=== PATIENT | female | born 1970 | race Caucasian/White ===

== ENCOUNTER 2017-05-12 09:45 | Day surgery (SDC) | payer OTHER, SELFPAY ==
[2017-05-10 16:18] LABS: Hematocrit 42.6 % (37-47); Hemoglobin 13.5 g/dl (12.0-15.0); Mean Corp Hgb Conc 31.7 g/gl (32-36); Mean Corpuscular Hgb 27.6 pg (27.0-32.0); Mean Corpuscular Volume 87.1 fL (81-99); Mean Platelet Vol. 9.9 fl (6.2-12.0); Platelet Count 244 K/mm3 (150-450); RBC Distribution Width CV 15.9 % (11.6-14.6); RBC Distribution Width SD 51.1 fl (35.1-43.9); Red Blood Count 4.89 M/mm3 (4.2-5.4); White Blood Count 11.7 K/mm3 (4.4-11.0)
[2017-05-10 16:28] LABS: Scan Indicated on CBC? Y/N NO
[2017-05-12 10:34] VITALS: BP 98/64; PULSE 82; RESP 16; TEMP 36.5; O2SAT 99; BMI 25.2
--- NOTE | 2017-05-12 12:30 | UTC_PTH ---
PATIENT: STEPHANIE SAMPSON [place] [facility] [place][id number] AGE/SX: 46/F ROOM: RE05/12/[address]: Dr. Alexus Jones MD : 1970 BED: DIS: 05/12/2017 SPEC #: [id number] RECD: 05/12/17 14:59 STATUS: ARISTEO EDILMA #: [id number] SHUKRI: 05/12/17 12:[address]: Alexus Jones DEPT: SURGICAL PATHOLOGY RECD BY: Kendall Robles ENTERED: 05/12/17 14:59 SP TYPE: OR REGINA AHUMADA DR: Thi Alonzo, MORNING NANNY-C Tissues: Uterine cervix, NOS Procedures: Surgery Specimen Level IV HEADER OPERATION: Hysteroscopy, dilation and curettage, Amy PRE-OP DIAGNOSIS: Excessive bleeding in premenopausal period TISSUE SUBMITTED: Uterine curettings MICROSCOPIC DIAGNOSIS Uterine curettings: Proliferative endometrium with glandular and stromal breakdown. Fragments of benign ecto- and endocervical mucosa with chronic inflammation and squamous metaplasia, blood and mucous. SCOTT:opal 05/13/17 MICROSCOPIC DESCRIPTION Slides are reviewed. GROSS DESCRIPTION Received in fixative is one container labeled with the patient's name and designated uterine curettings. The specimen consists of multiple irregular fragments of light carpenter soft tissue that in aggregate measure 2.2 x 1.5 x 0.1 cm. The specimen is totally submitted in one cassette. / AM:opal 05/12/17 TC:5 CPT: 07594
--- NOTE | 2017-05-12 12:32 | PCM.DC.D&C ---
Discharge Diet: No Restrictions Discharge Activity: May not drive while taking narcotic pain medications., May Shower, May Take a Tub Bath Return to work on:: 05/13/17 May resume sexual activity in: 1-2 weeks Weight Bearing Status: Weight bearing as tolerated Call your doctor if you observe: Fever of 101 or Higher, Inability to have a bowel movement, Calf discomfort, Uncontrolled pain Allergies/Adverse Reactions: Allergies Penicillins Allergy (Verified 05/05/17 11:35) Rash Medications to take at Discharge Losartan Potassium [Cozaar] 25 mg PO QHS 05/05/17 Metoprolol Tartrate [Lopressor (Beta Sherman)] 25 mg PO QHS 05/05/17 Oxycodone HCl/Acetaminophen [Percocet 5/325] 1 - 2 tablet PO Q4H PRN PRN 2 Days #7 tablet 05/12/17 The following prescriptions were given: Oxycodone HCl/Acetaminophen [Percocet 5/325] 1 - 2 tablet PO Q4H PRN PRN 2 Days #7 tablet PRN Reason: Pain Primary Care Physician: Thi Alonzo [Primary Care Provider] - Please Follow Up With: Alexus Jones MD - [phone] When: in 2 wks for postop check as scheduled
--- NOTE | 2017-05-12 12:37 | DCINST_ITS ---
Discharge Diet: No Restrictions Discharge Activity: May not drive while taking narcotic pain medications., May Shower, May Take a Tub Bath Return to work on:: 05/13/17 May resume sexual activity in: 1-2 weeks Weight Bearing Status: Weight bearing as tolerated Call your doctor if you observe: Fever of 101 or Higher, Inability to have a bowel movement, Calf discomfort, Uncontrolled pain Allergies/Adverse Reactions: Allergies Penicillins Allergy (Verified 05/05/17 11:35) Rash Medications to take at Discharge Losartan Potassium [Cozaar] 25 mg PO QHS 05/05/17 Metoprolol Tartrate [Lopressor (Beta Sherman)] 25 mg PO QHS 05/05/17 Oxycodone HCl/Acetaminophen [Percocet 5/325] 1 - 2 tablet PO Q4H PRN PRN 2 Days #7 tablet 05/12/17 The following prescriptions were given: Oxycodone HCl/Acetaminophen [Percocet 5/325] 1 - 2 tablet PO Q4H PRN PRN 2 Days #7 tablet PRN Reason: Pain Primary Care Physician: Thi Alonzo [Primary Care Provider] - Please Follow Up With: Alexus Jones MD - [phone] When: in 2 wks for postop check as scheduled
[2017-05-12] MEDS: Lubricating Jelly 60 GM Tube 30 GM TOPICAL (12:45)
[2017-05-12 13:11] VITALS: BP 110/63; BP 98/64; PULSE 80; RESP 16; TEMP 36.3; O2SAT 96
[2017-05-12 13:15] VITALS: BP 107/73; BP 98/64; PULSE 78; RESP 16; O2SAT 95
[2017-05-12 13:20] VITALS: BP 113/63; BP 98/64; PULSE 80; RESP 16; O2SAT 95
[2017-05-12 13:25] VITALS: BP 109/65; BP 98/64; PULSE 82; RESP 16; TEMP 36.6; O2SAT 96
[2017-05-12 13:55] VITALS: BP 98/64
--- NOTE | 2017-05-12 20:32 | PCM.OP.BLANK ---
Problem List (1) Excessive bleeding in premenopausal period Status: Chronic (2) Uterine fibroid Status: Chronic Qualifiers: Uterine leiomyoma location: submucous Qualified Code(s): D25.0 - Submucous leiomyoma of uterus Operative Report Date of Procedure: 05/12/17 PROCEDURE: Hysteroscopy Dilation and Curettage Amy Endometrial Ablation PREOPERATIVE DIAGNOSIS: Excessive bleeding in premenopause Uterine fibroid POSTOPERATIVE DIAGNOSIS: Excessive bleeding in premenopause Uterine fibroid ANESTHESIA: MAC IV sedation per [facility]AN [place] and Da Oliver MD SURGEON: Alexus Jones MD EBL: minimal COMPLICATIONS: None DRAINS: Red Ackerman catheter used to drain bladder prior to initiation of the case FLUIDS: LR replacement FINDINGS: Uterus is 8 cm with 4 cm endometrial cavity. Atrophic appearing endometrium noted with a small submucous fibroid at anterior lower uterine segment on the L side. Both tubal ostia noted. NARRATIVE ACCOUNT: After the risks, benefits, alternatives of the procedure had been reviewed with the patient informed consent was obtained. The patient was taken to the operating room with an IV running and was place in dorsal supine position on the operating table. She was given IV sedation and then repositioned to the dorsal lithotomy position and prepped and draped in the usual sterile fashion. A red robins catheter was used to drain the bladder. A Graces speculum was placed into the vagina and ta paracervical block of 1% lidocaine was placed at the 10:00; 2:00: 6:00; and 8:00 positions. A single toothed tenaculum was then placed at the anterior lip of the cervix. The uterus was sounded to 8 cm and the endocervical canal 4 cm, giving cavity length of 4 cm. The cervix was sequentially dilated to allow admission of the hysteroscope. The hysteroscopy was then performed with the findings noted above. Both tubal ostia were visualized and a small submucous fibroid was noted at the L anterior lower uterine segment. The hysteroscope was withdrawn. A sharp curettage was performed and minimal curettings were withdrawn and set aside for later pathology review. The Amy ablation device was then placed into the uterus to the fundus. The device was opened and seated into place and the balloon was inflated, sealing off the cervix. The CO2 test was passed times two and a 120 second treatment cycle was then successfully completed. Upon completion of the ablation, the Amy device was removed from the uterus and cervix. The tenaculum was removed from the anterior lip of the cervix. Excellent hemostasis was noted. The Graves speculum was removed from the vagina and the patient was returned to dorsal supine position. she was transferred then to the recovery room in stable condition after tolerating the procedure well. Sponge, needle, and instrument counts were correct times two. Medications given intraop included a paracervical block of 10 cc of 1% lidocaine and Toradol 30 mg IV x one. For a complete listing of the medications given preop and intraoperatively, please see the anesthesia record.
== END 2017-05-12 13:55 | disposition home or self-care (01) ==
LOC: SDC 09:45 → AC 10:53
PROVIDERS: Family Provider Nurse Practitioner; PCP Nurse Practitioner; Visit Provider Obstetrics & Gynecology
PROC: 0UDB8ZZ Extraction of Endometrium, Via Natural or Artificial Opening Endoscopic (ICD-10-PCS; CPT 58558; principal; 2017-05-12 12:15)
DX: N71.9 Inflammatory disease of uterus, unspecified (principal); N87.9 Dysplasia of cervix uteri, unspecified; D25.0 Submucous leiomyoma of uterus; I10 Essential (primary) hypertension; F17.200 Nicotine dependence, unspecified, uncomplicated; Z79.899 Other long term (current) drug therapy
CPT/HCPCS: 00952; 58558; 58999; 36415; 84443; 85027; 88305; J7120

== ENCOUNTER → 2017-07-02 13:33 | Outpatient (CLI) | payer OTHER, SELFPAY ==
--- NOTE | 2017-07-02 13:34 | BI_ITS ---
MAMMOGRAPHY - BILATERAL SCREENING REASON FOR EXAM: Female, 47 years old. Routine annual screening examination. PERTINENT HISTORY: Non-contributory. TECHNIQUE: Digital bilateral breast graeme (3D mammographic acquisition) in the CC and MLO projections. 2-D mediolateral oblique (MLO) and craniocaudad (CC) views of both breasts were obtained. CAD: Full Field Digital Mammography with Computer Added Detection was performed. COMPARISON: Comparison is made with prior study dated March 25, 2016 and November 28, 2014. FINDINGS: Breast Composition: The breasts are heterogeneously dense, which may obscure small masses. There are no dominant masses or suspicious calcifications. A tissue clip marker is seen in the upper outer quadrant of the right breast and compared with prior biopsy. No other significant abnormalities are identified. There has been no significant change since the prior study. BI/SCREENING MAMM (CAD), BILAT IMPRESSION: Stable bilateral screening mammogram. Yearly follow-up mammogram recommended. (A) ASSESSMENT CATEGORY: BIRADS Category 2: Benign. A letter regarding these results will be sent to the patient by the facility within 30 days. Approximately 10% of breast cancers are not detected by mammography. A normal mammogram should not delay biopsy of a clinically suspicious abnormality. [id number] Electronically Signed: Virgilio Hill MD at 15:03 EDT Tel [phone], Service support ,
== END ==
PROVIDERS: Family Provider Nurse Practitioner; PCP Nurse Practitioner; Visit Provider Nurse Practitioner
DX: Z12.31 Encounter for screening mammogram for malignant neoplasm of breast (principal)
CPT/HCPCS: 77063; 77067

== ENCOUNTER → 2018-07-04 | Outpatient (CLI) | payer OTHER, SELFPAY ==
--- NOTE | 2018-07-04 10:22 | CT_ITS ---
STUDY: CT ABDOMEN AND PELVIS WITH CONTRAST REASON FOR EXAM: Female, 48 years old. Abdominal pain. RADIATION DOSAGE (If Supplied By Facility): CTDIvol = ( 13.12 ) mGy, DLP = ( 486.52 ) mGycm TECHNIQUE: Transaxial images were obtained from the dome of the diaphragm to the symphysis pubis without oral contrast. 100 IV/Oral Isovue 370 was administered. Sagittal and coronal images were reconstructed. Individualized dose optimization techniques were used for this CT. COMPARISON: None. FINDINGS: The visualized lung bases are unremarkable. The visualized portions of the heart are within normal limits. There is decreased attenuation of the liver consistent with steatosis. Normal gallbladder and extrahepatic biliary system. Normal spleen. Normal pancreas. Normal bilateral adrenal glands. Normal right kidney. Normal left kidney. Normal visualized stomach. Normal small intestine. Normal colon. The appendix is visualized and appears normal. There is scattered atherosclerotic calcification of the abdominal aorta, without a demonstrated aneurysm. Normal inferior vena cava. There is borderline retroperitoneal lymphadenopathy with enlarged nodes no greater than 10mm in the short axis diameter. Normal urinary bladder. There is a 2.1 cm x 1.7 cm cyst in the left ovary. There is thickening of the endometrium measuring 3 cm. The endometrium is fluid-filled. There is evidence of prior tubal ligation with anna. There is a mild dilatation of the proximal portions of the fallopian tubes bilaterally. Normal abdominal wall. Normal osseous structures. CT/Abdomen/Pelvis WITH Contrast IMPRESSION: 2.1 cm x 1.7 cm cyst in the left ovary. Fluid filled and thickened endometrium measuring 3 cm. Prior bilateral tubal ligation. Fatty infiltration of the liver. Electronically Signed: Virgilio Hill, at 13:51 EDT , Service support ,
[2018-07-04 10:32] LABS: Absolute Lymphocyte Count 1.46 X10^3/ul (0.83-4.51); Absolute Neutrophil Count 6.2 X10^3/uL (2.0-7.7); Basophil# 0.04 X10^3/uL; Basophil% 0.5 % (0-1); Eosinophil# 0.27 X10^3/uL; Eosinophils% 3.2 % (0-5); Hematocrit 49.6 % (37-47); Hemoglobin 16.6 g/dl (12.0-15.0); Lymphocyte # 1.46 X10^3/ul (4.0); Lymphocyte % 17.2 % (19-41); Mean Corp Hgb Conc 33.5 g/gl (32-36); Mean Corpuscular Hgb 32.7 pg (27.0-32.0); Mean Corpuscular Volume 97.8 fL (81-99); Mean Platelet Vol. 9.6 fl (6.2-12.0); Monocyte# 0.49 X10^3/uL; Monocyte% 5.8 % (0-10); Neutrophil # 6.21 X10^3/uL (2.7-7.7); Neutrophil % 72.8 % (47-70); Platelet Count 236 K/mm3 (150-450); RBC Distribution Width CV 13.7 % (11.6-14.6); Red Blood Count 5.07 M/mm3 (4.2-5.4); White Blood Count 8.5 K/mm3 (4.4-11.0)
[2018-07-04 10:33] LABS: POSITIVE COUNT NO; POSITIVE DIFFERENTIAL NO; POSITIVE MORPHOLOGY NO
[2018-07-04 10:59] LABS: ALB/GLOB Ratio 1.1 RATIO (0.9-2.4); AST(SGOT) 14 U/L (15-37); Alanine Aminotransfer ALT/SGPT 25 U/L (13-56); Albumin, Serum 3.8 g/dL (3.2-5.0); Alkaline Phosphatase 63 U/L (45-117); Anion Gap 2 (5-15); BUN 12 mg/dL (7-18); BUN/Creat Ratio 14.9 RATIO (10-20); Calcium,Total 8.4 mg/dL (8.5-10.1); Chloride 110 mmol/L (98-107); EST Glomerular Filtration Rate 81 mL/min (>60); Est Glom Filt Rate - Afr Amer 98 mL/min (>60); Globulin 3.6 g/dL (2.2-4.2); Glucose 134 mg/dL (74-106); Potassium 4.3 mmol/L (3.5-5.1); Protein, Total 7.4 g/dL (6.4-8.2); Sodium Level 139 mmol/L (136-145)
== END | disposition home or self-care (01) ==
PROVIDERS: Family Provider Nurse Practitioner; PCP Nurse Practitioner; Referring Provider Nurse Practitioner Gerontology; Visit Provider Nurse Practitioner Gerontology
DX: R10.9 Unspecified abdominal pain (principal)
CPT/HCPCS: 36415; 74177; 80053; 85025; Q9967

== ENCOUNTER → 2018-09-05 | Outpatient (CLI) | payer OTHER, SELFPAY ==
--- NOTE | 2018-09-05 15:38 | BI_ITS ---
MAMMOGRAPHY - BILATERAL SCREENING REASON FOR EXAM: Female, 48 years old. Routine annual screening examination. PERTINENT HISTORY: Non-contributory. Remote right breast needle biopsy. TECHNIQUE: Digital bilateral breast david (3D mammographic acquisition) in the CC and MLO projections. 2-D mediolateral oblique (MLO) and craniocaudad (CC) views of both breasts were obtained. CAD: Full Field Digital Mammography with Computer Added Detection was performed. COMPARISON: Comparison is made with prior study dated July 02, 2017 and March 25, 2016. FINDINGS: Breast Composition: The breasts are heterogeneously dense, which may obscure small masses. There are no dominant masses or suspicious calcifications. A tissue clip marker is once again seen in the upper outer quadrant of the right breast. No other significant abnormalities are identified. There has been no significant change since the prior study. BI/SCREEN MAMM (CAD) W/DAVID BILAT IMPRESSION: Stable bilateral screening mammogram. Yearly follow-up mammogram recommended. (A) ASSESSMENT CATEGORY: BIRADS Category 2: Benign. A letter regarding these results will be sent to the patient by the facility within 30 days. Approximately 10% of breast cancers are not detected by mammography. A normal mammogram should not delay biopsy of a clinically suspicious abnormality. [id number] Electronically Signed: Virgilio Hill, at 8:28 EDT , Service support ,
== END | disposition home or self-care (01) ==
LOC: OPBI 15:35
PROVIDERS: Family Provider Nurse Practitioner; PCP Nurse Practitioner; Referring Provider Nurse Practitioner; Visit Provider Nurse Practitioner
DX: Z12.31 Encounter for screening mammogram for malignant neoplasm of breast (principal)
CPT/HCPCS: 77063; 77067

== ENCOUNTER 2018-09-28 10:47 | Day surgery (SDC) | payer OTHER, SELFPAY ==
[2018-09-23 15:25] LABS: Hematocrit 49.3 % (37-47); Hemoglobin 16.1 g/dl (12.0-15.0); Mean Corp Hgb Conc 32.7 g/gl (32-36); Mean Corpuscular Hgb 31.9 pg (27.0-32.0); Mean Corpuscular Volume 97.8 fL (81-99); Mean Platelet Vol. 10.2 fl (6.2-12.0); Platelet Count 206 K/mm3 (150-450); RBC Distribution Width CV 13.9 % (11.6-14.6); RBC Distribution Width SD 49.8 fl (35.1-43.9); Red Blood Count 5.04 M/mm3 (4.2-5.4); White Blood Count 8.1 K/mm3 (4.4-11.0)
[2018-09-23 15:30] LABS: International Normalized Ratio 0.9; Prothrombin Time (Protime)PT. 11.9 SECONDS (11.7-14.9)
[2018-09-23 15:31] LABS: Partial Thromboplast Time 27.3 Seconds (24.1-36.2)
[2018-09-23 15:47] LABS: Scan Indicated on CBC? Y/N NO
--- NOTE | 2018-09-24 00:24 | PCM.HPOB.BLA ---
History and Physical Date of Admission: 09/28/18 PREOPERATIVE HISTORY AND PHYSICAL HISTORY OF PRESENT ILLNESS: Virginia Vasquez, a 48 year old female 3 0 0 0 3, presented for: -- Pre-Op Virginia is being seen for pre op visit. Pt to have LAVH/BS with Dr. Jones on 09-28-18. Medications and allergies are up to date. Consents signed and reviewed for surgery. Pt has no new concerns. AM As above. Here for PAT /preop appt prior to planned LAVH, bilateral salpingectomy for postablative syndrome. Pt with prior endometrial ablation and now recurrent severe cramping pain without bleeding. Pelvic sono on 08/26/2018: UTERUS: 9.8 x 7.2 x 5.2 cm. ENDOMETRIAL ECHO: Fluid/blood filled measuring 2.3 cm. RIGHT OVARY: 2.5 x 1.2 x 1.4 cm. LEFT OVARY: Not seen. FREE FLUID: NONE. OTHER PERTINENT FINDINGS: fluid within endometrial canal, and dilated Fallopian tubes. Reviewed anticipated surgery and all questions re surgical procedure and recovery answered to her satisfaction. Consents signed and on chart. EB ALLERGIES: Penicillins, Rash MEDICATIONS HISTORY: Patient is also takin. metformin ER 500 mg tablet,extended release 24hr, 1 PO QD REVIEW OF SYSTEMS: GENERAL - Denies fever, or chills SKIN - Denies skin changes EYES - Denies visual changes EARS - Denies difficulty hearing NOSE - Denies nasal congestion or bleeding MOUTH - Denies sore throat or difficulty swallowing NECK - Denies pain or swelling RESPIRATORY - Denies shortness of breath or wheezing CARDIOVASCULAR - Denies palpitations or chest pain GASTROINTESTINAL - Denies nausea, vomiting, diarrhea, constipation GENITOURINARY - Denies dysuria, frequency of urination, incontinence of urine MUSCULOSKELETAL - Denies joint or muscle pain NEUROLOGICAL - Denies localized numbness or weakness PSYCHIATRIC - Denies depression or anxiety ENDOCRINE - Denies heat or cold intolerance, weight loss or gain HEMATO-IMMUNOLOGIC - Denies excessive bleeding with cuts SURGICAL HISTORY: 1. 05/12/2017 hysteroscopy, D and C, Amy Jones M.D. 2. endometrial ablation 3. tubal, 1995 MENSTRUAL HISTORY: LMP Known?- Amy, LMP - 05/07/17, Age Onset Menarche - 14 FAMILY HISTORY: Father - Type 2 Diabetes; Father - FH: Hypertension; Mother - FH: Hypertension; SOCIAL HISTORY: Alcohol Use - RARELY Smoking - 1PPD and ATQ! 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 Illicit Drug Use - denies use of street drugs Sexual Activity - Hours Worked - 40+ Spouse-Sig Other Name - Shon Spouse-Sig Other Occupation - [employer] Children Name(s) - Noé, Alea, Herminia Control - tubal PHYSICAL EXAMINATION BP- 130/90 Sitting, Right arm, regular cuff Temp- 98.4 Taken Orally Weight- 143.00 lbs Height- 63.50 inch BMI:24.99 CONSTITUTIONAL - NAD, well nourished, and well developed HEENT - Normocephalic, PERRLA, EOMI NECK - no nuchal rigidity EXTREMITIES - No edema or calf tenderness NEUROLOGICAL - Cranial nerves II-XII grossly intact PSYCHIATRIC - A and O to time, place, person, mood and affect ASSESSMENT: 1. Unspecified Ovarian Cyst, Unspecified Side 2. Endometrial Hyperplasia, Unspecified 3. Hematometra 4. Abnormal Findings On Diagnostic Imaging Of Other Specified Body Structures PLAN BY DIAGNOSIS: 1. Abnormal Findings On Diagnostic Imaging Of Other Specified Body Structures and Hematometra Endometrial stripe thickened and bilateral proximal hydrosalpinx noted S/P BTO, hysteroscopy, D and C and endometrial ablation. Findings are consistent with hematometra, hemosalpinx and POSTABLATIVE syndrome Advised LAVH, bilateral salpingectomy. with plan to leave ovaries in place. R,B,A of LAVH, Bilateral salpingectomy reviewed. Discussed anticipated preop, operative and postop recovery courses. All questions answered. Consents signed and on chart. RTO in 2 wk after surgery for initial postop check up. The visit was approximately 20 minutes in length with most of the time spent in discussion and counseling. 2. Unspecified Ovarian Cyst, Unspecified Side Reviewed records Follicular cyst noted, a normal finding at her age Recommend repeat pelvic sono in 2 mo to recheck ovary and small follicle. Will check ovary at laparoscopy to evaluate by direct visualization.
[2018-09-28] VITALS (13 sets, daily range): BP systolic 85–125; BP diastolic 49–73; PULSE 62–90; RESP 16; TEMP 36.2–37; O2SAT 92–99; BMI 25.7
--- NOTE | 2018-09-28 13:00 | HYST_PTH ---
PATIENT: STEPHANIE SAMPSON LOC: [facility] – [place] U#:[id number] AGE/SX: 48/F ROOM: RE09/28/[address]: Dr. Alexus Jones MD : 1970 BED: DIS: 09/29/2018 SPEC #: [id number] RECD: 09/28/18 16:32 STATUS: ARISTEO REFlo #: [id number] SHUKRI: 09/28/18 13:[address]: Alexus Jones DEPT: SURGICAL PATHOLOGY RECD BY: Seng Peralta ENTERED: 09/29/18 10:52 SP TYPE: HYSTERECT OTHR DR: Thi Alonzo, CURING MACHINE OPERATOR-C Tissues: Uterus, NOS Procedures: Surgery Specimen Level V HEADER OPERATION: Lap-assisted vaginal hysterectomy, salpingectomy PRE-OP DIAGNOSIS: Left ovarian cyst; endometrial hyperplasia TISSUE SUBMITTED: Uterus, cervix, bilateral fallopian tubes MICROSCOPIC DIAGNOSIS Uterus, cervix, bilateral fallopian tubes, vaginal hysterectomy and bilateral salpingectomy: Cervix - mild chronic cystic cervicitis with tunnel cluster formation and squamous metaplasia. Endometrium - focal area with proliferative endometrium. - Focal area of hemorrhage consistent with status post endometrial ablation. See comment. Myometrium - focal adenomyosis. Bilateral fallopian tubes - focal hematosalpinx, status post tubal occlusion. SJ:rg 09/30/18 COMMENT Minimal amount of endometrium is noted. Please make reference to previous specimen ([id number]) uterine curettings with diagnosis of proliferative endometrium with glandular and stromal breakdown. MICROSCOPIC DESCRIPTION Slides are reviewed. GROSS DESCRIPTION Received in fixative is one container labeled with the patient's name and designated uterus, cervix, bilateral fallopian tubes. The specimen consists of a hysterectomy specimen in multiple pieces consisting of portion of body of uterus including fundus and attached bilateral fallopian tubes, detached piece of uterus and detached cervix. The specimen cannot be oriented due to fragmented nature of the specimen. The uterus with cervix weighs in aggregate 147 gm. The detached cervix measures 5 x 4 cm and up to 3.5 cm in length. The serosal surface is carpenter, glistening. The ectocervical mucosa is unremarkable. The external os is slit-like in contour. The endocervical canal measures 3 cm in length and the endocervical mucosa is carpenter, glistening and unremarkable. The largest piece of body of the uterus measures 7 x 4 x 5 cm. A portion of endometrial cavity is noted which measures 2.5 cm in length and 3 cm in width. It appears to be irregular. No mass lesion is identified. The endometrium measures up to 0.1 cm in thickness. Three detached pieces of uterus measure in aggregate 6 x 5 x 3 cm. Sections of the uterine wall and detached pieces of uterus do not reveal any mass lesion. The uterine wall measures up to 2.5 cm in thickness. The fallopian tubes could not be oriented due to fragmented nature of the specimen. One of the fallopian tubes measure 6.5 cm in length and up to 0.6 cm in diameter. The fimbrial end is identified. A Filshie clip is noted in the center portion of the specimen which appears intact. The proximal portion of the fallopian tube shows the lumen appears to be filled with a small amount of blood clot. The second fallopian tube measures 6.5 cm in length and 0.5 to 1 cm in diameter. It has a similar appearance to the other fallopian tube. The second fallopian tube also shows a Filshie clip which appears intact. Loader sections are submitted in nine cassettes as follows: 1 & 2 - cervix, 3-6 - uterine wall including endometrium, largest piece of uterus, 7 - detached piece of uterus, 8?&?9 - bilateral fallopian tubes with each cassette containing one fallopian tube. / SCOTT:opal 09/29/18 TC:5 CPT: 03285
--- NOTE | 2018-09-28 13:17 | DCINST_ITS ---
Discharge Diet: No Restrictions Discharge Activity: May not drive while taking narcotic pain medications., May Shower, May Take a Tub Bath Return to work on:: 11/14/18 May resume sexual activity in: 4-6 weeks Additional Activity Instructions:: No lifting more than 20 # for 4-6 wk to allow healing. Nothing in vagina for 4-6 wk to allow healing. May resume walking, stairs and other compensation adjuster activity as comfortable starting on the day after surgery. Call your doctor if you observe: Fever of 101 or Higher, Inability to have a bowel movement, Using more than one pad per hour, Uncontrolled pain Change Dressing in (Days):: 7 Remove Dressing in (days):: 7 Cleanse incision/area with: Soap & Water, Keep Dressing Clean & Dry Allergies/Adverse Reactions: Allergies Penicillins Allergy (Verified 09/28/18 11:18) Rash Medications to take at Discharge Losartan Potassium [Cozaar] 25 mg PO QHS 05/05/17 Metoprolol Tartrate [Lopressor (Beta Sherman)] 25 mg PO QHS 05/05/17 Docusate Sodium [Colace] 100 mg PO BID #30 cap 09/28/18 Naproxen [Naprosyn] 250 - 500 mg PO TID PRN PRN #30 tab 09/28/18 Oxycodone [Oxyir] 5 mg PO Q6H PRN PRN 4 Days #15 tablet 09/28/18 Polyethylene Glycol 3350 [Miralax] 17 gm PO DAILY PRN #14 packet 09/28/18 The following prescriptions were given: Docusate Sodium [Colace] 100 mg PO BID #30 cap Transmission Status: Pending to [facility] Polyethylene Glycol 3350 [Miralax] 17 gm PO DAILY PRN #14 packet PRN Reason: Constipation Transmission Status: Pending to [facility] Naproxen [Naprosyn] 250 - 500 mg PO TID PRN PRN #30 tab PRN Reason: Mild-Mod Pain (1-07/29) Transmission Status: Pending to [facility] Oxycodone [Oxyir] 5 mg PO Q6H PRN PRN 4 Days #15 tablet PRN Reason: Mod-Severe Pain (-12/29) Transmission Status: Sent to [facility] Primary Care Physician: Ciesa,Thi, SENIOR SAFETY SUPPORT MANAGER-C [Primary Care Provider] - Test Results: Test results from this visit will be discussed in further detail at your follow- up appointment, if applicable. Please Follow Up With: Alexus Jones MD - [phone] When: for postoperative check up as scheduled. Proposed Discharge Date: 09/29/18
[2018-09-28] MEDS: Bupiv/Epi 0.5% Mpf 30 ML Vial (13:39)
[2018-09-28] MEDS: Lactated Ringers 1,000 ML 125 ML IV (15:45)
[2018-09-28] MEDS: Ketorolac 15 MG/ML Vial 30 MG IV ×2 (18:35→23:37)
--- NOTE | 2018-09-28 22:03 | PCM.OPRPT ---
Report of Operation Date of Procedure: 09/28/18 Pre-Operative Diagnosis: Chronic pelvic pain. Hematometra, hydrosalpinges/hematosalpinges. Post ablative syndrome Post-Operative Diagnosis: Same Surgery/Procedure Performed:: Laparoscopic assisted vaginal hysterectomy, Bilateral salpinectomy Description of Surgical Findings:: Findings: On exam under anesthesia, the cervix is minimally prolapsed. At Laparoscopy: the uterus is normal in appearance,. Prior BTO, Filshie clips in place with minimal adhesions of omentum / bowel epiploicae to Filshie clips. The proximal fallopian tubes are dilated bilaterally. There are normal appearing distal fallopian tubes and ovaries bilaterally. Gross inspection of the bowel , liver edge, omentum are within normal limits garage mechanic: Yaima Kate garage mechanic: Paul Silver Type of Anesthesia:: General Anesthesiologist: Duc Finn CRNA Specimen's removed: Morecellated uterus with cervix, bilateral fallopian tubes. Submucous fibroid noted at uterine fundus Drains: Gentile Estimated Blood Loss (mL): 100 Fluids Replaced: LR Description of Procedure: Narrative account: After the risks, benefits and alternatives of the procedure were reviewed with the patient , informed consent was obtained. The patient was taken to the Operating room with an IV running . She was positioned in the dorsal supine position on the operating table and given general anesthesia. Once asleep she was positioned to the dorsal lithotomy position with the arms tucked at the sides and prepped and draped in the usual sterile fashion. A Gentile catheter was inserted to drain the bladder. The weighted speculum was placed into the vagina and a single tooth tenaculum was placed at the cervix. A Manny cannula was inserted into the cervix and secured into placed with the single - toothed tenaculum. Attention was then turned to the anterior abdominal wall. the polishing machine operator's gloved were changed and skin incisions were created at the infraumbilical and suprapubic skin and at a point approximately prison between the suprapubic and infraumbilical skin incisions. Local anesthesia was used to infiltrate the skin where the trocar incision sites were created. A transverse 5 mm infraumbilical skin incision , a transverse 5 mm suprapubic incision and an transverse 5 mm midline incision were created. A Veress needle was inserted in to the peritoneal cavity at the infraumbilical skin incision while maintaining upward traction of the anterior abdominal wall at the umbilicus. There was free drop of saline, free flow of CO2 and low opening pressure noted. Once the intraabdominal pressure had reached approximately 15 mm HG, the Veress needle was removed and a bladeless 5 mm trocar was inserted into the peritoneal cavity. Correct placement was confirmed using the laparoscope. Under direct visualization the other two 5 mm bladeless trocars were inserted into the peritoneal cavity. The fallopian tubes were retracted medially and using a LigaSure device the fallopian tube was divided from the ovary and the mesosalpinx, leaving the fallopian tube free at each side of the uterus other than the attachment to the uterus. The uteroovarian pedicles were then divided using a [place] LigaSure device. The broad ligament was then divided down to the level of the round ligament on both sides. At this point the laparoscopic portion of the case was completed. The trocars were left in place, but the instruments were removed and gas turned off. A sterile drape was used to cover the abdomen. Attention was then turned to the vaginal portion of the case. The Manny cannula was removed and the single toothed tenaculum repositioned on the cervix. The cervical mucosal was then incised circumferentially using Bovie cautery and a knife. The posterior cul de sac was entered by sharp dissection with Perdomo scissors and a weighted speculum was placed into the posterior cul se sac. Dissection then was initiated at the anterior cervix to enter the anterior cul se sac. The uterosacral ligaments were clamped bilaterally with curved Vijaya clamps and the pedicles divided and suture ligated and tagged for later identification. Next the cardinal ligament was clamped bilaterally and divided and suture ligated. Adequate hemostasis was noted. The anterior cul de sac peritoneum was then entered by sharp dissection and a narrow [place] retractor was placed into the anterior cul de sac to retract the bladder out of harm's way for the remainder of the case. The uterine arteries were clamped bilaterally , divided and suture ligated. At this point little descensus was noted , and morcellation was begun. Each section was removed by using either the knife or a Perdomo scissors. The cervix and sequential portions of the lower uterine segment anteriorly and posteriorly were removed and set aside. Dissection then continued along each side of the uterus. Each pedicle was secured with a Vijaya clamp, divided and suture ligated until ultimately the uterine fundus was reached. The superior pedicles on each side were secured with a curved Vijaya clamp and the remaining uterus and attached fallopian tubes were surgically amputated and set aside. The superior pedicle was then suture ligated, then free tied and tagged for identification. The superior pedicles were dry. There was bleeding noted along the posterior vaginal cuff and the posterior cul de sac peritoneum was reapproximated with the posterior vaginal cuff mucosa using a running locked suture of 1 Vicryl. Excellent hemostasis was then noted at the posterior cuff . The peritoneum was then closed with a running purse string suture of 1 Vicryl, incorporating the superior pedicles and uterosacral ligament tags. Excellent hemostasis was noted. The vaginal cuff was then reapproximated using interrupted and figure of eight stitches of 1 Vicryl. Excellent hemostasis was noted. The Gentile was opened and clear yellow urine returned. A second look was performed with the laparoscope: excellent hemostasis was noted at all pedicles and at the vaginal cuff. Svitlana was sprayed along the cuff and pedicles for additional hemostasis. The pneumoperitoneum was reduced and all instruments and trocars were removed. The skin incisions were closed with 4-0 Monocryl in a subcuticular fashion. Sterile dressings were applied. (steristrips and op sites). The Gentile bag was then attached. The patient was returned to dorsal supine position and awakened from general anesthesia. She was then transferred to the recovery room bed in stable condition after tolerating the procedure well. Sponge, lap, needle and instrument counts correct times two. Medications given preop and intraoperatively included: Cefotetan 2 gm IV was given director of optimization to the operating room , 10 cc of 1/4% Marcaine with 1/200,00 epinephrine was used as a subcutaneous injection at the trocar skin incision sites, and Toradol 30 mg IV x one was given. For a complete listing of medications given preop and intraoperatively, please see the anesthesia record. Grafts/Implants Used: none - Complications none - Admit VTE Documentation VTE Present on Admission: No VTE Mechan Device Prophylaxis: SCD's VTE Pharm Prophylaxis ordered?: Yes
[2018-09-28] MEDS: Docusate Sodium 100 MG Capsule PO (22:10)
[2018-09-28] MEDS: Losartan Potassium 25 MG Tablet PO (22:10)
[2018-09-28] MEDS: Metoprolol Tartrate 25 MG Tablet PO (22:10)
[2018-09-28] MEDS: Acetaminophen 500 MG Tablet 1000 MG PO (22:16)
[2018-09-29 04:00] VITALS: BP 115/67; PULSE 71; RESP 16; TEMP 36.8; O2SAT 96
[2018-09-29 06:01] LABS: Hematocrit 43.1 % (37-47); Hemoglobin 14.2 g/dl (12.0-15.0); Mean Corp Hgb Conc 32.9 g/gl (32-36); Mean Corpuscular Hgb 31.6 pg (27.0-32.0); Mean Platelet Vol. 9.7 fl (6.2-12.0); Platelet Count 179 K/mm3 (150-450); RBC Distribution Width CV 13.8 % (11.6-14.6); RBC Distribution Width SD 48.6 fl (35.1-43.9); Red Blood Count 4.49 M/mm3 (4.2-5.4); White Blood Count 21.6 K/mm3 (4.4-11.0)
[2018-09-29 06:18] LABS: Creatinine, Serum 0.69 mg/dL (0.55-1.02); EST Glomerular Filtration Rate 96 mL/min (>60); Est Glom Filt Rate - Afr Amer 116 mL/min (>60); Estimated Creatinine Clearance 82.48 ml/min; Scan Indicated on CBC? Y/N NO
[2018-09-29] MEDS: Ketorolac 10 MG Tablet PO (06:29)
[2018-09-29 07:48] VITALS: BP 119/72; PULSE 71; RESP 16; TEMP 36.7; O2SAT 96
--- NOTE | 2018-09-29 08:00 | PCM.PROGNOTE ---
Subjective: POD#1 LAVH, BSO. lysis of adhesions Doing well. No N/V Tolerating PO well. Has been up to urinate 3 times since Gentile removed. Ready to go home. Pain control adequate last night with IV Toradol and with Tylenol PO - Physical Exam General: Alert, Oriented x3, Cooperative, No apparent distress HEENT: Atraumatic, EOMI Neck: Supple Abdomen: Soft, Non Tender Skin: Incision - Op sites at L/S incisions with old drainage noted. No active bleeding. Dry Intact Neurological: Cranial nerves II-XII grossly intact Psych/Mental Status: Normal Affect Vital Signs Temp Pulse Resp BP Pulse Ox 98.1 F 71 16 119/72 96 /02/07 07:48 09/29/18 07:48 09/29/18 07:48 09/29/18 07:48 09/29/18 07:48 Oxygen Delivery Method Room Air Weight: 65.9 kg Body Mass Index (BMI) 25.7 Intake and Output for Last 24 Hours 07//09/28/18 09/29/18 23:59 23:59 23:59 Intake Total 2380 / 2380 2446 / 2446 Output Total 1270 / 1270 1500 / 1500 Balance 1110 / 1110 946 / 946 Laboratory Tests Past 24 Hrs 09/29/18 09/29/18 05:50 05:50 WBC 21.6 H RBC 4.49 Hgb 14.2 Hct 43.1 MCV 96.0 MCH 31.6 MCHC 32.9 RDW 13.8 RDW Differential 48.6 H Plt Count 179 MPV 9.7 Creatinine 0.69 Estim Creat Clear Calc 82.48 Est GFR (MDRD) Af Amer 116 Est GFR (MDRD) Non-Af 96 Medical Necessity - Tobacco Use Smoking Status: Current every day smoker Assessment/Plan POD#1 LAVH, Bilateral salpingectomy Stable postop. Dischg home today. Dischg instructions given. Reviewed surgical findings. RTO as planned for postop check up.
== END 2018-09-29 08:17 | disposition home or self-care (01) ==
LOC: SDC 10:48 → AC 10:51 → MS3 09-29 06:45
PROVIDERS: Family Provider Nurse Practitioner; PCP Nurse Practitioner; Referring Provider Obstetrics & Gynecology; Visit Provider Obstetrics & Gynecology
PROC: 0UT9FZZ Resection of Uterus, Via Natural or Artificial Opening With Percutaneous Endoscopic Assistance (ICD-10-PCS; CPT 58552; principal; 2018-09-28 12:35)
DX: N72 Inflammatory disease of cervix uteri (principal); N87.9 Dysplasia of cervix uteri, unspecified; N80.0 Endometriosis of uterus; N85.7 Hematometra; I10 Essential (primary) hypertension; F17.210 Nicotine dependence, cigarettes, uncomplicated; Z79.84 Long term (current) use of oral hypoglycemic drugs; Z79.899 Other long term (current) drug therapy
CPT/HCPCS: 58552; 36415; 82565; 85027; 85610; 85730; 86850; 86900; 88307; 99406; J7120; J2405

== ENCOUNTER → 2019-05-23 | Outpatient (CLI) | payer OTHER, SELFPAY ==
[2018-09-28 11:20] VITALS: BMI 25.7
[2019-05-23 07:37] LABS: Absolute Lymphocyte Count 1.93 X10^3/uL (0.83-4.51); Absolute Neutrophil Count 7.1 X10^3/uL (2.0-7.7); Basophil# 0.08 X10^3/uL; Basophil% 0.8 % (0-1); Eosinophil# 0.37 X10^3/uL; Eosinophils% 3.5 % (0-5); Hematocrit 50.9 % (37-47); Hemoglobin 16.9 g/dL (12.0-15.0); Lymphocyte # 1.93 X10^3/ul (4.0); Lymphocyte % 18.5 % (19-41); Mean Corp Hgb Conc 33.2 g/dL (32-36); Mean Corpuscular Hgb 32.1 pg (27.0-32.0); Mean Corpuscular Volume 96.6 fL (81-99); Mean Platelet Vol. 9.9 fl (6.2-12.0); Monocyte# 0.88 X10^3/uL; Monocyte% 8.4 % (0-10); NRBC Flagged by Analyzer 0 % (0-5); Neutrophil # 7.07 X10^3/uL (2.7-7.7); Neutrophil % 67.7 % (47-70); Platelet Count 205 K/mm3 (150-450); RBC Distribution Width SD 49.3 fl (35.1-43.9); Red Blood Count 5.27 M/mm3 (4.2-5.4); White Blood Count 10.4 K/mm3 (4.4-11.0)
[2019-05-23 08:11] LABS: ALB/GLOB Ratio 1.1 RATIO (0.9-2.4); AST(SGOT) 14 U/L (15-37); Alanine Aminotransfer ALT/SGPT 31 U/L (13-56); Albumin, Serum 3.7 g/dL (3.2-5.0); Alkaline Phosphatase 53 U/L (45-117); Anion Gap 4 (5-15); BUN 15 mg/dL (7-18); BUN/Creat Ratio 18.6 RATIO (10-20); Calcium,Total 8.9 mg/dL (8.5-10.1); Chloride 108 mmol/L (98-107); Cholesterol 181 mg/dL (200); Creatinine, Serum 0.81 mg/dL (0.55-1.02); EST Glomerular Filtration Rate 80 mL/min (>60); Est Glom Filt Rate - Afr Amer 97 mL/min (>60); Globulin 3.5 g/dL (2.2-4.2); Glucose 115 mg/dL (74-106); High Density Lipoprotein 50 mg/dL; Protein, Total 7.2 g/dL (6.4-8.2); Sodium Level 140 mmol/L (136-145); Triglycerides 109 mg/dL; Very Low Density Lipoprotein 22 mg/dL (5-40)
[2019-05-23 09:04] LABS: Vitamin B12 445 pg/mL (211-911)
[2019-05-23 09:46] LABS: Hemoglobin A1c 6.1 % (4.2-6.3)
== END | disposition home or self-care (01) ==
LOC: LAB 06:09
PROVIDERS: PCP Nurse Practitioner; Referring Provider Nurse Practitioner; Visit Provider Nurse Practitioner
DX: I10 Essential (primary) hypertension (principal); R73.01 Impaired fasting glucose
CPT/HCPCS: 36415; 80053; 80061; 82607; 83036; 84443; 85025

== ENCOUNTER → 2019-11-09 | Outpatient (CLI) | payer OTHER, SELFPAY ==
[2018-09-28 11:20] VITALS: BMI 25.7
[2019-11-09 07:08] LABS: Absolute Lymphocyte Count 1.73 X10^3/uL (0.83-4.51); Absolute Neutrophil Count 5.6 X10^3/uL (2.0-7.7); Basophil# 0.11 X10^3/uL; Basophil% 1.3 % (0-1); Eosinophils% 4.7 % (0-5); Hematocrit 50.3 % (37-47); Hemoglobin 16.5 g/dL (12.0-15.0); Lymphocyte # 1.73 X10^3/ul (4.0); Lymphocyte % 20.2 % (19-41); Mean Corp Hgb Conc 32.8 g/dL (32-36); Mean Corpuscular Hgb 32.9 pg (27.0-32.0); Mean Corpuscular Volume 100.2 fL (81-99); Mean Platelet Vol. 10.2 fl (6.2-12.0); Monocyte# 0.69 X10^3/uL; Monocyte% 8.1 % (0-10); NRBC Flagged by Analyzer 0 % (0-5); Neutrophil # 5.58 X10^3/uL (2.7-7.7); Neutrophil % 65.1 % (47-70); Platelet Count 217 K/mm3 (150-450); RBC Distribution Width CV 14.5 % (11.6-14.6); RBC Distribution Width SD 53.9 fl (35.1-43.9); Red Blood Count 5.02 M/mm3 (4.2-5.4); White Blood Count 8.6 K/mm3 (4.4-11.0)
[2019-11-09 07:47] LABS: ALB/GLOB Ratio 1.1 RATIO (0.9-2.4); AST(SGOT) 18 U/L (15-37); Alanine Aminotransfer ALT/SGPT 40 U/L (13-56); Albumin, Serum 3.8 g/dL (3.2-5.0); Alkaline Phosphatase 52 U/L (45-117); Anion Gap 2 (5-15); BUN 10 mg/dL (7-18); BUN/Creat Ratio 11.1 RATIO (10-20); Calcium,Total 8.7 mg/dL (8.5-10.1); Chloride 110 mmol/L (98-107); EST Glomerular Filtration Rate 70 mL/min (>60); Est Glom Filt Rate - Afr Amer 85 mL/min (>60); Globulin 3.4 g/dL (2.2-4.2); Glucose 116 mg/dL (74-106); Potassium 4.1 mmol/L (3.5-5.1); Protein, Total 7.2 g/dL (6.4-8.2); Sodium Level 142 mmol/L (136-145)
== END | disposition home or self-care (01) ==
LOC: LAB 06:23
PROVIDERS: PCP Nurse Practitioner; Referring Provider Nurse Practitioner; Visit Provider Nurse Practitioner
DX: D75.1 Secondary polycythemia (principal); I10 Essential (primary) hypertension; R73.01 Impaired fasting glucose
CPT/HCPCS: 36415; 80053; 83036; 85025

== ENCOUNTER → 2019-11-10 | Outpatient (CLI) | payer OTHER, SELFPAY ==
[2018-09-28 11:20] VITALS: BMI 25.7
--- NOTE | 2019-11-10 14:05 | BI_ITS ---
MAMMOGRAPHY - BILATERAL SCREENING 3-D TOMOSYNTHESIS REASON FOR EXAM: Female, 49 years old. Annual screening mammogram. PERTINENT HISTORY: History of right needle biopsy in May 2007. TECHNIQUE: 2-D mammograms and 3-D Tomosynthesis of the breast (s) were performed. CAD was performed. COMPARISON: 07/02/2017, 11/28/2014 FINDINGS: The breast composition is heterogeneously dense that can obscure small breast masses. Scattered benign calcifications are seen. No dense spiculated masses or suspicious microcalcifications are identified. No architectural distortion is identified. There is no skin thickening or retraction. Stable tissue clip marker in the right breast. There has been no significant change since the prior study. BI/SCREEN MAMM (CAD) W/DAVID BILAT IMPRESSION: No mammographic signs of malignancy. Routine yearly mammograms recommended. ASSESSMENT CATEGORY: BIRADS Category 2: Benign. A letter regarding these results will be sent to the patient by the facility within 30 days. FOLLOW UP RECOMMENDATION: Yearly follow up mammogram recommended. (A) Approximately 10% of breast cancers are not detected by mammography. A normal mammogram should not delay biopsy of a clinically suspicious abnormality. Electronically Signed: Berny Pleitez MD at 16:03 EDT , Service support ,
== END | disposition home or self-care (01) ==
LOC: OPBI 14:03
PROVIDERS: PCP Nurse Practitioner; Referring Provider Nurse Practitioner; Visit Provider Nurse Practitioner
DX: Z12.31 Encounter for screening mammogram for malignant neoplasm of breast (principal)
CPT/HCPCS: 77063; 77067

== ENCOUNTER → 2021-01-01 07:02 | Outpatient (CLI) | payer OTHER, SELFPAY ==
--- NOTE | 2021-01-01 07:04 | BI_ITS ---
MAMMOGRAPHY - BILATERAL SCREENING REASON FOR EXAM: Female, 50 years old. Routine annual screening examination. PERTINENT HISTORY: Non-contributory. Remote right breast needle biopsy. TECHNIQUE: Digital bilateral breast david (3D mammographic acquisition) in the CC and MLO projections. 2-D mediolateral oblique (MLO) and craniocaudad (CC) views of both breasts were obtained. CAD: Full Field Digital Mammography with Computer Added Detection was performed. COMPARISON: Comparison is made with prior study 11/10/2019 and 09/05/2018. FINDINGS: Breast Composition: The breasts are heterogeneously dense, which may obscure small masses. There are no dominant masses or suspicious calcifications. A tissue clip marker is seen in the upper outer aspect of the right breast. No other significant abnormalities are identified. There has been no significant change since the prior study. BI/SCRN MAMM (CAD)W/DAVID BILAT IMPRESSION: Stable bilateral screening mammogram. Yearly follow-up mammogram recommended. (A) ASSESSMENT CATEGORY: BIRADS Category 2: Benign. A letter regarding these results will be sent to the patient by the facility within 30 days. Approximately 10% of breast cancers are not detected by mammography. A normal mammogram should not delay biopsy of a clinically suspicious abnormality. [id number] Electronically Signed: Virgilio Hill MD at 8:47 EDT , Service support ,
== END ==
PROVIDERS: PCP Nurse Practitioner; Referring Provider Nurse Practitioner; Visit Provider Nurse Practitioner
DX: Z12.31 Encounter for screening mammogram for malignant neoplasm of breast (principal)
CPT/HCPCS: 77063; 77067

== ENCOUNTER 2021-04-05 09:13 | Outpatient (CLI) | payer OTHER, SELFPAY ==
[2021-04-05 09:54] LABS: Absolute Lymphocyte Count 1.78 X10^3/uL (0.83-4.51); Absolute Neutrophil Count 3.7 X10^3/uL (2.0-7.7); Basophil# 0.06 X10^3/uL; Basophil% 0.9 % (0-1); Eosinophil# 0.44 X10^3/uL; Eosinophils% 6.7 % (0-5); Hematocrit 46.3 % (37-47); Hemoglobin 15.2 g/dL (12.0-15.0); Lymphocyte # 1.78 X10^3/ul (0.83-4.51); Lymphocyte % 27.3 % (19-41); Mean Corp Hgb Conc 32.8 g/dL (32-36); Mean Corpuscular Hgb 31.8 pg (27.0-32.0); Mean Corpuscular Volume 96.9 fL (81-99); Mean Platelet Vol. 9.6 fl (6.2-12.0); Monocyte# 0.52 X10^3/uL; NRBC Flagged by Analyzer 0 % (0-5); Neutrophil % 56.6 % (47-70); Platelet Count 227 K/mm3 (150-450); RBC Distribution Width CV 12.7 % (11.6-14.6); RBC Distribution Width SD 45.4 fl (35.1-43.9); Red Blood Count 4.78 M/mm3 (4.2-5.4); White Blood Count 6.5 K/mm3 (4.4-11.0)
[2021-04-05 10:07] LABS: Hemoglobin A1c 5.9 % (3.8-5.6)
[2021-04-05 10:36] LABS: Cholesterol 186 mg/dL (200); High Density Lipoprotein 55 mg/dL; Triglycerides 135 mg/dL; Very Low Density Lipoprotein 27 mg/dL (5-40)
== END 2021-04-05 23:59 | disposition short-term general hospital (02) ==
LOC: LAB 09:15
PROVIDERS: PCP Nurse Practitioner; Referring Provider Nurse Practitioner; Visit Provider Nurse Practitioner
DX: D75.1 Secondary polycythemia (principal); E78.00 Pure hypercholesterolemia, unspecified; R73.01 Impaired fasting glucose
CPT/HCPCS: 36415; 80061; 83036; 85025

== ENCOUNTER → 2022-03-06 | Outpatient (CLI) | payer OTHER, SELFPAY ==
--- NOTE | 2022-03-06 07:42 | BI_ITS ---
MAMMOGRAPHY - BILATERAL SCREENING REASON FOR EXAM: Female, 51 years old. Routine annual screening examination. PERTINENT HISTORY: Non-contributory. Bilateral breast implants. TECHNIQUE: Digital bilateral breast david (3D mammographic acquisition) in the CC and MLO projections. 2-D mediolateral oblique (MLO) and craniocaudad (CC) views of both breasts were obtained. CAD: Full Field Digital Mammography with Computer Added Detection was performed. COMPARISON: Comparison is made with prior examination dated 01/01/2021 and 11/10/2019. FINDINGS: Breast Composition: The breasts are heterogeneously dense, which may obscure small masses. There are no dominant masses or suspicious calcifications. Bilateral breast implants. No other significant abnormalities are identified. BI/SCRN MAMM (CAD)W/DAVID BILAT IMPRESSION: Stable bilateral screening mammogram. Bilateral breast implants. Yearly follow-up mammogram recommended. (A) ASSESSMENT CATEGORY: BIRADS Category 2: Benign. A letter regarding these results will be sent to the patient by the facility within 30 days. Approximately 10% of breast cancers are not detected by mammography. A normal mammogram should not delay biopsy of a clinically suspicious abnormality. [id number] Electronically Signed: Virgilio Hill MD at 14:25 EST ,
[2022-03-06 09:27] LABS: Absolute Lymphocyte Count 1.62 X10^3/uL (0.83-4.51); Absolute Neutrophil Count 4.5 X10^3/uL (2.0-7.7); Basophil# 0.08 X10^3/uL; Basophil% 1.1 % (0-1); Eosinophil# 0.35 X10^3/uL; Hematocrit 50.2 % (37-47); Hemoglobin 16.1 g/dL (12.0-15.0); Lymphocyte # 1.62 X10^3/ul (0.83-4.51); Lymphocyte % 22.9 % (19-41); Mean Corp Hgb Conc 32.1 g/dL (32-36); Mean Corpuscular Hgb 30.7 pg (27.0-32.0); Mean Corpuscular Volume 95.6 fL (81-99); Mean Platelet Vol. 9.5 fl (6.2-12.0); Monocyte# 0.52 X10^3/uL; Monocyte% 7.4 % (0-10); NRBC Flagged by Analyzer 0 % (0-5); Neutrophil # 4.45 X10^3/uL (2.7-7.7); Platelet Count 239 K/mm3 (150-450); RBC Distribution Width CV 13.5 % (11.6-14.6); RBC Distribution Width SD 47.6 fl (35.1-43.9); Red Blood Count 5.25 M/mm3 (4.2-5.4); White Blood Count 7.1 K/mm3 (4.4-11.0)
[2022-03-06 09:54] LABS: ALB/GLOB Ratio 1.1 RATIO (0.9-2.4); AST(SGOT) 21 U/L (15-37); Alanine Aminotransfer ALT/SGPT 40 U/L (13-56); Albumin, Serum 3.9 g/dL (3.2-5.0); Alkaline Phosphatase 55 U/L (45-117); Anion Gap 5 (5-15); BUN 11 mg/dL (7-18); BUN/Creat Ratio 11.3 RATIO (10-20); Calcium,Total 8.9 mg/dL (8.5-10.1); Chloride 104 mmol/L (98-107); Cholesterol 179 mg/dL (200); Creatinine, Serum 0.98 mg/dL (0.55-1.02); EST Glomerular Filtration Rate 64 mL/min (>60); Est Glom Filt Rate - Afr Amer 77 mL/min (>60); Globulin 3.7 g/dL (2.2-4.2); Glucose 118 mg/dL (74-106); High Density Lipoprotein 55 mg/dL; Protein, Total 7.6 g/dL (6.4-8.2); Sodium Level 138 mmol/L (136-145); Triglycerides 194 mg/dL; Very Low Density Lipoprotein 39 mg/dL (5-40)
[2022-03-06 10:27] LABS: Hemoglobin A1c 6.1 % (3.8-5.6)
== END | disposition home or self-care (01) ==
PROVIDERS: PCP Nurse Practitioner Family; Referring Provider Nurse Practitioner Family; Visit Provider Nurse Practitioner Family
DX: Z12.31 Encounter for screening mammogram for malignant neoplasm of breast (principal); Z98.82 Breast implant status; I10 Essential (primary) hypertension; R73.01 Impaired fasting glucose
CPT/HCPCS: 36415; 77063; 77067; 80053; 80061; 83036; 85025

== ENCOUNTER → 2022-09-17 | Outpatient (CLI) | payer OTHER, SELFPAY ==
--- NOTE | 2022-09-17 14:53 | US_ITS ---
STUDY: THYROID ULTRASOUND REASON FOR EXAM: Female, 52 years old. Thyroid nodule TECHNIQUE: Ultrasound evaluation of the thyroid was performed with real-time and static barreto-scale imaging. COMPARISON: 10/28/2015. FINDINGS: RIGHT LOBE: The right lobe of the thyroid gland measures 4.3 x 1.6 x 1.4 cm. There is a homogeneous echotexture. There are no demonstrated solid, cystic or complex lesions. LEFT LOBE: The left lobe of the thyroid gland measures 3.7 x 1.4 x 1.1 cm. There is a homogeneous echotexture. There 2 stable subcentimeter nodules in the lower pole of the left thyroid lobe. ISTHMUS: The isthmus measures 3 mm . The regional lymph nodes are normal. US/Thyroid IMPRESSION: No significant abnormality. 2 subcentimeter nodules in the lower pole of the left thyroid lobe have now remained essentially stable since 2016 and no further evaluation or follow-up is indicated. Electronically Signed: Wyatt Benjamin MD at 20:40 EDT ,
== END | disposition home or self-care (01) ==
PROVIDERS: PCP Nurse Practitioner Family; Referring Provider Nurse Practitioner Family; Visit Provider Nurse Practitioner Family
DX: E04.1 Nontoxic single thyroid nodule (principal)
CPT/HCPCS: 76536

== ENCOUNTER → 2023-03-10 | Outpatient (CLI) | payer OTHER, SELFPAY ==
--- NOTE | 2023-03-10 15:20 | BI_ITS ---
MAMMOGRAPHY - BILATERAL SCREENING REASON FOR EXAM: Female, 52 years old. Routine annual screening examination. PERTINENT HISTORY: Non-contributory. Bilateral breast implants. Remote right needle biopsy. TECHNIQUE: Digital bilateral breast david (3D mammographic acquisition) in the CC and MLO projections. 2-D mediolateral oblique (MLO) and craniocaudad (CC) views of both breasts were obtained. CAD: Full Field Digital Mammography with Computer Added Detection was performed. COMPARISON: Comparison is made with prior study dated December 05, 2021 and January 01, 2021. FINDINGS: Breast Composition: The breasts are heterogeneously dense, which may obscure small masses. There are no dominant masses or suspicious calcifications. Bilateral breast implants are seen. No other significant abnormalities are identified. There has been no significant change since the prior study. BI/SCRN MAMM (CAD)W/DAVID BILAT IMPRESSION: Stable bilateral screening mammogram. Yearly follow-up mammogram recommended. (A) ASSESSMENT CATEGORY: BIRADS Category 2: Benign. A letter regarding these results will be sent to the patient by the facility within 30 days. Approximately 10% of breast cancers are not detected by mammography. A normal mammogram should not delay biopsy of a clinically suspicious abnormality. [id number] Electronically Signed: Virgilio Hill MD at 9:36 EST ,
== END | disposition home or self-care (01) ==
LOC: OPBI 15:18
PROVIDERS: PCP Nurse Practitioner Family; Referring Provider Nurse Practitioner Family; Visit Provider Nurse Practitioner Family
DX: Z12.31 Encounter for screening mammogram for malignant neoplasm of breast (principal)
CPT/HCPCS: 77063; 77067

== ENCOUNTER → 2023-04-21 | Outpatient (CLI) | payer OTHER, SELFPAY ==
--- OUTSIDE RECORDS SUMMARY | 2023-04-21 07:39 | XMS RPT_ITS | CCD ---
Author Name Unknown Address [address] [place] [address] Organization [facility] Care Team Providers Care Portal Architect Name Role Phone FernandomieshaThi E Unavailable Fast, Rosa A Unavailable Bernie Dixon Unavailable Unavailable Unavailable Unavailable Thi Alonzo E Unavailable Fast, Rosa A Unavailable Albertina Ga Unavailable Unavailable Bernie Dixon Unavailable Unavailable Unavailable Unavailable Toño Villavicencio Unavailable Unavailable Toño Villavicencio Unavailable Unavailable Unavailable Unavailable Slarb, Shruti Unavailable Unavailable Toño Lira Unavailable Unavailable Thi Alonzo CNP Unavailable Fast DO, Rosa A Unavailable Evita Rosales LPN Unavailable Unavailable Toño Lira LPN Unavailable Unavailable Unavailable Unavailable Thi Alonzo Unavailable Fast DO, Rosa A Unavailable Cicaren Thi Unavailable Karol Cobb CNP Unavailable [phone] Slavida HART, Shruti Unavailable Unavailable Karol Cobb CNP Attending Unavailable Karol Cobb CNP Referring Unavailable aKrol Cobb CNP Consulting Unavailable Karol Cobb CNP Unavailable [phone] Thi Alonzo Unavailable Allergies Allergy Classification Reported Allergen(s) Allergy Type Date of Onset Reaction(s) Facility (20 sources) Penicillins; Translations: [Penicillins] allergy to substance [facility] Work Phone: Medications Completed/Discontinued Medications Medication Drug Class(es) Dates Sig (Normalized) Sig (Original) 24 hr buPROPion hydrochloride 150 mg extended release oral tablet (20 sources) Aminoketone Start: 06-16-2019 End: 01-14-2021 buPROPion HCl ER (XL) 150 MG Oral Tablet Extended Release 24 Hour 1 (one) Tablet TAD for 0 days Quantity: 180 {Tablet} Refills: 2 Ordered: 14-Jan-2021 Bobby HAILEYEvita Start : 16-Jun-2019 End : 14-Jan-2021 Inactive Comments: Start 150mg daily x 3 days. Then twice daily x 7-12 weeksSeparate dose by at least 8h, Last dose no later than 6pm. Stop smoking after 5-7 days of tx Problems Active Problems Problem Classification Problem Date Documented Da te Episodic/Chronic Abdominal pain (20 sources) Abdominal pain; Translations: [Lower abdominal pain] Resolved: 06-16-2019 07-04-2018 Episodic Past or Other Problems Problem Classification Problem Date Documented Date Episodic/Chronic Essential hypertension (8 sources) Essential hypertension Unclassified (20 sources) Well female exam with routine gynecological exam Unclassified (20 sources) Encounter for screening mammogram for malignant neoplasm of breast Unclassified (20 sources) Herpes exposure Unclassified (20 sources) Ingrown hair Unclassified (20 sources) BMI 24.0-24.9, adult Unclassified (20 sources) None Resolved: 04-29-2015 04-29-2015 Unclassified (20 sources) Breast cancer screening Unclassified (20 sources) screening 10-25-2017 Unclassified (20 sources) Well Female (Younger Female) (V72.31) Unclassified (20 sources) Pregnancies (); Translations: [Pregnancies ()] 10-25-2017 Results Test Name Value Interpretation Reference Range Facil ity Vital Signs Date Time Vital Sign Value Performing Clinician Facility 08-28-2022 13:57-0400 Body height 161.29 cm Shruti Pettit LPN [facility] Work Phone: 08-28-2022 13:57-0400 Body mass index (BMI) [Ratio] 28.25 kg/m2 Shruti Pettit LPN [facility] Work Phone: 08-28-2022 13:57-0400 Body surface area Derived from formula 1.78 m2 Shruti Buenovida HART [facility]; [facility] Work Phone: 08-28-2022 13:57-0400 Body temperature 97.6 [degF] Shruti Pettit HAILEY [facility]; [facility] Work Phone: Encounters Encounter Date Encounter Type Care Provider Facility Start: 08-28-2022 End: 08-28-2022 Office outpatient visit 15 minutes Karol Cobb CNP Work Phone: [facility] Start: 02-23-2022 ambulatory Karol Cobb CNP [facility] Start: 02-23-2022 End: 03-06-2022 Office outpatient visit 15 minutes Karol Cobb CNP Work Phone: [facility] Start: 02-23-2022 Review Thi Alonzo Work Phone: [facility] Start: 04-23-2021 End: 04-23-2021 Annotation/Addendum Thi Cheri Work Phone: [facility] Start: 04-22-2021 End: 04-22-2021 Office outpatient visit 15 minutes Thi Alonzo Work Phone: [facility] Start: 01-14-2021 End: 01-14-2021 Office outpatient visit 25 minutes Thi Alonzo [employer] Work Phone: [facility] Start: 12-24-2020 End: 12-24-2020 Annotation/Addendum Thi Kingmiesha ANTHONY Work Phone: [facility] Start: 03-19-2020 End: 03-19-2020 Office outpatient visit 15 minutes Th[facility] Start: 11-20-2019 End: 11-20-2019 Office outpatient visit 25 minutes Thi [facility] Start: 11-12-2019 End: 11-12-2019 Patient encounter procedure Thi [facility] Start: 11-08-2019 End: 11-08-2019 Lab Order Thi Alonzo [facility] Start: 10-06-2019 End: 10-06-2019 Annotation/Addendum Thi Alonzo [facility] Start: 06-16-2019 End: 06-16-2019 Office outpatient visit 25 minutes Thi Alonzo [facility] Start: 05-01-2019 End: 05-01-2019 Phone Encounter Thi Alonzo [facility] Start: 08-22-2018 End: 08-22-2018 Patient encounter status Thi Alonzo Work Phone: [facility] Start: 08-22-2018 End: 08-22-2018 Periodic preventive med est patient 40-64yrs Thi Alonzo [facility] Start: 08-22-2018 Review Thi Alonzo [facility] Start: 07-04-2018 End: 07-04-2018 Office outpatient visit 15 minutes Thi Alonzo [facility] Start: 07-01-2018 End: 07-01-2018 Annotation/Addendum Thi Alonzo [facility] Start: 06-27-2018 End: 06-27-2018 Phone Encounter Thi Alonzo [facility] Start: 04-29-2018 End: 04-29-2018 Phone Encounter Thi Alonzo [facility] Start: 10-25-2017 End: 10-25-2017 Office outpatient visit 15 minutes Thi Alonzo [facility] Start: 06-23-2017 End: 06-23-2017 Medical examinations/reports status Thi Alonzo Work Phone: [facility] Start: 06-23-2017 End: 06-23-2017 Periodic preventive med est patient 40-64yrs Thi Alonzo [facility] Start: 06-08-2017 End: 06-09-2017 Annotation/Addendum Thi Alonoz [facility] Start: 04-06-2016 End: 04-06-2016 Medical examinations/reports status Thi Alonzo Work Phone: [facility] Start: 04-06-2016 End: 04-06-2016 Periodic preventive med est patient 40-64yrs Thi Kingmiesha [facility] Start: 03-18-2016 End: 03-18-2016 Annotation/Addendum Thi Alonzo [facility] Start: 08-26-2015 End: 08-26-2015 Office outpatient visit 25 minutes Thi Alonzo [facility] Start: 04-29-2015 End: 04-29-2015 Office outpatient visit 25 minutes Thi Cheri [facility] Start: 03-11-2015 End: 03-11-2015 Office outpatient visit 15 minutes Thi Alonzo [facility] Start: 12-05-2014 End: 12-09-2014 Medical examinations/reports status Thi Alonzo Work Phone: [facility] Start: 12-05-2014 End: 12-09-2014 Office outpatient visit 25 minutes Thi Alonzo [facility] Start: 11-21-2014 End: 11-26-2014 Office outpatient visit 25 minutes Thi Alonzo [facility] Medical examinations/reports status Evita Rosales LPN [facility] Work Phone: Medical examinations/reports status Evita Rosales LPN [facility] Work Phone: Medical examinations/reports status Shruti Pettit [employer] [facility] Work Phone: Medical examinations/reports status Shruti Buenovida MANCIAN [facility] Work Phone: Patient encounter status Evita Rosales LPN [facility]; [facility] Work Phone: Patient encounter status Evita Rosales LPN [facility]; [facility] Work Phone: Patient encounter status Shruti Pettit [employer] [facility] Work Phone: Patient encounter status Shruti Pettit [employer] [facility] Work Phone: Procedures Date Procedure Procedure Detail Performing Clinician Start: 09-17-2022 End: 09-18-2022 Thyroid Procedure Note: See Note; NOTES: [facility] Imaging Services [address] [place] [address] Thyroid MR#: [id number] Acct: [id number] Name: VIRGINIA SAMPSON Rep #: [id number] : 1970 F 52 From: Wyatt zavala MD PCP: ZEESHAN Guillen Status: REG CLI Study: Thyroid Date of Exam: 09/17/22 Exam# [id number] Ordering Dr: Karol Cobb STUDY: THYROID ULTRASOUND REASON FOR EXAM: Female, 52 years old. Thyroid nodule TECHNIQUE: Ultrasound evaluation of the thyroid was performed with real-time and static barreto-scale imaging. COMPARISON: 10/28/2015. FINDINGS: RIGHT LOBE: The right lobe of the thyroid gland measures 4.3 x 1.6 x 1.4 cm. There is a homogeneous echotexture. There are no demonstrated solid, cystic or complex lesions. LEFT LOBE: The left lobe of the thyroid gland measures 3.7 x 1.4 x 1.1 cm. There is a homogeneous echotexture. There 2 stable subcentimeter nodules in the lower pole of the left thyroid lobe. ISTHMUS: The isthmus measures 3 mm . The regional lymph nodes are normal. US/Thyroid IMPRESSION: No significant abnormality. 2 subcentimeter nodules in the lower pole of the left thyroid lobe have now remained essentially stable since 2015 and no further evaluation or follow-up is indicated. Electronically Signed: Wyatt Benjamin MD at 20:40 EDT , CC: Karol Cobb NP; GAMEPLAY PROGRAMMER-C Karol Cobb Department Store General Manager: Signed Karol Cobb [facility] Work Phone: Start: 03-06-2022 End: 03-06-2022 SCRN MAMM (CAD)W/DAVID BILAT Procedure Note: See Note; NOTES: [facility] Imaging Services [address] [place] [address] SCRN MAMM (CAD)W/DAVID BILAT MR#: [id number] Acct: [id number] Name: VIRGINIA SAMPSON Rep #: [id number] : 1970 F 51 From: Virgilio proctor MD PCP: Karol Cobb NP-Hugh Status: REG CLI Study: SCRN MAMM (CAD)W/DAVID BILAT Date of Exam: 02/19 09/10 Exam# [id number] Ordering Dr: Karol Cobb MAMMOGRAPHY - BILATERAL SCREENING REASON FOR EXAM: Female, 51 years old. Routine annual screening examination. PERTINENT HISTORY: Non-contributory. Bilateral breast implants. TECHNIQUE: Digital bilateral breast david (3D mammographic acquisition) in the CC and MLO projections. 2-D mediolateral oblique (MLO) and craniocaudad (CC) views of both breasts were obtained. CAD: Full Field Digital Mammography with Computer Added Detection was performed. COMPARISON: Comparison is made with prior examination dated 01/01/2021 and 11/10/2019. FINDINGS: Breast Composition: The breasts are heterogeneously dense, which may obscure small masses. There are no dominant masses or suspicious calcifications. Bilateral breast implants. No other significant abnormalities are identified. BI/SCRN MAMM (CAD)W/DAVID BILAT IMPRESSION: Stable bilateral screening mammogram. Bilateral breast implants. Yearly follow-up mammogram recommended. (A) ASSESSMENT CATEGORY: BIRADS Category 2: Benign. A letter regarding these results will be sent to the patient by the facility within 30 days. Approximately 10% of breast cancers are not detected by mammography. A normal mammogram should not delay biopsy of a clinically suspicious abnormality. [id number] Electronically Signed: Virgilio Hill MD at 14:25 EST , CC: GAMEPLAY PROGRAMMERHome Cobb Department Store General Manager: Signed Karol Cobb [facility] Work Phone: Start: 01-01-2021 End: 01-01-2021 SCRN MAMM (CAD)W/DAVID BILAT Comments: See Note; NOTES: [facility] Imaging Services [address] [place] [address] SCRN MAMM (CAD)W/DAVID BILAT MR#: [id number] Acct: [id number] Name: VIRGINIA SAMPSON Rep #: [id number] : 1970 F 50 From: Virgilio proctor MD PCP: Thi Alonoz NP-C Status: [facility] Study: SCRN MAMM (CAD)W/DAVID BILAT Date of Exam: 12/20 06/09 Exam# [id number] Ordering Dr: Thi Alonzo NP GAMEPLAY PROGRAMMER-C MAMMOGRAPHY - BILATERAL SCREENING REASON FOR EXAM: Female, 50 years old. Routine annual screening examination. PERTINENT HISTORY: Non-contributory. Remote right breast needle biopsy. TECHNIQUE: Digital bilateral breast david (3D mammographic acquisition) in the CC and MLO projections. 2-D mediolateral oblique (MLO) and craniocaudad (CC) views of both breasts were obtained. CAD: Full Field Digital Mammography with Computer Added Detection was performed. COMPARISON: Comparison is made with prior study 11/10/2019 and 09/05/2018. FINDINGS: Breast Composition: The breasts are heterogeneously dense, which may obscure small masses. There are no dominant masses or suspicious calcifications. A tissue clip marker is seen in the upper outer aspect of the right breast. No other significant abnormalities are identified. There has been no significant change since the prior study. BI/SCRN MAMM (CAD)W/DAVID BILAT IMPRESSION: Stable bilateral screening mammogram. Yearly follow-up mammogram recommended. (A) ASSESSMENT CATEGORY: BIRADS Category 2: Benign. A letter regarding these results will be sent to the patient by the facility within 30 days. Approximately 10% of breast cancers are not detected by mammography. A normal mammogram should not delay biopsy of a clinically suspicious abnormality. [id number] Electronically Signed: Virgilio Hill MD at 8:47 EDT , Service support , CC: ZEESHAN Alonzo Department Store General Manager: Signed Thi Alonzo [employer] Work Phone: Start: 11-10-2019 End: 11-10-2019 SCREEN MAMM (CAD) W/DAVID BILAT Comments: See Note; NOTES: [facility] Imaging Services [address] [place] [address] SCREEN MAMM (CAD) W/DAVID BILAT MR#: [id number] Acct: [id number] Name: VIRGINIA SAMPSON Rep #: [id number] : 1970 F 49 From: Berny Pleitez MD PCP: ZEESHAN Noel Status: REG CLI Study: SCREEN MAMM (CAD) W/DAVID BILAT Date of Exam: 0 11/10/19 Exam# [id number] Ordering Dr: Thi Alonzo MAMMOGRAPHY - BILATERAL SCREENING 3-D TOMOSYNTHESIS REASON FOR EXAM: Female, 49 years old. Annual screening mammogram. PERTINENT HISTORY: History of right needle biopsy in May 2007. TECHNIQUE: 2-D mammograms and 3-D Tomosynthesis of the breast (s) were performed. CAD was performed. COMPARISON: 07/02/2017, 11/28/2014 FINDINGS: The breast composition is heterogeneously dense that can obscure small breast masses. Scattered benign calcifications are seen. No dense spiculated masses or suspicious microcalcifications are identified. No architectural distortion is identified. There is no skin thickening or retraction. Stable tissue clip marker in the right breast. There has been no significant change since the prior study. BI/SCREEN MAMM (CAD) W/DAVID BILAT IMPRESSION: No mammographic signs of malignancy. Routine yearly mammograms recommended. ASSESSMENT CATEGORY: BIRADS Category 2: Benign. A letter regarding these results will be sent to the patient by the facility within 30 days. FOLLOW UP RECOMMENDATION: Yearly follow up mammogram recommended. (A) Approximately 10% of breast cancers are not detected by mammography. A normal mammogram should not delay biopsy of a clinically suspicious abnormality. Electronically Signed: Berny Pleitez MD at 16:03 EDT , Service support , CC: ZEESHAN Alonzo Department Store General Manager: Signed Thi Alonzo Work Phone: Start: 09-28-2018 End: 09-28-2018 Operative Report Comments: See Note; NOTES: [facility] Medical Records Department [address] [place] [address] Operative Report 09/28/183 MR#: [id number] Acct: [id number] Name: VIRGINIA SAMPSON Rep #: [id number] : 1970 48 From: Alexus Jones MD PCP: Thi Alonzo NP Status: [place] [facility] [place] [address] Report of Operation Date of Procedure: 09/28/18 Pre-Operative Diagnosis: Chronic pelvic pain. Hematometra, hydrosalpinges/hematosalpinge s. Post ablative syndrome Post-Operative Diagnosis: Same Surgery/Procedure Performed:: Laparoscopic assisted vaginal hysterectomy, Bilateral salpinectomy Description of Surgical Findings:: Findings: On exam under anesthesia, the cervix is minimally prolapsed. At Laparoscopy: the uterus is normal in appearance,. Prior BTO, Filshie clips in place with minimal adhesions of omentum / bowel epiploicae to Filshie clips. The proximal fallopian tubes are dilated bilaterally. There are normal appearing distal fallopian tubes and ovaries bilaterally. Gross inspection of the bowel , liver edge, omentum are within normal limits vessel builder: Yaima Kate vessel builder: Paul Silver Type of Anesthesia:: General Anesthesiologist: Duc Finn - KAREN Specimen's removed: Morecellated uterus with cervix, bilateral fallopian tubes. Submucous fibroid noted at uterine fundus Drains: Gentile Estimated Blood Loss (mL): 100 Fluids Replaced: LR Description of Procedure: Narrative account: After the risks, benefits and alternatives of the procedure were reviewed with the patient , informed consent was obtained. The patient was taken to the Operating room with an IV running . She was positioned in the dorsal supine position on the operating table and given general anesthesia. Once asleep she was positioned to the dorsal lithotomy position with the arms tucked at the sides and prepped and draped in the usual sterile fashion. A Gentile catheter was inserted to drain the bladder. The weighted speculum was placed into the vagina and a single tooth tenaculum was placed at the cervix. A Manny cannula was inserted into the cervix and secured into placed with the single - toothed tenaculum. Attention was then turned to the anterior abdominal wall. the walking dragline operator's gloved were changed and skin incisions were created at the infraumbilical and suprapubic skin and at a point approximately [facility] between the suprapubic and infraumbilical skin incisions. Local anesthesia was used to infiltrate the skin where the trocar incision sites were created. A transverse 5 mm infraumbilical skin incision , a transverse 5 mm suprapubic incision and an transverse 5 mm midline incision were created. A Veress needle was inserted in to the peritoneal cavity at the infraumbilical skin incision while maintaining upward traction of the anterior abdominal wall at the umbilicus. There was free drop of saline, free flow of CO2 and low opening pressure noted. Once the intraabdominal pressure had reached approximately 15 mm HG, the Veress needle was removed and a bladeless 5 mm trocar was inserted into the peritoneal cavity. Correct placement was confirmed using the laparoscope. Under direct visualization the other two 5 mm bladeless trocars were inserted into the peritoneal cavity. The fallopian tubes were retracted medially and using a LigaSure device the fallopian tube was divided from the ovary and the mesosalpinx, leaving the fallopian tube free at each side of the uterus other than the attachment to the uterus. The uteroovarian pedicles were then divided using a [place] LigaSure device. The broad ligament was then divided down to the level of the round ligament on both sides. At this point the laparoscopic portion of the case was completed. The trocars were left in place, but the instruments were removed and gas turned off. A sterile drape was used to cover the abdomen. Attention was then turned to the vaginal portion of the case. The Manny cannula was removed and the single toothed tenaculum repositioned on the cervix. The cervical mucosal was then incised circumferentially using Bovie cautery and a knife. The posterior cul de sac was entered by sharp dissection with Perdomo scissors and a weighted speculum was placed into the posterior cul se sac. Dissection then was initiated at the anterior cervix to enter the anterior cul se sac. The uterosacral ligaments were clamped bilaterally with curved Vijaya clamps and the pedicles divided and suture ligated and tagged for later identification. Next the cardinal ligament was clamped bilaterally and divided and suture ligated. Adequate hemostasis was noted. The anterior cul de sac peritoneum was then entered by sharp dissection and a narrow Tobin retractor was placed into the anterior cul de sac to retract the bladder out of harm's way for the remainder of the case. The uterine arteries were clamped bilaterally , divided and suture ligated. At this point little descensus was noted , and morcellation was begun. Each section was removed by using either the knife or a Perdomo scissors. The cervix and sequential portions of the lower uterine segment anteriorly and posteriorly were removed and set aside. Dissection then continued along each side of the uterus. Each pedicle was secured with a Vijaya clamp, divided and suture ligated until ultimately the uterine fundus was reached. The superior pedicles on each side were secured with a curved Vijaya clamp and the remaining uterus and attached fallopian tubes were surgically amputated and set aside. The superior pedicle was then suture ligated, then free tied and tagged for identification. The superior pedicles were dry. There was bleeding noted along the posterior vaginal cuff and the posterior cul de sac peritoneum was reapproximated with the posterior vaginal cuff mucosa using a running locked suture of 1 Vicryl. Excellent hemostasis was then noted at the posterior cuff . The peritoneum was then closed with a running purse string suture of 1 Vicryl, incorporating the superior pedicles and uterosacral ligament tags. Excellent hemostasis was noted. The vaginal cuff was then reapproximated using interrupted and figure of eight stitches of 1 Vicryl. Excellent hemostasis was noted. The Gentile was opened and clear yellow urine returned. A second look was performed with the laparoscope: excellent hemostasis was noted at all pedicles and at the vaginal cuff. Svitlana was sprayed along the cuff and pedicles for additional hemostasis. The pneumoperitoneum was reduced and all instruments and trocars were removed. The skin incisions were closed with 4-0 Monocryl in a subcuticular fashion. Sterile dressings were applied. (steristrips and op sites). The Gentile bag was then attached. The patient was returned to dorsal supine position and awakened from general anesthesia. She was then transferred to the recovery room bed in stable condition after tolerating the procedure well. Sponge, lap, needle and instrument counts correct times two. Medications given preop and intraoperatively included: Cefotetan 2 gm IV was given environmental sampler to the operating room , 10 cc of 1/4% Marcaine with 1/200,00 epinephrine was used as a subcutaneous injection at the trocar skin incision sites, and Toradol 30 mg IV x one was given. For a complete listing of medications given preop and intraoperatively, please see the anesthesia record. Grafts/Implants Used: none - Complications none - Admit VTE Documentation VTE Present on Admission: No VTE Mechan Device Prophylaxis: SCD's VTE Pharm Prophylaxis ordered?: Yes 09/28/18 2217 <Electronically signed by Alexus Jones MD> Date Alexus Jones MD CC: GAMEPLAY PROGRAMMER Thi Alonzo; Alexus Jones MD Signed Thi Alonzo Start: 09-28-2018 End: 09-28-2018 Discharge Instruction Comments: See Note; NOTES: [facility] Medical Records Department [address] [place] [address] Instructions for Home/Discharge Instructions 09/28/18 1317 MR#: [id number] Acct: [id number] Name: VIRGINIA SAMPSON Rep #: [id number] : 1970 48 From: Alexus Jones MD PCP: Thi Alonzo NP [place] [facility] [place] Diet: No Restrictions Discharge Activity: May not drive while taking narcotic pain medications., May Shower, May Take a Tub Bath Return to work on:: 11/14/18 May resume sexual activity in: 4-6 weeks Additional Activity Instructions:: No lifting more than 20 # for 4-6 wk to allow healing. Nothing in vagina for 4-6 wk to allow healing. May resume walking, stairs and other library manager activity as comfortable starting on the day after surgery. Call your doctor if you observe: Fever of 101 or Higher, Inability to have a bowel movement, Using more than one pad per hour, Uncontrolled pain Change Dressing in (Days):: 7 Remove Dressing in (days):: 7 Cleanse incision/area with: Soap AND Water, Keep Dressing Clean AND Dry Allergies/Adverse Reactions: Allergies Penicillins Allergy (Verified 09/28/18 11:18) Rash Medications to take at Discharge Losartan Potassium [Cozaar] 25 mg PO QHS 05/05/17 Metoprolol Tartrate [Lopressor (Beta Sherman)] 25 mg PO QHS 05/05/17 Docusate Sodium [Colace] 100 mg PO BID #30 cap 09/28/18 Naproxen [Naprosyn] 250 - 500 mg PO TID PRN PRN #30 tab 09/28/18 Oxycodone [Oxyir] 5 mg PO Q6H PRN PRN 4 Days #15 tablet 09/28/18 Polyethylene Glycol 3350 [Miralax] 17 gm PO DAILY PRN #14 packet 09/28/18 The following prescriptions were given: Docusate Sodium [Colace] 100 mg PO BID #30 cap Transmission Status: Pending to [facility] Polyethylene Glycol 3350 [Miralax] 17 gm PO DAILY PRN #14 packet PRN Reason: Constipation Transmission Status: Pending to [facility] Naproxen [Naprosyn] 250 - 500 mg PO TID PRN PRN #30 tab PRN Reason: Mild-Mod Pain (1-07/29) Transmission Status: Pending to [facility] Oxycodone [Oxyir] 5 mg PO Q6H PRN PRN 4 Days #15 tablet PRN Reason: Mod-Severe Pain (-12/29) Transmission Status: Sent to [facility] Primary Care Physician: Thi Alonzo NP-C [Primary Care Provider] - Test Results: Test results from this visit will be discussed in further detail at your follow-up appointment, if applicable. Please Follow Up With: Alexus Jones MD - [phone] When: for postoperative check up as scheduled. Proposed Discharge Date: 09/29/18 09/28/18 1322 <Electronically signed by Alexus Jones MD> Date Alexus Jones MD CC: GAMEPLAY PROGRAMMER Thi Alonzo Signed Thi Alonzo Start: 09-28-2018 End: 09-28-2018 History and Physical Exam Comments: See Note; NOTES: [facility] Medical Records Department [address] [place] [address] History and Physical 09/24/18 0024 MR#: [id number] Acct: [id number] Name: VIRGINIA SAMPSON Rep #: [id number] : 1970 48 From: Alexus Jones MD PCP: Thi Alonzo NP Status: [facility] [place] Location: [place] [address] ADDENDUM by Alexus Jones MD on 09/28/18 at 1223 Code Visit Patient seen and re-examined. No changes to H and P as entered in chart prior. Concepcion Jones MD 09/28/18 12:25 pm 09/28/18 1223 <Electronically signed by Alexus Jones MD> Date Alexus Jones MD cc: GAMEPLAY PROGRAMMER Thi Alonzo; Alexus Jones MD * Signed History and Physical Date of Admission: 09/28/18 PREOPERATIVE HISTORY AND PHYSICAL HISTORY OF PRESENT ILLNESS: Virginia Sampson, a 48 year old female 3 0 0 0 3, presented for: -- Pre-Op Virginia is being seen for pre op visit. Pt to have LAVH/BS with Dr. Jones on 09-28-18. Medications and allergies are up to date. Consents signed and reviewed for surgery. Pt has no new concerns. AM As above. Here for PAT /preop appt prior to planned LAVH, bilateral salpingectomy for postablative syndrome. Pt with prior endometrial ablation and now recurrent severe cramping pain without bleeding. Pelvic sono on 08/26/2018: UTERUS: 9.8 x 7.2 x 5.2 cm. ENDOMETRIAL ECHO: Fluid/blood filled measuring 2.3 cm. RIGHT OVARY: 2.5 x 1.2 x 1.4 cm. LEFT OVARY: Not seen. FREE FLUID: NONE. OTHER PERTINENT FINDINGS: fluid within endometrial canal, and dilated Fallopian tubes. Reviewed anticipated surgery and all questions re surgical procedure and recovery answered to her satisfaction. Consents signed and on chart. EB ALLERGIES: Penicillins, Rash MEDICATIONS HISTORY: Patient is also takin. metformin ER 500 mg tablet,extended release 24hr, 1 PO QD REVIEW OF SYSTEMS: GENERAL - Denies fever, or chills SKIN - Denies skin changes EYES - Denies visual changes EARS - Denies difficulty hearing NOSE - Denies nasal congestion or bleeding MOUTH - Denies sore throat or difficulty swallowing NECK - Denies pain or swelling RESPIRATORY - Denies shortness of breath or wheezing CARDIOVASCULAR - Denies palpitations or chest pain GASTROINTESTINAL - Denies nausea, vomiting, diarrhea, constipation GENITOURINARY - Denies dysuria, frequency of urination, incontinence of urine MUSCULOSKELETAL - Denies joint or muscle pain NEUROLOGICAL - Denies localized numbness or weakness PSYCHIATRIC - Denies depression or anxiety ENDOCRINE - Denies heat or cold intolerance, weight loss or gain HEMATO-IMMUNOLOGIC - Denies excessive bleeding with cuts SURGICAL HISTORY: 1. 05/12/2017 hysteroscopy, D and C, Amy Jones M.D. 2. endometrial ablation 3. tubal, 1995 MENSTRUAL HISTORY: LMP Known?- Amy, LMP - 05/07/17, Age Onset Menarche - 14 FAMILY HISTORY: Father - Type 2 Diabetes; Father - FH: Hypertension; Mother - FH: Hypertension; SOCIAL HISTORY: Alcohol Use - RARELY Smoking - 1PPD and ATQ! 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 Unspecified Ovarian Cyst, Unspecified Side 2. Endometrial Hyperplasia, Unspecified 3. Hematometra 4. Abnormal Findings On Diagnostic Imaging Of Other Specified Body Structures PLAN BY DIAGNOSIS: 1. Abnormal Findings On Diagnostic Imaging Of Other Specified Body Structures and Hematometra Endometrial stripe thickened and bilateral proximal hydrosalpinx noted S/P BTO, hysteroscopy, D and C and endometrial ablation. Findings are consistent with hematometra, hemosalpinx and POSTABLATIVE syndrome Advised LAVH, bilateral salpingectomy. with plan to leave ovaries in place. R,B,A of LAVH, Bilateral salpingectomy reviewed. Discussed anticipated preop, operative and postop recovery courses. All questions answered. Consents signed and on chart. RTO in 2 wk after surgery for initial postop check up. The visit was approximately 20 minutes in length with most of the time spent in discussion and counseling. 2. Unspecified Ovarian Cyst, Unspecified Side Reviewed records Follicular cyst noted, a normal finding at her age Recommend repeat pelvic sono in 2 mo to recheck ovary and small follicle. Will check ovary at laparoscopy to evaluate by direct visualization. 09/24/18 0026 <Electronically signed by Alexus Jones MD> Date Alexus Jones MD Cosigner Signature: Date (if applicable) CC: GAMEPLAY PROGRAMMER Thi Alonzo; Alexus Jones MD Signed Thi Alonzo Start: 09-24-2018 End: 09-24-2018 History and Physical Exam Comments: See Note; NOTES: [facility] Medical Records Department [address] [place] [address] History and Physical 09/24/18 0024 MR#: [id number] Acct: [id number] Name: VIRGINIA SAMPSON Rep #: [id number] : 1970 48 From: Alexus Jones MD PCP: Thi Alonzo NP Status[place] [facility] [place] [facility] History and Physical Date of Admission: 09/28/18 PREOPERATIVE HISTORY AND PHYSICAL HISTORY OF PRESENT ILLNESS: Virginia Sampson, a 48 year old female 3 0 0 0 3, presented for: -- Pre-Op Virginia is being seen for pre op visit. Pt to have LAVH/BS with Dr. Jones on 09-28-18. Medications and allergies are up to date. Consents signed and reviewed for surgery. Pt has no new concerns. AM As above. Here for PAT /preop appt prior to planned LAVH, bilateral salpingectomy for postablative syndrome. Pt with prior endometrial ablation and now recurrent severe cramping pain without bleeding. Pelvic sono on 08/26/2018: UTERUS: 9.8 x 7.2 x 5.2 cm. ENDOMETRIAL ECHO: Fluid/blood filled measuring 2.3 cm. RIGHT OVARY: 2.5 x 1.2 x 1.4 cm. LEFT OVARY: Not seen. FREE FLUID: NONE. OTHER PERTINENT FINDINGS: fluid within endometrial canal, and dilated Fallopian tubes. Reviewed anticipated surgery and all questions re surgical procedure and recovery answered to her satisfaction. Consents signed and on chart. EB ALLERGIES: Penicillins, Rash MEDICATIONS HISTORY: Patient is also takin. metformin ER 500 mg tablet,extended release 24hr, 1 PO QD REVIEW OF SYSTEMS: GENERAL - Denies fever, or chills SKIN - Denies skin changes EYES - Denies visual changes EARS - Denies difficulty hearing NOSE - Denies nasal congestion or bleeding MOUTH - Denies sore throat or difficulty swallowing NECK - Denies pain or swelling RESPIRATORY - Denies shortness of breath or wheezing CARDIOVASCULAR - Denies palpitations or chest pain GASTROINTESTINAL - Denies nausea, vomiting, diarrhea, constipation GENITOURINARY - Denies dysuria, frequency of urination, incontinence of urine MUSCULOSKELETAL - Denies joint or muscle pain NEUROLOGICAL - Denies localized numbness or weakness PSYCHIATRIC - Denies depression or anxiety ENDOCRINE - Denies heat or cold intolerance, weight loss or gain HEMATO-IMMUNOLOGIC - Denies excessive bleeding with cuts SURGICAL HISTORY: 1. 05/12/2017 hysteroscopy, D and C, Amy Jones M.D. 2. endometrial ablation 3. tubal, 1995 MENSTRUAL HISTORY: LMP Known?- Amy, LMP - 05/07/17, Age Onset Menarche - 14 FAMILY HISTORY: Father - Type 2 Diabetes; Father - FH: Hypertension; Mother - FH: Hypertension; SOCIAL HISTORY: Alcohol Use - RARELY Smoking - 1PPD and ATQ! 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 Unspecified Ovarian Cyst, Unspecified Side 2. Endometrial Hyperplasia, Unspecified 3. Hematometra 4. Abnormal Findings On Diagnostic Imaging Of Other Specified Body Structures PLAN BY DIAGNOSIS: 1. Abnormal Findings On Diagnostic Imaging Of Other Specified Body Structures and Hematometra Endometrial stripe thickened and bilateral proximal hydrosalpinx noted S/P BTO, hysteroscopy, D and C and endometrial ablation. Findings are consistent with hematometra, hemosalpinx and POSTABLATIVE syndrome Advised LAVH, bilateral salpingectomy. with plan to leave ovaries in place. R,B,A of LAVH, Bilateral salpingectomy reviewed. Discussed anticipated preop, operative and postop recovery courses. All questions answered. Consents signed and on chart. RTO in 2 wk after surgery for initial postop check up. The visit was approximately 20 minutes in length with most of the time spent in discussion and counseling. 2. Unspecified Ovarian Cyst, Unspecified Side Reviewed records Follicular cyst noted, a normal finding at her age Recommend repeat pelvic sono in 2 mo to recheck ovary and small follicle. Will check ovary at laparoscopy to evaluate by direct visualization. 09/24/18 0026 <Electronically signed by Alexus Jones MD> Date Alexus Jones MD Cosigner Signature: Date (if applicable) CC: GAMEPLAY PROGRAMMER Thi Alonzo; Alexus Jones MD Signed Thi Alonzo Start: 09-05-2018 End: 09-06-2018 SCREEN MAMM (CAD) W/DAVID BILAT Comments: See Note; NOTES: [facility] Imaging Services [address] [place] [address] SCREEN MAMM (CAD) W/DAVID BILAT MR#: [id number] Acct: [id number] Name: VIRGINIA SAMPSON Rep #: [id number] : 1970 F 48 From: Virgilio Hill MD PCP: Thi Alonzo NP Status: REG CL Study: SCREEN MAMM (CAD) W/DAVID BILAT Date of Exam: 09/05/18 Exam# [id number] Ordering Dr: Thi Alonzo GAMEPLAY PROGRAMMER-C MAMMOGRAPHY - BILATERAL SCREENING REASON FOR EXAM: Female, 48 years old. Routine annual screening examination. PERTINENT HISTORY: Non-contributory. Remote right breast needle biopsy. TECHNIQUE: Digital bilateral breast david (3D mammographic acquisition) in the CC and MLO projections. 2-D mediolateral oblique (MLO) and craniocaudad (CC) views of both breasts were obtained. CAD: Full Field Digital Mammography with Computer Added Detection was performed. COMPARISON: Comparison is made with prior study dated July 02, 2017 and March 25, 2016. FINDINGS: Breast Composition: The breasts are heterogeneously dense, which may obscure small masses. There are no dominant masses or suspicious calcifications. A tissue clip marker is once again seen in the upper outer quadrant of the right breast. No other significant abnormalities are identified. There has been no significant change since the prior study. BI/SCREEN MAMM (CAD) W/DAVID BILAT IMPRESSION: Stable bilateral screening mammogram. Yearly follow-up mammogram recommended. (A) ASSESSMENT CATEGORY: BIRADS Category 2: Benign. A letter regarding these results will be sent to the patient by the facility within 30 days. Approximately 10% of breast cancers are not detected by mammography. A normal mammogram should not delay biopsy of a clinically suspicious abnormality. [id number] Electronically Signed: Virgilio Hill, at 8:28 EDT , Service support , CC: LISY Alonzo Department Store General Manager: Signed Thi Alonzo Work Phone: Start: 07-04-2018 End: 07-04-2018 Abdomen/Pelvis WITH Contrast Comments: See Note; NOTES: [facility] Imaging Services [address] [place] [address] Abdomen/Pelvis WITH Contrast MR#: [id number] Acct: [id number] Name: VIRGINIA SAMPSON Rep #: [id number] : 1970 F 48 From: Virgilio Hill MD PCP: Thi Alonzo NP Status: REG CLI Study: Abdomen/Pelvis WITH Contrast Date of Exam: 07/04/18 Exam# [id number] Ordering Dr: Albertina Ga NP-Hugh STUDY: CT ABDOMEN AND PELVIS WITH CONTRAST REASON FOR EXAM: Female, 48 years old. Abdominal pain. RADIATION DOSAGE (If Supplied By Facility): CTDIvol = ( 13.12 ) mGy, DLP = ( 486.52 ) mGycm TECHNIQUE: Transaxial images were obtained from the dome of the diaphragm to the symphysis pubis without oral contrast. 100 IV/Oral Isovue 370 was administered. Sagittal and coronal images were reconstructed. Individualized dose optimization techniques were used for this CT. COMPARISON: None. FINDINGS: The visualized lung bases are unremarkable. The visualized portions of the heart are within normal limits. There is decreased attenuation of the liver consistent with steatosis. Normal gallbladder and extrahepatic biliary system. Normal spleen. Normal pancreas. Normal bilateral adrenal glands. Normal right kidney. Normal left kidney. Normal visualized stomach. Normal small intestine. Normal colon. The appendix is visualized and appears normal. There is scattered atherosclerotic calcification of the abdominal aorta, without a demonstrated aneurysm. Normal inferior vena cava. There is borderline retroperitoneal lymphadenopathy with enlarged nodes no greater than 10mm in the short axis diameter. Normal urinary bladder. There is a 2.1 cm x 1.7 cm cyst in the left ovary. There is thickening of the endometrium measuring 3 cm. The endometrium is fluid-filled. There is evidence of prior tubal ligation with anna. There is a mild dilatation of the proximal portions of the fallopian tubes bilaterally. Normal abdominal wall. Normal osseous structures. CT/Abdomen/Pelvis WITH Contrast IMPRESSION: 2.1 cm x 1.7 cm cyst in the left ovary. Fluid filled and thickened endometrium measuring 3 cm. Prior bilateral tubal ligation. Fatty infiltration of the liver. Electronically Signed: Virgilio Hill, at 13:51 EDT , Service support , CC: LISY Alonzo; ZEESHAN aG Department Store General Manager: Signed Albertina Ga Start: 07-02-2017 End: 07-02-2017 SCREENING MAMM (CAD), BILAT Comments: See Note; NOTES: [facility] Imaging Services [address] [place] [address] SCREENING MAMM (CAD), BILAT MR#: [id number] Acct: [id number] Name: VIRGINIA SAMPSON Rep #: [id number] : 1970 F 47 From: Virgilio Hill MD PCP: Thi Alonzo NP Status: REG CLI Study: SCREENING MAMM (CAD), BILAT Date of Exam: 07/02/17 Exam# [id number] Ordering Dr: Thi Alonzo MAMMOGRAPHY - BILATERAL SCREENING REASON FOR EXAM: Female, 47 years old. Routine annual screening examination. PERTINENT HISTORY: Non-contributory. TECHNIQUE: Digital bilateral breast david (3D mammographic acquisition) in the CC and MLO projections. 2-D mediolateral oblique (MLO) and craniocaudad (CC) views of both breasts were obtained. CAD: Full Field Digital Mammography with Computer Added Detection was performed. COMPARISON: Comparison is made with prior study dated March 25, 2016 and November 28, 2014. FINDINGS: Breast Composition: The breasts are heterogeneously dense, which may obscure small masses. There are no dominant masses or suspicious calcifications. A tissue clip marker is seen in the upper outer quadrant of the right breast and compared with prior biopsy. No other significant abnormalities are identified. There has been no significant change since the prior study. BI/SCREENING MAMM (CAD), BILAT IMPRESSION: Stable bilateral screening mammogram. Yearly follow-up mammogram recommended. (A) ASSESSMENT CATEGORY: BIRADS Category 2: Benign. A letter regarding these results will be sent to the patient by the facility within 30 days. Approximately 10% of breast cancers are not detected by mammography. A normal mammogram should not delay biopsy of a clinically suspicious abnormality. [id number] Electronically Signed: Virgilio Hill MD at 15:03 EDT Tel [phone], Service support , CC: Thi Alonzo NP Department Store General Manager: Signed Thi Alonzo Work Phone: Start: 05-13-2017 End: 05-13-2017 Operative Report Comments: See Note; NOTES: [facility] Medical Records Department [address] [place] [address] Operative Report 05/12/172031 MR#: [id number] Acct: [id number] Name: VIRGINIA SAMPSON Rep #: [id number] : 1970 46 From: Alexus Jones MD PCP: Thi Alonzo NP Status: [facility] [place] [facility] Problem List (1) Excessive bleeding in premenopausal period Status: Chronic (2) Uterine fibroid Status: Chronic Qualifiers: Uterine leiomyoma location: submucous Qualified Code(s): D25.0 - Submucous leiomyoma of uterus Operative Report Date of Procedure: 05/12/17 PROCEDURE: Hysteroscopy Dilation and Curettage Amy Endometrial Ablation PREOPERATIVE DIAGNOSIS: Excessive bleeding in premenopause Uterine fibroid POSTOPERATIVE DIAGNOSIS: Excessive bleeding in premenopause Uterine fibroid ANESTHESIA: MAC IV sedation per [facility] [place] and Da Oliver MD SURGEON: Alexus Jones MD EBL: minimal COMPLICATIONS: None DRAINS: Red Ackerman catheter used to drain bladder prior to initiation of the case FLUIDS: LR replacement FINDINGS: Uterus is 8 cm with 4 cm endometrial cavity. Atrophic appearing endometrium noted with a small submucous fibroid at anterior lower uterine segment on the L side. Both tubal ostia noted. NARRATIVE ACCOUNT: After the risks, benefits, alternatives of the procedure had been reviewed with the patient informed consent was obtained. The patient was taken to the operating room with an IV running and was place in dorsal supine position on the operating table. She was given IV sedation and then repositioned to the dorsal lithotomy position and prepped and draped in the usual sterile fashion. A red robins catheter was used to drain the bladder. A Graces speculum was placed into the vagina and ta paracervical block of 1% lidocaine was placed at the 10:00; 2:00: 6:00; and 8:00 positions. A single toothed tenaculum was then placed at the anterior lip of the cervix. The uterus was sounded to 8 cm and the endocervical canal 4 cm, giving cavity length of 4 cm. The cervix was sequentially dilated to allow admission of the hysteroscope. The hysteroscopy was then performed with the findings noted above. Both tubal ostia were visualized and a small submucous fibroid was noted at the L anterior lower uterine segment. The hysteroscope was withdrawn. A sharp curettage was performed and minimal curettings were withdrawn and set aside for later pathology review. The Amy ablation device was then placed into the uterus to the fundus. The device was opened and seated into place and the balloon was inflated, sealing off the cervix. The CO2 test was passed times two and a 120 second treatment cycle was then successfully completed. Upon completion of the ablation, the Amy device was removed from the uterus and cervix. The tenaculum was removed from the anterior lip of the cervix. Excellent hemostasis was noted. The Graves speculum was removed from the vagina and the patient was returned to dorsal supine position. she was transferred then to the recovery room in stable condition after tolerating the procedure well. Sponge, needle, and instrument counts were correct times two. Medications given intraop included a paracervical block of 10 cc of 1% lidocaine and Toradol 30 mg IV x one. For a complete listing of the medications given preop and intraoperatively, please see the anesthesia record. 05/13/17 0738 <Electronically signed by Alexus Jones MD> Date Alexus Jones MD CC: Thi Alonzo GAMEPLAY PROGRAMMER; Alexus Jones MD Signed Thi Alonzo Start: 05-12-2017 End: 05-12-2017 Discharge Instruction Comments: See Note; NOTES: [facility] Medical Records Department [address] [place] [address] Instructions for Home/Discharge Instructions 05/12/17 1232 MR#: [id number] Acct: [id number] Name: VIRGINIA SAMPSON Rep #: [id number] : 1970 46 From: Alexus Jones MD PCP: Thi Alonzo NP Status: REG [facility] Discharge Diet: No Restrictions Discharge Activity: May not drive while taking narcotic pain medications., May Shower, May Take a Tub Bath Return to work on:: 05/13/17 May resume sexual activity in: 1-2 weeks Weight Bearing Status: Weight bearing as tolerated Call your doctor if you observe: Fever of 101 or Higher, Inability to have a bowel movement, Calf discomfort, Uncontrolled pain Allergies/Adverse Reactions: Allergies Penicillins Allergy (Verified 05/05/17 11:35) Rash Medications to take at Discharge Losartan Potassium [Cozaar] 25 mg PO QHS 05/05/17 Metoprolol Tartrate [Lopressor (Beta Sherman)] 25 mg PO QHS 05/05/17 Oxycodone HCl/Acetaminophen [Percocet 5/325] 1 - 2 tablet PO Q4H PRN PRN 2 Days #7 tablet 05/12/17 The following prescriptions were given: Oxycodone HCl/Acetaminophen [Percocet 5/325] 1 - 2 tablet PO Q4H PRN PRN 2 Days #7 tablet PRN Reason: Pain Primary Care Physician: Thi Alonzo [Primary Care Provider] - Please Follow Up With: Alexus Jones MD - [phone] When: in 2 wks for postop check as scheduled 05/12/17 1237 <Electronically signed by Alexus Jones MD> Date Alexus Jones MD CC: Thi Alonzo Start: 03-25-2016 End: 03-25-2016 SCREENING MAMM (CAD), BILAT Comments: See Note; NOTES: [facility] Imaging Services [address] [place] [address] Verdana 4d SCREENING MAMM (CAD), BILAT MR#: [id number] Acct: [id number] Name: VIRGINIA SAMPSON Rep #: [id number] : 1970 F 45 From: Tavon Abraham DO PCP: Thi Alonzo Status: REG CLI Study: SCREENING MAMM (CAD), BILAT Date of Exam: 03/25/16 Exam# [id number] Ordering Dr: Thi Alonzo MAMMOGRAPHY - BILATERAL SCREENING REASON FOR EXAM: Female, 45 years old. Routine annual screening examination. PERTINENT HISTORY: Personal history of right needle biopsy, 2007. TECHNIQUE: Digital examination. Mediolateral oblique (MLO) and craniocaudad (CC) views of both breasts were obtained with digital tomosynthesis. CAD: CAD was performed on this study. COMPARISON: None. FINDINGS: Breast Density: C - Heterogeneously dense, which may obscure small masses. Again seen is a surgical clip in the upper outer quadrant right breast. There is no new mass or suspicious calcification within either breast. No other significant abnormalities are identified. There has been no significant change since the prior study. HPBI/SCREENING MAMM (CAD), BILAT IMPRESSION: Stable bilateral screening mammogram. Yearly follow-up mammogram recommended. (A) ASSESSMENT CATEGORY: BIRADS Category 2: Benign. A letter regarding these results will be sent to the patient by the facility within 30 days. Approximately 10% of breast cancers are not detected by mammography. A normal mammogram should not delay biopsy of a clinically suspicious abnormality. [id number] Electronically Signed: Tavon Abraham DO at 15:46 EST Tel [phone], Service support [phone], CC: Thi Alonzo Department Store General Manager: Signed Thi Alonzo Work Phone: Start: 10-28-2015 End: 10-29-2015 Thyroid Comments: See Note; NOTES: [facility] Imaging Services [address] [place] [address] Geni 4d Thyroid MR#: [id number] Acct: [id number] Name: VIRGINIA SAMPSON Rep #: [id number] : 1970 F 45 From: Rico Smart MD PCP: Rosa Thurston DO Status: REG CLI Study: Thyroid Date of Exam: 10/28/15 Exam# [id number] Ordering Dr: Rosa Thurston DO STUDY: THYROID ULTRASOUND REASON FOR EXAM: Female, 45 years old. Thyroid nodules TECHNIQUE: Ultrasound evaluation of the thyroid was performed with real-time and static barreto-scale imaging. COMPARISON: US - Thyroid - 13:08 FINDINGS: RIGHT LOBE: The right lobe of the thyroid gland measures 4.4x1.6x1.3 cm. There is a homogeneous echotexture. There is an isoechoic nodule measures 9.7x7.6x8.0 mm this nodule retrospectively was present on the previous study and is stable. LEFT LOBE: The left lobe of the thyroid gland measures 3.7x1.2x1.0 cm. There is a homogeneous echotexture. 2 nodules are seen in the left thyroid lobe measures respectively Nodule #1 measures 4x3x2 mm. Nodule #2 measures 4x4x3 mm. ISTHMUS: The isthmus measures 3 mm. The regional lymph nodes are normal. US/Thyroid IMPRESSION: 2 nodules in the left thyroid lobe measuring 4 mm in diameter each have nonspecific appearance are stable since the previous study. There is also a nodule in the right thyroid lobe was not described on the previous study but can retrospectively be found measures 9.7 mm in greatest diameter also has nonspecific appearance it remains stable since the previous study. Electronically Signed: Rico Smart MD at 10:52 EDT Tel , Service support [phone], CC: Rosa Thurston DO Department Store General Manager: Signed Rosa Thurston Work Phone: Start: 11-28-2014 End: 11-30-2014 Bilat Scrn Digital AND CAD Comments: See Note; NOTES: [facility] Imaging Services [address] [place] [address] Breast Imaging Report MR#: [id number] Acct: [id number] Name: VIRGINIA SAMPSON Rep #: [id number] : 1970 F 44 From: Rico Smart MD PCP: Rosa Thurston DO Status: REG CLI Study: Bilebony Avitia Digital AND CAD Date of Exam: 11/28/14 Exam# [id number] Ordering Dr: Rosa Thurston DO MAMMOGRAPHY - BILATERAL SCREENING REASON FOR EXAM: Female, 44 years old. Routine annual screening examination. PERTINENT HISTORY: NO FM HX , RT NEEDLE BX 2008 TECHNIQUE: Digital examination. Mediolateral oblique (MLO) and craniocaudad (CC) views of both breasts were obtained. CAD: CAD was performed on this study. COMPARISON: None. FINDINGS: Breast Composition: The breasts are heterogeneously dense, which may obscure small masses. There are no dominant masses or suspicious calcifications. No other significant abnormalities are identified. IMPRESSION: Stable bilateral screening mammogram. Yearly follow-up recommended. (A) ASSESSMENT CATEGORY: BIRADS Category 2: Benign. A letter regarding these results will be sent to the patient by the facility within 30 days. Approximately 10% of breast cancers are not detected by mammography. A normal mammogram should not delay biopsy of a clinically suspicious abnormality. Electronically Signed: Ronal Smart MD at 16:17 EDT Tel , Service support [phone], CC: Rosa Thurston DO Department Store General Manager: Signed Rosa Thurston Work Phone: Start: 11-28-2014 End: 11-29-2014 Thyroid Comments: See Note; NOTES: [facility] Imaging Services [address] [place] [address] Ultrasound Report MR#: [id number] Acct: [id number] Name: VIRGINIA SAMPSON Rep #: [id number] : 1970 F 44 From: Rico Smart MD PCP: Rosa Thurston DO Status: REG CLI Study: Thyroid Date of Exam: 11/28/14 Exam# [id number] Ordering Dr: Rosa Tuhrston DO STUDY: THYROID ULTRASOUND REASON FOR EXAM: Female, 44 years old. Thyroid enlargement TECHNIQUE: Ultrasound evaluation of the thyroid was performed with real-time and static barreto-scale imaging. COMPARISON: None. FINDINGS: RIGHT LOBE: The right lobe of the thyroid gland measures 4.4x1.6x1.3 cm. There is a homogeneous echotexture. There are no demonstrated solid, cystic or complex lesions. LEFT LOBE: The left lobe of the thyroid gland measures 3.7x1.2x1.0 cm. There is a homogeneous echotexture. 2 nodules are seen in the left thyroid lobe measures respectively Nodule #1 measures 4x3x2 mm. Nodule #2 measures 4x4x2 mm. ISTHMUS: The isthmus measures 3 mm. The regional lymph nodes are normal. IMPRESSION: 2 nodules in the left thyroid lobe measuring 4 mm in diameter each have nonspecific appearance followup in 6 months may be warranted to ensure stability and for better characterization. Electronically Signed: Ronal Smart MD at 10:57 EDT Tel , Service support [phone], CC: Rosa Thurston DO Department Store General Manager: Signed Rosa Thurston Work Phone: Start: 11-21-2014 End: 11-21-2014 Ecg routine ecg w/least 12 lds w/i&r [MEASUREMENTS ANALYSIS] Date of Test: 11/21/2014 10:12:39; Heart Rate: 85; [place] Interval: 126; QRS: 86; QT Interval: 358; Corrected QT Interval (QTc): 401; P Wave [place]: 48; QRS Wave [place]: 39; T Wave [place]: 37; Blood Pressure: 132/72 [ECG DIAGNOSTIC STATEMENTS] Date of Test: 11/21/2014 10:12:39; Summary: Sinus Rhythm WITHIN NORMAL LIMITS Rosa Thurston Work Phone: Plan of Treatment Date Care Activity Detail Author Start: 08-28-2022 Procedure Education Eprescribed prescriptions (G8553) [facility] Work Phone: Start: 08-28-2022 Provider Instructions for Treatment Follow up in 6 months [facility] Work Phone: Start: 02-23-2022 Blood count complete auto&auto difrntl wbc CBC with auto diff (45965) [facility]; [facility] Work Phone: Start: 02-23-2022 Comprehensive metabolic panel METABOLIC PANEL, COMPREHENSIVE (52468) [facility]; [facility] Work Phone: Start: 02-23-2022 Hemoglobin glycosylated a1c HGB A1C (03351) [facility]; [facility] Work Phone: Start: 02-23-2022 Lipid panel LIPID PANEL (27465) [facility]; [facility] Work Phone: Start: 02-23-2022 Procedure Education Eprescribed prescriptions (G8553) [facility]; [facility] Work Phone: Start: 02-23-2022 Provider Instructions for Treatment Follow up in 6 months [facility]; [facility] Work Phone: Start: 04-23-2021 Blood count complete auto&auto difrntl wbc CBC, PLATELETS & AUT DIFF (13706) [facility]; [facility] Work Phone: Start: 04-22-2021 Procedure Education Eprescribed prescriptions (G8553) [facility]; [facility] Work Phone: Start: 04-22-2021 Provider Instructions for Treatment Follow up in 6 months [facility]; [facility] Work Phone: Start: 01-14-2021 Procedure Education Eprescribed prescriptions (G8553) [facility]; [facility] Work Phone: Start: 01-14-2021 Provider Instructions for Treatment [facility]; [facility] Work Phone: Start: 01-14-2021 Blood count complete auto&auto difrntl wbc CBC, PLATELETS & AUT DIFF (71748) [facility]; [facility] Work Phone: Immunizations Immunization Date Immunization Notes Care Provider [facility] 02-03-2022 COVID-Moderna (Bivalent 25 MCG/0.25 ML IM BST) Karol Cobb [employer] Work Phone: [facility]; [facility] Work Phone: 02-03-2022 influenza, seasonal, injectable Karol Cobb [employer] Work Phone: [facility]; [facility] Work Phone: 11-28-2021 COVID-Pfizer (Bivale nt 10 MCG/0.2 ML IM BST) Karol Cobb [employer] Work Phone: [facility]; [facility] Work Phone: 03-22-2021 tetanus toxoid, reduced diphtheria toxoid, and acellular pertussis vaccine, adsorbed Thi Cheri Work Phone: [facility]; [facility] Work Phone: 04-24-2020 COVID-Moderna (50 MCG/0.5 ML) Karol Cobb [employer] Work Phone: [facility]; [facility] Work Phone: Payers Date Payer Category Payer Unknown [id number] 1970 Unknown [id number] Unknown [employer] Social History Date Type Detail Facility Alcohol Use: Current every day smoker [facility] Work Phone: Caffeine Use [facility] Work Phone: Instructions Note Date & Type Note Facility [facility] Work Phone: Instructions Note Date & Type Note Facility [facility]; [facility] Work Phone: Instructions Note Date & Type Note Facility [facility]; [facility] Work Phone: Instructions Note Date & Type Note Facility [facility]; [facility] Work Phone: Instructions Note Date & Type Note Facility [facility]; [facility] Work Phone: Instructions Note Date & Type Note Facility [facility]; [facility] Work Phone: Instructions Note Date & Type Note Facility [facility]; [facility] Work Phone: Instructions Note Date & Type Note Facility [facility]; [facility] Work Phone: Instructions Note Date & Type Note Facility [facility]; [facility] Work Phone: Instructions Note Date & Type Note Facility [facility]; [facility] Work Phone: Family History Unknown Family Member Name Dates Details Family Members In General Comments:heart disease Status:Active Father Comments: age 50s fr om lung cancer Status:Active Mother Comments:living and htn Status:Active Unknown Family Member Name Dates Details Family Members In General Comments:heart disease Status:Active Father Comments: age 50s fr om lung cancer Status:Active Mother Comments:living and htn Status:Active Unknown Family Member Name Dates Details Family Members In General Comments:heart disease Status:Active Father Comments: age 50s fr om lung cancer Status:Active Mother Comments:living and htn Status:Active Unknown Family Member Name Dates Details Family Members In General Comments:heart disease Status:Active Father Comments: age 50s fr om lung cancer Status:Active Mother Comments:living and htn Status:Active Unknown Family Member Name Dates Details Family Members In General Comments:heart disease Status:Active Father Comments: age 50s fr om lung cancer Status:Active Mother Comments:living and htn Status:Active Unknown Family Member Name Dates Details Family Members In General Comments:heart disease Status:Active Father Comments: age 50s fr om lung cancer Status:Active Mother Comments:living and htn Status:Active Unknown Family Member Name Dates Details Family Members In General Comments:heart disease Status:Active Father Comments: age 50s fr om lung cancer Status:Active Mother Comments:living and htn Status:Active Unknown Family Member Name Dates Details Family Members In General Comments:heart disease Status:Active Father Comments: age 50s fr om lung cancer Status:Active Mother Comments:living and htn Status:Active Unknown Family Member Name Dates Details Family Members In General Comments:heart disease Status:Active Father Comments: age 50s fr om lung cancer Status:Active Mother Comments:living and htn Status:Active Unknown Family Member Name Dates Details Family Members In General Comments:heart disease Status:Active Father Comments: age 50s fr om lung cancer Status:Active Mother Comments:living and htn Status:Active Unknown Family Member Name Dates Details Family Members In General Comments:heart disease Status:Active Father Comments: age 50s fr om lung cancer Status:Active Mother Comments:living and htn Status:Active Unknown Family Member Name Dates Details Family Members In General Comments:heart disease Status:Active Father Comments: age 50s fr om lung cancer Status:Active Mother Comments:living and htn Status:Active Unknown Family Member Name Dates Details Family Members In General Comments:heart disease Status:Active Father Comments: age 50s fr om lung cancer Status:Active Mother Comments:living and htn Status:Active Unknown Family Member Name Dates Details Family Members In General Comments:heart disease Status:Active Father Comments: age 50s fr om lung cancer Status:Active Mother Comments:living and htn Status:Active Unknown Family Member Name Dates Details Family Members In General Comments:heart disease Status:Active Father Comments: age 50s fr om lung cancer Status:Active Mother Comments:living and htn Status:Active Unknown Family Member Name Dates Details Family Members In General Comments:heart disease Status:Active Father Comments: age 50s fr om lung cancer Status:Active Mother Comments:living and htn Status:Active Unknown Family Member Name Dates Details Family Members In General Comments:heart disease Status:Active Father Comments: age 50s fr om lung cancer Status:Active Mother Comments:living and htn Status:Active Unknown Family Member Name Dates Details Family Members In General Comments:heart disease Status:Active Father Comments: age 50s fr om lung cancer Status:Active Mother Comments:living and htn Status:Active Unknown Family Member Name Dates Details Family Members In General Comments:heart disease Status:Active Father Comments: age 50s fr om lung cancer Status:Active Mother Comments:living and htn Status:Active Unknown Family Member Name Dates Details Family Members In General Comments:heart disease Status:Active Father Comments: age 50s fr om lung cancer Status:Active Mother Comments:living and htn Status:Active Unknown Family Member Name Dates Details Family Members In General Comments:heart disease Status:Active Father Comments: age 50s fr om lung cancer Status:Active Mother Comments:living and htn Status:Active Unknown Family Member Name Dates Details Family Members In General Comments:heart disease Status:Active Father Comments: age 50s fr om lung cancer Status:Active Mother Comments:living and htn Status:Active Unknown Family Member Name Dates Details Family Members In General Comments:heart disease Status:Active Father Comments: age 50s fr om lung cancer Status:Active Mother Comments:living and htn Status:Active Unknown Family Member Name Dates Details Family Members In General Comments:heart disease Status:Active Father Comments: age 50s fr om lung cancer Status:Active Mother Comments:living and htn Status:Active Unknown Family Member Name Dates Details Family Members In General Comments:heart disease Status:Active Father Comments: age 50s fr om lung cancer Status:Active Mother Comments:living and htn Status:Active Unknown Family Member Name Dates Details Family Members In General Comments:heart disease Status:Active Father Comments: age 50s fr om lung cancer Status:Active Mother Comments:living and htn Status:Active Unknown Family Member Name Dates Details Family Members In General Comments:heart disease Status:Active Father Comments: age 50s fr om lung cancer Status:Active Mother Comments:living and htn Status:Active Unknown Family Member Name Dates Details Family Members In General Comments:heart disease Status:Active Father Comments: age 50s fr om lung cancer Status:Active Mother Comments:living and htn Status:Active Unknown Family Member Name Dates Details Family Members In General Comments:heart disease Status:Active Father Comments: age 50s fr om lung cancer Status:Active Mother Comments:living and htn Status:Active Instructions Name Dates Details BMI 24.0-24.9, adult : How t o access health information online Indication:BMI 24.0-24.9, adult BMI 24.0-24.9, adult : Patie nt Instructions Indication:BMI 24.0-24.9, adult Impaired Fasting Glucose (Re named from Elevated fasting blood sugar) : How to access health information online Indication:Impaired Fasting Glucose (Renamed from Elevated fasting blood sugar) Impaired Fasting Glucose (Re named from Elevated fasting blood sugar) : How to access health information online - Detail Indication:Impaired Fasting Glucose (Renamed from Elevated fasting blood sugar) Impaired Fasting Glucose (Re named from Elevated fasting blood sugar) : Patient Instructions Indication:Impaired Fasting Glucose (Renamed from Elevated fasting blood sugar) Benign Essential Hypertensio n (Renamed from Benign essential HTN) : Patient Instructions Indication:Benign Essential Hypertension (Renamed from Benign essential HTN) Benign Essential Hypertensio n (Renamed from Benign essential HTN) : How to access health information online - Detail Indication:Benign Essential Hypertension (Renamed from Benign essential HTN) Benign Essential Hypertensio n (Renamed from Benign essential HTN) : How to access health information online Indication:Benign Essential Hypertension (Renamed from Benign essential HTN) Sore throat : How to access health information online Indication:Sore throat Sore throat : How to access health information online - Detail Indication:Sore throat Sore throat : Patient Instru ctions Indication:Sore throat Well female exam with routin e gynecological exam : How to access health information online Indication:Well female exam with routine gynecological exam Well female exam with routin e gynecological exam : How to access health information online - Detail Indication:Well female exam with routine gynecological exam Well female exam with routin e gynecological exam : Patient Instructions Indication:Well female exam with routine gynecological exam Need for prophylactic vaccin ation and inoculation against influenza (Renamed from Need for immunization against influenza) : Patient Instructions Indication:Need for prophylactic vaccination and inoculation against influenza (Renamed from Need for immunization against influenza) Need for prophylactic vaccin ation and inoculation against influenza (Renamed from Need for immunization against influenza) : How to access health information online Indication:Need for prophylactic vaccination and inoculation against influenza (Renamed from Need for immunization against influenza) Need for prophylactic vaccin ation and inoculation against influenza (Renamed from Need for immunization against influenza) : How to access health information online - Detail Indication:Need for prophylactic vaccination and inoculation against influenza (Renamed from Need for immunization against influenza) Name Dates Details BMI 24.0-24.9, adult : How t o access health information online Indication:BMI 24.0-24.9, adult BMI 24.0-24.9, adult : Patie nt Instructions Indication:BMI 24.0-24.9, adult Impaired Fasting Glucose (Re named from Elevated fasting blood sugar) : How to access health information online Indication:Impaired Fasting Glucose (Renamed from Elevated fasting blood sugar) Impaired Fasting Glucose (Re named from Elevated fasting blood sugar) : How to access health information online - Detail Indication:Impaired Fasting Glucose (Renamed from Elevated fasting blood sugar) Impaired Fasting Glucose (Re named from Elevated fasting blood sugar) : Patient Instructions Indication:Impaired Fasting Glucose (Renamed from Elevated fasting blood sugar) Benign Essential Hypertensio n (Renamed from Benign essential HTN) : Patient Instructions Indication:Benign Essential Hypertension (Renamed from Benign essential HTN) Benign Essential Hypertensio n (Renamed from Benign essential HTN) : How to access health information online - Detail Indication:Benign Essential Hypertension (Renamed from Benign essential HTN) Benign Essential Hypertensio n (Renamed from Benign essential HTN) : How to access health information online Indication:Benign Essential Hypertension (Renamed from Benign essential HTN) Sore throat : How to access health information online Indication:Sore throat Sore throat : How to access health information online - Detail Indication:Sore throat Sore throat : Patient Instru ctions Indication:Sore throat Well female exam with routin e gynecological exam : How to access health information online Indication:Well female exam with routine gynecological exam Well female exam with routin e gynecological exam : How to access health information online - Detail Indication:Well female exam with routine gynecological exam Well female exam with routin e gynecological exam : Patient Instructions Indication:Well female exam with routine gynecological exam Need for prophylactic vaccin ation and inoculation against influenza (Renamed from Need for immunization against influenza) : Patient Instructions Indication:Need for prophylactic vaccination and inoculation against influenza (Renamed from Need for immunization against influenza) Need for prophylactic vaccin ation and inoculation against influenza (Renamed from Need for immunization against influenza) : How to access health information online Indication:Need for prophylactic vaccination and inoculation against influenza (Renamed from Need for immunization against influenza) Need for prophylactic vaccin ation and inoculation against influenza (Renamed from Need for immunization against influenza) : How to access health information online - Detail Indication:Need for prophylactic vaccination and inoculation against influenza (Renamed from Need for immunization against influenza) Name Dates Details BMI 24.0-24.9, adult : How t o access health information online Indication:BMI 24.0-24.9, adult BMI 24.0-24.9, adult : Patie nt Instructions Indication:BMI 24.0-24.9, adult Impaired Fasting Glucose (Re named from Elevated fasting blood sugar) : How to access health information online Indication:Impaired Fasting Glucose (Renamed from Elevated fasting blood sugar) Impaired Fasting Glucose (Re named from Elevated fasting blood sugar) : How to access health information online - Detail Indication:Impaired Fasting Glucose (Renamed from Elevated fasting blood sugar) Impaired Fasting Glucose (Re named from Elevated fasting blood sugar) : Patient Instructions Indication:Impaired Fasting Glucose (Renamed from Elevated fasting blood sugar) Benign Essential Hypertensio n (Renamed from Benign essential HTN) : Patient Instructions Indication:Benign Essential Hypertension (Renamed from Benign essential HTN) Benign Essential Hypertensio n (Renamed from Benign essential HTN) : How to access health information online - Detail Indication:Benign Essential Hypertension (Renamed from Benign essential HTN) Benign Essential Hypertensio n (Renamed from Benign essential HTN) : How to access health information online Indication:Benign Essential Hypertension (Renamed from Benign essential HTN) Sore throat : How to access health information online Indication:Sore throat Sore throat : How to access health information online - Detail Indication:Sore throat Sore throat : Patient Instru ctions Indication:Sore throat Well female exam with routin e gynecological exam : How to access health information online Indication:Well female exam with routine gynecological exam Well female exam with routin e gynecological exam : How to access health information online - Detail Indication:Well female exam with routine gynecological exam Well female exam with routin e gynecological exam : Patient Instructions Indication:Well female exam with routine gynecological exam Need for prophylactic vaccin ation and inoculation against influenza (Renamed from Need for immunization against influenza) : Patient Instructions Indication:Need for prophylactic vaccination and inoculation against influenza (Renamed from Need for immunization against influenza) Need for prophylactic vaccin ation and inoculation against influenza (Renamed from Need for immunization against influenza) : How to access health information online Indication:Need for prophylactic vaccination and inoculation against influenza (Renamed from Need for immunization against influenza) Need for prophylactic vaccin ation and inoculation against influenza (Renamed from Need for immunization against influenza) : How to access health information online - Detail Indication:Need for prophylactic vaccination and inoculation against influenza (Renamed from Need for immunization against influenza) Name Dates Details BMI 24.0-24.9, adult : How t o access health information online Indication:BMI 24.0-24.9, adult BMI 24.0-24.9, adult : Patie nt Instructions Indication:BMI 24.0-24.9, adult Impaired Fasting Glucose (Re named from Elevated fasting blood sugar) : How to access health information online Indication:Impaired Fasting Glucose (Renamed from Elevated fasting blood sugar) Impaired Fasting Glucose (Re named from Elevated fasting blood sugar) : How to access health information online - Detail Indication:Impaired Fasting Glucose (Renamed from Elevated fasting blood sugar) Impaired Fasting Glucose (Re named from Elevated fasting blood sugar) : Patient Instructions Indication:Impaired Fasting Glucose (Renamed from Elevated fasting blood sugar) Benign Essential Hypertensio n (Renamed from Benign essential HTN) : Patient Instructions Indication:Benign Essential Hypertension (Renamed from Benign essential HTN) Benign Essential Hypertensio n (Renamed from Benign essential HTN) : How to access health information online - Detail Indication:Benign Essential Hypertension (Renamed from Benign essential HTN) Benign Essential Hypertensio n (Renamed from Benign essential HTN) : How to access health information online Indication:Benign Essential Hypertension (Renamed from Benign essential HTN) Sore throat : How to access health information online Indication:Sore throat Sore throat : How to access health information online - Detail Indication:Sore throat Sore throat : Patient Instru ctions Indication:Sore throat Well female exam with routin e gynecological exam : How to access health information online Indication:Well female exam with routine gynecological exam Well female exam with routin e gynecological exam : How to access health information online - Detail Indication:Well female exam with routine gynecological exam Well female exam with routin e gynecological exam : Patient Instructions Indication:Well female exam with routine gynecological exam Need for prophylactic vaccin ation and inoculation against influenza (Renamed from Need for immunization against influenza) : Patient Instructions Indication:Need for prophylactic vaccination and inoculation against influenza (Renamed from Need for immunization against influenza) Need for prophylactic vaccin ation and inoculation against influenza (Renamed from Need for immunization against influenza) : How to access health information online Indication:Need for prophylactic vaccination and inoculation against influenza (Renamed from Need for immunization against influenza) Need for prophylactic vaccin ation and inoculation against influenza (Renamed from Need for immunization against influenza) : How to access health information online - Detail Indication:Need for prophylactic vaccination and inoculation against influenza (Renamed from Need for immunization against influenza) Name Dates Details Smoker : How to access healt h information online Indication:Smoker Smoker : How to access healt h information online - Detail Indication:Smoker Abdominal pain : Patient Ins tructions Indication:Abdominal pain BMI 24.0-24.9, adult : How t o access health information online Indication:BMI 24.0-24.9, adult BMI 24.0-24.9, adult : Patie nt Instructions Indication:BMI 24.0-24.9, adult Impaired Fasting Glucose (Re named from Elevated fasting blood sugar) : How to access health information online Indication:Impaired Fasting Glucose (Renamed from Elevated fasting blood sugar) Impaired Fasting Glucose (Re named from Elevated fasting blood sugar) : How to access health information online - Detail Indication:Impaired Fasting Glucose (Renamed from Elevated fasting blood sugar) Impaired Fasting Glucose (Re named from Elevated fasting blood sugar) : Patient Instructions Indication:Impaired Fasting Glucose (Renamed from Elevated fasting blood sugar) Benign Essential Hypertensio n (Renamed from Benign essential HTN) : Patient Instructions Indication:Benign Essential Hypertension (Renamed from Benign essential HTN) Benign Essential Hypertensio n (Renamed from Benign essential HTN) : How to access health information online - Detail Indication:Benign Essential Hypertension (Renamed from Benign essential HTN) Benign Essential Hypertensio n (Renamed from Benign essential HTN) : How to access health information online Indication:Benign Essential Hypertension (Renamed from Benign essential HTN) Sore throat : How to access health information online Indication:Sore throat Sore throat : How to access health information online - Detail Indication:Sore throat Sore throat : Patient Instru ctions Indication:Sore throat Well female exam with routin e gynecological exam : How to access health information online Indication:Well female exam with routine gynecological exam Well female exam with routin e gynecological exam : How to access health information online - Detail Indication:Well female exam with routine gynecological exam Well female exam with routin e gynecological exam : Patient Instructions Indication:Well female exam with routine gynecological exam Need for prophylactic vaccin ation and inoculation against influenza (Renamed from Need for immunization against influenza) : Patient Instructions Indication:Need for prophylactic vaccination and inoculation against influenza (Renamed from Need for immunization against influenza) Need for prophylactic vaccin ation and inoculation against influenza (Renamed from Need for immunization against influenza) : How to access health information online Indication:Need for prophylactic vaccination and inoculation against influenza (Renamed from Need for immunization against influenza) Need for prophylactic vaccin ation and inoculation against influenza (Renamed from Need for immunization against influenza) : How to access health information online - Detail Indication:Need for prophylactic vaccination and inoculation against influenza (Renamed from Need for immunization against influenza) Name Dates Details How to access [employer] Indication:Smoker Start:04-Jul-2018 Instruction Type:Patient Education How to access health informa tion online - Detail Indication:Smoker Start:04-Jul-2018 Instruction Type:Patient Education Patient Instructions Indication:Abdominal pain Start:04-Jul-2018 Instruction Type:Provider Instructions for Treatment How to access health informa [employer] online Indication:BMI 24.0-24.9, adult Start:25-Oct-2017 Instruction Type:Patient Education Patient Instructions Indication:BMI 24.0-24.9, adult Start:25-Oct-2017 Instruction Type:Provider Instructions for Treatment How to access health [employer] Indication:Impaired Fasting Glucose (Renamed from Elevated fasting blood sugar) Start:23-Jun-2017 Instruction Type:Patient Education How to access health informa [employer] online - Detail Indication:Impaired Fasting Glucose (Renamed from Elevated fasting blood sugar) Start:23-Jun-2017 Instruction Type:Patient Education Patient Instructions Indication:Impaired Fasting Glucose (Renamed from Elevated fasting blood sugar) Start:23-Jun-2017 Instruction Type:Provider Instructions for Treatment How to access health [employer] [place] online Indication:Impaired Fasting Glucose (Renamed from Elevated fasting blood sugar) Start:06-Apr-2016 Instruction Type:Patient Education How to access health informa [employer] online - Detail Indication:Impaired Fasting Glucose (Renamed from Elevated fasting blood sugar) Start:06-Apr-2016 Instruction Type:Patient Education Patient Instructions Indication:Impaired Fasting Glucose (Renamed from Elevated fasting blood sugar) Start:06-Apr-2016 Instruction Type:Provider Instructions for Treatment Patient Instructions Indication:Benign Essential Hypertension (Renamed from Benign essential HTN) Start:26-Aug-2015 Instruction Type:Provider Instructions for Treatment How to access health informa tion online - Detail Indication:Benign Essential Hypertension (Renamed from Benign essential HTN) Start:29-Apr-2015 Instruction Type:Patient Education How to access health informa tion online Indication:Benign Essential Hypertension (Renamed from Benign essential HTN) Start:29-Apr-2015 Instruction Type:Patient Education Patient Instructions Indication:Benign Essential Hypertension (Renamed from Benign essential HTN) Start:29-Apr-2015 Instruction Type:Provider Instructions for Treatment How to access health informa tion online Indication:Sore throat Start:11-Mar-2015 Instruction Type:Patient Education How to access health informa tion online - Detail Indication:Sore throat Start:11-Mar-2015 Instruction Type:Patient Education Patient Instructions Indication:Sore throat Start:11-Mar-2015 Instruction Type:Provider Instructions for Treatment How to access health informa tion online Indication:Well female exam with routine gynecological exam Start:05-Dec-2014 Instruction Type:Patient Education How to access health informa tion online - Detail Indication:Well female exam with routine gynecological exam Start:05-Dec-2014 Instruction Type:Patient Education Patient Instructions Indication:Well female exam with routine gynecological exam Start:05-Dec-2014 Instruction Type:Provider Instructions for Treatment Patient Instructions Indication:Need for prophylactic vaccination and inoculation against influenza (Renamed from Need for immunization against influenza) Start:21-Nov-2014 Instruction Type:Provider Instructions for Treatment How to access health informa tion online Indication:Need for prophylactic vaccination and inoculation against influenza (Renamed from Need for immunization against influenza) Start:21-Nov-2014 Instruction Type:Patient Education How to access health informa tion online - Detail Indication:Need for prophylactic vaccination and inoculation against influenza (Renamed from Need for immunization against influenza) Start:21-Nov-2014 Instruction Type:Patient Education Name Dates Details How to access health informa tion online Indication:Smoker Start:22-Aug-2018 Instruction Type:Patient Education How to access health informa tion online - Detail Indication:Smoker Start:22-Aug-2018 Instruction Type:Patient Education Patient Instructions Indication:Smoker Start:22-Aug-2018 Instruction Type:Provider Instructions for Treatment How to access health informa tion online Indication:Smoker Start:04-Jul-2018 Instruction Type:Patient Education How to access health informa tion online - Detail Indication:Smoker Start:04-Jul-2018 Instruction Type:Patient Education Patient Instructions Indication:Abdominal pain Start:04-Jul-2018 Instruction Type:Provider Instructions for Treatment How to access health informa tion online Indication:BMI 24.0-24.9, adult Start:25-Oct-2017 Instruction Type:Patient Education Patient Instructions Indication:BMI 24.0-24.9, adult Start:25-Oct-2017 Instruction Type:Provider Instructions for Treatment How to access health informa tion online Indication:Impaired Fasting Glucose (Renamed from Elevated fasting blood sugar) Start:23-Jun-2017 Instruction Type:Patient Education How to access health informa tion online - Detail Indication:Impaired Fasting Glucose (Renamed from Elevated fasting blood sugar) Start:23-Jun-2017 Instruction Type:Patient Education Patient Instructions Indication:Impaired Fasting Glucose (Renamed from Elevated fasting blood sugar) Start:23-Jun-2017 Instruction Type:Provider Instructions for Treatment How to access health informa tion online Indication:Impaired Fasting Glucose (Renamed from Elevated fasting blood sugar) Start:06-Apr-2016 Instruction Type:Patient Education How to access health informa tion online - Detail Indication:Impaired Fasting Glucose (Renamed from Elevated fasting blood sugar) Start:06-Apr-2016 Instruction Type:Patient Education Patient Instructions Indication:Impaired Fasting Glucose (Renamed from Elevated fasting blood sugar) Start:06-Apr-2016 Instruction Type:Provider Instructions for Treatment Patient Instructions Indication:Benign Essential Hypertension (Renamed from Benign essential HTN) Start:26-Aug-2015 Instruction Type:Provider Instructions for Treatment How to access health informa tion online - Detail Indication:Benign Essential Hypertension (Renamed from Benign essential HTN) Start:29-Apr-2015 Instruction Type:Patient Education How to access health informa tion online Indication:Benign Essential Hypertension (Renamed from Benign essential HTN) Start:29-Apr-2015 Instruction Type:Patient Education Patient Instructions Indication:Benign Essential Hypertension (Renamed from Benign essential HTN) Start:29-Apr-2015 Instruction Type:Provider Instructions for Treatment How to access health informa tion online Indication:Sore throat Start:11-Mar-2015 Instruction Type:Patient Education How to access health informa tion online - Detail Indication:Sore throat Start:11-Mar-2015 Instruction Type:Patient Education Patient Instructions Indication:Sore throat Start:11-Mar-2015 Instruction Type:Provider Instructions for Treatment How to access health informa tion online Indication:Well female exam with routine gynecological exam Start:05-Dec-2014 Instruction Type:Patient Education How to access health informa tion online - Detail Indication:Well female exam with routine gynecological exam Start:05-Dec-2014 Instruction Type:Patient Education Patient Instructions Indication:Well female exam with routine gynecological exam Start:05-Dec-2014 Instruction Type:Provider Instructions for Treatment Patient Instructions Indication:Need for prophylactic vaccination and inoculation against influenza (Renamed from Need for immunization against influenza) Start:21-Nov-2014 Instruction Type:Provider Instructions for Treatment How to access health informa tion online Indication:Need for prophylactic vaccination and inoculation against influenza (Renamed from Need for immunization against influenza) Start:21-Nov-2014 Instruction Type:Patient Education How to access health informa tion online - Detail Indication:Need for prophylactic vaccination and inoculation against influenza (Renamed from Need for immunization against influenza) Start:21-Nov-2014 Instruction Type:Patient Education Name Dates Details How to access health informa tion online Indication:Smoker Start:22-Aug-2018 Instruction Type:Patient Education How to access health informa tion online - Detail Indication:Smoker Start:22-Aug-2018 Instruction Type:Patient Education Patient Instructions Indication:Smoker Start:22-Aug-2018 Instruction Type:Provider Instructions for Treatment How to access health informa tion online Indication:Smoker Start:04-Jul-2018 Instruction Type:Patient Education How to access health informa tion online - Detail Indication:Smoker Start:04-Jul-2018 Instruction Type:Patient Education Patient Instructions Indication:Abdominal pain Start:04-Jul-2018 Instruction Type:Provider Instructions for Treatment How to access health informa tion online Indication:BMI 24.0-24.9, adult Start:25-Oct-2017 Instruction Type:Patient Education Patient Instructions Indication:BMI 24.0-24.9, adult Start:25-Oct-2017 Instruction Type:Provider Instructions for Treatment How to access health informa tion online Indication:Impaired Fasting Glucose (Renamed from Elevated fasting blood sugar) Start:23-Jun-2017 Instruction Type:Patient Education How to access health informa tion online - Detail Indication:Impaired Fasting Glucose (Renamed from Elevated fasting blood sugar) Start:23-Jun-2017 Instruction Type:Patient Education Patient Instructions Indication:Impaired Fasting Glucose (Renamed from Elevated fasting blood sugar) Start:23-Jun-2017 Instruction Type:Provider Instructions for Treatment How to access health informa tion online Indication:Impaired Fasting Glucose (Renamed from Elevated fasting blood sugar) Start:06-Apr-2016 Instruction Type:Patient Education How to access health informa tion online - Detail Indication:Impaired Fasting Glucose (Renamed from Elevated fasting blood sugar) Start:06-Apr-2016 Instruction Type:Patient Education Patient Instructions Indication:Impaired Fasting Glucose (Renamed from Elevated fasting blood sugar) Start:06-Apr-2016 Instruction Type:Provider Instructions for Treatment Patient Instructions Indication:Benign Essential Hypertension (Renamed from Benign essential HTN) Start:26-Aug-2015 Instruction Type:Provider Instructions for Treatment How to access health informa tion online - Detail Indication:Benign Essential Hypertension (Renamed from Benign essential HTN) Start:29-Apr-2015 Instruction Type:Patient Education How to access health informa tion online Indication:Benign Essential Hypertension (Renamed from Benign essential HTN) Start:29-Apr-2015 Instruction Type:Patient Education Patient Instructions Indication:Benign Essential Hypertension (Renamed from Benign essential HTN) Start:29-Apr-2015 Instruction Type:Provider Instructions for Treatment How to access health informa tion online Indication:Sore throat Start:11-Mar-2015 Instruction Type:Patient Education How to access health informa tion online - Detail Indication:Sore throat Start:11-Mar-2015 Instruction Type:Patient Education Patient Instructions Indication:Sore throat Start:11-Mar-2015 Instruction Type:Provider Instructions for Treatment How to access health informa tion online Indication:Well female exam with routine gynecological exam Start:05-Dec-2014 Instruction Type:Patient Education How to access health informa tion online - Detail Indication:Well female exam with routine gynecological exam Start:05-Dec-2014 Instruction Type:Patient Education Patient Instructions Indication:Well female exam with routine gynecological exam Start:05-Dec-2014 Instruction Type:Provider Instructions for Treatment Patient Instructions Indication:Need for prophylactic vaccination and inoculation against influenza (Renamed from Need for immunization against influenza) Start:21-Nov-2014 Instruction Type:Provider Instructions for Treatment How to access health informa tion online Indication:Need for prophylactic vaccination and inoculation against influenza (Renamed from Need for immunization against influenza) Start:21-Nov-2014 Instruction Type:Patient Education How to access health informa tion online - Detail Indication:Need for prophylactic vaccination and inoculation against influenza (Renamed from Need for immunization against influenza) Start:21-Nov-2014 Instruction Type:Patient Education Name Dates Details How to access health informa tion online Indication:Smoker Start:22-Aug-2018 Instruction Type:Patient Education How to access health informa tion online - Detail Indication:Smoker Start:22-Aug-2018 Instruction Type:Patient Education Patient Instructions Indication:Smoker Start:22-Aug-2018 Instruction Type:Provider Instructions for Treatment How to access health informa tion online Indication:Smoker Start:04-Jul-2018 Instruction Type:Patient Education How to access health informa tion online - Detail Indication:Smoker Start:04-Jul-2018 Instruction Type:Patient Education Patient Instructions Indication:Abdominal pain Start:04-Jul-2018 Instruction Type:Provider Instructions for Treatment How to access health informa tion online Indication:BMI 24.0-24.9, adult Start:25-Oct-2017 Instruction Type:Patient Education Patient Instructions Indication:BMI 24.0-24.9, adult Start:25-Oct-2017 Instruction Type:Provider Instructions for Treatment How to access health informa tion online Indication:Impaired Fasting Glucose (Renamed from Elevated fasting blood sugar) Start:23-Jun-2017 Instruction Type:Patient Education How to access health informa tion online - Detail Indication:Impaired Fasting Glucose (Renamed from Elevated fasting blood sugar) Start:23-Jun-2017 Instruction Type:Patient Education Patient Instructions Indication:Impaired Fasting Glucose (Renamed from Elevated fasting blood sugar) Start:23-Jun-2017 Instruction Type:Provider Instructions for Treatment How to access health informa tion online Indication:Impaired Fasting Glucose (Renamed from Elevated fasting blood sugar) Start:06-Apr-2016 Instruction Type:Patient Education How to access health informa tion online - Detail Indication:Impaired Fasting Glucose (Renamed from Elevated fasting blood sugar) Start:06-Apr-2016 Instruction Type:Patient Education Patient Instructions Indication:Impaired Fasting Glucose (Renamed from Elevated fasting blood sugar) Start:06-Apr-2016 Instruction Type:Provider Instructions for Treatment Patient Instructions Indication:Benign Essential Hypertension (Renamed from Benign essential HTN) Start:26-Aug-2015 Instruction Type:Provider Instructions for Treatment How to access health informa tion online - Detail Indication:Benign Essential Hypertension (Renamed from Benign essential HTN) Start:29-Apr-2015 Instruction Type:Patient Education How to access health informa tion online Indication:Benign Essential Hypertension (Renamed from Benign essential HTN) Start:29-Apr-2015 Instruction Type:Patient Education Patient Instructions Indication:Benign Essential Hypertension (Renamed from Benign essential HTN) Start:29-Apr-2015 Instruction Type:Provider Instructions for Treatment How to access health informa tion online Indication:Sore throat Start:11-Mar-2015 Instruction Type:Patient Education How to access health informa tion online - Detail Indication:Sore throat Start:11-Mar-2015 Instruction Type:Patient Education Patient Instructions Indication:Sore throat Start:11-Mar-2015 Instruction Type:Provider Instructions for Treatment How to access health informa tion online Indication:Well female exam with routine gynecological exam Start:05-Dec-2014 Instruction Type:Patient Education How to access health informa tion online - Detail Indication:Well female exam with routine gynecological exam Start:05-Dec-2014 Instruction Type:Patient Education Patient Instructions Indication:Well female exam with routine gynecological exam Start:05-Dec-2014 Instruction Type:Provider Instructions for Treatment Patient Instructions Indication:Need for prophylactic vaccination and inoculation against influenza (Renamed from Need for immunization against influenza) Start:21-Nov-2014 Instruction Type:Provider Instructions for Treatment How to access health informa tion online Indication:Need for prophylactic vaccination and inoculation against influenza (Renamed from Need for immunization against influenza) Start:21-Nov-2014 Instruction Type:Patient Education How to access health informa tion online - Detail Indication:Need for prophylactic vaccination and inoculation against influenza (Renamed from Need for immunization against influenza) Start:21-Nov-2014 Instruction Type:Patient Education Name Dates Details How to access health informa tion online Indication:Smoker Start:22-Aug-2018 Instruction Type:Patient Education How to access health informa tion online - Detail Indication:Smoker Start:22-Aug-2018 Instruction Type:Patient Education Patient Instructions Indication:Smoker Start:22-Aug-2018 Instruction Type:Provider Instructions for Treatment How to access health informa tion online Indication:Smoker Start:04-Jul-2018 Instruction Type:Patient Education How to access health informa tion online - Detail Indication:Smoker Start:04-Jul-2018 Instruction Type:Patient Education Patient Instructions Indication:Abdominal pain Start:04-Jul-2018 Instruction Type:Provider Instructions for Treatment How to access health informa tion online Indication:BMI 24.0-24.9, adult Start:25-Oct-2017 Instruction Type:Patient Education Patient Instructions Indication:BMI 24.0-24.9, adult Start:25-Oct-2017 Instruction Type:Provider Instructions for Treatment How to access health informa tion online Indication:Impaired Fasting Glucose (Renamed from Elevated fasting blood sugar) Start:23-Jun-2017 Instruction Type:Patient Education How to access health informa tion online - Detail Indication:Impaired Fasting Glucose (Renamed from Elevated fasting blood sugar) Start:23-Jun-2017 Instruction Type:Patient Education Patient Instructions Indication:Impaired Fasting Glucose (Renamed from Elevated fasting blood sugar) Start:23-Jun-2017 Instruction Type:Provider Instructions for Treatment How to access health informa tion online Indication:Impaired Fasting Glucose (Renamed from Elevated fasting blood sugar) Start:06-Apr-2016 Instruction Type:Patient Education How to access health informa tion online - Detail Indication:Impaired Fasting Glucose (Renamed from Elevated fasting blood sugar) Start:06-Apr-2016 Instruction Type:Patient Education Patient Instructions Indication:Impaired Fasting Glucose (Renamed from Elevated fasting blood sugar) Start:06-Apr-2016 Instruction Type:Provider Instructions for Treatment Patient Instructions Indication:Benign Essential Hypertension (Renamed from Benign essential HTN) Start:26-Aug-2015 Instruction Type:Provider Instructions for Treatment How to access health informa tion online - Detail Indication:Benign Essential Hypertension (Renamed from Benign essential HTN) Start:29-Apr-2015 Instruction Type:Patient Education How to access health informa tion online Indication:Benign Essential Hypertension (Renamed from Benign essential HTN) Start:29-Apr-2015 Instruction Type:Patient Education Patient Instructions Indication:Benign Essential Hypertension (Renamed from Benign essential HTN) Start:29-Apr-2015 Instruction Type:Provider Instructions for Treatment How to access health informa tion online Indication:Sore throat Start:11-Mar-2015 Instruction Type:Patient Education How to access health informa tion online - Detail Indication:Sore throat Start:11-Mar-2015 Instruction Type:Patient Education Patient Instructions Indication:Sore throat Start:11-Mar-2015 Instruction Type:Provider Instructions for Treatment How to access health informa tion online Indication:Well female exam with routine gynecological exam Start:05-Dec-2014 Instruction Type:Patient Education How to access health informa tion online - Detail Indication:Well female exam with routine gynecological exam Start:05-Dec-2014 Instruction Type:Patient Education Patient Instructions Indication:Well female exam with routine gynecological exam Start:05-Dec-2014 Instruction Type:Provider Instructions for Treatment Patient Instructions Indication:Need for prophylactic vaccination and inoculation against influenza (Renamed from Need for immunization against influenza) Start:21-Nov-2014 Instruction Type:Provider Instructions for Treatment How to access health informa tion online Indication:Need for prophylactic vaccination and inoculation against influenza (Renamed from Need for immunization against influenza) Start:21-Nov-2014 Instruction Type:Patient Education How to access health informa tion online - Detail Indication:Need for prophylactic vaccination and inoculation against influenza (Renamed from Need for immunization against influenza) Start:21-Nov-2014 Instruction Type:Patient Education Name Dates Details How to access health informa tion online Indication:Smoker Start:22-Aug-2018 Instruction Type:Patient Education How to access health informa tion online - Detail Indication:Smoker Start:22-Aug-2018 Instruction Type:Patient Education Patient Instructions Indication:Smoker Start:22-Aug-2018 Instruction Type:Provider Instructions for Treatment How to access health informa tion online Indication:Smoker Start:04-Jul-2018 Instruction Type:Patient Education How to access health informa tion online - Detail Indication:Smoker Start:04-Jul-2018 Instruction Type:Patient Education Patient Instructions Indication:Abdominal pain Start:04-Jul-2018 Instruction Type:Provider Instructions for Treatment How to access health informa tion online Indication:BMI 24.0-24.9, adult Start:25-Oct-2017 Instruction Type:Patient Education Patient Instructions Indication:BMI 24.0-24.9, adult Start:25-Oct-2017 Instruction Type:Provider Instructions for Treatment How to access health informa tion online Indication:Impaired Fasting Glucose (Renamed from Elevated fasting blood sugar) Start:23-Jun-2017 Instruction Type:Patient Education How to access health informa tion online - Detail Indication:Impaired Fasting Glucose (Renamed from Elevated fasting blood sugar) Start:23-Jun-2017 Instruction Type:Patient Education Patient Instructions Indication:Impaired Fasting Glucose (Renamed from Elevated fasting blood sugar) Start:23-Jun-2017 Instruction Type:Provider Instructions for Treatment How to access health informa tion online Indication:Impaired Fasting Glucose (Renamed from Elevated fasting blood sugar) Start:06-Apr-2016 Instruction Type:Patient Education How to access health informa tion online - Detail Indication:Impaired Fasting Glucose (Renamed from Elevated fasting blood sugar) Start:06-Apr-2016 Instruction Type:Patient Education Patient Instructions Indication:Impaired Fasting Glucose (Renamed from Elevated fasting blood sugar) Start:06-Apr-2016 Instruction Type:Provider Instructions for Treatment Patient Instructions Indication:Benign Essential Hypertension (Renamed from Benign essential HTN) Start:26-Aug-2015 Instruction Type:Provider Instructions for Treatment How to access health informa tion online - Detail Indication:Benign Essential Hypertension (Renamed from Benign essential HTN) Start:29-Apr-2015 Instruction Type:Patient Education How to access health informa tion online Indication:Benign Essential Hypertension (Renamed from Benign essential HTN) Start:29-Apr-2015 Instruction Type:Patient Education Patient Instructions Indication:Benign Essential Hypertension (Renamed from Benign essential HTN) Start:29-Apr-2015 Instruction Type:Provider Instructions for Treatment How to access health informa tion online Indication:Sore throat Start:11-Mar-2015 Instruction Type:Patient Education How to access health informa tion online - Detail Indication:Sore throat Start:11-Mar-2015 Instruction Type:Patient Education Patient Instructions Indication:Sore throat Start:11-Mar-2015 Instruction Type:Provider Instructions for Treatment How to access health informa tion online Indication:Well female exam with routine gynecological exam Start:05-Dec-2014 Instruction Type:Patient Education How to access health informa tion online - Detail Indication:Well female exam with routine gynecological exam Start:05-Dec-2014 Instruction Type:Patient Education Patient Instructions Indication:Well female exam with routine gynecological exam Start:05-Dec-2014 Instruction Type:Provider Instructions for Treatment Patient Instructions Indication:Need for prophylactic vaccination and inoculation against influenza (Renamed from Need for immunization against influenza) Start:21-Nov-2014 Instruction Type:Provider Instructions for Treatment How to access health informa tion online Indication:Need for prophylactic vaccination and inoculation against influenza (Renamed from Need for immunization against influenza) Start:21-Nov-2014 Instruction Type:Patient Education How to access health informa tion online - Detail Indication:Need for prophylactic vaccination and inoculation against influenza (Renamed from Need for immunization against influenza) Start:21-Nov-2014 Instruction Type:Patient Education Name Dates Details How to access health informa tion online Indication:Smoker Start:16-Jun-2019 Instruction Type:Patient Education How to access health informa tion online - Detail Indication:Smoker Start:16-Jun-2019 Instruction Type:Patient Education Patient Instructions Indication:Smoker Start:16-Jun-2019 Instruction Type:Provider Instructions for Treatment How to access health informa tion online Indication:Smoker Start:22-Aug-2018 Instruction Type:Patient Education How to access health informa tion online - Detail Indication:Smoker Start:22-Aug-2018 Instruction Type:Patient Education Patient Instructions Indication:Smoker Start:22-Aug-2018 Instruction Type:Provider Instructions for Treatment How to access health informa tion online Indication:Smoker Start:04-Jul-2018 Instruction Type:Patient Education How to access health informa tion online - Detail Indication:Smoker Start:04-Jul-2018 Instruction Type:Patient Education Patient Instructions Indication:Abdominal pain Start:04-Jul-2018 Instruction Type:Provider Instructions for Treatment How to access health informa tion online Indication:BMI 24.0-24.9, adult Start:25-Oct-2017 Instruction Type:Patient Education Patient Instructions Indication:BMI 24.0-24.9, adult Start:25-Oct-2017 Instruction Type:Provider Instructions for Treatment How to access health informa tion online Indication:Impaired Fasting Glucose (Renamed from Elevated fasting blood sugar) Start:23-Jun-2017 Instruction Type:Patient Education How to access health informa tion online - Detail Indication:Impaired Fasting Glucose (Renamed from Elevated fasting blood sugar) Start:23-Jun-2017 Instruction Type:Patient Education Patient Instructions Indication:Impaired Fasting Glucose (Renamed from Elevated fasting blood sugar) Start:23-Jun-2017 Instruction Type:Provider Instructions for Treatment How to access health informa tion online Indication:Impaired Fasting Glucose (Renamed from Elevated fasting blood sugar) Start:06-Apr-2016 Instruction Type:Patient Education How to access health informa tion online - Detail Indication:Impaired Fasting Glucose (Renamed from Elevated fasting blood sugar) Start:06-Apr-2016 Instruction Type:Patient Education Patient Instructions Indication:Impaired Fasting Glucose (Renamed from Elevated fasting blood sugar) Start:06-Apr-2016 Instruction Type:Provider Instructions for Treatment Patient Instructions Indication:Benign Essential Hypertension (Renamed from Benign essential HTN) Start:26-Aug-2015 Instruction Type:Provider Instructions for Treatment How to access health informa tion online - Detail Indication:Benign Essential Hypertension (Renamed from Benign essential HTN) Start:29-Apr-2015 Instruction Type:Patient Education How to access health informa tion online Indication:Benign Essential Hypertension (Renamed from Benign essential HTN) Start:29-Apr-2015 Instruction Type:Patient Education Patient Instructions Indication:Benign Essential Hypertension (Renamed from Benign essential HTN) Start:29-Apr-2015 Instruction Type:Provider Instructions for Treatment How to access health informa tion online Indication:Sore throat Start:11-Mar-2015 Instruction Type:Patient Education How to access health informa tion online - Detail Indication:Sore throat Start:11-Mar-2015 Instruction Type:Patient Education Patient Instructions Indication:Sore throat Start:11-Mar-2015 Instruction Type:Provider Instructions for Treatment How to access health informa tion online Indication:Well female exam with routine gynecological exam Start:05-Dec-2014 Instruction Type:Patient Education How to access health informa tion online - Detail Indication:Well female exam with routine gynecological exam Start:05-Dec-2014 Instruction Type:Patient Education Patient Instructions Indication:Well female exam with routine gynecological exam Start:05-Dec-2014 Instruction Type:Provider Instructions for Treatment Patient Instructions Indication:Need for prophylactic vaccination and inoculation against influenza (Renamed from Need for immunization against influenza) Start:21-Nov-2014 Instruction Type:Provider Instructions for Treatment How to access health informa tion online Indication:Need for prophylactic vaccination and inoculation against influenza (Renamed from Need for immunization against influenza) Start:21-Nov-2014 Instruction Type:Patient Education How to access health informa tion online - Detail Indication:Need for prophylactic vaccination and inoculation against influenza (Renamed from Need for immunization against influenza) Start:21-Nov-2014 Instruction Type:Patient Education Name Dates Details How to access health informa tion online Indication:Smoker Start:16-Jun-2019 Instruction Type:Patient Education How to access health informa tion online - Detail Indication:Smoker Start:16-Jun-2019 Instruction Type:Patient Education Patient Instructions Indication:Smoker Start:16-Jun-2019 Instruction Type:Provider Instructions for Treatment How to access health informa tion online Indication:Smoker Start:22-Aug-2018 Instruction Type:Patient Education How to access health informa tion online - Detail Indication:Smoker Start:22-Aug-2018 Instruction Type:Patient Education Patient Instructions Indication:Smoker Start:22-Aug-2018 Instruction Type:Provider Instructions for Treatment How to access health informa tion online Indication:Smoker Start:04-Jul-2018 Instruction Type:Patient Education How to access health informa tion online - Detail Indication:Smoker Start:04-Jul-2018 Instruction Type:Patient Education Patient Instructions Indication:Abdominal pain Start:04-Jul-2018 Instruction Type:Provider Instructions for Treatment How to access health informa tion online Indication:BMI 24.0-24.9, adult Start:25-Oct-2017 Instruction Type:Patient Education Patient Instructions Indication:BMI 24.0-24.9, adult Start:25-Oct-2017 Instruction Type:Provider Instructions for Treatment How to access health informa tion online Indication:Impaired Fasting Glucose (Renamed from Elevated fasting blood sugar) Start:23-Jun-2017 Instruction Type:Patient Education How to access health informa tion online - Detail Indication:Impaired Fasting Glucose (Renamed from Elevated fasting blood sugar) Start:23-Jun-2017 Instruction Type:Patient Education Patient Instructions Indication:Impaired Fasting Glucose (Renamed from Elevated fasting blood sugar) Start:23-Jun-2017 Instruction Type:Provider Instructions for Treatment How to access health informa tion online Indication:Impaired Fasting Glucose (Renamed from Elevated fasting blood sugar) Start:06-Apr-2016 Instruction Type:Patient Education How to access health informa tion online - Detail Indication:Impaired Fasting Glucose (Renamed from Elevated fasting blood sugar) Start:06-Apr-2016 Instruction Type:Patient Education Patient Instructions Indication:Impaired Fasting Glucose (Renamed from Elevated fasting blood sugar) Start:06-Apr-2016 Instruction Type:Provider Instructions for Treatment Patient Instructions Indication:Benign Essential Hypertension (Renamed from Benign essential HTN) Start:26-Aug-2015 Instruction Type:Provider Instructions for Treatment How to access health informa tion online - Detail Indication:Benign Essential Hypertension (Renamed from Benign essential HTN) Start:29-Apr-2015 Instruction Type:Patient Education How to access health informa tion online Indication:Benign Essential Hypertension (Renamed from Benign essential HTN) Start:29-Apr-2015 Instruction Type:Patient Education Patient Instructions Indication:Benign Essential Hypertension (Renamed from Benign essential HTN) Start:29-Apr-2015 Instruction Type:Provider Instructions for Treatment How to access health informa tion online Indication:Sore throat Start:11-Mar-2015 Instruction Type:Patient Education How to access health informa tion online - Detail Indication:Sore throat Start:11-Mar-2015 Instruction Type:Patient Education Patient Instructions Indication:Sore throat Start:11-Mar-2015 Instruction Type:Provider Instructions for Treatment How to access health informa tion online Indication:Well female exam with routine gynecological exam Start:05-Dec-2014 Instruction Type:Patient Education How to access health informa tion online - Detail Indication:Well female exam with routine gynecological exam Start:05-Dec-2014 Instruction Type:Patient Education Patient Instructions Indication:Well female exam with routine gynecological exam Start:05-Dec-2014 Instruction Type:Provider Instructions for Treatment Patient Instructions Indication:Need for prophylactic vaccination and inoculation against influenza (Renamed from Need for immunization against influenza) Start:21-Nov-2014 Instruction Type:Provider Instructions for Treatment How to access health informa tion online Indication:Need for prophylactic vaccination and inoculation against influenza (Renamed from Need for immunization against influenza) Start:21-Nov-2014 Instruction Type:Patient Education How to access health informa tion online - Detail Indication:Need for prophylactic vaccination and inoculation against influenza (Renamed from Need for immunization against influenza) Start:21-Nov-2014 Instruction Type:Patient Education Name Dates Details How to access health informa tion online Indication:Smoker Start:16-Jun-2019 Instruction Type:Patient Education How to access health informa tion online - Detail Indication:Smoker Start:16-Jun-2019 Instruction Type:Patient Education Patient Instructions Indication:Smoker Start:16-Jun-2019 Instruction Type:Provider Instructions for Treatment How to access health informa tion online Indication:Smoker Start:22-Aug-2018 Instruction Type:Patient Education How to access health informa tion online - Detail Indication:Smoker Start:22-Aug-2018 Instruction Type:Patient Education Patient Instructions Indication:Smoker Start:22-Aug-2018 Instruction Type:Provider Instructions for Treatment How to access health informa tion online Indication:Smoker Start:04-Jul-2018 Instruction Type:Patient Education How to access health informa tion online - Detail Indication:Smoker Start:04-Jul-2018 Instruction Type:Patient Education Patient Instructions Indication:Abdominal pain Start:04-Jul-2018 Instruction Type:Provider Instructions for Treatment How to access health informa tion online Indication:BMI 24.0-24.9, adult Start:25-Oct-2017 Instruction Type:Patient Education Patient Instructions Indication:BMI 24.0-24.9, adult Start:25-Oct-2017 Instruction Type:Provider Instructions for Treatment How to access health informa tion online Indication:Impaired Fasting Glucose (Renamed from Elevated fasting blood sugar) Start:23-Jun-2017 Instruction Type:Patient Education How to access health informa tion online - Detail Indication:Impaired Fasting Glucose (Renamed from Elevated fasting blood sugar) Start:23-Jun-2017 Instruction Type:Patient Education Patient Instructions Indication:Impaired Fasting Glucose (Renamed from Elevated fasting blood sugar) Start:23-Jun-2017 Instruction Type:Provider Instructions for Treatment How to access health informa tion online Indication:Impaired Fasting Glucose (Renamed from Elevated fasting blood sugar) Start:06-Apr-2016 Instruction Type:Patient Education How to access health informa tion online - Detail Indication:Impaired Fasting Glucose (Renamed from Elevated fasting blood sugar) Start:06-Apr-2016 Instruction Type:Patient Education Patient Instructions Indication:Impaired Fasting Glucose (Renamed from Elevated fasting blood sugar) Start:06-Apr-2016 Instruction Type:Provider Instructions for Treatment Patient Instructions Indication:Benign Essential Hypertension (Renamed from Benign essential HTN) Start:26-Aug-2015 Instruction Type:Provider Instructions for Treatment How to access health informa tion online - Detail Indication:Benign Essential Hypertension (Renamed from Benign essential HTN) Start:29-Apr-2015 Instruction Type:Patient Education How to access health informa tion online Indication:Benign Essential Hypertension (Renamed from Benign essential HTN) Start:29-Apr-2015 Instruction Type:Patient Education Patient Instructions Indication:Benign Essential Hypertension (Renamed from Benign essential HTN) Start:29-Apr-2015 Instruction Type:Provider Instructions for Treatment How to access health informa tion online Indication:Sore throat Start:11-Mar-2015 Instruction Type:Patient Education How to access health informa tion online - Detail Indication:Sore throat Start:11-Mar-2015 Instruction Type:Patient Education Patient Instructions Indication:Sore throat Start:11-Mar-2015 Instruction Type:Provider Instructions for Treatment How to access health informa tion online Indication:Well female exam with routine gynecological exam Start:05-Dec-2014 Instruction Type:Patient Education How to access health informa tion online - Detail Indication:Well female exam with routine gynecological exam Start:05-Dec-2014 Instruction Type:Patient Education Patient Instructions Indication:Well female exam with routine gynecological exam Start:05-Dec-2014 Instruction Type:Provider Instructions for Treatment Patient Instructions Indication:Need for prophylactic vaccination and inoculation against influenza (Renamed from Need for immunization against influenza) Start:21-Nov-2014 Instruction Type:Provider Instructions for Treatment How to access health informa tion online Indication:Need for prophylactic vaccination and inoculation against influenza (Renamed from Need for immunization against influenza) Start:21-Nov-2014 Instruction Type:Patient Education How to access health informa tion online - Detail Indication:Need for prophylactic vaccination and inoculation against influenza (Renamed from Need for immunization against influenza) Start:21-Nov-2014 Instruction Type:Patient Education Name Dates Details How to access health informa tion online Indication:Smoker Start:20-Nov-2019 Instruction Type:Patient Education How to access health informa tion online - Detail Indication:Smoker Start:20-Nov-2019 Instruction Type:Patient Education Patient Instructions Indication:Smoker Start:20-Nov-2019 Instruction Type:Provider Instructions for Treatment How to access health informa tion online Indication:Smoker Start:16-Jun-2019 Instruction Type:Patient Education How to access health informa tion online - Detail Indication:Smoker Start:16-Jun-2019 Instruction Type:Patient Education Patient Instructions Indication:Smoker Start:16-Jun-2019 Instruction Type:Provider Instructions for Treatment How to access health informa tion online Indication:Smoker Start:22-Aug-2018 Instruction Type:Patient Education How to access health informa tion online - Detail Indication:Smoker Start:22-Aug-2018 Instruction Type:Patient Education Patient Instructions Indication:Smoker Start:22-Aug-2018 Instruction Type:Provider Instructions for Treatment How to access health informa tion online Indication:Smoker Start:04-Jul-2018 Instruction Type:Patient Education How to access health informa tion online - Detail Indication:Smoker Start:04-Jul-2018 Instruction Type:Patient Education Patient Instructions Indication:Abdominal pain Start:04-Jul-2018 Instruction Type:Provider Instructions for Treatment How to access health informa tion online Indication:BMI 24.0-24.9, adult Start:25-Oct-2017 Instruction Type:Patient Education Patient Instructions Indication:BMI 24.0-24.9, adult Start:25-Oct-2017 Instruction Type:Provider Instructions for Treatment How to access health informa tion online Indication:Impaired Fasting Glucose (Renamed from Elevated fasting blood sugar) Start:23-Jun-2017 Instruction Type:Patient Education How to access health informa tion online - Detail Indication:Impaired Fasting Glucose (Renamed from Elevated fasting blood sugar) Start:23-Jun-2017 Instruction Type:Patient Education Patient Instructions Indication:Impaired Fasting Glucose (Renamed from Elevated fasting blood sugar) Start:23-Jun-2017 Instruction Type:Provider Instructions for Treatment How to access health informa tion online Indication:Impaired Fasting Glucose (Renamed from Elevated fasting blood sugar) Start:06-Apr-2016 Instruction Type:Patient Education How to access health informa tion online - Detail Indication:Impaired Fasting Glucose (Renamed from Elevated fasting blood sugar) Start:06-Apr-2016 Instruction Type:Patient Education Patient Instructions Indication:Impaired Fasting Glucose (Renamed from Elevated fasting blood sugar) Start:06-Apr-2016 Instruction Type:Provider Instructions for Treatment Patient Instructions Indication:Benign Essential Hypertension (Renamed from Benign essential HTN) Start:26-Aug-2015 Instruction Type:Provider Instructions for Treatment How to access health informa tion online - Detail Indication:Benign Essential Hypertension (Renamed from Benign essential HTN) Start:29-Apr-2015 Instruction Type:Patient Education How to access health informa tion online Indication:Benign Essential Hypertension (Renamed from Benign essential HTN) Start:29-Apr-2015 Instruction Type:Patient Education Patient Instructions Indication:Benign Essential Hypertension (Renamed from Benign essential HTN) Start:29-Apr-2015 Instruction Type:Provider Instructions for Treatment How to access health informa tion online Indication:Sore throat Start:11-Mar-2015 Instruction Type:Patient Education How to access health informa tion online - Detail Indication:Sore throat Start:11-Mar-2015 Instruction Type:Patient Education Patient Instructions Indication:Sore throat Start:11-Mar-2015 Instruction Type:Provider Instructions for Treatment How to access health informa tion online Indication:Well female exam with routine gynecological exam Start:05-Dec-2014 Instruction Type:Patient Education How to access health informa tion online - Detail Indication:Well female exam with routine gynecological exam Start:05-Dec-2014 Instruction Type:Patient Education Patient Instructions Indication:Well female exam with routine gynecological exam Start:05-Dec-2014 Instruction Type:Provider Instructions for Treatment Patient Instructions Indication:Need for prophylactic vaccination and inoculation against influenza (Renamed from Need for immunization against influenza) Start:21-Nov-2014 Instruction Type:Provider Instructions for Treatment How to access health informa tion online Indication:Need for prophylactic vaccination and inoculation against influenza (Renamed from Need for immunization against influenza) Start:21-Nov-2014 Instruction Type:Patient Education How to access health informa tion online - Detail Indication:Need for prophylactic vaccination and inoculation against influenza (Renamed from Need for immunization against influenza) Start:21-Nov-2014 Instruction Type:Patient Education Name Dates Details How to access health informa tion online Indication:Smoker Start:20-Nov-2019 Instruction Type:Patient Education How to access health informa tion online - Detail Indication:Smoker Start:20-Nov-2019 Instruction Type:Patient Education Patient Instructions Indication:Smoker Start:20-Nov-2019 Instruction Type:Provider Instructions for Treatment How to access health informa tion online Indication:Smoker Start:16-Jun-2019 Instruction Type:Patient Education How to access health informa tion online - Detail Indication:Smoker Start:16-Jun-2019 Instruction Type:Patient Education Patient Instructions Indication:Smoker Start:16-Jun-2019 Instruction Type:Provider Instructions for Treatment How to access health informa tion online Indication:Smoker Start:22-Aug-2018 Instruction Type:Patient Education How to access health informa tion online - Detail Indication:Smoker Start:22-Aug-2018 Instruction Type:Patient Education Patient Instructions Indication:Smoker Start:22-Aug-2018 Instruction Type:Provider Instructions for Treatment How to access health informa tion online Indication:Smoker Start:04-Jul-2018 Instruction Type:Patient Education How to access health informa tion online - Detail Indication:Smoker Start:04-Jul-2018 Instruction Type:Patient Education Patient Instructions Indication:Abdominal pain Start:04-Jul-2018 Instruction Type:Provider Instructions for Treatment How to access health informa tion online Indication:BMI 24.0-24.9, adult Start:25-Oct-2017 Instruction Type:Patient Education Patient Instructions Indication:BMI 24.0-24.9, adult Start:25-Oct-2017 Instruction Type:Provider Instructions for Treatment How to access health informa tion online Indication:Impaired Fasting Glucose (Renamed from Elevated fasting blood sugar) Start:23-Jun-2017 Instruction Type:Patient Education How to access health informa tion online - Detail Indication:Impaired Fasting Glucose (Renamed from Elevated fasting blood sugar) Start:23-Jun-2017 Instruction Type:Patient Education Patient Instructions Indication:Impaired Fasting Glucose (Renamed from Elevated fasting blood sugar) Start:23-Jun-2017 Instruction Type:Provider Instructions for Treatment How to access health informa tion online Indication:Impaired Fasting Glucose (Renamed from Elevated fasting blood sugar) Start:06-Apr-2016 Instruction Type:Patient Education How to access health informa tion online - Detail Indication:Impaired Fasting Glucose (Renamed from Elevated fasting blood sugar) Start:06-Apr-2016 Instruction Type:Patient Education Patient Instructions Indication:Impaired Fasting Glucose (Renamed from Elevated fasting blood sugar) Start:06-Apr-2016 Instruction Type:Provider Instructions for Treatment Patient Instructions Indication:Benign Essential Hypertension (Renamed from Benign essential HTN) Start:26-Aug-2015 Instruction Type:Provider Instructions for Treatment How to access health informa tion online - Detail Indication:Benign Essential Hypertension (Renamed from Benign essential HTN) Start:29-Apr-2015 Instruction Type:Patient Education How to access health informa tion online Indication:Benign Essential Hypertension (Renamed from Benign essential HTN) Start:29-Apr-2015 Instruction Type:Patient Education Patient Instructions Indication:Benign Essential Hypertension (Renamed from Benign essential HTN) Start:29-Apr-2015 Instruction Type:Provider Instructions for Treatment How to access health informa tion online Indication:Sore throat Start:11-Mar-2015 Instruction Type:Patient Education How to access health informa tion online - Detail Indication:Sore throat Start:11-Mar-2015 Instruction Type:Patient Education Patient Instructions Indication:Sore throat Start:11-Mar-2015 Instruction Type:Provider Instructions for Treatment How to access health informa tion online Indication:Well female exam with routine gynecological exam Start:05-Dec-2014 Instruction Type:Patient Education How to access health informa tion online - Detail Indication:Well female exam with routine gynecological exam Start:05-Dec-2014 Instruction Type:Patient Education Patient Instructions Indication:Well female exam with routine gynecological exam Start:05-Dec-2014 Instruction Type:Provider Instructions for Treatment Patient Instructions Indication:Need for prophylactic vaccination and inoculation against influenza (Renamed from Need for immunization against influenza) Start:21-Nov-2014 Instruction Type:Provider Instructions for Treatment How to access health informa tion online Indication:Need for prophylactic vaccination and inoculation against influenza (Renamed from Need for immunization against influenza) Start:21-Nov-2014 Instruction Type:Patient Education How to access health informa tion online - Detail Indication:Need for prophylactic vaccination and inoculation against influenza (Renamed from Need for immunization against influenza) Start:21-Nov-2014 Instruction Type:Patient Education Name Dates Details Patient Instructions Indication:Smoker Start:19-Mar-2020 Instruction Type:Provider Instructions for Treatment How to Access Health Informa tion Online using Patient Portal and [employer] Apps Indication:Smoker Start:19-Mar-2020 Instruction Type:Patient Education How to access health informa tion online Indication:Smoker Start:20-Nov-2019 Instruction Type:Patient Education How to access health informa tion online - Detail Indication:Smoker Start:20-Nov-2019 Instruction Type:Patient Education Patient Instructions Indication:Smoker Start:20-Nov-2019 Instruction Type:Provider Instructions for Treatment How to access health informa tion online Indication:Smoker Start:16-Jun-2019 Instruction Type:Patient Education How to access health informa tion online - Detail Indication:Smoker Start:16-Jun-2019 Instruction Type:Patient Education Patient Instructions Indication:Smoker Start:16-Jun-2019 Instruction Type:Provider Instructions for Treatment How to access health informa tion online Indication:Smoker Start:22-Aug-2018 Instruction Type:Patient Education How to access health informa tion online - Detail Indication:Smoker Start:22-Aug-2018 Instruction Type:Patient Education Patient Instructions Indication:Smoker Start:22-Aug-2018 Instruction Type:Provider Instructions for Treatment How to access health informa tion online Indication:Smoker Start:04-Jul-2018 Instruction Type:Patient Education How to access health informa tion online - Detail Indication:Smoker Start:04-Jul-2018 Instruction Type:Patient Education Patient Instructions Indication:Abdominal pain Start:04-Jul-2018 Instruction Type:Provider Instructions for Treatment How to access health informa tion online Indication:BMI 24.0-24.9, adult Start:25-Oct-2017 Instruction Type:Patient Education Patient Instructions Indication:BMI 24.0-24.9, adult Start:25-Oct-2017 Instruction Type:Provider Instructions for Treatment How to access health informa tion online Indication:Impaired Fasting Glucose (Renamed from Elevated fasting blood sugar) Start:23-Jun-2017 Instruction Type:Patient Education How to access health informa tion online - Detail Indication:Impaired Fasting Glucose (Renamed from Elevated fasting blood sugar) Start:23-Jun-2017 Instruction Type:Patient Education Patient Instructions Indication:Impaired Fasting Glucose (Renamed from Elevated fasting blood sugar) Start:23-Jun-2017 Instruction Type:Provider Instructions for Treatment How to access health informa tion online Indication:Impaired Fasting Glucose (Renamed from Elevated fasting blood sugar) Start:06-Apr-2016 Instruction Type:Patient Education How to access health informa tion online - Detail Indication:Impaired Fasting Glucose (Renamed from Elevated fasting blood sugar) Start:06-Apr-2016 Instruction Type:Patient Education Patient Instructions Indication:Impaired Fasting Glucose (Renamed from Elevated fasting blood sugar) Start:06-Apr-2016 Instruction Type:Provider Instructions for Treatment Patient Instructions Indication:Benign Essential Hypertension (Renamed from Benign essential HTN) Start:26-Aug-2015 Instruction Type:Provider Instructions for Treatment How to access health informa tion online - Detail Indication:Benign Essential Hypertension (Renamed from Benign essential HTN) Start:29-Apr-2015 Instruction Type:Patient Education How to access health informa tion online Indication:Benign Essential Hypertension (Renamed from Benign essential HTN) Start:29-Apr-2015 Instruction Type:Patient Education Patient Instructions Indication:Benign Essential Hypertension (Renamed from Benign essential HTN) Start:29-Apr-2015 Instruction Type:Provider Instructions for Treatment How to access health informa tion online Indication:Sore throat Start:11-Mar-2015 Instruction Type:Patient Education How to access health informa tion online - Detail Indication:Sore throat Start:11-Mar-2015 Instruction Type:Patient Education Patient Instructions Indication:Sore throat Start:11-Mar-2015 Instruction Type:Provider Instructions for Treatment How to access health informa tion online Indication:Well female exam with routine gynecological exam Start:05-Dec-2014 Instruction Type:Patient Education How to access health informa tion online - Detail Indication:Well female exam with routine gynecological exam Start:05-Dec-2014 Instruction Type:Patient Education Patient Instructions Indication:Well female exam with routine gynecological exam Start:05-Dec-2014 Instruction Type:Provider Instructions for Treatment Patient Instructions Indication:Need for prophylactic vaccination and inoculation against influenza (Renamed from Need for immunization against influenza) Start:21-Nov-2014 Instruction Type:Provider Instructions for Treatment How to access health informa tion online Indication:Need for prophylactic vaccination and inoculation against influenza (Renamed from Need for immunization against influenza) Start:21-Nov-2014 Instruction Type:Patient Education How to access health informa tion online - Detail Indication:Need for prophylactic vaccination and inoculation against influenza (Renamed from Need for immunization against influenza) Start:21-Nov-2014 Instruction Type:Patient Education Name Dates Details Patient Instructions Indication:Smoker Start:19-Mar-2020 Instruction Type:Provider Instructions for Treatment How to Access Health Informa tion Online using Patient Portal and [employer] Apps Indication:Smoker Start:19-Mar-2020 Instruction Type:Patient Education How to access health informa tion online Indication:Smoker Start:20-Nov-2019 Instruction Type:Patient Education How to access health informa tion online - Detail Indication:Smoker Start:20-Nov-2019 Instruction Type:Patient Education Patient Instructions Indication:Smoker Start:20-Nov-2019 Instruction Type:Provider Instructions for Treatment How to access health informa tion online Indication:Smoker Start:16-Jun-2019 Instruction Type:Patient Education How to access health informa tion online - Detail Indication:Smoker Start:16-Jun-2019 Instruction Type:Patient Education Patient Instructions Indication:Smoker Start:16-Jun-2019 Instruction Type:Provider Instructions for Treatment How to access health informa tion online Indication:Smoker Start:22-Aug-2018 Instruction Type:Patient Education How to access health informa tion online - Detail Indication:Smoker Start:22-Aug-2018 Instruction Type:Patient Education Patient Instructions Indication:Smoker Start:22-Aug-2018 Instruction Type:Provider Instructions for Treatment How to access health informa tion online Indication:Smoker Start:04-Jul-2018 Instruction Type:Patient Education How to access health informa tion online - Detail Indication:Smoker Start:04-Jul-2018 Instruction Type:Patient Education Patient Instructions Indication:Abdominal pain Start:04-Jul-2018 Instruction Type:Provider Instructions for Treatment How to access health informa tion online Indication:BMI 24.0-24.9, adult Start:25-Oct-2017 Instruction Type:Patient Education Patient Instructions Indication:BMI 24.0-24.9, adult Start:25-Oct-2017 Instruction Type:Provider Instructions for Treatment How to access health informa tion online Indication:Impaired Fasting Glucose (Renamed from Elevated fasting blood sugar) Start:23-Jun-2017 Instruction Type:Patient Education How to access health informa tion online - Detail Indication:Impaired Fasting Glucose (Renamed from Elevated fasting blood sugar) Start:23-Jun-2017 Instruction Type:Patient Education Patient Instructions Indication:Impaired Fasting Glucose (Renamed from Elevated fasting blood sugar) Start:23-Jun-2017 Instruction Type:Provider Instructions for Treatment How to access health informa tion online Indication:Impaired Fasting Glucose (Renamed from Elevated fasting blood sugar) Start:06-Apr-2016 Instruction Type:Patient Education How to access health informa tion online - Detail Indication:Impaired Fasting Glucose (Renamed from Elevated fasting blood sugar) Start:06-Apr-2016 Instruction Type:Patient Education Patient Instructions Indication:Impaired Fasting Glucose (Renamed from Elevated fasting blood sugar) Start:06-Apr-2016 Instruction Type:Provider Instructions for Treatment Patient Instructions Indication:Benign Essential Hypertension (Renamed from Benign essential HTN) Start:26-Aug-2015 Instruction Type:Provider Instructions for Treatment How to access health informa tion online - Detail Indication:Benign Essential Hypertension (Renamed from Benign essential HTN) Start:29-Apr-2015 Instruction Type:Patient Education How to access health informa tion online Indication:Benign Essential Hypertension (Renamed from Benign essential HTN) Start:29-Apr-2015 Instruction Type:Patient Education Patient Instructions Indication:Benign Essential Hypertension (Renamed from Benign essential HTN) Start:29-Apr-2015 Instruction Type:Provider Instructions for Treatment How to access health informa tion online Indication:Sore throat Start:11-Mar-2015 Instruction Type:Patient Education How to access health informa tion online - Detail Indication:Sore throat Start:11-Mar-2015 Instruction Type:Patient Education Patient Instructions Indication:Sore throat Start:11-Mar-2015 Instruction Type:Provider Instructions for Treatment How to access health informa tion online Indication:Well female exam with routine gynecological exam Start:05-Dec-2014 Instruction Type:Patient Education How to access health informa tion online - Detail Indication:Well female exam with routine gynecological exam Start:05-Dec-2014 Instruction Type:Patient Education Patient Instructions Indication:Well female exam with routine gynecological exam Start:05-Dec-2014 Instruction Type:Provider Instructions for Treatment Patient Instructions Indication:Need for prophylactic vaccination and inoculation against influenza (Renamed from Need for immunization against influenza) Start:21-Nov-2014 Instruction Type:Provider Instructions for Treatment How to access health informa tion online Indication:Need for prophylactic vaccination and inoculation against influenza (Renamed from Need for immunization against influenza) Start:21-Nov-2014 Instruction Type:Patient Education How to access health informa tion online - Detail Indication:Need for prophylactic vaccination and inoculation against influenza (Renamed from Need for immunization against influenza) Start:21-Nov-2014 Instruction Type:Patient Education Name Dates Details BMI 24.0-24.9, adult : How t o access health information online Indication:BMI 24.0-24.9, adult BMI 24.0-24.9, adult : Patie nt Instructions Indication:BMI 24.0-24.9, adult Impaired Fasting Glucose (Re named from Elevated fasting blood sugar) : How to access health information online Indication:Impaired Fasting Glucose (Renamed from Elevated fasting blood sugar) Impaired Fasting Glucose (Re named from Elevated fasting blood sugar) : How to access health information online - Detail Indication:Impaired Fasting Glucose (Renamed from Elevated fasting blood sugar) Impaired Fasting Glucose (Re named from Elevated fasting blood sugar) : Patient Instructions Indication:Impaired Fasting Glucose (Renamed from Elevated fasting blood sugar) Benign Essential Hypertensio n (Renamed from Benign essential HTN) : Patient Instructions Indication:Benign Essential Hypertension (Renamed from Benign essential HTN) Benign Essential Hypertensio n (Renamed from Benign essential HTN) : How to access health information online - Detail Indication:Benign Essential Hypertension (Renamed from Benign essential HTN) Benign Essential Hypertensio n (Renamed from Benign essential HTN) : How to access health information online Indication:Benign Essential Hypertension (Renamed from Benign essential HTN) Sore throat : How to access health information online Indication:Sore throat Sore throat : How to access health information online - Detail Indication:Sore throat Sore throat : Patient Instru ctions Indication:Sore throat Well female exam with routin e gynecological exam : How to access health information online Indication:Well female exam with routine gynecological exam Well female exam with routin e gynecological exam : How to access health information online - Detail Indication:Well female exam with routine gynecological exam Well female exam with routin e gynecological exam : Patient Instructions Indication:Well female exam with routine gynecological exam Need for prophylactic vaccin ation and inoculation against influenza (Renamed from Need for immunization against influenza) : Patient Instructions Indication:Need for prophylactic vaccination and inoculation against influenza (Renamed from Need for immunization against influenza) Need for prophylactic vaccin ation and inoculation against influenza (Renamed from Need for immunization against influenza) : How to access health information online Indication:Need for prophylactic vaccination and inoculation against influenza (Renamed from Need for immunization against influenza) Need for prophylactic vaccin ation and inoculation against influenza (Renamed from Need for immunization against influenza) : How to access health information online - Detail Indication:Need for prophylactic vaccination and inoculation against influenza (Renamed from Need for immunization against influenza) Summary Purpose Advance Directives No Advanced Directives Records FoundNo Advanced Directives Records Found Additional Source Comments INFORMATION SOURCE (unrecogn ized section and content) DATE CREATED AUTHOR AUTHOR'S ORGANIZ ATION 02/23/2022 [employer] FOR RECORDS PERTAINING TO PATIENTS WHO ARE OR HAVE BEEN ENROLLED IN A CHEMICAL DEPENDENCY/SUBSTANCEABUSE PROGRAM, SOME INFORMATION MAY BE OMITTED. This clinical summary was aggregated from multiple sources. Caution should be exercised in using it in the provision of clinical care. This summary normalizes information from multiple sources, and as a consequence, information in this document may materially change the coding, format and clinical context of patient data. In addition, data may be omitted in some cases. CLINICAL DECISIONS SHOULD BE BASED ON THE PRIMARY CLINICAL RECORDS. [email or web address] provides no warranty or guarantee of the accuracy or completeness of information in this document.
[2023-04-21 08:58] LABS: Absolute Lymphocyte Count 1.61 X10^3/uL (0.83-4.51); Absolute Neutrophil Count 4.2 X10^3/uL (2.0-7.7); Basophil# 0.09 X10^3/uL; Basophil% 1.3 % (0-1); Eosinophil# 0.44 X10^3/uL; Eosinophils% 6.4 % (0-5); Hematocrit 47.7 % (37-47); Hemoglobin 15.5 g/dL (12.0-15.0); Lymphocyte # 1.61 X10^3/ul (0.83-4.51); Lymphocyte % 23.5 % (19-41); Mean Corp Hgb Conc 32.5 g/dL (32-36); Mean Corpuscular Hgb 30.2 pg (27.0-32.0); Mean Corpuscular Volume 92.8 fL (81-99); Mean Platelet Vol. 9.8 fl (6.2-12.0); Monocyte# 0.52 X10^3/uL; Monocyte% 7.6 % (0-10); NRBC Flagged by Analyzer 0 % (0-5); Neutrophil # 4.15 X10^3/uL (2.7-7.7); Neutrophil % 60.8 % (47-70); Platelet Count 266 K/mm3 (150-450); RBC Distribution Width CV 13.2 % (11.6-14.6); RBC Distribution Width SD 45.1 fl (35.1-43.9); Red Blood Count 5.14 M/mm3 (4.2-5.4); White Blood Count 6.8 K/mm3 (4.4-11.0)
[2023-04-21 09:50] LABS: AST(SGOT) 22 U/L (15-37); Alanine Aminotransfer ALT/SGPT 32 U/L (13-56); Albumin, Serum 3.7 g/dL (3.2-5.0); Alkaline Phosphatase 69 U/L (45-117); Anion Gap 7 (5-15); BUN 18 mg/dL (7-18); BUN/Creat Ratio 18.2 RATIO (10-20); Calcium,Total 8.5 mg/dL (8.5-10.1); Chloride 111 mmol/L (98-107); Cholesterol 195 mg/dL (200); Creatinine, Serum 0.99 mg/dL (0.55-1.02); EST Glomerular Filtration Rate 62 mL/min (>60); Est Glom Filt Rate - Afr Amer 75 mL/min (>60); Globulin 3.7 g/dL (2.2-4.2); Glucose 100 mg/dL (74-106); High Density Lipoprotein 39 mg/dL; Potassium 4.1 mmol/L (3.5-5.1); Protein, Total 7.4 g/dL (6.4-8.2); Sodium Level 139 mmol/L (136-145); Thyroid Stim Hormone (TSH) 2.25 uIU/mL (0.358-3.74); Triglycerides 288 mg/dL; Very Low Density Lipoprotein 58 mg/dL (5-40)
[2023-04-21 10:23] LABS: Microalbumin,Random Urine 14.1 mg/L (NO RANGE EST.)
== END | disposition home or self-care (01) ==
PROVIDERS: PCP Nurse Practitioner Family; Referring Provider Nurse Practitioner Family; Visit Provider Nurse Practitioner Family
DX: E11.9 Type 2 diabetes mellitus without complications (principal)
CPT/HCPCS: 36415; 80053; 80061; 82043; 84443; 85025

== ENCOUNTER → 2024-03-13 | Outpatient (CLI) | payer OTHER, SELFPAY ==
--- NOTE | 2024-03-13 13:37 | BI_ITS ---
MAMMOGRAPHY - BILATERAL SCREENING 3-D TOMOSYNTHESIS REASON FOR EXAM: Female, 53 years old. SCREENING PERTINENT HISTORY: No significant family history. TECHNIQUE: 2-D mammograms and 3-D Tomosynthesis of the breast (s) were performed. CAD was performed. COMPARISON: 03/10/2023 FINDINGS: The breast composition is heterogeneously dense that can obscure small breast masses. Scattered benign calcifications are seen. No dense spiculated masses or suspicious microcalcifications are identified. No architectural distortion is identified. There is no skin thickening or retraction. There has been no significant change since the prior study. Retroglandular saline implant appears intact. BI/SCRN MAMM (CAD)W/DAVID BILAT IMPRESSION: No mammographic signs of malignancy. Routine yearly mammograms recommended. ASSESSMENT CATEGORY: BIRADS Category 1: Negative. A letter regarding these results will be sent to the patient by the facility within 30 days. FOLLOW UP RECOMMENDATION: Yearly follow up mammogram recommended. (A) Approximately 10% of breast cancers are not detected by mammography. A normal mammogram should not delay biopsy of a clinically suspicious abnormality. Electronically Signed: Soren Collado MD at 18:00 EST ,
== END | disposition home or self-care (01) ==
LOC: OPBI 13:35
PROVIDERS: PCP Nurse Practitioner Family; Referring Provider Nurse Practitioner Family; Visit Provider Nurse Practitioner Family
DX: Z12.31 Encounter for screening mammogram for malignant neoplasm of breast (principal)
CPT/HCPCS: 77063; 77067

== ENCOUNTER → 2024-04-25 | Outpatient (CLI) | payer OTHER, SELFPAY ==
--- NOTE | 2024-04-25 13:06 | CT_ITS ---
PROCEDURE: LOW DOSE CT LUNG SCREENING REASON FOR EXAM: 1 pack per day for 33 years smoking history. Quit smoking 3 years ago. TECHNIQUE: Low-dose CT technique. Contiguous axial scans of 1.25 mm slice thicknesses. Sagittal and coronal reconstruction images were obtained. One or more dose reduction techniques were used (e.g., automated exposure control, adjustment of mA and/or kv according to patient size, use of iterative reconstruction technique). COMPARISON: None. FINDINGS: Nodules described below are on the axial series unless otherwise specified. Pulmonary Nodules: Multiple round and ovoid ground-glass nodules are noted in the bilateral upper and lower lobes measuring 0.2 to 0.6 cm. A spiculated ground-glass nodule is seen in the left upper lobe, axial image 55 measuring 1.1 cm. Hardware:None Lymph Nodes:A few non-suspicious lymph nodes in the precarinal region. Heart and Vasculature:Normal heart size. No pericardial effusion.. Great vessels: Thoracic aorta and pulmonary arteries have normal contours; noncontrast technique limits evaluation. Coronary Artery Calcifications: Unremarkable Lungs and Airways: The lungs are normally expanded and clear. Pleura:No pleural effusion. No pneumothorax. Upper Abdomen:Visualized portions of the upper abdominal viscera are unremarkable. Bones:Bone windows are unremarkable. Soft tissues: Bilateral breast implants. CT/Low Dose CT Lung Screening IMPRESSION: 1. BASED ON THE ACR LUNG RADS FOR THE MOST SUSPICIOUS NODULE DESCRIBED IN THIS REPORT, LEFT UPPER LOBE,, THE OVERALL LUNG RADS SCORE IS 4A. RECOMMEND 3-MONTH SCREENING LDCT.. 2. SMOKING CESSATION COUNSELING IS RECOMMENDED IF THE PATIENT IS STILL SMOKING . 3. BILATERAL BREAST IMPLANTS. The following information is provided for reference:Lung-RADS 2021 Assessment C ategories. Additional information involving Lung-RADS is available at www.[email or web address].org. 0-INCOMPLETE 1-NEGATIVE:No nodules or definitely benign nodules. Complete, central, popcorn , or centric ring calcifications OR fat containing 2-BENIGN APPEARANCE (based on imaging features or indolent behavior). Juxtaple ural nodule: < 10mm AND solid; smooth margins; oval, entiform, or triangular shape Solid nodule: <6mm at baseline or new< 4mm Part solid Nodule: < 6mm total mean diameter at baseline Nonsolid nodule:(GGN) < 30mm OR >=30mm stable or slowly growing Airway nodule, subsegmental at baseline, new, or stable Category 3 nodule stabl e or decreased in size at 6-month follow-up CT or Category 3 or 4A nodules that resolve on follow-up OR category 4B findings prov en to be benign following diagnotic work up. 3 - Probably Benign (Based on imaging features or behavior) Solid Nodule: >= 6 to <8mm at baseline OR new 4 to <6mm Part-solid nodule: >= 6mm toal mean diam. with solid component <6mm at baseline OR new < 6mm total mean diam. Non-solid nodule: GGN >= 30mm at baseline or new Atypical pulmonary cyst: Growing cystic component (mean diam.) of thick-walled cyst Category 4A nodule stable or decreased in size at 3-month follow-up CT (excl.ai rway). 4A - Suspicious Solid nodule: >=8 to < 15mm at baseline OR growing < 8mm OR new 6 to < 8mm Part solid nodule: >= 6mm total mean diam. w/ solid component >=6mm to < 8mm at baseline OR new or growing < 4mm solid component Airway nodule, segmental or more proximal at baseline or new Atypical pulmonary cyst: Thick-walled OR multilocular at baseline OR becomes mu ltilocular 4B - Very Suspicious Airway nodule, segmental or more proximal, and stable or growing Solid nodule: >= 15mm at baseline OR new or growing >= 8mm Part solid nodule: Solid component >= 8mm OR new or growing >= 4mm solid compon ent Atypical pulmonary cyst: Thick-walled with growing wall thickness/nodularity OR Growing multilocular (mean diam.) OR Multilocular with increased loculation or new/increased opacity Slow-growing solid or part solid nodule w/ growth over multiple screening exams 4X - Very Suspicious Category 3 or 4 nodules with additional features that increase the suspicion fo r lung cancer. S - Clinically Significant or potentially significant findings (non-lung cancer ) Reading Location: [facility]
== END | disposition home or self-care (01) ==
LOC: CT 13:05
PROVIDERS: PCP Nurse Practitioner Family; Referring Provider Nurse Practitioner Family; Visit Provider Nurse Practitioner Family
DX: Z12.2 Encounter for screening for malignant neoplasm of respiratory organs (principal); Z87.891 Personal history of nicotine dependence
CPT/HCPCS: 71271

== ENCOUNTER → 2024-05-09 | Outpatient (CLI) | payer OTHER, SELFPAY | END | disposition home or self-care (01) | LOC: PSN 06:41 | PROVIDERS: PCP Nurse Practitioner Family; Referring Provider Nurse Practitioner Acute Care; Visit Provider Nurse Practitioner Acute Care | DX: Z87.891 Personal history of nicotine dependence (principal) | CPT/HCPCS: 94060; 94726; 94729 ==

== ENCOUNTER → 2024-05-17 | Outpatient (CLI) | payer OTHER, SELFPAY ==
[2024-05-17 13:04] LABS: Absolute Lymphocyte Count 0.97 X10^3/uL (0.83-4.51); Absolute Neutrophil Count 6.3 X10^3/uL (2.0-7.7); Basophil# 0.06 X10^3/uL; Basophil% 0.7 % (0-1); Eosinophil# 0.36 X10^3/uL; Eosinophils% 4.2 % (0-5); Hematocrit 43.2 % (37-47); Hemoglobin 13.9 g/dL (12.0-15.0); Lymphocyte # 0.97 X10^3/ul (0.83-4.51); Lymphocyte % 11.4 % (19-41); Mean Corp Hgb Conc 32.2 g/dL (32-36); Mean Corpuscular Hgb 30.1 pg (27.0-32.0); Mean Corpuscular Volume 93.5 fL (81-99); Mean Platelet Vol. 9.2 fl (6.2-12.0); Monocyte# 0.79 X10^3/uL; Monocyte% 9.3 % (0-10); NRBC Flagged by Analyzer 0 % (0-5); Neutrophil # 6.32 X10^3/uL (2.7-7.7); Neutrophil % 74.2 % (47-70); Platelet Count 189 K/mm3 (150-450); RBC Distribution Width CV 13.3 % (11.6-14.6); RBC Distribution Width SD 45.7 fl (35.1-43.9); Red Blood Count 4.62 M/mm3 (4.2-5.4); White Blood Count 8.5 K/mm3 (4.4-11.0)
[2024-05-17 13:38] LABS: Microalbumin,Random Urine < 12.0 mg/L (NO RANGE EST.)
[2024-05-17 14:05] LABS: ALB/GLOB Ratio 1.8 RATIO (0.9-2.4); AST(SGOT) 27 U/L (<=31); Alanine Aminotransfer ALT/SGPT 30 U/L (<=34); Albumin, Serum 4.3 g/dL (3.5-5.0); Alkaline Phosphatase 62 U/L (35-104); Anion Gap 13 (5-15); BUN 18 mg/dL (4-19); BUN/Creat Ratio 21.4 RATIO (10-20); Calcium 9.1 mg/dL (7.6-11.0); Carbon Dioxide 23.2 mmol/L (22.0-29.0); Chloride 102 mmol/L (96-108); Cholesterol 186 mg/dL (<=200); Creatinine, Serum 0.8 mg/dL (0.6-1.0); EST Glomerular Filtration Rate 83 (>60); Globulin 2.4 g/dL (2.2-4.2); Glucose 93 mg/dL (70-99); High Density Lipoprotein 55 mg/dL; Low Density Lipoprotein Calc. 97 mg/dL; Potassium 4.1 mmol/L (3.3-5.1); Protein, Total 6.7 g/dL (5.9-8.4); Sodium Level 138 mmol/L (133-145); Total Bilirubin 0.38 mg/dL (0.00-1.30); Triglycerides 168 mg/dL; Very Low Density Lipoprotein 34 mg/dL (5-40); Vitamin B12 566 pg/mL (180-914); Vitamin D,25 Hydroxy 74.1 ng/mL (30-100); cholesterol:hdl ratio screen 3.37
[2024-05-17 17:31] LABS: Hemoglobin A1c 5.4 % (<=5.6)
== END | disposition home or self-care (01) ==
LOC: VSLAB 11:07
PROVIDERS: PCP Nurse Practitioner Family; Visit Provider Nurse Practitioner Family
DX: E11.9 Type 2 diabetes mellitus without complications (principal); I10 Essential (primary) hypertension; E56.9 Vitamin deficiency, unspecified
CPT/HCPCS: 36415; 80053; 80061; 82043; 82306; 82607; 83036; 85025

== ENCOUNTER → 2024-06-13 | Outpatient (CLI) | payer OTHER, SELFPAY ==
[2024-06-13 11:37] VITALS: PULSE 101; PULSE 87; PULSE 90; PULSE 92; PULSE 96; PULSE 99; O2SAT 97; O2SAT 98; O2SAT 99
--- NOTE | 2024-06-14 11:06 | PCM.PSN.6M ---
PSN 6 Minute Walk Test 6 Minute Walk Test 6 Minute Walk Test: 6 Minute Walk Test PSN:6-Minute Walk Test Start: 06/13/24 11:36 Freq: Status: Active Protocol: [id number] Document 06/13/24 11:37 EW (Rec: 06/13/24 11:40 EW [email or web address]) 6 Minute Walk Test Date Performed 06/13/24 Time Performed 11:15 Height 5 ft 3 in Weight: 125 lb Weight in Pounds 125.0 lbs Assistive device None used: Pre-test Oxygen Delivery Room Air Method Pulse Ox (%) 99 Pulse Rate (60-100 87 beats/min) Dyspnea Huey Scale ( 0 0-10) Exertion Huey Scale 6 (6-20) 1st minute Oxygen Delivery Room Air Method Pulse Ox (%) 98 Pulse Rate (60-100 92 beats/min) 2nd minute Oxygen Delivery Room Air Method Pulse Ox (%) 98 Pulse Rate (60-100 96 beats/min) 3rd minute Oxygen Delivery Room Air Method Pulse Ox (%) 98 Pulse Rate (60-100 96 beats/min) 4th minute Oxygen Delivery Room Air Method Pulse Ox (%) 97 Pulse Rate (60-100 99 beats/min) 5th minute Oxygen Delivery Room Air Method Pulse Ox (%) 98 Pulse Rate (60-100 99 beats/min) 6th minute Oxygen Delivery Room Air Method Pulse Ox (%) 99 Pulse Rate (60-100 101 H beats/min) Post-test Oxygen Delivery Room Air Method Pulse Ox (%) 99 Pulse Rate (60-100 90 beats/min) Dyspnea Huey Scale ( 0 0-10) Exertion Huey Scale 6 (6-20) Full Laps Walked 24 Partial Lap, Number 25 of Tiles Walked Total Distance 1441 Walked (ft) Interpretation Interpretation: The patient ambulated 1441 feet over the course of 6 minutes beginning on room air without assistive devices. Pretesting oxygen saturation was noted to be 99% on room air. With ambulation, the jamie oxygen saturation was 97%. There was no significant exertional oxygen desaturation. Recommendations Recommendations: There is no indication for the use of supplemental oxygen at this time.
== END | disposition home or self-care (01) ==
PROVIDERS: PCP Nurse Practitioner Family; Referring Provider Nurse Practitioner Acute Care; Visit Provider Nurse Practitioner Acute Care
DX: Z87.891 Personal history of nicotine dependence (principal)
CPT/HCPCS: 94618

== ENCOUNTER → 2024-07-24 | Outpatient (CLI) | payer OTHER, SELFPAY ==
--- NOTE | 2024-07-24 06:50 | CT_ITS ---
PROCEDURE: CHEST WITHOUT CONTRAST 07/24/2024 REASON FOR EXAM: NEW LUNG NODULES IN SMOKER TECHNIQUE: CT chest was performed without contrast. Coronal and Sagittal reconstruction series were provided. One or more dose reduction techniques were used (e.g., Automated exposure control, adjustment of the mA and/or kV according to patient size, use of iterative reconstruction technique RADIATION DOSE SUMMARY: CTDlvol: 6.60 mGy DLP: 231.05 mGycm COMPARISON: 04/25/2024 FINDINGS: Note that evaluation of the vasculature, janna, and soft tissues is limited in the absence of IV contrast. Heart/pericardium: Unremarkable. Aorta: Unremarkable. Pulmonary arteries: Normal in caliber. Lymph nodes: Unremarkable. Lungs/pleura: Similar ill-defined ground-glass LEFT upper lobe nodule, 10 x 10 mm (series 4, image 29). Similar 4 mm subpleural nodule in the RIGHT lung base, posterior costophrenic sulcus (image 91). Numerous additional similar and smaller nodules are grossly unchanged, some of which are ill-defined/ground-glass, annotated on series 4. Airways: Unremarkable. Chest wall: Bilateral breast implants are partially imaged.. Upper abdomen: Grossly unremarkable. Musculoskeletal: Trace thoracic dextroscoliosis may be positional.. CT/Chest without Contrast IMPRESSION: 1. No new or enlarging pulmonary nodule identified. Similar dominant 10 x 10 m m LEFT upper lobe ground-glass nodule. Findings now best considered Lung-RADS 3. Recommend CT chest in 6 months. 2. Additional description as above. Reading Location: [id number]
== END | disposition home or self-care (01) ==
LOC: CT 06:50
PROVIDERS: PCP Nurse Practitioner Family; Referring Provider Nurse Practitioner Acute Care; Visit Provider Nurse Practitioner Acute Care
DX: R91.8 Other nonspecific abnormal finding of lung field (principal)
CPT/HCPCS: 71250

== ENCOUNTER → 2024-11-15 | Outpatient (CLI) | payer OTHER, SELFPAY ==
[2024-11-15 12:44] LABS: Vitamin B12 723 pg/mL (180-914); Vitamin D,25 Hydroxy 57.9 ng/mL (30-100)
== END | disposition home or self-care (01) ==
LOC: LAB 11:23
PROVIDERS: PCP Nurse Practitioner Family; Referring Provider Nurse Practitioner Family; Visit Provider Nurse Practitioner Family
DX: I10 Essential (primary) hypertension (principal)
CPT/HCPCS: 36415; 82306; 82607; 84443; 86376; 86800

== ENCOUNTER → 2025-01-29 | Outpatient (CLI) | payer OTHER, SELFPAY ==
--- OUTSIDE RECORDS SUMMARY | 2025-01-29 06:51 | XMS RPT_ITS | CCD ---
Author Organization [facility] ion Partnership [facility] Care Team Providers Care [employer] Car Loader Name Role Phone Thi Alonzo Unavailable Fast, Rosa A Unavailable Bernie Dixon Unavailable Unavailable Unavailable Unavailable DaicarenThi E Unavailable Fast, Rosa A Unavailable Albertina Ga Unavailable Unavailable Bernie Dixon Unavailable Unavailable Unavailable Unavailable Toño Villavicencio Unavailable Unavailable Toño Villavicencio Unavailable Unavailable Unavailable Unavailable Slavida Shruti Unavailable Unavailable Toño Lira Unavailable Unavailable Thi Alonzo CNP Unavailable Fast DO, Rosa A Unavailable Evita Rosales LPN Unavailable Unavailable Toño Lira LPN Unavailable Unavailable Unavailable Unavailable Thi Alonzo Unavailable Fast DO, Rosa A Unavailable Thi Alonzo Unavailable Karol Cobb CNP Unavailable Slavida HART Shruti Unavailable Unavailable Karol Cobb CNP Attending Unavailable Karol Cobb CNP Referring Unavailable Karol Cobb CNP Consulting Unavailable Karol Cobb CNP Unavailable Thi Alonzo Unavailable Hirsch SOLDERER PRODUCTION LINE-C, Samantha Primary Care Provider Scott SOLDERER PRODUCTION LINE-C, Samantha Attending Provider Hirsch SOLDERER PRODUCTION LINE-C, Samantha Referring Provider Spencer SOLDERER PRODUCTION LINE-C, Radha Attending Provider Spencer SOLDERER PRODUCTION LINE-C, Radha Referring Provider Royal SOLDERER PRODUCTION LINE-C, Maegan Attending Provider Royal SOLDERER PRODUCTION LINE-C, Maegan Referring Provider Royal SOLDERER PRODUCTION LINE-C, Maegan Other Provider Dr. Abdiaziz Reyes DO Attending Provider Hirsch SOLDERER PRODUCTION LINE-C, Samantha Primary Care Provider Hirsch SOLDERER PRODUCTION LINE-C, Samantha Referring Provider Hirsch SOLDERER PRODUCTION LINE-C, Samantha Attending Provider Hirsch DIRECTOR SHOPPER MARKETING-ANIMAL NUTRITION TEACHER, Samantha Primary Care Provider KIAN DAVEY Attending Unavailable HIRSCH, SAMANTHA Primary Care Unavailable Hirsch SOLDERER PRODUCTION LINE-C, Samantha Primary Care Provider Hirsch SOLDERER PRODUCTION LINE-C, Samantha Referring Provider Royal SOLDERER PRODUCTION LINE-C, Maegan Attending Provider Hirsch SOLDERER PRODUCTION LINE-C, Samantha Attending Provider Royal SOLDERER PRODUCTION LINE, Maegan Attending Unavailable Royal SOLDERER PRODUCTION LINE, Maegan Referring Unavailable Hirsch VSC, Samantha Primary Care Unavailable Hirsch VSC, Samantha Attending Unavailable Hirsch VSC, Samantha Primary Care Unavailable Royal SOLDERER PRODUCTION LINE, Maegan Attending Unavailable Royal SOLDERER PRODUCTION LINE, Maegan Referring Unavailable Hirsch VSC, Samantha Primary Care Unavailable Royal SOLDERER PRODUCTION LINE, Maegan Attending Unavailable Royal SOLDERER PRODUCTION LINE, Maegan Referring Unavailable Hirsch VSC, Samantha Primary Care Unavailable Hirsch VSC, Samantha Primary Care Unavailable Spencer SOLDERER PRODUCTION LINE, Radha Attending Unavailable Spencer SOLDERER PRODUCTION LINE, Radha Referring Unavailable Spencer SOLDERER PRODUCTION LINE, Radha Attending Unavailable Spencer SOLDERER PRODUCTION LINE, Radha Referring Unavailable Hirsch VSC, Samantha Primary Care Unavailable Royal SOLDERER PRODUCTION LINE, Maegan Attending Unavailable Hirsch VSC, Samantha Referring Unavailable Hirsch VSC, Samantha Primary Care Unavailable Abdiaziz Reyes Attending Unavailable Abdiaziz Reyes Attending Unavailable Royal SOLDERER PRODUCTION LINE, Maegan Referring Unavailable Royal SOLDERER PRODUCTION LINE, Maegan Consulting Unavailable Hirsch VSC, Samantha Primary Care Unavailable Royal SOLDERER PRODUCTION LINE, Maegan Attending Unavailable Hirsch VSC, Samantha Referring Unavailable Hirsch VSC, Samantha Primary Care Unavailable Hirsch VSC, Samantha Primary Care Unavailable Hirsch VSC, Samantha Attending Unavailable Hirsch VSC, Samantha Referring Unavailable Hirsch VSC, Samantha Attending Unavailable [facility] Referring Unavailable [facility] Primary [facility] Unavailable Lele SOLDERER PRODUCTION LINE, Maegan Attending Unavailable Lele SOLDERER PRODUCTION LINE, Maegan Referring Unavailable Scott [facility], Samantha Primary Care Unavailable Allergies Allergy Classification Reported Allergen(s) Allergy Type Date of Onset Reaction(s) Facility (20 sources) Penicillins; Translations: [Penicillins] allergy to substance 9 [facility] Work Phone: (2 sources) Penicillin G; Translations: [PENICILLIN G] Drug Allergy [address] [facility] Medications Current Medications Medication Drug Class(es) Dates Sig (Normalized) Sig (Original) busPIRone hydrochloride 5 mg oral tablet (2 sources) Start: 07-31-2024 take 1 tablet by mouth every twelve hours busPIRone (Buspar) 5 mg tablet Take 1 tablet (5 mg) by mouth every 12 hours. 07/31/2024 Active Start: 07-28-2024 take 1 tablet by rachel twice daily Buspirone 5 mg tablet Active 5 mg PO TWICE A DAY July 28, 2024 12:00am cephalexin 500 mg oral capsule (20 sources) Cephalosporin Antibacterial Start: 10-18-2024 End: 10-25-2024 take 1 capsule by mouth four times daily cephalexin (Keflex) 500 mg capsule Indications: Scalp abscess Take 1 capsule (500 mg) by mouth 4 times a day for 7 days. 28 capsule 10/18/2024 10/25/2024 Active Start: 10-25-2017 End: 11-01-2017 take 1 capsule by mouth twice daily Keflex 500 MG Oral Capsule 1 (one) Capsule bid for 7 days Quantity: 14 {Capsule} Refills: 0 Ordered: 25-Oct-2017 Daicaren Thi Start : 25-Oct-2017 End : 01-Nov-2017 Inactive clindamycin 300 mg oral capsule (1 source) Lincosamide Antibacterial Start: 10-18-2024 End: 10-28-2024 take 1 capsule by mouth four times daily clindamycin (Cleocin) 300 mg capsule Indications: Scalp abscess Take 1 capsule (300 mg) by mouth 4 times a day for 10 days. 40 capsule 10/18/2024 10/28/2024 Active hydrOXYzine hydrochloride 25 mg oral tablet (2 sources) Antihistamine Start: 04-27-2024 take 1 tablet by mouth twice daily as needed for anxiety Hydroxyzine Hcl 25 mg tablet Active 25 mg PO TWICE A DAY as needed for anxiety July 28, 2024 12:00am losartan potassium 25 mg oral tablet (20 sources) Angiotensin 2 Receptor Sherman Start: 08-12-2024 take 0.5 tablet by mouth once daily losartan (Cozaar) 25 mg tablet Take 0.5 tablets (12.5 mg) by mouth once daily. 08/12/2024 Active Start: 01-07-2023 take 1 tablet by rachel th once daily losartan 50 mg oral tablet 1 (one) Tablet qd for 30 days Quantity: 30 {Tablet} Refills: 4 Ordered: 07-Jan-2023 Sarah Horn DO Start : 07-Jan-2023 Active Start: 07-17-2021 take 1 tablet by rachel th once daily Losartan Potassium 50 MG Oral Tablet 1 (one) Tablet qd for 30 days Quantity: 30 {Tablet} Refills: 6 Ordered: 17-Jul-2021 Sarah Horn DO Start : 17-Jul-2021 Active Start: 01-13-2021 take 1 tablet by rachel th once daily Losartan Potassium 50 MG Oral Tablet 1 (one) Tablet qd for 30 days Quantity: 30 {Tablet} Refills: 6 Ordered: 13-Jan-2021 Thi Alonzo CNP, CNP, Mary E Start : 13-Jan-2021 Active Start: 12-01-2019 take 1 tablet by rachel th once daily Losartan Potassium 50 MG Oral Tablet 1 (one) Tablet qd for 30 days Quantity: 30 {Tablet} Refills: 6 Ordered: 01-Dec-2019 Thi Alonzo CNP, CNP, Mary E Start : 01-Dec-2019 Active Start: 05-25-2019 take 1 tablet by rachel th once daily Losartan Potassium 50 MG Oral Tablet 1 (one) Tablet qd for 30 days Quantity: 30 {Tablet} Refills: 6 Ordered: 25-May-2019 Thi Alonzo CNP, CNP, Mary E Start : 25-May-2019 Active Start: 08-15-2018 take 1 tablet by rachel th once daily Losartan Potassium 50 MG Oral Tablet 1 (one) Tablet qd for 30 days Quantity: 30 {Tablet} Refills: 6 Ordered: 15-Aug-2018 Cheri RAJ Thi Alonzo CNP, Thi Javier Start : 15-Aug-2018 Active Start: 01-17-2018 take 1 tablet by rachel th once daily Losartan Potassium 50 MG Oral Tablet 1 (one) Tablet qd for 30 days Quantity: 30 {Tablet} Refills: 6 Ordered: 17-Jan-2018 Cheri RAJ Thi Alonzo CNP, Thi Javier Start : 17-Jan-2018 Active Start: 05-05-2017 take 1 tablet by rachel th at bedtime Losartan (Cozaar) 25 MG tablet Active 25 mg PO AT BEDTIME May 05, 2017 1:00am htn 24 hr metoprolol succinate 25 mg extended release oral tablet (20 sources) beta-Adrenergic Sherman Start: 08-16-2024 take 1 tablet by mouth every twenty-four hours in the morning metoprolol succinate XL (Toprol-XL) 25 mg 24 hr tablet Take 1 tablet (25 mg) by mouth early in the morning.. 08/16/2024 Active Start: 01-07-2023 take 1 tablet by rachel th once daily at bedtime metoprolol succinate 25 mg oral Tablet, Extended Release 24 hr 1 (one) Tablet ER 24HR qhs for 30 days Quantity: 30 {Tablet} Refills: 4 Ordered: 07-Jan-2023 Sarah Horn DO Start : 07-Jan-2023 Active Start: 07-17-2021 take 1 tablet by rachel th once daily at bedtime Metoprolol Succinate ER 25 MG Oral Tablet Extended Release 24 Hour 1 (one) Tablet ER 24HR qhs for 30 days Quantity: 30 {Tablet} Refills: 6 Ordered: 17-Jul-2021 Sarah Horn DO Start : 17-Jul-2021 Active Start: 01-13-2021 take 1 tablet by rachel th once daily at bedtime Metoprolol Succinate ER 25 MG Oral Tablet Extended Release 24 Hour 1 (one) Tablet ER 24HR qhs for 30 days Quantity: 30 {Tablet} Refills: 6 Ordered: 13-Jan-2021 Dairosariork ANTHONY Thi Javier Dairosariork ANTHONY, Thi Javier Start : 13-Jan-2021 Active Start: 05-27-2020 take 1 tablet by rachel th once daily at bedtime Metoprolol Succinate ER 25 MG Oral Tablet Extended Release 24 Hour 1 (one) Tablet ER 24HR qhs for 30 days Quantity: 30 {Tablet} Refills: 6 Ordered: 27-May-2020 Cheri RAJ Thi King CNP Start : 27-May-2020 Active Start: 12-01-2019 take 1 tablet by rachel th once daily at bedtime Metoprolol Succinate ER 25 MG Oral Tablet Extended Release 24 Hour 1 (one) Tablet ER 24HR qhs for 30 days Quantity: 30 {Tablet} Refills: 6 Ordered: 01-Dec-2019 Cheri RAJ Thi King CNP Start : 01-Dec-2019 Active Start: 11-21-2018 take 1 tablet by rachel th once daily at bedtime Metoprolol Succinate ER 25 MG Oral Tablet Extended Release 24 Hour 1 (one) Tablet ER 24HR qhs for 30 days Quantity: 30 {Tablet} Refills: 6 Ordered: 21-Nov-2018 Cheri RAJ Thi Alonzo RAJThi Start : 21-Nov-2018 Active Start: 08-15-2018 take 1 tablet by rachel th once daily at bedtime Metoprolol Succinate ER 25 MG Oral Tablet Extended Release 24 Hour 1 (one) Tablet ER 24HR qhs for 30 days Quantity: 30 {Tablet} Refills: 6 Ordered: 15-Aug-2018 Cheri RAJ Thi King CNP Start : 15-Aug-2018 Active Start: 01-17-2018 take 1 tablet by rachel th once daily at bedtime Metoprolol Succinate ER 25 MG Oral Tablet Extended Release 24 Hour 1 (one) Tablet ER 24HR qhs for 30 days Quantity: 30 {Tablet} Refills: 6 Ordered: 17-Jan-2018 Cheri RAJ Thi King CNP Start : 17-Jan-2018 Active Start: 05-05-2017 take 1 tablet by rachel th at bedtime Metoprolol Tartrate 25 MG tablet Active 25 mg PO AT BEDTIME May 05, 2017 1:00am htn/heart Mounjaro 5 mg/0.5 mL pen injector (1 source) Start: 10-06-2024 inject 5 mg by subcutaneous injection every week Mounjaro 5 mg/0.5 mL pen injector Inject 5 mg under the skin 1 (one) time per week. 10/06/2024 Active mupirocin 0.02 mg/mg topical ointment (1 source) RNA Synthetase Inhibitor Antibacterial Start: 10-16-2024 mupirocin (Bactroban) 2 % ointment Apply 1 Application topically 3 times a day. 10/16/2024 Active Tirzepatide (Mounjaro) 5 mg/0.5 mL pen injector (4 sources) Start: 04-25-2024 Tirzepatide (Mounjaro) 5 mg/0.5 mL pen injector Active 5 mg SC EVERY WEEK April 25, 2024 1:00am Completed/Discontinued Medications Medication Drug Class(es) Dates Sig (Normalized) Sig (Original) acetaminophen 325 mg oral tablet (1 source) Start: 10-18-2024 End: 10-18-2024 take 975 mg by mouth once as needed for pain 975 mg, oral, Once, On Wed10/18/24 at 1645, For 1 dose, If ordered PRN for pain, nurse is permitted to administer this medication for higher pain scores based on patient preference? Yes 24 hr buPROPion hydrochloride 150 mg extended release oral tablet (20 sources) Aminoketone Start: 06-16-2019 End: 01-14-2021 buPROPion HCl ER (XL) 150 MG Oral Tablet Extended Release 24 Hour 1 (one) Tablet TAD for 0 days Quantity: 180 {Tablet} Refills: 2 Ordered: 14-Jan-2021 Evita Rosales LPN Start : 16-Jun-2019 End : 14-Jan-2021 Inactive Comments: Start 150mg daily x 3 days. Then twice daily x 7-12 weeksSeparate dose by at least 8h, Last dose no later than 6pm. Stop smoking after 5-7 days of tx Comment on above: Start 150mg daily x 3 days. Then twice daily x 7-12 weeksSeparate dose by at least 8h, Last dose no later than 6pm. Stop smoking after 5-7 days of tx cefepime 2000 mg injection (1 source) Cephalosporin Antibacterial Start: 10-18-2024 End: 10-18-2024 2 g, intravenous, Administer over 0.5 Hours, Once, On Wed10/18/24 at 1645, For 1 dose, Dosing of this medication varies based on severity of illness. Does this patient have sepsis or concern for sepsis (probable or documented infection plus systemic manifestations of infection)? Yes, Suspected Indication (Select all that apply): Cellulitis, Skin and Soft Tissue, Type of Therapy: Empiric, Indications: Cellulitis, Skin and Soft Tissue clarithromycin 500 mg oral tablet (20 sources) Macrolide Antimicrobial Start: 03-11-2015 End: 04-29-2015 take 1 tablet by mouth twice daily BIAXIN, 500MG (Oral Tablet) 1 (one) Tablet bid for 0 days Quantity: 20 {Tablet} Refills: 0 Ordered: 29-Apr-2015 Dona Jurado Start : 11-Mar-2015 End : 29-Apr-2015 Discontinued desonide 0.5 mg/ml topical cream (15 sources) Corticosteroid Start: 04-22-2021 End: 05-22-2021 Desonide 0.05 % External Cream 1 (one) Application bid or tid for 30 days Quantity: 1 {Each} Refills: 0 Ordered: 22-Apr-2021 Thi Alonzo Start : 22-Apr-2021 End : 22-May-2021 Inactive Comments: 1 bottle Comment on above: 1 bottle docusate sodium 100 mg oral capsule (8 sources) Start: 09-28-2018 End: 04-25-2024 take 1 capsule by mouth twice daily Docusate Sodium 100 MG capsule Discontinued 100 mg PO TWICE A DAY September 28, 2018 12:00am April 25, 2024 1:11pm 1 po bid to prevent constipation. doxycycline hyclate 100 mg oral capsule (20 sources) Tetracycline-class Drug Start: 11-21-2014 End: 03-11-2015 take 1 capsule by mouth twice daily DOXYCYCLINE HYCLATE, 100MG (Oral Capsule) 1 (one) Capsule Capsule bid for 0 days Quantity: 20 {Capsule} Refills: 0 Ordered: 11-Mar-2015 Albertina Anderson RN Start : 21-Nov-2014 End : 11-Mar-2015 Inactive iohexol (OMNIPaque) 350 mg iodine/mL solution 68 mL (1 source) Start: 10-18-2024 End: 10-18-2024 68 mL, intravenous, Once in imaging, Starting on Wed10/18/24 at 1752, For 1 dose metFORMIN hydrochloride 500 mg oral tablet (20 sources) Biguanide Start: 11-04-2022 take 1 tablet by mouth twice daily at mealtime metFORMIN 500 mg oral tablet 1 (one) Tablet bid with largest meal for 0 days Quantity: 60 {Tablet} Refills: 6 Ordered: 04-Nov-2022 Karol Cobb CNP Start : 04-Nov-2022 Active Start: 04-13-2022 take 1 tablet by rachel th twice daily at mealtime metFORMIN 500 mg oral tablet 1 (one) Tablet bid with largest meal for 0 days Quantity: 60 {Tablet} Refills: 6 Ordered: 13-Apr-2022 Karol Cobb CNP Start : 13-Apr-2022 Active Start: 09-10-2021 take 1 tablet by rachel th twice daily at mealtime metFORMIN HCl 500 MG Oral Tablet 1 (one) Tablet bid with largest meal for 0 days Quantity: 60 {Tablet} Refills: 6 Ordered: 10-Sep-2021 Karol Cobb CNP Start : 10-Sep-2021 Active Start: 02-17-2021 take 1 tablet by rachel th twice daily at mealtime metFORMIN HCl 500 MG Oral Tablet 1 (one) Tablet bid with largest meal for 0 days Quantity: 60 {Tablet} Refills: 6 Ordered: 17-Feb-2021 Thi Alonzo Mary Start : 17-Feb-2021 Active Start: 11-20-2019 take 1 tablet by rachel th twice daily at mealtime metFORMIN HCl 500 MG Oral Tablet 1 (one) Tablet bid with largest meal for 0 days Quantity: 60 {Tablet} Refills: 6 Ordered: 20-Nov-2019 Thi Alonzo CNP, CNP Gladys Start : 20-Nov-2019 Active Start: 05-25-2019 take 1 tablet by rachel th once daily at mealtime metFORMIN HCl 500 MG Oral Tablet 1 (one) Tablet qd with largest meal for 0 days Quantity: 30 {Tablet} Refills: 6 Ordered: 25-May-2019 Thi Alonzo CNP, CNP Gladys Start : 25-May-2019 Active Start: 09-04-2018 take 1 tablet by rachel th once daily at mealtime metFORMIN HCl 500 MG Oral Tablet 1 (one) Tablet qd with largest meal for 0 days Quantity: 30 {Tablet} Refills: 6 Ordered: 04-Sep-2018 Thi Alonzo CNP, CNP Gladys Start : 04-Sep-2018 Active Start: 12-26-2017 take 1 tablet by rachel th once daily at mealtime MetFORMIN HCl 500 MG Oral Tablet 1 (one) Tablet qd with largest meal for 0 days Quantity: 30 {Tablet} Refills: 6 Ordered: 26-Dec-2017 Cheri ANTHONY Thi Javier Cheri ANTHONY Thi Javier Start : 26-Dec-2017 Active 100 ml metroNIDAZOLE 5 mg/ml injection (1 source) Nitroimidazole Antimicrobial Start: 10-18-2024 End: 10-18-2024 500 mg, intravenous, Administer over 60 Minutes, Once, On Wed10/18/24 at 1645, For 1 dose, Do NOT give with alcohol or drug products with significant alcohol content., Suspected Indication (Select all that apply): Cellulitis, Skin and Soft Tissue, Dosing of this medication varies based on severity of illness. Does this patient have sepsis or concern for sepsis (probable or documented infection plus systemic manifestations of infection)? Yes, Indications: Cellulitis, Skin and Soft Tissue naproxen 250 mg oral tablet (8 sources) Nonsteroidal Anti-inflammatory Drug Start: 09-28-2018 End: 04-25-2024 take 250-500 mg by mouth every eight hours as needed for pain Naproxen 250 MG tablet Discontinued 250 - 500 mg PO 3 TIMES DAILY NEEDED as needed for Mild-Mod Pain () September 28, 2018 12:00am April 25, 2024 1:11pm 1-2 po q 8 hr prn pain 24 hr nicotine 0.875 mg/hr transdermal system (20 sources) Cholinergic Nicotinic Agonist Start: 04-10-2021 End: 05-22-2021 apply 1 dose transdermal route once daily Nicoderm CQ 21 MG/24HR Transdermal Patch 24 Hour 1 (one) Patch daily as directed for 42 days Quantity: 42 {Patch} Refills: 0 Ordered: 10-Apr-2021 Dairosariork Thi Start : 10-Apr-2021 End : 22-May-2021 Inactive Start: 04-10-2021 End: 03-25-2021 apply 1 dose transdermal route once daily Nicoderm CQ 21 MG/24HR Transdermal Patch 24 Hour 1 (one) Patch daily as directed for 42 days Quantity: 42 {Patch} Refills: 0 Ordered: 10-Apr-2021 Cheri ANTHONY GladysConcepcion Alonzo CNP Gladys Start : 10-Apr-2021 End : 25-Mar-2021 Active Start: 02-11-2021 apply 1 dose transde rmal route once daily Nicoderm CQ 21 MG/24HR Transdermal Patch 24 Hour 1 (one) Patch daily as directed for 42 days Quantity: 42 {Patch} Refills: 0 Ordered: 11-Feb-2021 Thi Alonzo CNP, CNP, Mary E Start : 11-Feb-2021 Active Start: 01-14-2021 End: 01-28-2021 apply 1 dose transdermal route once daily Nicoderm CQ 14 MG/24HR Transdermal Patch 24 Hour 1 (one) Patch daily as directed for 14 days Quantity: 14 {Patch} Refills: 0 Ordered: 14-Jan-2021 Thi Alonzo Start : 14-Jan-2021 End : 28-Jan-2021 Inactive Start: 01-14-2021 End: 01-28-2021 apply 1 dose transdermal route once daily Nicoderm CQ 7 MG/24HR Transdermal Patch 24 Hour 1 (one) Patch daily as directed for 14 days Quantity: 14 {Patch} Refills: 0 Ordered: 14-Jan-2021 Thi Alonzo Start : 14-Jan-2021 End : 28-Jan-2021 Inactive None (20 sources) End: 04-29-2015 None End : 29-Apr-2015 Discontinued oxyCODONE hydrochloride 5 mg oral tablet (8 sources) Opioid Agonist Start: 09-28-2018 End: 10-02-2018 take 1 tablet by mouth every six hours as needed for pain Oxycodone 5 MG tablet Discontinued 5 mg PO EVERY 6 HOURS NEEDED as needed for Mod-Severe Pain (-12/29) 15 4 0 September 28, 2018 October 01, 2018 12:00am October 02, 2018 12:10am Postoperative abdominal pain Status post laparoscopy-assist ed vaginal hysterectomy Unspecified abdominal pain Acquired absence of both cervix and uterus polyethylene glycol 3350 69711 mg powder for oral solution (8 sources) Osmotic Laxative Start: 09-28-2018 End: 04-25-2024 take 17 g by mouth once daily as needed for constipation Polyethylene Glycol 3350 17 GM packet Discontinued 17 g PO DAILY as needed for Constipation 14 0 September 28, 2018 12:00am April 25, 2024 1:11pm valACYclovir 500 mg oral tablet (20 sources) Herpesvirus Nucleoside Analog DNA Polymerase Inhibitor, Herpes Simplex Virus Nucleoside Analog DNA Polymerase Inhibitor, Herpes Zoster Virus Nucleoside Analog DNA Polymerase Inhibitor Start: 11-04-2022 take 1 tablet by mouth once daily, then take 2 tablets by mouth once daily valACYclovir 500 mg oral tablet 1 (one) Tablet take 2 daily for 0 days Quantity: 60 {Tablet} Refills: 2 Ordered: 04-Nov-2022 Karol Cobb CNP Start : 04-Nov-2022 Active Comments: take 2 daily, decrease dose to 1 daily if Start: 08-10-2022 take 1 tablet by rachel th once daily, then take 2 tablets by mouth once daily valACYclovir 500 mg oral tablet 1 (one) Tablet take 2 daily for 0 days Quantity: 60 {Tablet} Refills: 2 Ordered: 10-Aug-2022 Karol Cobb CNP Start : 10-Aug-2022 Active Comments: take 2 daily, decrease dose to 1 daily if Start: 04-13-2022 take 1 tablet by rachel th once daily, then take 2 tablets by mouth once daily valACYclovir 500 mg oral tablet 1 (one) Tablet take 2 daily for 0 days Quantity: 60 {Tablet} Refills: 2 Ordered: 13-Apr-2022 Karol Cobb CNP Start : 13-Apr-2022 Active Comments: take 2 daily, decrease dose to 1 daily if Start: 02-04-2022 take 1 tablet by rachel th once daily, then take 2 tablets by mouth once daily valACYclovir HCl 500 MG Oral Tablet 1 (one) Tablet take 2 daily for 0 days Quantity: 60 {Tablet} Refills: 2 Ordered: 04-Feb-2022 Karol Cobb CNP Start : 04-Feb-2022 Active Comments: take 2 daily, decrease dose to 1 daily if Start: 11-12-2021 take 1 tablet by rachel th once daily, then take 2 tablets by mouth once daily valACYclovir HCl 500 MG Oral Tablet 1 (one) Tablet take 2 daily for 0 days Quantity: 60 {Tablet} Refills: 2 Ordered: 12-Nov-2021 Karol Cobb CNP Start : 12-Nov-2021 Active Comments: take 2 daily, decrease dose to 1 daily if Start: 08-12-2021 take 1 tablet by rachel th once daily, then take 2 tablets by mouth once daily valACYclovir HCl 500 MG Oral Tablet 1 (one) Tablet take 2 daily for 0 days Quantity: 60 {Tablet} Refills: 2 Ordered: 12-Aug-2021 Thi Alonzo Mary Start : 12-Aug-2021 Active Comments: take 2 daily, decrease dose to 1 daily if Start: 06-09-2021 take 1 tablet by rachel th once daily, then take 2 tablets by mouth once daily valACYclovir HCl 500 MG Oral Tablet 1 (one) Tablet take 2 daily for 0 days Quantity: 60 {Tablet} Refills: 2 Ordered: 09-Jun-2021 Thi Alonzo Mary Start : 09-Jun-2021 Active Comments: take 2 daily, decrease dose to 1 daily if Start: 06-20-2020 take 1 tablet by rachel th once daily, then take 2 tablets by mouth once daily valACYclovir HCl 500 MG Oral Tablet 1 (one) Tablet take 2 daily for 0 days Quantity: 60 {Tablet} Refills: 11 Ordered: 20-Jun-2020 Cheri ANTHONY Thi Javier Cheri ANTHONY Thi Javier Start : 20-Jun-2020 Active Comments: take 2 daily, decrease dose to 1 daily if Start: 06-19-2019 take 1 tablet by rachel th once daily, then take 2 tablets by mouth once daily valACYclovir HCl 500 MG Oral Tablet 1 (one) Tablet take 2 daily for 0 days Quantity: 60 {Tablet} Refills: 11 Ordered: 19-Jun-2019 Daicaren ANTHONY Thi Kingrk ANTHONY Thi Javier Start : 19-Jun-2019 Active Comments: take 2 daily, decrease dose to 1 daily if Start: 06-17-2018 take 1 tablet by rachel th once daily, then take 2 tablets by mouth once daily ValACYclovir HCl 500 MG Oral Tablet 1 (one) Tablet Tablet take 2 daily for 0 days Quantity: 60 {Tablet} Refills: 11 Ordered: 17-Jun-2018 Cheri RAJ Thi Alonzo RAJ Thi Javier Start : 17-Jun-2018 Active Comments: take 2 daily, decrease dose to 1 daily if Start: 06-23-2017 take 1 tablet by rachel th once daily, then take 2 tablets by mouth once daily ValACYclovir HCl 500 MG Oral Tablet 1 (one) Tablet Tablet take 2 daily for 0 days Quantity: 60 {Tablet} Refills: 11 Ordered: 23-Jun-2017 Zack HARTBernie Start : 23-Jun-2017 Active Comments: take 2 daily, decrease dose to 1 daily if Comment on above: take 2 daily, decrea se dose to 1 daily if <10 outbreaks per year 200 ml vancomycin 5 mg/ml injection (1 source) Glycopeptide Antibacterial Start: 10-18-2024 End: 10-18-2024 1 g, intravenous, at 200 mL/hr, Administer over 60 Minutes, Once, On Wed10/18/24 at 1640, For 1 dose, premix bag, Dosing of this medication varies based on severity of illness. Does this patient have sepsis or concern for sepsis (probable or documented infection plus systemic manifestations of infection)? Yes, Suspected Indication (Select all that apply): Cellulitis, Skin and Soft Tissue, Type of Therapy: Empiric, Indications: Cellulitis, Skin and Soft Tissue varenicline 1 mg oral tablet (20 sources) Partial Cholinergic Nicotinic Agonist Start: 11-20-2019 End: 03-19-2020 Chantix Starting Month Nestor 0.5 MG X 11 & 1 MG X 42 Oral Tablet 1 (one) Tablet tad for 0 days Quantity: 1 {Package} Refills: 0 Ordered: 19-Mar-2020 Toño Lira LPN Start : 20-Nov-2019 End : 19-Mar-2020 Inactive Comments: with food Start 1 week beofre quit date Start: 11-20-2019 End: 03-19-2020 take 1 tablet by mouth once at mealtime Chantix Continuing Month Nestor 1 MG Oral Tablet 1 (one) Tablet TAD for 0 days Quantity: 1 {Package} Refills: 1 Ordered: 19-Mar-2020 Toño Lira LPN Start : 20-Nov-2019 End : 19-Mar-2020 Inactive Comments: Take with food Comment on above: Take with food with food Start 1 we ek beofre quit date Problems Active Problems Problem Classification Problem Date Documented Date Episodic/Chronic Abdominal pain (20 sources) Abdominal pain; Translations: [Lower abdominal pain] Resolved: 0 07-04-2018 Episodic Comment on above: work up in progress, will see [facility] for [place] Administrative/socia l admission (20 sources) Medical examinations/reports status; Translations: [Patient encounter status] 10-25-2017 Episodic Comment on above: encourage cessation Allergic reactions (20 sources) Eczema; Translations: [Eczema] 04-22-2021 Episodic Benign neoplasm of uterus (8 sources) Uterine leiomyoma; Translations: [Leiomyoma of uterus, unspecified] 05-12-2017 Episodic Cardiac dysrhythmias (20 sources) Tachycardia; Translations: [Tachycardia (Renamed from Fast heart beat)] Resolved: 0 10-25-2017 Episodic Complications of surgical procedures or medical care (6 sources) Postsurgical menopause; Translations: [Surgical menopause, asymptomatic] 08-28-2022 Chronic Comment on above: decline bone density , still very active and wt bearing exercise. will start supplementing D Diabetes mellitus without complication (1 source) Type 2 diabetes mellitus without complications; Translations: [Type 2 diabetes mellitus without complications] Onset: 5 Chronic Diabetes mellitus without complication (20 sources) Impaired fasting glucose; Translations: [Impaired fasting glycaemia] Resolved: 3 10-25-2017 Episodic Comment on above: encoruage exercise a nd metformin sporadically discuss side effects diarrhea and avoid with dehydration and contrast , was not taking routinely A1c 5.7 encoruage exercise a nd metformin sporadically discuss side effects diarrhea and avoid with dehydration and contrast , was not taking routinely A1c 5.7 now 6.4 recheck a1c, metform in ordered 500mg BIDencourage exercise, takes metformin sporadically -discussed SEs diarrhea and avoid with dehydration and contrast -A1c 5.7, 6.4 up to 6.2%, taking 1 gm daily metformin. going to work on diet/exercise, if continues to trend up talk about increasing meds.encourage exercise, takes metformin sporadically -discussed SEs diarrhea and avoid with dehydration and contrast -A1c 5.7, 6.4, 02/2022= 6.1% Disorders of lipid metabolism (20 sources) Hypercholesterolemia; Translations: [Hypercholesteremia] 01-14-2021 Chronic Comment on above: had labs thru spouse employee health, will fax results (May 2022) Essential hypertension (20 sources) Benign essential hypertension; Translations: [Benign Essential Hypertension (Renamed from Benign essential HTN)] Onset: 5 10-25-2017 Chronic Comment on above: chronic stable-madina nue present regimen, on metoprolol and losartan with BP chronic stable-madina nue present regimen, on metoprolol and losartan-monitor at home, let me know if elevated Fever of unknown origin (20 sources) Fever; Translations: [Fever] Resolved: 2 03-19-2020 Episodic Immunizations and screening for infectious disease (20 sources) Need for prophylactic vaccination and inoculation against influenza; Translations: [Contact with and (suspected) exposure to other viral communicable diseases] 10-25-2017 Episodic Menopausal disorders (8 sources) Menorrhagia; Translations: [Excessive bleeding in the premenopausal period] 05-12-2017 Chronic Menstrual disorders (20 sources) Irregular periods; Translations: [Irregular periods] 10-25-2017 Chronic Nutritional deficiencies (20 sources) Vitamin D deficiency; Translations: [Vitamin D deficiency] 04-22-2021 Chronic Open wounds of head; neck; and trunk (4 sources) Scalp laceration; Translations: [Laceration without foreign body of scalp, initial encounter] Onset: 5 10-18-2024 Episodic Other hematologic conditions (20 sources) Erythrocytosis; Translations: [Polycythemia] 06-16-2019 Episodic Other liver diseases (20 sources) Fatty liver; Translations: [Steatosis of liver] 08-22-2018 Chronic Other lower respiratory disease (11 sources) Multiple nodules of lung; Translations: [Other nonspecific abnormal finding of lung field] 04-26-2024 Episodic Comment on above: Multiple, largest me asuring 10 x 10 mm left upper lobe Other lower respiratory disease (2 sources) Other nonspecific abnormal finding of lung field; Translations: [Other nonspecific abnormal finding of lung field] Onset: 5 Episodic Other nutritional; endocrine; and metabolic disorders (20 sources) Body mass index 25-29 - overweight; Translations: [BMI 25.0-25.9,adult] Resolved: 8 06-23-2017 Chronic Other nutritional; endocrine; and metabolic disorders (20 sources) Body mass index 25-29 - overweight; Translations: [BMI 25.0-25.9,adult] Resolved: 8 01-14-2021 Episodic Other nutritional; endocrine; and metabolic disorders (20 sources) Overweight in adulthood with body mass index of 25 or more but less than 30; Translations: [BMI 25.0-25.9,adult] Resolved: 2 01-14-2021 Episodic Other skin disorders (20 sources) Gela incarnati; Translations: [Ingrown hair] Resolved: 0 10-25-2017 Episodic Comment on above: with secondary infec tion Other skin disorders (20 sources) Sebaceous cyst; Translations: [Epidermoid cyst of skin] Resolved: 8 06-23-2017 Episodic Comment on above: neck Other upper respiratory disease (20 sources) Pain in throat Episodic Other upper respiratory infections (20 sources) Acute sinusitis; Translations: [Other acute sinusitis] 10-25-2017 Episodic Residual codes; unclassified (20 sources) Family history of ischemic heart disease; Translations: [FAMILY HISTORY OF ISCHEMIC HEART DISEASE (Renamed from Fam hx-ischem heart disease)] 10-25-2017 Episodic Residual codes; unclassified (20 sources) Body mass index (BMI) 24.0-24.9, adult; Translations: [Body mass index 20-24 - normal] 10-25-2017 Episodic Residual codes; unclassified (20 sources) Other specified personal risk factors, not elsewhere classified; Translations: [At increased risk of exposure to COVID-19 virus] 03-19-2020 Episodic Comment on above: Works at [email or web address] Skin and subcutaneous tissue infections (20 sources) Cellulitis; Translations: [Cellulitis] Onset: 5 10-25-2017 Episodic Substance-related disorders (20 sources) Smoker; Translations: [Smoker] Resolved: 2 10-25-2017 Chronic Comment on above: discussed smoking ce ssation med added Thyroid disorders (20 sources) Thyroid nodule; Translations: [Goiter] 10-25-2017 Chronic Comment on above: last [place] 10/2015, revi ewed. Unclassified (20 sources) Needs influenza immunization; Translations: [Family history of ischemic heart disease] 10-25-2017 Episodic Unclassified (20 sources) Unclassified (20 sources) BMI 25.0-25.9,adult Unclassified (20 sources) Polycythemia Unclassified (20 sources) Encounter for tobacco use cessation counseling Unclassified (6 sources) Hypercholesteremia Unclassified (4 sources) Former smoker Past or Other Problems Problem Classification Problem Date Documented Date Episodic/Chronic Essential hypertension (8 sources) Essential hypertension Screening and history of mental health and substance abuse codes (20 sources) Ex-smoker; Translations: [Former smoker] Onset: 06-21-2024 04-22-2021 Episodic Comment on above: quit smoking as of 1 . Unclassified (20 sources) Breast neoplasm screening status; Translations: [Breast cancer screening] Onset: 04-13-2024 10-25-2017 Episodic Comment on above: Cologuard study in iated Apr 18, 2018 Unclassified (20 sources) Well female exam with [...] sources) Pregnancies (); Translations: [Pregnancies ()] 10-25-2017 Comment on above: 3. Unclassified (20 sources) Patient encounter status; Translations: [Encounter for tobacco use cessation counseling] 10-25-2017 Comment on above: encourage cessation Cologuard study in iated Apr 18, 2018 Unclassified (20 sources) Tobacco Cessation (305.1) Unclassified (20 sources) Deliveries (Parity); Translations: [Deliveries (Parity)] 10-25-2017 Comment on above: 3. Unclassified (20 sources) Thyromegaly Unclassified (20 sources) Colon cancer screening Unclassified (20 sources) Abdominal cramping, bilateral lower quadrant Unclassified (20 sources) Screening for breast cancer Unclassified (20 sources) Encounter for gynecological examination with abnormal finding Unclassified (13 sources) Body mass index 20-24 - normal; Translations: [BMI 24.0-24.9, adult] 08-22-2018 Unclassified (12 sources) Sebaceous cyst of skin; Translations: [Sebaceous cyst] Resolved: 06-23-2017 08-22-2018 Comment on above: neck Unclassified (8 sources) At increased risk of exposure to COVID-19 virus Unclassified (17 sources) Deliveries (Parity); Translations: [Deliveries (Parity)] 01-14-2021 Comment on above: 3. Unclassified (17 sources) Pregnancies (); Translations: [Pregnancies ()] 01-14-2021 Comment on above: 3. Viral infection (17 sources) Disease caused by 2019-nCoV Results Test Name Value Interpretation Reference Range Facility Thyroid Antibodieson 025 TG AB < 1.0 Normal 0.0-0.9 [facility] Comment on above: Result Comment: Thyr oglobulin Antibody measured by [employer] It should be noted that the presence of thyroglobulin antibodies may not be pathogenic nor diagnostic, especially at very low levels. The assay biological sciences instructor has found that four percent of individuals without evidence of thyroid disease or autoimmunity will have positive TgAb levels up to 4 IU/mL. Performed at: [address] [id number] [employer] Supervisor: Bryan Serrato PhD, Phone: [phone] Performed By: #### L 3300.6750, L506.1001, L503.0106, L501.9520 #### [facility] [address], [place], [id number] THYR PEROX AB 14 IU/mL Normal 0-34 [facility] Comment on above: Performed By: #### L 3300.6750, L506.1001, L503.0106, L501.9520 #### [facility] [address] [facility]. [place], [place], [id number] Serum or plasma thyroperoxid ase antibody assay (units/volume)Ordered By: Samantha Hirsch on 11-15-2024 TPO Ab Qn 14 [IU]/mL 0-34 [facility] TSH DL <= 0.005 mIU/L QnOrde red By: Samantha Hirsch on 11-15-2024 TSH Qn 1.530 uIU/mL 0.300-4.[address] [facility] Thyroid Stim Hormone (TSH)on 11-15-2024 TSH 1.530 uIU/mL Normal 0.300-4.[address] [facility] Comment on above: Performed By: #### L 3300.6750, L506.1001, L503.0106, L501.9520 #### [facility] [address] [place], [address] Vitamin B12on 11-15-2024 Cobalamin (Vitamin B12) [Mass/Vol] 723 pg/mL Normal 180-914 [facility] Comment on above: Performed By: #### L 3300.6750, L506.1001, L503.0106, L501.9520 #### [facility] [address] [place], [address] Vitamin B12 ser/plasOrdered By: Samantha Hirsch on 11-15-2024 Cobalamin (Vitamin B12) [Mass/Vol] 723 pg/mL 180-914 [facility] Vitamin D,25 Hydroxyon 11-15 Vitamin D 25-OH 57.9 ng/mL Normal 30-100 [facility] Comment on above: Result Comment: Lissy min D Status Deficiency: <20 ng/mL (50nmol/L) Insufficiency: 20-30 ng/mL (50-75 nmol/L) Sufficiency: 30-100 ng/mL (75-250 nmol/L) Toxicity: >100 ng/mL (>250 nmol/L) Performed By: #### L 3300.6750, L506.1001, L503.0106, L501.9520 #### [facility] [address] [facility] [place], [address] Bacteriaon 10-18-2024 Bacteria identified Cx Nom (Bld) Test: Blood Culture Specimen Source: Peripheral Venipuncture Specimen Type: Blood culture Specimen Date: 10/18/20241656 Result Date: 10/23/2024201 Result Status: Final result Abnormal: No Resulting Lab: [facility] [address] [id number] CULTURE No growth at 4 days - FINAL REPORT [facility] Comment on above: Performed By: #### 6 00-7 #### LAURA Lanier ([id number]) [facility] ([facility]) [address] [place] [address] Bacteria identified Cx Nom (Bld) Test: Blood Culture Specimen Source: Peripheral Venipuncture Specimen Type: Blood culture Specimen Date: 10/18/20241648 Result Date: 10/23/2024201 Result Status: Final result Abnormal: No Resulting Lab: [facility] [address] [place] [address] CULTURE No growth at 4 days - FINAL REPORT [facility] Comment on above: Performed By: #### 6 00-7 #### LAURA Lanier ([id number]) [facility] ([facility]) [address] [place] [address] CBC W Auto Differential pane l (Bld)on 10-18-2024 Basophils (Bld) [#/Vol] 0.06 10*3/uL [facility] Basophils/100 WBC (Bld) 0.6 % 0.0 - 2.0 % [facility] Eosinophils (Bld) [#/Vol] 0.29 10*3/uL [facility] Eosinophils/100 WBC (Bld) 2.8 % 0.0 - 6.0 % [facility] Erythrocyte distribution width (RBC) [Ratio] 14.0 % 11.5 - 14.5 % [facility] Hematocrit (Bld) [Volume fraction] 41.5 % 36.0 - 46.0 % [facility] Hemoglobin (Bld) [Mass/Vol] 13.7 g/dL 12.0 - 16.0 g/dL [facility] Immature granulocytes (Bld) [#/Vol] 0.04 10*3/uL [facility] Immature granulocytes/100 WBC (Bld) 0.4 % 0.0 - 0.9 % [facility] Comment on above: Immature Granulocyte Count (IG) includes promyelocytes, myelocytes and metamyelocytes but does not include bands. Percent differential counts (%) should be interpreted in the context of the absolute cell counts (cells/UL). Lymphocytes (Bld) [#/Vol] 1.93 10*3/uL [facility] Lymphocytes/100 WBC (Bld) 18.4 % 13.0 - 44.0 % [facility] MCH (RBC) [Entitic mass] 30.6 pg 26.0 - 34.0 pg [facility] MCHC (RBC) [Mass/Vol] 33.0 g/dL 32.0 - 36.0 g/dL [facility] MCV (RBC) [Entitic vol] 93 fL 80 - 100 fL [facility] Monocytes (Bld) [#/Vol] 0.66 10*3/uL [facility] Monocytes/100 WBC (Bld) 6.3 % 2.0 - 10.0 % [facility] Neutrophils (Bld) [#/Vol] 7.49 10*3/uL [facility] Comment on above: Percent differential counts (%) should be interpreted in the context of the absolute cell counts (cells/uL). Neutrophils/100 WBC (Bld) 71.5 % 40.0 - 80.0 % [facility] Nucleated RBC/100 WBC (Bld) [Ratio] 0.0 % [facility] Platelets (Bld) [#/Vol] 174 10*3/uL [facility] RBC (Bld) [#/Vol] 4.48 10*6/uL [facility] WBC (Bld) [#/Vol] 10.5 10*3/uL [facility] Basophils (Bld) [#/Vol] 0.06 x10*3/uL Normal 0.00-0.10 [facility] Comment on above: Order Comment: Laven jen [employer] Performed By: #### 5 7021-8 #### WILLIS WONG ([id number]) [facility] ([facility]) [address] [place] [address] Basophils/100 WBC (Bld) 0.6 % Normal 0.0-2.0 [facility] Comment on above: Order Comment: Laven jen [employer]ube Performed By: #### 5 7021-8 #### WILLIS WONG ([id number]) [facility] ([facility]) [address] [place] [address] Eosinophils (Bld) [#/Vol] 0.29 x10*3/uL Normal 0.00-0.70 [facility] Comment on above: Order Comment: Laven jen [employer] Performed By: #### 5 7021-8 #### WILLIS WONG ([id number]) [facility] ([facility]) [address] [place], [place] [address] Eosinophils/100 WBC (Bld) 2.8 % Normal 0.0-6.0 [facility] Comment on above: Order Comment: Laven jen [employer]ube Performed By: #### 5 7021-8 #### WILLIS WONG ([id number]) [facility] ([facility]) [address] [place] [address] Erythrocyte distribution width (RBC) [Ratio] 14.0 % Normal 11.5-14.5 [facility] Comment on above: Order Comment: Laven jen [employer]ube Performed By: #### 5 7021-8 #### WILLIS WONG ([id number]) [facility] ([facility]) [address] [place] [address] Hematocrit (Bld) [Volume fraction] 41.5 % Normal 36.0-46.0 [facility] Comment on above: Order Comment: Laven jen [employer]ube Performed By: #### 5 7021-8 #### WILLIS WONG ([id number]) [facility] ([facility]) [address] [place], [place] [address] Hemoglobin (Bld) [Mass/Vol] 13.7 g/dL Normal 12.0-16.0 [facility] Comment on above: Order Comment: Laven jen [employer]ube Performed By: #### 5 7021-8 #### WILLIS WONG ([id number]) [facility] ([facility]) [address] [place] [address] Immature granulocytes (Bld) [#/Vol] 0.04 x10*3/uL Normal 0.00-0.70 [facility] Comment on above: Order Comment: Laven jen [employer] Performed By: #### 5 7021-8 #### WILLIS WONG ([id number]) [facility] ([facility]) [address] [place] [address] Immature granulocytes/100 WBC (Bld) 0.4 % Normal 0.0-0.9 [facility] Comment on above: Order Comment: Laven jen [employer]ube Result Comment: Josefina ture Granulocyte Count (IG) includes promyelocytes, myelocytes and metamyelocytes but does not include bands. Percent differential counts (%) should be interpreted in the context of the absolute cell counts (cells/UL). Performed By: #### 5 7021-8 #### WILLIS WONG ([id number]) [facility] ([facility]) [address] [place] [address] Lymphocytes (Bld) [#/Vol] 1.93 x10*3/uL Normal 1.20-4.80 [facility] Comment on above: Order Comment: Laven jen [employer] Performed By: #### 5 7021-8 #### WILLIS WONG ([id number]) [facility] ([facility]) [address] [place] [address] Lymphocytes/100 WBC (Bld) 18.4 % Normal 13.0-44.0 [facility] Comment on above: Order Comment: Laven jen [employer]ube Performed By: #### 5 7021-8 #### WILLIS WONG ([id number]) [facility] ([facility]) [address] [place] [address] MCH (RBC) [Entitic mass] 30.6 pg Normal 26.0-34.0 [facility] Comment on above: Order Comment: Laven jen [employer]ube Performed By: #### 5 7021-8 #### WILLIS WONG ([id number]) [facility] ([facility]) [address] [place] [address] MCHC (RBC) [Mass/Vol] 33.0 g/dL Normal 32.0-36.0 [facility] Comment on above: Order Comment: Laven jen Top Tube Performed By: #### 5 7021-8 #### WILLIS WONG ([id number]) [facility] ([facility]) [address] [place] [address] MCV (RBC) [Entitic vol] 93 fL Normal 80-100 [facility] Comment on above: Order Comment: Laven jen [employer] Tube Performed By: #### 5 7021-8 #### WILLIS WONG ([id number]) [facility] ([facility]) [address] [place] [address] Monocytes (Bld) [#/Vol] 0.66 x10*3/uL Normal 0.10-1.00 [facility] Comment on above: Order Comment: Laven jen [employer]ube Performed By: #### 5 7021-8 #### WILLIS WONG ([id number]) [facility] ([facility]) [address] [place] [address] Monocytes/100 WBC (Bld) 6.3 % Normal 2.0-10.0 [facility] Comment on above: Order Comment: Laven jen [employer]ube Performed By: #### 5 7021-8 #### WILLIS WONG ([id number]) [facility] ([facility]) [address] [place] [address] Neutrophils (Bld) [#/Vol] 7.49 x10*3/uL Normal 1.20-7.70 [facility] Comment on above: Order Comment: Laven jen [employer] Result Comment: Perc ent differential counts (%) should be interpreted in the context of the absolute cell counts (cells/uL). Performed By: #### 5 7021-8 #### WILLIS WONG ([id number]) [facility] ([facility]) [address] [place] [address] Neutrophils/100 WBC (Bld) 71.5 % Normal 40.0-80.0 [facility] Comment on above: Order Comment: Laven jen Top Tube Performed By: #### 5 7021-8 #### WILLIS WONG ([id number]) [facility] ([facility]) [address] [place] [address] Nucleated RBC/100 WBC (Bld) [Ratio] 0.0 /100 WBCs Normal 0.0-0.0 [facility] Comment on above: Order Comment: Laven jen [employer]ube Performed By: #### 5 7021-8 #### WILLIS WONG ([id number]) [facility] ([facility]) [address] [place] [address] Platelets (Bld) [#/Vol] 174 x10*3/uL Normal 150-450 [facility] Comment on above: Order Comment: Laven jen [employer]ube Performed By: #### 5 7021-8 #### WILLIS WONG ([id number]) [facility] ([facility]) [address] [place] [address] RBC (Bld) [#/Vol] 4.48 x10*6/uL Normal 4.00-5.20 [facility] Comment on above: Order Comment: Laven jen Top Tube Performed By: #### 5 7021-8 #### WILLIS WONG ([id number]) [facility] ([facility]) [address] [place] [address] WBC (Bld) [#/Vol] 10.5 x10*3/uL Normal 4.4-11.3 [facility] Comment on above: Order Comment: Laven jen [employer] Tube Performed By: #### 5 7021-8 #### WILLIS WONG ([id number]) [facility] ([facility]) [address] [place] [address] CT FACIAL BONES W IV CONTRAS Ton 10-18-2024 CT FACIAL BONES W IV CONTRAST Interpreted By: Hung Rg, STUDY: CT FACIAL BONES W IV CONTRAST 10/18/2024 5:52 pm INDICATION: Signs/Symptoms:fever with penetrating scalp injury COMPARISON: None. ACCESSION NUMBER(S): [id number] ORDERING CLINICIAN: KIAN DAVEY TECHNIQUE: Thin cut axial CT images through the facial bones were obtained following intravenous contrast administration and reconstructed in the coronal and sagittal planes. FINDINGS: There is no acute facial bone fracture. No facial soft tissue swelling is noted on the obtained dedicated CT images of the facial bones. No discrete rim enhancing fluid collection to suggest focal soft tissue abscesses noted within the visualized facial soft tissues. There is minimal mucosal thickening noted within the maxillary sinuses, inferior frontal sinuses, and scattered ethmoid air cells. There is leftward nasal septal deviation. The patient is missing a few upper and lower teeth. There is a mildly enlarged 16 mm left level 2 suprahyoid internal jugular chain lymph node which while nonspecific may be reactive/inflammatory in origin. There is elongation of the styloid processes bilaterally which is a nonspecific finding and can be seen incidentally in asymptomatic patients as well as in patients with underlying [place] syndrome. Please see the dedicated report of the CT of the head with and without contrast dated 10/18/2024 for details of findings within the head and scalp. IMPRESSION: There is no acute facial bone fracture. No facial soft tissue swelling is noted on the obtained dedicated CT images of the facial bones. No discrete rim enhancing fluid collection to suggest focal soft tissue abscesses noted within the visualized facial soft tissues. There is minimal mucosal thickening noted within the maxillary sinuses, inferior frontal sinuses, and scattered ethmoid air cells. There is leftward nasal septal deviation. The patient is missing a few upper and lower teeth. There is a mildly enlarged 16 mm left level 2 suprahyoid internal jugular chain lymph node which while nonspecific may be reactive/inflammatory in origin. There is elongation of the styloid processes bilaterally which is a nonspecific finding and can be seen incidentally in asymptomatic patients as well as in patients with underlying [place] syndrome. Please see the dedicated report of the CT of the head with and without contrast dated 10/18/2024 for details of findings within the head and scalp. MACRO: None Signed by: Hung Rg 10/18/2024 6:17 PM Dictation workstation: [id number] [facility] CT HEAD W AND WO IV CONTRAST on 10-18-2024 CT HEAD W AND WO IV CONTRAST Interpreted By: Heathre Lechuga, STUDY: CT HEAD W AND WO IV CONTRAST; 10/18/2024 5:52 pm INDICATION: Signs/Symptoms:penetratin g scalp infection. COMPARISON: CT face 10/18/2024 ACCESSION NUMBER(S): [id number] ORDERING CLINICIAN: KIAN DAVEY TECHNIQUE: Axial noncontrast CT images of the head as well as contrast-enhanced imaging following intravenous administration of contrast. FINDINGS: BRAIN PARENCHYMA: Galeano-white matter interfaces are preserved. No mass effect or midline shift. No abnormal enhancement. HEMORRHAGE: No acute intracranial hemorrhage. VENTRICLES and EXTRA-AXIAL SPACES: Normal size. EXTRACRANIAL SOFT TISSUES: Mid to right frontals few foci of subcutaneous air and skin irregularity likely related to reported penetrating injury. No radiopaque foreign body identified. PARANASAL SINUSES/MASTOIDS: The visualized paranasal sinuses and mastoid air cells are aerated. CALVARIUM: No depressed skull fracture. No destructive osseous lesion. OTHER FINDINGS: None. IMPRESSION: Frontal hematoma with subcutaneous emphysema and small laceration. No radiopaque foreign body. No displaced calvarial fracture. No abnormal intracranial hemorrhage or enhancement identified. MACRO: None. Signed by: Heather Lechuga 10/18/2024 6:53 PM Dictation workstation: [id number] [facility] CT Head WO and W contrast IV on 10-18-2024 Frontal hematoma wit h subcutaneous emphysema and small laceration. No radiopaque foreign body. No displaced calvarial fracture. No abnormal intracranial hemorrhage or enhancement identified. MACRO: None. Signed by: Heather Lechuga 10/18/2024 6:53 PM Dictation workstation: [id number] [facility] Interpreted By: Heather Coyne, STUDY: CT HEAD W AND WO IV CONTRAST; 10/18/2024 5:52 pm INDICATION: Signs/Symptoms:penetratin g scalp infection. COMPARISON: CT face 10/18/2024 ACCESSION NUMBER(S): [id number] ORDERING CLINICIAN: KIAN DAVEY TECHNIQUE: Axial noncontrast CT images of the head as well as contrast-enhanced imaging following intravenous administration of contrast. FINDINGS: BRAIN PARENCHYMA: Galeano-white matter interfaces are preserved. No mass effect or midline shift. No abnormal enhancement. HEMORRHAGE: No acute intracranial hemorrhage. VENTRICLES and EXTRA-AXIAL SPACES: Normal size. EXTRACRANIAL SOFT TISSUES: Mid to right frontals few foci of subcutaneous air and skin irregularity likely related to reported penetrating injury. No radiopaque foreign body identified. PARANASAL SINUSES/MASTOIDS: The visualized paranasal sinuses and mastoid air cells are aerated. CALVARIUM: No depressed skull fracture. No destructive osseous lesion. OTHER FINDINGS: None. MMODAL Heather Lechuga S, Jody O - 10/18/2024 Interpreted By: Heather Lechuga, STUDY: CT HEAD W AND WO IV CONTRAST; 10/18/2024 5:52 pm INDICATION: Signs/Symptoms:penetratin g scalp infection. COMPARISON: CT face 10/18/2024 ACCESSION NUMBER(S): [id number] ORDERING CLINICIAN: KIAN DAVEY TECHNIQUE: Axial noncontrast CT images of the head as well as contrast-enhanced imaging following intravenous administration of contrast. FINDINGS: BRAIN PARENCHYMA: Galeano-white matter interfaces are preserved. No mass effect or midline shift. No abnormal enhancement. HEMORRHAGE: No acute intracranial hemorrhage. VENTRICLES and EXTRA-AXIAL SPACES: Normal size. EXTRACRANIAL SOFT TISSUES: Mid to right frontals few foci of subcutaneous air and skin irregularity likely related to reported penetrating injury. No radiopaque foreign body identified. PARANASAL SINUSES/MASTOIDS: The visualized paranasal sinuses and mastoid air cells are aerated. CALVARIUM: No depressed skull fracture. No destructive osseous lesion. OTHER FINDINGS: None. IMPRESSION: Frontal hematoma with subcutaneous emphysema and small laceration. No radiopaque foreign body. No displaced calvarial fracture. No abnormal intracranial hemorrhage or enhancement identified. MACRO: None. Signed by: Heather Lechuga 10/18/2024 6:53 PM Dictation workstation: [id number] [facility] Work Phone: CT Head WO and W contrast IV Ordered By: Heather Lechuga on 10-18-2024 [facility] Work Phone: CT Maxillofacial region W co ntrast Live 10-18-2024 There is no acute fa cial bone fracture. No facial soft tissue swelling is noted on the obtained dedicated CT images of the facial bones. No discrete rim enhancing fluid collection to suggest focal soft tissue abscesses noted within the visualized facial soft tissues. There is minimal mucosal thickening noted within the maxillary sinuses, inferior frontal sinuses, and scattered ethmoid air cells. There is leftward nasal septal deviation. The patient is missing a few upper and lower teeth. There is a mildly enlarged 16 mm left level 2 suprahyoid internal jugular chain lymph node which while nonspecific may be reactive/inflammatory in origin. There is elongation of the styloid processes bilaterally which is a nonspecific finding and can be seen incidentally in asymptomatic patients as well as in patients with underlying [place] syndrome. Please see the dedicated report of the CT of the head with and without contrast dated 10/18/2024 for details of findings within the head and scalp. MACRO: None Signed by: Hung Rg 10/18/2024 6:17 PM Dictation workstation: [id number] [facility] Interpreted By: Hung Reinoso, STUDY: CT FACIAL BONES W IV CONTRAST 10/18/2024 5:52 pm INDICATION: Signs/Symptoms:fever with penetrating scalp injury COMPARISON: None. ACCESSION NUMBER(S): [id number] ORDERING CLINICIAN: KIAN DAVEY TECHNIQUE: Thin cut axial CT images through the facial bones were obtained following intravenous contrast administration and reconstructed in the coronal and sagittal planes. FINDINGS: There is no acute facial bone fracture. No facial soft tissue swelling is noted on the obtained dedicated CT images of the facial bones. No discrete rim enhancing fluid collection to suggest focal soft tissue abscesses noted within the visualized facial soft tissues. There is minimal mucosal thickening noted within the maxillary sinuses, inferior frontal sinuses, and scattered ethmoid air cells. There is leftward nasal septal deviation. The patient is missing a few upper and lower teeth. There is a mildly enlarged 16 mm left level 2 suprahyoid internal jugular chain lymph node which while nonspecific may be reactive/inflammatory in origin. There is elongation of the styloid processes bilaterally which is a nonspecific finding and can be seen incidentally in asymptomatic patients as well as in patients with underlying [place] syndrome. Please see the dedicated report of the CT of the head with and without contrast dated 10/18/2024 for details of findings within the head and scalp. MMODAL Hung Rg M D - 10/18/2024 Interpreted By: Hung Rg, STUDY: CT FACIAL BONES W IV CONTRAST 10/18/2024 5:52 pm INDICATION: Signs/Symptoms:fever with penetrating scalp injury COMPARISON: None. ACCESSION NUMBER(S): [id number] ORDERING CLINICIAN: KIAN DAVEY TECHNIQUE: Thin cut axial CT images through the facial bones were obtained following intravenous contrast administration and reconstructed in the coronal and sagittal planes. FINDINGS: There is no acute facial bone fracture. No facial soft tissue swelling is noted on the obtained dedicated CT images of the facial bones. No discrete rim enhancing fluid collection to suggest focal soft tissue abscesses noted within the visualized facial soft tissues. There is minimal mucosal thickening noted within the maxillary sinuses, inferior frontal sinuses, and scattered ethmoid air cells. There is leftward nasal septal deviation. The patient is missing a few upper and lower teeth. There is a mildly enlarged 16 mm left level 2 suprahyoid internal jugular chain lymph node which while nonspecific may be reactive/inflammatory in origin. There is elongation of the styloid processes bilaterally which is a nonspecific finding and can be seen incidentally in asymptomatic patients as well as in patients with underlying [place] syndrome. Please see the dedicated report of the CT of the head with and without contrast dated 10/18/2024 for details of findings within the head and scalp. IMPRESSION: There is no acute facial bone fracture. No facial soft tissue swelling is noted on the obtained dedicated CT images of the facial bones. No discrete rim enhancing fluid collection to suggest focal soft tissue abscesses noted within the visualized facial soft tissues. There is minimal mucosal thickening noted within the maxillary sinuses, inferior frontal sinuses, and scattered ethmoid air cells. There is leftward nasal septal deviation. The patient is missing a few upper and lower teeth. There is a mildly enlarged 16 mm left level 2 suprahyoid internal jugular chain lymph node which while nonspecific may be reactive/inflammatory in origin. There is elongation of the styloid processes bilaterally which is a nonspecific finding and can be seen incidentally in asymptomatic patients as well as in patients with underlying [place] syndrome. Please see the dedicated report of the CT of the head with and without contrast dated 10/18/2024 for details of findings within the head and scalp. MACRO: None Signed by: Hung Rg 10/18/2024 6:17 PM Dictation workstation: [id number] [facility] Work Phone: CT Maxillofacial region W co ntrast IVOrdered By: Hung Rg on 10-18-2024 [facility] Work Phone: Comprehensive metabolic 2000 panelon 10-18-2024 Albumin BCP dye [Mass/Vol] 4.7 g/dL 3.4 - 5.0 g/dL [facility] ALP [Catalytic activity/Vol] 74 U/L 33 - 110 U/L [facility] ALT With P-5'-P [Catalytic activity/Vol] 28 U/L 7 - 45 U/L [facility] Comment on above: Patients treated wit h Sulfasalazine may generate falsely decreased results for ALT. Anion gap [Moles/Vol] 13 mmol/L 10 - 2 0 mmol/L [facility] AST With P-5'-P [Catalytic activity/Vol] 19 U/L 9 - 39 U/L [facility] Bilirubin [Mass/Vol] 0.5 mg/dL 0.0 - 1 .2 mg/dL [facility] Calcium [Mass/Vol] 9.3 mg/dL 8.6 - 10. 3 mg/dL [facility] Chloride [Moles/Vol] 105 mmol/L 98 - 10 7 mmol/L [facility] CO2 [Moles/Vol] 25 mmol/L 21 - 32 mmol/L [facility] Creatinine [Mass/Vol] 0.81 mg/dL 0.50 - 1.05 mg/dL [facility] GFR/1.73 sq M.predicted among non-blacks MDRD (S/P/Bld) [Vol rate/Area] 86 mL/min/{1.73_m2} - PINF [facility] Comment on above: Calculations of jean pierre mated GFR are performed using the 2020 CKD-EPI Study Refit equation without the race variable for the IDMS-Traceable creatinine methods. https://jasn.asnjournals.org/content/early//ASN.234416 0847 Glucose [Mass/Vol] 82 mg/dL 74 - 99 mg/dL [facility] Interpretation and review of laboratory results Normal [facility] Potassium [Moles/Vol] 3.6 mmol/L 3.5 - 5.3 mmol/L [facility] Protein [Mass/Vol] 7.6 g/dL 6.4 - 8.2 g/dL [facility] Sodium [Moles/Vol] 139 mmol/L 136 - 145 mmol/L [facility] Urea nitrogen [Mass/Vol] 16 mg/dL 6 - 23 mg/dL [facility] Albumin BCP dye [Mass/Vol] 4.7 g/dL Normal 3.4-5.0 [facility] Comment on above: Performed By: #### 2 4323-8 #### PEDRO JUDITH ([id number]) [facility] ([facility]) [address] [place] [address] ALP [Catalytic activity/Vol] 74 U/L Normal 33-110 [facility] Comment on above: Performed By: #### 2 4323-8 #### WILLIS WONG ([id number]) [facility] ([facility]) [address] [place] [address] ALT With P-5'-P [Catalytic activity/Vol] 28 U/L Normal 7-45 [facility] Comment on above: Result Comment: Ayana ents treated with Sulfasalazine may generate falsely decreased results for ALT. Performed By: #### 2 4323-8 #### WILLIS WONG ([id number]) [facility] ([facility]) [address] [place] [address] Anion gap [Moles/Vol] 13 mmol/L Normal 10-20 [facility] Comment on above: Performed By: #### 2 432-8 #### WILLIS WONG ([id number]) [facility] ([facility]) [address] [place] [address] AST With P-5'-P [Catalytic activity/Vol] 19 U/L Normal 9-39 [facility] Comment on above: Performed By: #### 2 432-8 #### WILLIS WONG ([id number]) [facility] ([facility]) [address] [place] [address] Bilirubin [Mass/Vol] 0.5 mg/dL Normal 0.0-1.2 [facility] Comment on above: Performed By: #### 2 432-8 #### WILLIS WONG ([id number]) [facility] ([facility]) [address] [place] [address] Calcium [Mass/Vol] 9.3 mg/dL Normal 8.6-10.3 [facility] Comment on above: Performed By: #### 2 432-8 #### WILLIS WONG ([id number]) [facility] ([facility]) [facility] [place] [address] Chloride [Moles/Vol] 105 mmol/L Normal 98-107 [facility] Comment on above: Performed By: #### 2 432-8 #### WILLIS WONG ([id number]) [facility] ([facility]) [address] [place] [address] CO2 [Moles/Vol] 25 mmol/L Normal 21-32 [facility] Comment on above: Performed By: #### 2 4323-8 #### WILLIS WONG ([id number]) [facility] ([facility]) [address] [place] [address] Creatinine [Mass/Vol] 0.81 mg/dL Normal 0.50-1.05 [facility] Comment on above: Performed By: #### 2 4323-8 #### WILLIS WONG ([id number]) [facility] ([facility]) [address] [place] [address] Glomerular filtration rate 86 mL/min/1.73m*2 Normal >60 [facility] Comment on above: Result Comment: Calc ulations of estimated GFR are performed using the 2020 CKD-EPI Study Refit equation without the race variable for the IDMS-Traceable creatinine methods. https://jasn.asnjournals.org/content/early/ASN.391367 2386 Performed By: #### 2 4323-8 #### WILLIS WONG ([id number]) [facility] ([facility]) [address] [place] [address] Glucose [Mass/Vol] 82 mg/dL Normal 74-99 [facility] Comment on above: Performed By: #### 2 4323-8 #### WILLIS WONG ([id number]) [facility] ([facility]) [facility] [place] [address] Potassium [Moles/Vol] 3.6 mmol/L Normal 3.5-5.3 [facility] Comment on above: Performed By: #### 2 4323-8 #### WILLIS WONG ([id number]) [facility] ([facility]) [facility] [place] [address] Protein [Mass/Vol] 7.6 g/dL Normal 6.4-8.2 [facility] Comment on above: Performed By: #### 2 4323-8 #### WILLIS WONG ([id number]) [facility] ([facility]) [address] [place] [address] Sodium [Moles/Vol] 139 mmol/L Normal 136-145 [facility] Comment on above: Performed By: #### 2 4323-8 #### WILLIS WONG ([id number]) [facility] ([facility]) [address] [place] [address] Urea nitrogen [Mass/Vol] 16 mg/dL Normal 6-23 [facility] Comment on above: Performed By: #### 2 4323-8 #### WILLIS WONG ([id number]) [facility] ([facility]) [address] [place] [address] Lactateon 10-18-2024 Lactate [Moles/Vol] 0.6 mmol/L 0.4 - 2. 0 mmol/L [facility] Lactate [Moles/Vol] 0.6 mmol/L Normal 0.4-2.0 [facility] Comment on above: Order Comment: Venip uncture immediately after or during the administration of Metamizole may lead to falsely low results. Testing should be performed immediately prior to Metamizole dosing. Performed By: #### 2 524-7 #### WILLIS WONG ([id number]) [facility] ([facility]) [address] [place] [address] Lactate [Moles/Vol]on 2024 Interpretation and review of laboratory results Normal [facility] Venipuncture immedia tely after or during the administration of Metamizole may lead to falsely low results. Testing should be performed immediately prior to Metamizole dosing. [facility] No Panel Informationon 10-18 Radiology Study observation (narrative) [facility] Work Phone: Pulmonary Visit Reporton Pulmonary Visit Report [facility] [place] [facility] [address] [place], [place] [address] OFFICE VISIT Date of Service: 07/28/24 MR#: [id number] Acct: [id number] Name: STEPHANIE SAMPSON Rep #: [id number] : 1970 Provider: ZEESHAN Royal Age/Sex: 54/F Location: [facility] [place].PMW Status: Signed Assessment and Plan Assessment and Plan (1) Lung nodules: Status: Chronic Comment: Multiple, largest measuring 10 x 10 mm left upper lobe Plan: Recent CT scan indicates stability of lung nodules, including the 10 x 10 mm groundglass opacity. We will continue to monitor with serial imaging by repeating a diagnostic CT of the chest in 6 months. Return to the office in 7 months to discuss test results. (2) History of tobacco use: Status: Chronic Plan: Complicates exam, plan, care and prognosis. Continue to encourage complete smoking cessation. Recent PFT is normal, she does not have COPD. Also ruled out exertional hypoxia. Orders: Orders Chest without Contrast 6 Months R91.8 - Other nonspecific abnormal finding of lung field Plan Details Additional Comments: This note was generated with DocASAP dictation software. It may contain incorrect words, spelling, and punctuation that were not noted in checking the note before signing. Follow Up: 7 Months ([facility]) HPI 3 M FU Chief Complaint: Test results HPI Comments Details: This patient presents to the office today for initial consultation to discuss test results. She is ambulatory and currently on room air. She is accompanied today by her . She has not recently been seen in the ED or urgent care for any respiratory illness. She has not required any antibiotics or prednisone for any breathing problems. She had a 1 pack/day smoking history for 25 years. She quit completely 3-1/2 years ago. She has an radha on her phone to keep track of how long ago was she quit smoking. It estimates that she has reduced her risk of lung cancer by over 25%. She has saved $15,000. She has reduced her risk of cardiovascular event by 30%. She denies any difficulty with shortness of breath. She denies any cough, sputum production or hemoptysis. She has not had any wheezing, chest tightness, chest pain or palpitations. She also denies any fever, chills or body aches. Test results personally reviewed with the patient: Chest CT completed on July 24, 2024. Similar ill-defined groundglass left upper lobe nodule measuring 10 x 10 mm. Similar 4 mm subpleural nodule in the right lung base. Numerous additional similar and smaller nodules are grossly unchanged. Impression: No new or enlarging pulmonary nodules identified. Pulmonary function test completed on May 09, 2024. Impression is grossly normal. Walking oximetry completed on June 13, 2024. Patient is able to ambulate total of 1441 feet over the course of 6 minutes. She did not become hypoxic and does not currently have any need for supplemental oxygen. 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 Accompanied by: Self Allergies Penicillins Allergy (Verified 07/28/24 14:13) Rash Medications ???Medication ???Instructions ???Recorded ???Confirmed ???Type losartan 25 mg tablet (Cozaar) 25 mg PO QHS htn 05/05/17 07/28/24 History metoprolol tartrate 25 mg tablet 25 mg PO QHS htn/heart 05/05/17 History tirzepatide 5 mg/0.5 mL 5 mg subcut QWEEK 04/25/24 5 History subcutaneous pen injector (Graciela) buspirone 5 mg tablet 5 mg PO BID 07/28/24 07/28/24 Hist ory hydroxyzine HCl 25 mg tablet 25 mg PO BID PRN anxiety 07/28/24 07/28/24 History PFSH Medical History (Reviewed 07/28/24 @ 14:24 by Maegan Royal [employer]) Lung nodules History of tobacco use Encounter for screening for malignant neoplasm of lung Tachycardia Prediabetes Hypertension Normal colonoscopy Surgical History History of hysterectomy History of lumpectomy Family History Father Cancer Lung Diabetes Social History Smoking Status: Former smoker (quit 12/20/2020) quit date: 12/20/20 pack-years: 25 substance use type: does not use Review of Systems Resp Respiratory: Yes as per HPI Exam Const Constitutional: Positive conversant, cooperative, in no ac (more content not included)... Normal [facility] Chest without Contraston Chest without Contrast [facility] [address] [place], [place] [address] Chest without Contrast MR#: [id number] Acct: [id number] Name: STEPHANIE SAMPSON Rep #: [id number] : 1970 F 54 From: Samantha Morrell MD PCP: ZEESHAN Rosa Status: DEP CLI Study: Chest without Contrast Date of Exam: 07/24/24 Exam# [id number] Ordering Dr: Maegan Royal NP, NP-C ADDENDUM by Dr. Samantha Morrell MD on 08/02/24 at 1216 Addendum has been requested for billing purposes requesting quantification of coronary arterial calcification. The heart/pericardium were originally described as unremarkable, and as such, there is no appreciable calcific coronary atherosclerosis. END OF ADDENDUM Reading Location: [facility] 08/02/24 1217 Date cc: ZEESHAN Royal; ZEESHAN Hirsch * Signed PROCEDURE: CHEST WITHOUT CONTRAST 07/24/2024 REASON FOR EXAM: NEW LUNG NODULES IN SMOKER TECHNIQUE: CT chest was performed without contrast. Coronal and Sagittal reconstruction series were provided. One or more dose reduction techniques were used (e.g., Automated exposure control, adjustment of the mA and/or kV according to patient size, use of iterative reconstruction technique RADIATION DOSE SUMMARY: CTDlvol: 6.60 mGy DLP: 231.05 mGycm COMPARISON: 04/25/2024 FINDINGS: Note that evaluation of the vasculature, janna, and soft tissues is limited in the absence of IV contrast. Heart/pericardium: Unremarkable. Aorta: Unremarkable. Pulmonary arteries: Normal in caliber. Lymph nodes: Unremarkable. Lungs/pleura: Similar ill-defined ground-glass LEFT upper lobe nodule, 10 x 10 mm (series 4, image 29). Similar 4 mm subpleural nodule in the RIGHT lung base, posterior costophrenic sulcus (image 91). Numerous additional similar and smaller nodules are grossly unchanged, some of which are ill-defined/ground-glass, annotated on series 4. Airways: Unremarkable. Chest wall: Bilateral breast implants are partially imaged.. Upper abdomen: Grossly unremarkable. Musculoskeletal: Trace thoracic dextroscoliosis may be positional.. CT/Chest without Contrast IMPRESSION: 1. No new or enlarging pulmonary nodule identified. Similar dominant 10 x 10 mm LEFT upper lobe ground-glass nodule. Findings now best considered Lung-RADS 3. Recommend CT chest in 6 months. 2. Additional description as above. Reading Location: [id number] CC: [employer]-Hugh Royal; [employer]-Hugh Hirsch Wet Process Technician: Signed Normal [facility] 6 Minute Walk Teston 025 6 Minute Walk Test y [facility] Pulmonary Services/Neurology [address] [place] [address] MR#: [id number] Acct: [id number] Name: STEPHANIE SAMPSON Rep #: [id number] : 1970 54 From: Abdiaziz Reyes DO Referring Dr: Maegan Royal NP [employer]-C Status: REG CLI Location: PSN Date: Sex: F C PSN 6 Minute Walk Test 6 Minute Walk Test 6 Minute Walk Test: 6 Minute Walk Test PSN:6-Minute Walk Test Start: 06/13/24 11:36 Freq: Status: Active Protocol: RESP.6MINW Document 06/13/24 11:37 EW (Rec: 06/13/24 11:40 EW 10..25.7) 6 Minute Walk Test Date Performed 06/13/24 Time Performed 11:15 Height 5 ft 3 in Weight: 125 lb Weight in Pounds 125.0 lbs Assistive device None used: Pre-test Oxygen Delivery Room Air Method Pulse Ox (%) 99 Pulse Rate (60-100 87 beats/min) Dyspnea Huey Scale ( 0 0-10) Exertion Huey Scale 6 (6-20) 1st minute Oxygen Delivery Room Air Method Pulse Ox (%) 98 Pulse Rate (60-100 92 beats/min) 2nd minute Oxygen Delivery Room Air Method Pulse Ox (%) 98 Pulse Rate (60-100 96 beats/min) 3rd minute Oxygen Delivery Room Air Method Pulse Ox (%) 98 Pulse Rate (60-100 96 beats/min) 4th minute Oxygen Delivery Room Air Method Pulse Ox (%) 97 Pulse Rate (60-100 99 beats/min) 5th minute Oxygen Delivery Room Air Method Pulse Ox (%) 98 Pulse Rate (60-100 99 beats/min) 6th minute Oxygen Delivery Room Air Method Pulse Ox (%) 99 Pulse Rate (60-100 101 H beats/min) Post-test Oxygen Delivery Room Air Method Pulse Ox (%) 99 Pulse Rate (60-100 90 beats/min) Dyspnea Huey Scale ( 0 0-10) Exertion Huey Scale 6 (6-20) Full Laps Walked 24 Partial Lap, Number 25 of Tiles Walked Total Distance 1441 Walked (ft) Interpretation Interpretation: The patient ambulated 1441 feet over the course of 6 minutes beginning on room air without assistive devices. Pretesting oxygen saturation was noted to be 99% on room air. With ambulation, the jamie oxygen saturation was 97%. There was no significant exertional oxygen desaturation. Recommendations Recommendations: There is no indication for the use of supplemental oxygen at this time. 06/14/24 110 Date Abdiaziz Reyes DO CC: Date Dictated: 06/14/24 110 Date Transcribed: 06/14/241105 Wet Process Technician: Dr. Abdiaziz Reyes DO Signed Normal [facility] Absolute lymphocyte countOrd ered By: Samantha Hirsch on 05-17-2024 Lymphocytes Auto (Unsp spec) [#/Vol] 0.97 10*3/uL 0.83-4.51 [facility] Absolute neutrophil countOrd ered By: Samantha Hirsch on 05-17-2024 Neutrophils (Bld) [#/Vol] 6.3 10*3/uL 2.0-7.7 [facility] Albumin DL <= 20 mg/L (U) [M ass/Vol]Ordered By: Samantha Hirsch on 05-17-2024 Urine Random Microalbumin < 12.0 mg/L NO RANGE EST. [facility] Automated lymphocyte count a s percentage of total leukocytesOrdered By: Samantha Hirsch on 05-17-2024 Lymphocytes/100 WBC Auto (Unsp spec) 11.4 % Low 19-41 [facility] BUN/creatinine ratioOrdered By: Samantha Hirsch on 05-17-2024 Urea nitrogen/Creatinine [Mass ratio] 21.4 mg/mg High 10-20 [facility] Basophil percentageOrdered B y: Samantha Hirsch on 05-17-2024 Basophils/100 WBC (Bld) 0.7 % 0-1 [facility] Bilirubin, totalOrdered By: Samantha Hirsch on 05-17-2024 Bilirubin [Mass/Vol] 0.38 mg/dL 0.00-1.30 [facility] CBC W/Diff, Automatedon 04-23 Absolute Lymph 0.97 X10 3/uL Normal 0.83-4.51 [facility] Comment on above: Performed By: #### L 502.0500, L500.4050, L506.1001, L100.0100, L503.0106, L501.9985, L500.4100 ####[facility] [address] [place], [address] Absolute Neut 6.3 X10 3/uL Normal 2.0-7.7 [facility] Comment on above: Performed By: #### L 502.0500, L500.4050, L506.1001, L100.0100, L503.0106, L501.9985, L500.4100 ####[facility] [address] [place], [address] Basophils/100 WBC (Bld) 0.7 % Normal 0-1 [facility] Comment on above: Performed By: #### L 502.0500, L500.4050, L506.1001, L100.0100, L503.0106, L501.9985, L500.4100 ####[facility] [address] [place], [address] Eosinophils/100 WBC (Bld) 4.2 % Normal 0-5 [facility] Comment on above: Performed By: #### L 502.0500, L500.4050, L506.1001, L100.0100, L503.0106, L501.9985, L500.4100 ####[facility] [address] [place], [address] Erythrocyte distribution width (RBC) [Ratio] 13.3 % Normal 11.6-14.6 [facility] Comment on above: Performed By: #### L 502.0500, L500.4050, L506.1001, L100.0100, L503.0106, L501.9985, L500.4100 ####[facility] [address] [place], [address] Hematocrit (Bld) [Volume fraction] 43.2 % Normal 37-47 [facility] Comment on above: Performed By: #### L 502.0500, L500.4050, L506.1001, L100.0100, L503.0106, L501.9985, L500.4100 ####[facility] [address] [place], [address] Hemoglobin (Bld) [Mass/Vol] 13.9 g/dL Normal 12.0-15.0 [facility] Comment on above: Performed By: #### L 502.0500, L500.4050, L506.1001, L100.0100, L503.0106, L501.9985, L500.4100 ####[facility] [address] [place], [address] IG% 0.200 Normal 0.0-0.9 [facility] Comment on above: Result Comment: IG% - Immature Granulocytes (promyelocytes, myelocytes and metamyelocytes) > 1% indicates that a LEFT SHIFT is Present. Performed By: #### L 502.0500, L500.4050, L506.1001, L100.0100, L503.0106, L501.9985, L500.4100 ####[facility] [address] [place], [address] Lymphocytes/100 WBC (Bld) 11.4 % Low 19-41 [facility] Comment on above: Performed By: #### L 502.0500, L500.4050, L506.1001, L100.0100, L503.0106, L501.9985, L500.4100 ####[facility] [address] [place], [address] MCH (RBC) [Entitic mass] 30.1 pg Normal 27.0-32.0 [facility] Comment on above: Performed By: #### L 502.0500, L500.4050, L506.1001, L100.0100, L503.0106, L501.9985, L500.4100 ####[facility] [address] [place], [address] MCHC (RBC) [Mass/Vol] 32.2 g/dL Normal 32-36 [facility] Comment on above: Performed By: #### L 502.0500, L500.4050, L506.1001, L100.0100, L503.0106, L501.9985, L500.4100 ####[facility] [address] [place], [address] MCV (RBC) [Entitic vol] 93.5 fL Normal 81-99 [facility] Comment on above: Performed By: #### L 502.0500, L500.4050, L506.1001, L100.0100, L503.0106, L501.9985, L500.4100 ####[facility] [address] [place], [address] Monocytes/100 WBC (Bld) 9.3 % Normal 0-10 [facility] Comment on above: Performed By: #### L 502.0500, L500.4050, L506.1001, L100.0100, L503.0106, L501.9985, L500.4100 ####[facility] [address] [place], [address] Neutrophils/100 WBC (Bld) 74.2 % High 47-70 [facility] Comment on above: Performed By: #### L 502.0500, L500.4050, L506.1001, L100.0100, L503.0106, L501.9985, L500.4100 ####[facility] [address] [place], [address] Nucleated RBC (Bld) [#/Vol] 0 10*3/uL Normal 0-5 [facility] Comment on above: Performed By: #### L 502.0500, L500.4050, L506.1001, L100.0100, L503.0106, L501.9985, L500.4100 ####[facility] [address] [place], [address] Platelet mean volume (Bld) [Entitic vol] 9.2 fL Normal 6.2-12.0 [facility] Comment on above: Performed By: #### L 502.0500, L500.4050, L506.1001, L100.0100, L503.0106, L501.9985, L500.4100 ####[facility] [address] [place], [address] Platelets (Bld) [#/Vol] 189 10*3/uL Normal 150-450 [facility] Comment on above: Performed By: #### L 502.0500, L500.4050, L506.1001, L100.0100, L503.0106, L501.9985, L500.4100 ####[facility] [address] [place], [address] RBC (Bld) [#/Vol] 4.62 10*6/uL Normal 4.2-5.4 [facility] Comment on above: Performed By: #### L 502.0500, L500.4050, L506.1001, L100.0100, L503.0106, L501.9985, L500.4100 ####[facility] [address] [place], [address] RDW SD 45.7 fl High 35.1-43.9 [facility] Comment on above: Performed By: #### L 502.0500, L500.4050, L506.1001, L100.0100, L503.0106, L501.9985, L500.4100 ####[facility] [address] [place], [address] WBC (Bld) [#/Vol] 8.5 10*3/uL Normal 4.4-11.0 [facility] Comment on above: Performed By: #### L 502.0500, L500.4050, L506.1001, L100.0100, L503.0106, L501.9985, L500.4100 ####[facility] [address] [place], [address] Calculated very low density lipoprotein (VLDL) cholesterol measurementOrdered By: Samantha Hirsch on 05-17-2024 Calculated very low density lipoprotein (VLDL) cholesterol measurement 34 mg/dL -40 [facility] VLDL Cholesterol 34 mg/dL -40 [facility] Carbon dioxide measurementOr dered By: Samantha Hirsch on 05-17-2024 CO2 [Moles/Vol] 23.2 mmol/L 22.0-29.0 [facility] Chloride measurementOrdered By: Samantha Hirsch on 05-17-2024 Chloride [Moles/Vol] 102 mmol/L 96-108 [facility] Comprehensive Metabolic Prof ilon 05-17-2024 Albumin [Mass/Vol] 4.3 g/dL Normal 3.5-5.0 [facility] Comment on above: Performed By: #### L 502.0500, L500.4050, L506.1001, L100.0100, L503.0106, L501.9985, L500.4100 ####[facility] [address] [place], [address] Albumin/Globulin [Mass ratio] 1.8 {ratio} Normal 0.9-2.4 [facility] Comment on above: Performed By: #### L 502.0500, L500.4050, L506.1001, L100.0100, L503.0106, L501.9985, L500.4100 ####[facility] [address] [place], [address] ALK PHOS 62 U/L Normal 35-104 [facility] Comment on above: Performed By: #### L 502.0500, L500.4050, L506.1001, L100.0100, L503.0106, L501.9985, L500.4100 ####[facility] [address] [place], [address] ALT [Catalytic activity/Vol] 30 U/L Normal <=34 [facility] Comment on above: Performed By: #### L 502.0500, L500.4050, L506.1001, L100.0100, L503.0106, L501.9985, L500.4100 ####[facility] [address] [place], [address] Anion gap [Moles/Vol] 13 mmol/L Normal 5-15 [facility] Comment on above: Performed By: #### L 502.0500, L500.4050, L506.1001, L100.0100, L503.0106, L501.9985, L500.4100 ####[facility] [address] [place], [address] AST [Catalytic activity/Vol] 27 U/L Normal <=31 [facility] Comment on above: Performed By: #### L 502.0500, L500.4050, L506.1001, L100.0100, L503.0106, L501.9985, L500.4100 ####[facility] [address] [place], [address] Bilirubin [Mass/Vol] 0.38 mg/dL Normal 0.00-1.30 [facility] Comment on above: Performed By: #### L 502.0500, L500.4050, L506.1001, L100.0100, L503.0106, L501.9985, L500.4100 ####[facility] [address] [place], [address] BUN/CRE 21.4 RATIO High 10-20 [facility] Comment on above: Performed By: #### L 502.0500, L500.4050, L506.1001, L100.0100, L503.0106, L501.9985, L500.4100 ####[facility] [address] [place], [address] Calcium [Mass/Vol] 9.1 mg/dL Normal 7.6-11.0 [facility] Comment on above: Performed By: #### L 502.0500, L500.4050, L506.1001, L100.0100, L503.0106, L501.9985, L500.4100 ####[facility] [address] [place], [address] Chloride [Moles/Vol] 102 mmol/L Normal 96-108 [facility] Comment on above: Performed By: #### L 502.0500, L500.4050, L506.1001, L100.0100, L503.0106, L501.9985, L500.4100 ####[facility] [address] [place], [address] CO2 [Moles/Vol] 23.2 mmol/L Normal 22.0-29.0 [facility] Comment on above: Performed By: #### L 502.0500, L500.4050, L506.1001, L100.0100, L503.0106, L501.9985, L500.4100 ####[facility] [address] [place], [place], [phone] Creatinine [Mass/Vol] 0.8 mg/dL Normal 0.6-1.0 [facility] Comment on above: Performed By: #### L 502.0500, L500.4050, L506.1001, L100.0100, L503.0106, L501.9985, L500.4100 ####[facility] [address] [place], [place], [phone] GFR/1.73 sq M.predicted among non-blacks MDRD (S/P/Bld) [Vol rate/Area] 83 mL/min/{1.73_m2} Normal >60 [facility] Comment on above: Result Comment: mL/m in/1.73m2 CKD-EPI Creatinine Equation (2020) Performed By: #### L 502.0500, L500.4050, L506.1001, L100.0100, L503.0106, L501.9985, L500.4100 ####[facility] [address] [place], [place], [phone] Globulin (S) [Mass/Vol] 2.4 g/dL Normal 2.2-4.2 [facility] Comment on above: Performed By: #### L 502.0500, L500.4050, L506.1001, L100.0100, L503.0106, L501.9985, L500.4100 ####[facility] [address] [place], [address] Glucose [Mass/Vol] 93 mg/dL Normal 70-99 [facility] Comment on above: Performed By: #### L 502.0500, L500.4050, L506.1001, L100.0100, L503.0106, L501.9985, L500.4100 ####[facility] [address] [place], [address] Potassium [Moles/Vol] 4.1 mmol/L Normal 3.3-5.1 [facility] Comment on above: Performed By: #### L 502.0500, L500.4050, L506.1001, L100.0100, L503.0106, L501.9985, L500.4100 ####[facility] [address] [place], [address] Sodium [Moles/Vol] 138 mmol/L Normal 133-145 [facility] Comment on above: Performed By: #### L 502.0500, L500.4050, L506.1001, L100.0100, L503.0106, L501.9985, L500.4100 ####[facility] [address] [place], [address] T PROT 6.7 g/dL Normal 5.9-8.4 [facility] Comment on above: Performed By: #### L 502.0500, L500.4050, L506.1001, L100.0100, L503.0106, L501.9985, L500.4100 ####[facility] [address] [place], [address] Urea nitrogen [Mass/Vol] 18 mg/dL Normal 4-19 [facility] Comment on above: Performed By: #### L 502.0500, L500.4050, L506.1001, L100.0100, L503.0106, L501.9985, L500.4100 ####[facility] [address] [place], [address] Eosinophil percentageOrdered By: Samantha Hirsch on 05-17-2024 Eosinophils/100 WBC (Bld) 4.2 % 0-5 [facility] Erythrocyte distribution wid th ratioOrdered By: Samantha Hirsch on 05-17-2024 Erythrocyte distribution width (RBC) [Ratio] 13.3 % 11.6-14.6 [facility] Erythrocyte distribution wid th standard deviationOrdered By: Samantha Hirsch on 05-17-2024 Erythrocyte distribution width (RBC) [Entitic vol] 45.7 fL High 35.1-43.9 [facility] Erythrocyte distribution width (RBC) [Ratio] 45.7 fl High 35.1-43.9 [facility] GFR/1.73 sq M.predicted estuardo g non-blacks MDRD (S/P/Bld) [Vol rate/Area]Ordered By: Samantha Hirsch on 05-17-2024 Estimated GFR (MDRD) Non-Af Amer [address] [facility] Comment on above: mL/min/1.73m2 CKD-EP I Creatinine Equation (2020) Glomerular filtration rate ( GFR) estimation/1.73 sq m using serum, plasma, or whole bOrdered By: Samantha Hirsch on 05-17-2024 GFR/1.73 sq M.predicted among non-blacks MDRD (S/P/Bld) [Vol rate/Area] 83 mL/min/{1.73_m2} >60 [facility] Comment on above: mL/min/1.73m2 CKD-EP I Creatinine Equation (2020) Hematocrit Auto (Bld) [Volum e fraction]Ordered By: Samantha Hirsch on 05-17-2024 Hematocrit (Bld) [Volume fraction] 43.2 % 37-47 [facility] Hemoglobin A1con 05-17-2024 HbA1c (Bld) [Mass fraction] 5.4 % Low <=5.6 [facility] Comment on above: Performed By: #### L 502.0500, L500.4050, L506.1001, L100.0100, L503.0106, L501.9985, L500.4100 ####[facility] [address] [place], [address] Hemoglobin A1c percentageOrd ered By: Samantha Hirsch on 05-17-2024 HbA1c (Bld) [Mass fraction] 5.4 % Low >5.7 [facility] Hemoglobin measurementOrdere d By: Samantha Hirsch on 05-17-2024 Hemoglobin (Bld) [Mass/Vol] 13.9 g/dL 12.0-15.0 [facility] Immature granulocytes/100 WB C Auto (Bld)Ordered By: Samantha Hirsch on 05-17-2024 Immature granulocytes/100 WBC (Bld) 0.200 % 0.0-0.9 [facility] Comment on above: IG% - Immature Granu locytes (promyelocytes, myelocytes and metamyelocytes) > 1% indicates that a LEFT SHIFT is Present. L503.0106on 05-17-2024 Cobalamin (Vitamin B12) [Mass/Vol] 566 pg/mL Normal 180-914 [facility] Comment on above: Performed By: #### L 502.0500, L500.4050, L506.1001, L100.0100, L503.0106, L501.9985, L500.4100 ####[facility] [address] [place], [address] L506.1001on 05-17-2024 Vitamin D 25-OH 74.1 ng/mL Normal 30-100 [facility] Comment on above: Result Comment: Lissy min D Status Deficiency: <20 ng/mL (50nmol/L) Insufficiency: 20-30 ng/mL (50-75 nmol/L) Sufficiency: 30-100 ng/mL (75-250 nmol/L) Toxicity: >100 ng/mL (>250 nmol/L) Performed By: #### L 502.0500, L500.4050, L506.1001, L100.0100, L503.0106, L501.9985, L500.4100 ####[facility] [address] [place], [place], [phone] LDL calc ser/plasOrdered By: Samantha Hirsch on 05-17-2024 Cholesterol in LDL [Mass/Vol] 97 mg/dL [facility] Comment on above: Pwtrqwwoyc=663-439 m g/dL & Higher Tfjr=717 mg/dL or greater LDL Cholesterol, Calculated 97 mg/dL [facility] Comment on above: Dlruraqaaq=361-801 m g/dL & Higher Tmbb=538 mg/dL or greater Laboratory - Chemistry and C hemistry - challengeOrdered By: Samantha Hirsch on 05-17-2024 AST [Catalytic activity/Vol] 27 U/L <32 [facility] Lipid Profileon 05-17-2024 CHOL:HDL 3.[address] [facility] Comment on above: Performed By: #### L 502.0500, L500.4050, L506.1001, L100.0100, L503.0106, L501.9985, L500.4100 ####[facility] [address] [place], [place], [phone]) Cholesterol [Mass/Vol] 186 mg/dL Normal <=200 [facility] Comment on above: Result Comment: Chol esterol level, Desirable <200 mg/dL Borderline high cholesterol 200-239 mg/dL High cholesterol >=240 mg/dL Recommendations of the NCEP Adult Treatment Panel for the following risk-cutoff thresholds for the [place] population. Performed By: #### L 502.0500, L500.4050, L506.1001, L100.0100, L503.0106, L501.9985, L500.4100 ####[facility] [address] [place], [place], [id number] Cholesterol in HDL [Mass/Vol] 55 mg/dL Normal [facility] Comment on above: Result Comment: Inga onal Cholesterol Education Program (NCEP) guidelines: <40 mg/dL: Low HDL-cholesterol (major risk factor for CHD) >= 60 mg/dL: High HDL-cholesterol (negative risk factor for CHD) HDL-cholesterol is affected by a number of factors, e.g. smoking, exercise, hormones, sex and age. Performed By: #### L 502.0500, L500.4050, L506.1001, L100.0100, L503.0106, L501.9985, L500.4100 ####[facility] [address] [place], [address] Cholesterol in LDL [Mass/Vol] 97 mg/dL Normal [facility] Comment on above: Result Comment: Bord jjmajg=593-027 mg/dL Higher Ydbn=493 mg/dL or greater Performed By: #### L 502.0500, L500.4050, L506.1001, L100.0100, L503.0106, L501.9985, L500.4100 ####[facility] [address] [place], [address] Cholesterol in VLDL [Mass/Vol] 34 mg/dL Normal 5-40 [facility] Comment on above: Performed By: #### L 502.0500, L500.4050, L506.1001, L100.0100, L503.0106, L501.9985, L500.4100 ####[facility] [address] [place], [address] Triglyceride [Mass/Vol] 168 mg/dL Normal [facility] Comment on above: Result Comment: The drugs N-Acetylcysteine and Metamizole may falsely depress this assay. Normal range: <150 mg/dL Borderline High: 150-199 mg/dL High: 200-499 mg/dL Very High: >500 mg/dL Performed By: #### L 502.0500, L500.4050, L506.1001, L100.0100, L503.0106, L501.9985, L500.4100 ####[facility] [address] [place], [address] Lymphocytes Auto (Unsp spec) [#/Vol]Ordered By: Samantha Hirsch on 05-17-2024 Lymphocytes (Bld) [#/Vol] 0.97 10*3/uL 0.83-4.51 [facility] Lymphocytes/100 WBC Auto (Un sp spec)Ordered By: Samantha Hirsch on 05-17-2024 Lymphocytes/100 WBC (Bld) 11.4 % Low 19-41 [facility] MCV (mean corpuscular volume ) determinationOrdered By: Samantha Hirsch on 05-17-2024 MCV (RBC) [Entitic vol] 93.5 fL 81-99 [facility] Mean corpuscular hemoglobin (MCH) determinationOrdered By: Samantha Hirsch on 05-17-2024 MCH (RBC) [Entitic mass] 30.1 pg 27.0-32.0 [facility] Mean corpuscular hemoglobin concentration (MCHC) determinationOrdered By: Samantha Hirsch on 05-17-2024 MCHC (RBC) [Mass/Vol] 32.2 g/dL 32-36 [facility] Mean platelet volume determi nationOrdered By: Samantha Hirsch on 05-17-2024 Platelet mean volume (Bld) [Entitic vol] 9.2 fL 6.2-12.0 [facility] Microalbumin,Random Urineon 05-17-2024 MICROALBUMIN,UR < 12.0 Normal NO RANGE EST. [facility] Comment on above: Performed By: #### L 502.0500, L500.4050, L506.1001, L100.0100, L503.0106, L501.9985, L500.4100 ####[facility] [id number] [facility] [place], [address] Monocyte percentageOrdered B y: Samantha Hirsch on 05-17-2024 Monocytes/100 WBC (Bld) 9.3 % 0-10 [facility] Neutrophil percentageOrdered By: Samantha Hirsch on 05-17-2024 Neutrophils/100 WBC (Bld) 74.2 % High 47-70 [facility] Nucleated red blood cell per centageOrdered By: Samantha Hirsch on 05-17-2024 Nucleated RBC/100 WBC (Bld) [Ratio] 0 % 0-5 [facility] Platelet countOrdered By: Domi Hirsch on 05-17-2024 Platelets (Bld) [#/Vol] 189 10*3/uL 150-450 [facility] RBC Auto (Bld) [#/Vol]Ordere d By: Samantha Hirsch on 05-17-2024 RBC (Bld) [#/Vol] 4.62 10*6/uL 4.2-5.4 [facility] Screening total cholesterol/ high density lipoprotein (HDL) cholesterol ratioOrdered By: Samantha Hirsch on 05-17-2024 Cholesterol.total/Cho lesterol in HDL [Mass ratio] 3.37 {ratio} [facility] Serum creatinine measurement (mass/volume)Ordered By: Samantha Hirsch on 05-17-2024 Creatinine [Mass/Vol] 0.8 mg/dL 0.70-1.20 [facility] [facility] Serum globulin measurementOr dered By: Samantha Hirsch on 05-17-2024 Globulin (S) [Mass/Vol] 2.4 g/dL 2.2-4.2 [facility] Serum glucose measurement (m ass/volume)Ordered By: Samantha Hirsch on 05-17-2024 Glucose [Mass/Vol] 93 mg/dL 70-99 [facility] Serum or plasma alanine gramajo otransferase (ALT) measurementOrdered By: Samantha Hirsch on 05-17-2024 ALT [Catalytic activity/Vol] 30 U/L <35 [facility] Serum or plasma albumin edmar urement (mass/volume)Ordered By: Samantha Hirsch on 05-17-2024 Albumin [Mass/Vol] 4.3 g/dL 3.5-5.0 [facility] Serum or plasma albumin/glob ulin mass ratioOrdered By: Samantha Hirsch on 05-17-2024 Albumin/Globulin [Mass ratio] 1.8 {ratio} 0.9-2.4 [facility] Serum or plasma alkaline christina sphatase measurementOrdered By: Samantha Hirsch on 05-17-2024 ALP [Catalytic activity/Vol] 62 U/L 35-104 [facility] Serum or plasma anion gap de termination (moles/volume)Ordered By: Samantha Hirsch on 05-17-2024 Anion gap [Moles/Vol] 13 mmol/L 5-15 [facility] Serum or plasma calcium edmar urement (mass/volume)Ordered By: Samantha Hirsch on 05-17-2024 Calcium [Mass/Vol] 9.1 mg/dL 7.6-11.0 [facility] Serum or plasma cholesterol in HDL measurement (mass/volume)Ordered By: Samantha Hirsch on 05-17-2024 Cholesterol in HDL [Mass/Vol] 55 mg/dL >40 [facility] Comment on above: National Cholesterol Education Program (NCEP) guidelines:<40 mg/dL: Low HDL-cholesterol (major risk factor for CHD)>= 60 mg/dL: High HDL-cholesterol (negative risk factor for CHD)HDL-cholesterol is affected by a number of factors, e.g. smoking, exercise, hormones, sex and age. Serum or plasma cholesterol measurement (mass/volume)Ordered By: Samantha Hirsch on 05-17-2024 Cholesterol [Mass/Vol] 186 mg/dL <201 [facility] Comment on above: Cholesterol level, D esirable <200 mg/dLBorderline high cholesterol 200-239 mg/dLHigh cholesterol >=240 mg/dLRecommendations of the NCEP Adult Treatment Panel for the following risk-cutoff thresholds for the [place] population. Serum or plasma potassium me asurementOrdered By: Samantha Hirsch on 05-17-2024 Potassium [Moles/Vol] 4.1 mmol/L 3.3-5.1 [facility] Serum or plasma sodium measu rement (moles/volume)Ordered By: Samantha Hirsch on 05-17-2024 Sodium [Moles/Vol] 138 mmol/L 133-145 [facility] Serum or plasma urea nitroge n measurement (mass/volume)Ordered By: Samantha Hirsch on 05-17-2024 Urea nitrogen [Mass/Vol] 18 mg/dL 4-19 [facility] Total proteinOrdered By: Vanessa Hirsch on 05-17-2024 Protein [Mass/Vol] 6.7 g/dL 5.9-8.4 [facility] Triglycerides measurementOrd ered By: Samantha Hirsch on 05-17-2024 Triglyceride [Mass/Vol] 168 mg/dL <199 [facility] Comment on above: The drugs N-Acetylcy steine and Metamizole may falsely depress this assay. Normal range: <150 mg/dLBorderline High: 150-199 mg/dLHigh: 200-499 mg/dLVery High: >500 mg/dL Urine albumin measurement [facility] detection limit of 20 mg/L or less (mass/volume)Ordered By: Samantha Hirsch on 05-17-2024 Albumin DL <= 20 mg/L (U) [Mass/Vol] < 12.0 mg/L NO RANGE EST. [facility] Vitamin B12 ser/plasOrdered By: Samantha Hirsch on 05-17-2024 Cobalamin (Vitamin B12) [Mass/Vol] 566 pg/mL 180-914 [facility] Vitamin D, 25-hydroxyOrdered By: Samantha Hirsch on 05-17-2024 Vitamin D 25-Hydroxy 74.1 ng/mL 30-100 [facility] Comment on above: Vitamin D StatusDefi ciency: <20 ng/mL (50nmol/L)Insufficiency: 20-30 ng/mL (50-75 nmol/L)Sufficiency: 30-100 ng/mL (75-250 nmol/L)Toxicity: >100 ng/mL (>250 nmol/L) White blood cell (WBC) count Ordered By: Samantha Hirsch on 05-17-2024 WBC (Bld) [#/Vol] 8.5 10*3/uL 4.4-11.0 [facility] Pulmonary Visit Reporton Pulmonary Visit Report [facility] Pul[facility] Medicine of [address] [place] [address] OFFICE VISIT Date of Service: 04/27/24 MR#: [id number] Acct: [id number] Name: STEPHANIE SAMPSON Rep #: [id number] : 1970 Provider: ZEESHAN Royal Age/Sex: 53/F Location: [facility] [place].[facility] Status: Signed Assessment and Plan Assessment and Plan (1) Lung nodules: Status: Acute Plan: New. Several tiny nodules that are not adequate for CAT scan or CT biopsy. The area of groundglass opacity is approximately 1.1 cm, however I reviewed this case with the interventional radiologist and it does not appear that this is an appropriate area to CT biopsy at this time. Reviewed Fleischner Society criteria with the patient, according to the size of the groundglass area diagnostic CT should be clear completed in 6 to 12 months. When evaluating for multiple nodules and a high risk patient, diagnostic CT should be obtained in 3 to 6 months. This patient has high anxiety given her father's history of dying of lung cancer. For this reason, and following the guidelines for the multiple nodules, I am requesting a diagnostic CT scan to be completed at 3 months. We will return to the office after test results are available for review. She has been encouraged to contact the office if she develops any symptoms in the meantime. The patient and the convey understanding and are agreeable with this plan. (2) History of tobacco use: Status: Acute Plan: Continue to encourage ongoing smoking cessation. The patient has never had a workup to evaluate if she has COPD. She is agreeable to obtaining a baseline pulmonary function test and a walking oximetry. Test results will be discussed at her follow-up office visit. Orders: Orders 2 Chest without Contrast 3 Months R91.8 - Other nonspecific abnormal finding of lung field PFT Complete - DLCO, Spirometry b/a bronchodilators, lung volumes 05/09/24 Z87.891 - Personal history of nicotine dependence Simple Pulmonary Exercise Test 05/16/24 Z87.891 - Personal history of nicotine dependence HPI LDCT Clinic request Chief Complaint: Test results HPI Comments Details: This patient presents to the office today for initial consultation to discuss test results. She is ambulatory and currently on room air. She is accompanied today by her . The patient reports that she went to a routine low-dose CT lung screening clinic. She is completely asymptomatic. She denies any shortness of breath, cough or wheezing. She denies any sputum production or hemoptysis. She denies any chest tightness, chest pain or palpitations. She does have a greater than [id number] smoking history, however she quit smoking completely in 2020. Her points out that the patient did have a slight cold approximately 3 weeks ago and had been on Mucinex for a week. She had been exposed to 2 young granddaughters who had upper respiratory infections at the time. Patient was not diagnosed with influenza, RSV or pneumonia. One of the granddaughters was diagnosed with pneumonia. The patient did not require any antibiotics or steroids. 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 She has never seen a manager line. She has never been prescribed an inhaler. She has never completed any pulmonary function tests. Past medical family history significant for: Mother has hypertension. Father was a "heavy smoker", had diabetes and at the age of 54 after being diagnosed with lung cancer for only 3 months. She has 3 brothers, the youngest of some type of complications due to lung issues, he had a history of smoking, alcohol abuse and drug abuse. The middle brother has diabetes mellitus. The oldest brother does not follow with a doctor but probably has hypertension. She has 3 daughters, one of them had a gastric bypass and has anxiety. The other 2 daughters have good health. Test results personally reviewed with the patient: Low-dose CT lung screening completed on April 25, 2023. Noted is multiple round and ovoid groundglass nodules in bilateral upper and lower lobes measuring 0.2 to 0.6 cm. A spiculated groundglass nodule is seen in the left upper lobe measuring 1.1 cm. Imaging was personally reviewed. Case was discussed with the interventional radiologist. 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 Normal [facility] Low Dose CT Lung Screeningon 04-25-[address] Lung Screening [facility] Imaging Services [address], [place] [id number] Low Dose CT Lung Screening MR#: [id number] Acct: [id number] Name: STEPHANIE SAMPSON Rep #: [id number] : 1970 F 53 From: Wai Cervantes MD PCP: ZEESHAN Rosa Status: [facility] CL Study: Low Dose CT Lung Screening Date of Exam: 04/25 Exam# [id number] Ordering Dr: Radha Palmer NP [employer] PROCEDURE: LOW DOSE CT LUNG SCREENING REASON FOR EXAM: 1 pack per day for 33 years smoking history. Quit smoking 3 years ago. TECHNIQUE: Low-dose CT technique. Contiguous axial scans of 1.25 mm slice thicknesses. Sagittal and coronal reconstruction images were obtained. One or more dose reduction techniques were used (e.g., automated exposure control, adjustment of mA and/or kv according to patient size, use of iterative reconstruction technique). COMPARISON: None. FINDINGS: Nodules described below are on the axial series unless otherwise specified. Pulmonary Nodules: Multiple round and ovoid ground-glass nodules are noted in the bilateral upper and lower lobes measuring 0.2 to 0.6 cm. A spiculated ground-glass nodule is seen in the left upper lobe, axial image 55 measuring 1.1 cm. Hardware:None Lymph Nodes:A few non-suspicious lymph nodes in the precarinal region. Heart and Vasculature:Normal heart size. No pericardial effusion.. Great vessels: Thoracic aorta and pulmonary arteries have normal contours; noncontrast technique limits evaluation. Coronary Artery Calcifications: Unremarkable Lungs and Airways: The lungs are normally expanded and clear. Pleura:No pleural effusion. No pneumothorax. Upper Abdomen:Visualized portions of the upper abdominal viscera are unremarkable. Bones:Bone windows are unremarkable. Soft tissues: Bilateral breast implants. CT/Low Dose CT Lung Screening IMPRESSION: 1. BASED ON THE ACR LUNG RADS FOR THE MOST SUSPICIOUS NODULE DESCRIBED IN THIS REPORT, LEFT UPPER LOBE,, THE OVERALL LUNG RADS SCORE IS 4A. RECOMMEND 3-MONTH SCREENING LDCT.. 2. SMOKING CESSATION COUNSELING IS RECOMMENDED IF THE PATIENT IS STILL SMOKING. 3. BILATERAL BREAST IMPLANTS. The following information is provided for reference:Lung-RADS 2022 Assessment Categories. Additional information involving Lung-RADS is available at www.acr.org. 0-INCOMPLETE 1-NEGATIVE:No nodules or definitely benign nodules. Complete, central, popcorn, or centric ring calcifications OR fat containing 2-BENIGN APPEARANCE (based on imaging features or indolent behavior). Juxtapleural nodule: < 10mm AND solid; smooth margins; oval, entiform, or triangular shape Solid nodule: <6mm at baseline or new< 4mm Part solid Nodule: < 6mm total mean diameter at baseline Nonsolid nodule:(GGN) < 30mm OR >=30mm stable or slowly growing Airway nodule, subsegmental at baseline, new, or stable Category 3 nodule stable or decreased in size at 6-month follow-up CT or Category 3 or 4A nodules that resolve on follow-up OR category 4B findings proven to be benign following diagnotic work up. 3 - Probably Benign (Based on imaging features or behavior) Solid Nodule: >= 6 to <8mm at baseline OR new 4 to <6mm Part-solid nodule: >= 6mm toal mean diam. with solid component <6mm at baseline OR new < 6mm total mean diam. Non-solid nodule: GGN >= 30mm at baseline or new Atypical pulmonary cyst: Growing cystic component (mean diam.) of thick-walled cyst Category 4A nodule stable or decreased in size at 3-month follow-up CT (excl.airway). 4A - Suspicious Solid nodule: >=8 to < 15mm at baseline OR growing < 8mm OR new 6 to < 8mm Part solid nodule: >= 6mm total mean diam. w/ solid component >=6mm to < 8mm at baseline OR new or growing < 4mm solid component Airway nodule, segmental or more proximal at baseline or new Atypical pulmonary cyst: Thick-walled OR multilocular at baseline OR becomes multilocular 4B - Very Suspicious Airway nodule, segmental or more proximal, and stable or growing Solid nodule: >= 15mm at baseline OR new or growing >= 8mm Part solid nodule: Solid component >= 8mm OR new or growing >= 4mm solid component Atypical pulmonary cyst: Thick-walled with growing wall thickness/nodularity OR Growing multilocular (mean diam.) OR Multilocular with increased loculation or new/increased opacity Slow-growing solid or part solid nodule w/ growth over multiple screening exams 4X - Very Suspicious Category 3 or 4 nodules with additional features that increase the suspicion for lung cancer. S - Clinically Significant or potentially significant findings (non-lung cancer) Reading Location: [facility] CC: ZEESHAN Hirsch; ZEESHAN Palmer Wet Process Technician: Signed Normal [facility] Oncology Visit Reporton Oncology Visit Report [facility] [address] [place], [place] [address], [place] [address] OFFICE VISIT Date of Service: 04/25/24 1154 MR#: [id number] Acct: [id number] Name: STEPHANIE SAMPSON Rep #: [id number] : 1970 From: Radha Palmer NP [employer] BrendaC Age/Sex: 53/F Location: [facility] [place] [facility] Status: Signed HPI HPI Reviewed eligibility criteria: 53 year old F with a 25 pack year smoking history (1 ppd x 25 years) Smoking Status: Former smoker (quit 12/20/2020) Decision Making Engaged in shared decision making visit utilizing a visual aid. Discussed the risks and benefits of lung cancer screening including the total radiation exposure, false positive rate, over diagnosis and potential need for follow-up diagnostic testing all associated with low-dose chest CT. Comorbidities HTN; hyperglycemia ROS Const Denies anorexia, Denies fatigue, Denies headache(s), Denies poor appetite and Denies weight loss ENT Denies headache(s) Card Denies chest pain, Denies dyspnea and Denies palpitations Resp Denies cough, Denies dyspnea, Denies hemoptysis and Denies wheezing GI Reports system reviewed and no additional complaints, except as documented Musc Reports system reviewed and no additional complaints, except as documented Skin/Breast Reports system reviewed and no additional complaints, except as documented Neuro Yes system reviewed and no additional complaints, except as documented and No headache(s) Psych Reports system reviewed and no additional complaints, except as documented Endo Reports system reviewed and no additional complaints, except as documented, Denies fatigue and Denies palpitations Justin/Lymph Reports system reviewed and no additional complaints, except as documented Aller/Immun Denies wheezing Exam Const General: well developed and not in acute distress Orientation: alert and oriented x3 HENMT Head: normocephalic and atraumatic Neck Neck: supple and no lymphadenopathy noted Resp Effort Inspection: normal respiratory effort and symmetric chest movement Auscultation: Bilateral: Clear to Auscultation Cardio Rate: regular rate Rhythm: regular rhythm Heart Sounds: S1 normal, S2 normal and no murmurs Psych Affect: anxious affect Speech and Movement: speech and movement normal Results Results April 25, [address] LUNG SCREENING COMPARISON: None. FINDINGS: Nodules described below are on the axial series unless otherwise specified. Pulmonary Nodules: Multiple round and ovoid ground-glass nodules are noted in the bilateral upper and lower lobes measuring 0.2 to 0.6 cm. A spiculated ground-glass nodule is seen in the left upper lobe, axial image 55 measuring 1.1 cm. Hardware:None Lymph Nodes:A few non-suspicious lymph nodes in the precarinal region. Heart and Vasculature:Normal heart size. No pericardial effusion.. Great vessels: Thoracic aorta and pulmonary arteries have normal contours; noncontrast technique limits evaluation. Coronary Artery Calcifications: Unremarkable Lungs and Airways: The lungs are normally expanded and clear. Pleura:No pleural effusion. No pneumothorax. Upper Abdomen:Visualized portions of the upper abdominal viscera are unremarkable. Bones:Bone windows are unremarkable. Soft tissues: Bilateral breast implants. IMPRESSION: 1. BASED ON THE ACR LUNG RADS FOR THE MOST SUSPICIOUS NODULE DESCRIBED IN THIS REPORT, LEFT UPPER LOBE,, THE OVERALL LUNG RADS SCORE IS 4A. RECOMMEND 3-MONTH SCREENING LDCT.. 2. SMOKING CESSATION COUNSELING IS RECOMMENDED IF THE PATIENT IS STILL SMOKING. 3. BILATERAL BREAST IMPLANTS. Intake Vital Signs 09/28/18 11:20 04/25/24 12:04 Height 5 ft 3 in 5 ft 3 in Weight: 125 lb BMI 22.1 BP 113/72 Blood Pressure Location Lt brachial Position Sitting Respiration 18 Pulse 84 Pulse Source Monitor Temp 98.2 F Temp Source Temporal Pulse Oximetry (%) 99 Oxygen Delivery Method room air Intake Visit Reasons: Lung Cancer Screening Allergies Penicillins Allergy (Verified 04/25/24 12:11) Rash Medications ???Medication ???Instructions ???Recorded ???Confirmed ???Type losartan 25 mg tablet (Cozaar) 25 mg PO QHS htn 05/05/17 04/25/24 History metoprolol tartrate 25 mg tablet 25 mg PO QHS htn/heart 05/05/17 History tirzepatide 5 mg/0.5 mL 5 mg subcut QWEEK 04/25/24 5 History subcutaneous pen injector (Mounjaro) [facility] Medical History (Updated 04/26/24 @ 19:20 by Radha Palmer [employer], [employer]) Lung nodules History of tobacco use Encounter for screening for malignant neoplasm of lung Tachycardia Prediabetes Hypertension Normal colonoscopy Surgical History (Updated 04/25/24 @ 12:11 by Cathy Espitia LPN) History of hysterectomy History of lumpectomy Family History (Upda (more content not included)... Normal [facility] SCRN MAMM (CAD)W/DAVID BILATo n 03-13-2024 SCRN MAMM (CAD)W/DAVID BILAT [facility] Imaging Services [address] [place] [address] SCRN MAMM (CAD)W/DAVID BILAT MR#: [id number] Acct: [id number] Name: STEPHANIE SAMPSON Rep #: [id number] : 1970 F 53 From: Soren Collado MD PCP: Samantha Hirsch NP-C Status: REG CL Study: SCRN MAMM (CAD)W/DAVID BILAT Date of Exam: 02/20 06/12 Exam# [id number] Ordering Dr: Samantha Hirsch [facility] [employer] [id number] MAMMOGRAPHY - BILATERAL SCREENING 3-D TOMOSYNTHESIS REASON FOR EXAM: Female, 53 years old. SCREENING PERTINENT HISTORY: No significant family history. TECHNIQUE: 2-D mammograms and 3-D Tomosynthesis of the breast (s) were performed. CAD was performed. COMPARISON: 03/10/2023 FINDINGS: The breast composition is heterogeneously dense that can obscure small breast masses. Scattered benign calcifications are seen. No dense spiculated masses or suspicious microcalcifications are identified. No architectural distortion is identified. There is no skin thickening or retraction. There has been no significant change since the prior study. Retroglandular saline implant appears intact. BI/SCRN MAMM (CAD)W/DAVID BILAT IMPRESSION: No mammographic signs of malignancy. Routine yearly mammograms recommended. ASSESSMENT CATEGORY: BIRADS Category 1: Negative. A letter regarding these results will be sent to the patient by the facility within 30 days. FOLLOW UP RECOMMENDATION: Yearly follow up mammogram recommended. (A) Approximately 10% of breast cancers are not detected by mammography. A normal mammogram should not delay biopsy of a clinically suspicious abnormality. Electronically Signed: Soren Collado MD at 18:00 EST , CC: ZEESHAN Hirsch Wet Process Technician: Signed Normal [facility] Absolute lymphocyte countOrd ered By: Samantha Hirsch on 04-21-2023 Lymphocytes Auto (Unsp spec) [#/Vol] 1.61 10*3/uL 0.83-4.51 [facility] Automated lymphocyte count a s percentage of total leukocytesOrdered By: Samantha Hirsch on 04-21-2023 Lymphocytes/100 WBC Auto (Unsp spec) 23.5 % 19-41 [facility] Basophil percentageOrdered B y: Samantha Hirsch on 04-21-2023 Basophils/100 WBC (Bld) 1.3 % 0-1 [facility] Bilirubin [Mass/Vol] 0.40 mg/dL 0.20-1.00 [facility] Comment on above: For patients on eltr ombopag therapy, use of Dimension [place] TBIL is not recommended. Chloride [Moles/Vol] 111 mmol/L 98-107 [facility] Cholesterol [Mass/Vol] 195 mg/dL <200 [facility] Comment on above: <200 mg/dL Desirable 200-240 mg/dL Borderline >240 mg/dL High Risk Eosinophils/100 WBC (Bld) 6.4 % 0-5 [facility] Glucose [Mass/Vol] 100 mg/dL 74-106 [facility] Comment on above: Fasting Glucose resu lt from 100 to 125 mg/dL suggests IMPAIRED HOMEOSTASIS per A.D.A. criteria. Hemoglobin (Bld) [Mass/Vol] 15.5 g/dL 12.0-15.0 [facility] Monocytes/100 WBC (Bld) 7.6 % 0-10 [facility] Neutrophils (Bld) [#/Vol] 4.2 10*3/uL 2.0-7.7 [facility] Neutrophils/100 WBC (Bld) 60.8 % 47-70 [facility] Potassium [Moles/Vol] 4.1 mmol/L 3.5-5.1 [facility] Comment on above: Slight Hemolysis, Re sult may be falsely increased. Protein [Mass/Vol] 7.4 g/dL 6.4-8.2 [facility] Sodium [Moles/Vol] 139 mmol/L 136-145 [facility] Triglyceride [Mass/Vol] 288 mg/dL <199 [facility] Comment on above: The drugs N-Acetylcy steine and Metamizole may falsely depress this assay.Serum Triglycerides Reference Interval Normal <150 mg/dL Borderline high 150 - 199 mg/dL High 200 - 499 mg/dL Very High > or = 500 mg/dL WBC (Bld) [#/Vol] 6.8 10*3/uL 4.4-11.0 [facility] Determination of erythrocyte mean corpuscular volume (MCV)Ordered By: Samantha Hirsch on 04-21-2023 MCV (RBC) [Entitic vol] 92.8 fL 81-99 [facility] Erythrocyte distribution wid th ratioOrdered By: Samantha Hirsch on 04-21-2023 Erythrocyte distribution width (RBC) [Ratio] 13.2 % 11.6-14.6 [facility] Erythrocyte distribution wid th standard deviationOrdered By: Samantha Hirsch on 04-21-2023 Erythrocyte distribution width (RBC) [Entitic vol] 45.1 fL 35.1-43.9 [facility] Hematocrit Auto (Bld) [Volum e fraction]Ordered By: Samantha Hirsch on 04-21-2023 Hematocrit (Bld) [Volume fraction] 47.7 % 37-47 [facility] Immature granulocytes/100 WB C Auto (Bld)Ordered By: Samantha Hirsch on 04-21-2023 Immature granulocytes/100 WBC (Bld) 0.400 % 0.0-0.9 [facility] Comment on above: IG% - Immature Granu locytes (promyelocytes, myelocytes and metamyelocytes) > 1% indicates that a LEFT SHIFT is Present. Laboratory - Chemistry and C hemistry - challengeOrdered By: Samantha Hirsch on 04-21-2023 Albumin/Globulin [Mass ratio] 1.0 {ratio} 0.9-2.4 [facility] ALP [Catalytic activity/Vol] 69 U/L 45-117 [facility] ALT [Catalytic activity/Vol] 32 U/L 13-56 [facility] Cholesterol in HDL (Body fld) [Mass/Vol] 39 mg/dL >40 [facility] Comment on above: The drugs N-Acetylcy steine and Metamizole may falsely depress this assay. Reference Range HDL <40 mg/dL Low HDL Cholesterol HDL >or= 60 mg/dL High HDL Cholesterol Cholesterol in LDL (Body fld) [Moles/Vol] 98 mg/dL 0-130 [facility] Cholesterol in VLDL Calc [Moles/Vol] 58 mg/dL 5-40 [facility] CO2 [Moles/Vol] 21.0 mmol/L 21.0-32.0 [facility] Globulin (S) [Mass/Vol] 3.7 g/dL 2.2-4.2 [facility] Urea nitrogen/Creatinine [Mass ratio] 18.2 mg/mg 10-20 [facility] Laboratory - Hematology and Cell countsOrdered By: Samantha Hirsch on 04-21-2023 MCH (RBC) [Entitic mass] 30.2 pg 27.0-32.0 [facility] MCHC (RBC) [Mass/Vol] 32.5 g/dL 32-36 [facility] Nucleated RBC/100 WBC (Bld) [Ratio] 0 % 0-5 [facility] Platelets (Bld) [#/Vol] 266 10*3/uL 150-450 [facility] No Panel InformationOrdered By: Samantha Hirsch on 04-21-2023 Estimated GFR (MDRD) Amer 75 mL/min >60 [facility] Comment on above: GFR Calc Estimated GFR (MDRD) Non-Af Amer 62 mL/min >60 [facility] Comment on above: Non- GFR Calc Platelet mean volume Talha-Ec ker (Bld) [Entitic vol]Ordered By: Samantha Hirsch on 04-21-2023 Platelet mean volume (Bld) [Entitic vol] 9.8 fL 6.2-12.0 [facility] RBC Auto (Bld) [#/Vol]Ordere d By: Samantha Hirsch on 04-21-2023 RBC (Bld) [#/Vol] 5.14 10*6/uL 4.2-5.4 [facility] Serum or plasma calcium edmar urement (mass/volume)Ordered By: Samantha Hirsch on 04-21-2023 Calcium [Mass/Vol] 8.5 mg/dL 8.5-10.1 [facility] Serum or plasma creatinine m easurement (mass/volume)Ordered By: Samantha Hirsch on 04-21-2023 Creatinine [Mass/Vol] 0.99 mg/dL 0.55-1.02 [facility] Comment on above: The validity of the calculated GFR & GFRAA in patients over 70 years has not been determined. Clinical correlation is essential. Serum or plasma thyroid stim ulating hormone (TSH) measurement (units/volume)Ordered By: Samantha Hirsch on 04-21-2023 TSH Qn 2.25 uIU/mL 0.358-3.74 [facility] Serum or plasma urea nitroge n measurement (mass/volume)Ordered By: Samantha Hirsch on 04-21-2023 Urea nitrogen [Mass/Vol] 18 mg/dL 7-18 [facility] Thin prep Papanicolaou smear with manual screeningOrdered By: Samantha Hirsch on 04-21-2023 Thin prep Papanicolaou smear with manual screening 3.7 g/dL 3.2-5.0 [facility] Thin prep Papanicolaou smear with manual screening 22 U/L 15-37 [facility] Comment on above: Slight Hemolysis, Re sult may be falsely increased. Thin prep Papanicolaou smear with manual screening 7 5-15 [facility] Thin prep Papanicolaou smear with manual screening 14.1 mg/L NO RANGE EST. [facility] Blood Glucose , Office ([phone])Ordered By: Shruti Pettit on 08-28-2022 Glucose Glucometer (BldC) [Moles/Vol] 138 1 Normal [facility]; [facility] Work Phone: HgA1C , Office ([id number])Ordere d By: Shruti Pettit on 08-28-2022 HbA1c (Bld) [Mass fraction] 6.2 % Normal 4.6 - 7.1 [facility]; [facility] Work Phone: TSH (THYROID STIMULATING HOR JASPREET) ([id number])Ordered By: Vending Machine Attendant on 08-28-2022 TSH Qn 2.600 {uIU/mL} Normal 0.450-4.50 0 [facility]; [facility] Work Phone: Comment on above: PATIENT NOT FASTINGP ERFORMED BY: MOI Viktor Caor[address]Dublin [place] [id number] URINALYSIS ([id number])Ordered By : Vending Machine Attendant on 08-28-2022 Appearance (U) Clear Normal Comprehens souleymane [facility]; [facility] Work Phone: Comment on above: PATIENT NOT FASTINGP ERFORMED BY: MOI Labmegarp Gddhzz9[address]Dublin [place] [id number] Bilirubin Ql (U) Negative Normal Comprehe nsive Internal Medicine; [facility] Work Phone: Comment on above: PATIENT NOT FASTINGP ERFORMED BY: MOI Labmegahuan ParrishHgcdoc69[address]Dublin [place] [id number] Color (U) Yellow Normal [facility]; [facility] Work Phone: Comment on above: PATIENT NOT FASTINGP ERFORMED BY: MOI Lablast ParrishAdymag[address]Dublin [place] [id number] Glucose Ql (U) Negative Normal Comprehens souleymane [facility]; [facility] Work Phone: Comment on above: PATIENT NOT FASTINGP ERFORMED BY: MOI Labmegahuan ParrishEfpyvh5[address]Dublin [place] [id number] Hemoglobin Ql (U) Negative Normal Compreh ensive [facility]; [facility] Work Phone: Comment on above: PATIENT NOT FASTINGP ERFORMED BY: MOI Lablast ParrishAqkpnv89[address]Dublin [place] [id number] Ketones Ql (U) Negative Normal Comprehens souleymane [facility]; [facility] Work Phone: Comment on above: PATIENT NOT FASTINGP ERFORMED BY: MOI [facility] Zcrsxh0380 [address]Dublin [place] [id number] Leukocyte esterase Test strip Ql (U) Negative Normal [facility]; [facility] Work Phone: Comment on above: PATIENT NOT FASTINGP ERFORMED BY: MOI Lablast ParrishWmrupz46[address]Dublin [place] [id number] Microscopic observation LM Nom (Urine sed) MICNIP Normal [facility]; [facility] Work Phone: Comment on above: Microscopic not marci cated and not performed. PATIENT NOT FASTINGP ERFORMED BY: MOI [address] [facility] [id number] Nitrite Ql (U) Negative Normal Comprehens souleymane [facility]; [facility] Work Phone: Comment on above: PATIENT NOT FASTINGP ERFORMED BY: MOI Caro6370 [facility] [id number] pH (U) 6.0 [pH] Normal 5.0-7.5 [facility]; [facility] Work Phone: Comment on above: PATIENT NOT FASTINGP ERFORMED BY: MOI Caro6370 [facility] [id number] Protein Ql (U) Negative Normal Comprehens souleymane [facility]; [facility] Work Phone: Comment on above: PATIENT NOT FASTINGP ERFORMED BY: MIO Caro6370 [facility] [id number] Specific gravity (U) [Rel density] 1.007 1 Normal 1.005-1.03 0 [facility]; [facility] Work Phone: Comment on above: PATIENT NOT FASTINGP ERFORMED BY: MOI Caro6370 [facility] [id number] Urobilinogen (U) [Mass/Vol] 0.2 mg/dL Normal 0.2-1.0 [facility]; [facility] Work Phone: Comment on above: PATIENT NOT FASTINGP ERFORMED BY: MOI Morrisssm rehab Rylstv9307 [facility] [id number] Absolute lymphocyte counton 03-06-2022 Lymphocytes Auto (Unsp spec) [#/Vol] 1.62 10*3/uL 0.83-4.51 [facility] Work Phone: Basophil percentageon 2021 Basophils/100 WBC (Bld) 1.1 % 0-1 [facility] Work Phone: Bilirubin [Mass/Vol] 0.60 mg/dL 0.20-1.00 [facility] Work Phone: Comment on above: For patients on eltr ombopag therapy, use of Dimension [place] TBIL is not recommended. Chloride [Moles/Vol] 104 mmol/L 98-107 [facility] Work Phone: Cholesterol [Mass/Vol] 179 mg/dL <200 [facility] Work Phone: Comment on above: <200 mg/dL Desirable 200-240 mg/dL Borderline >240 mg/dL High Risk Eosinophils/100 WBC (Bld) 5.0 % 0-5 [facility] Work Phone: Glucose [Mass/Vol] 118 mg/dL 74-106 [facility] Work Phone: Comment on above: Fasting Glucose resu lt from 100 to 125 mg/dL suggests IMPAIRED HOMEOSTASIS per A.D.A. criteria. Neutrophils (Bld) [#/Vol] 4.5 10*3/uL 2.0-7.7 [facility] Work Phone: Neutrophils/100 WBC (Bld) 63.0 % 47-70 [facility] Work Phone: Potassium [Moles/Vol] 4.0 mmol/L 3.5-5.1 [facility] Work Phone: Protein [Mass/Vol] 7.6 g/dL 6.4-8.2 [facility] Work Phone: Sodium [Moles/Vol] 138 mmol/L 136-145 [facility] Work Phone: Triglyceride [Mass/Vol] 194 mg/dL <199 [facility] Work Phone: Comment on above: The drugs N-Acetylcy steine and Metamizole may falsely depress this assay.Serum Triglycerides Reference Interval Normal <150 mg/dL Borderline high 150 - 199 mg/dL High 200 - 499 mg/dL Very High > or = 500 mg/dL WBC (Bld) [#/Vol] 7.1 10*3/uL 4.4-11.0 [facility] Work Phone: Blood erythrocytes count (nu mber/volume)on 03-06-2022 RBC (Bld) [#/Vol] 5.25 10*6/uL 4.2-5.4 [facility] Work Phone: Blood hemoglobin measurement (mass/volume)on 03-06-2022 Hemoglobin (Bld) [Mass/Vol] 16.1 g/dL 12.0-15.0 [facility] Work Phone: Blood lymphocytes/100 leukoc yteson 03-06-2022 Lymphocytes/100 WBC (Bld) 22.9 % 19-41 [facility] Work Phone: Blood monocytes/100 leukocyt eson 03-06-2022 Monocytes/100 WBC (Bld) 7.4 % 0-10 [facility] Work Phone: Blood platelet mean volumeon 03-06-2022 Platelet mean volume (Bld) [Entitic vol] 9.5 fL 6.2-12.0 [facility] Work Phone: Determination of erythrocyte mean corpuscular volume (MCV)on 03-06-2022 MCV (RBC) [Entitic vol] 95.6 fL 81-99 [facility] Work Phone: Hematocrit Auto (Bld) [Volum e fraction]on 03-06-2022 Hematocrit (Bld) [Volume fraction] 50.2 % 37-47 [facility] Work Phone: Laboratory - Chemistry and C hemistry - challengeon 03-06-2022 ALP [Catalytic activity/Vol] 55 U/L 45-117 [facility] Work Phone: ALT [Catalytic activity/Vol] 40 U/L 13-56 [facility] Work Phone: CO2 [Moles/Vol] 29.0 mmol/L 21.0-32.0 [facility] Work Phone: Globulin (S) [Mass/Vol] 3.7 g/dL 2.2-4.2 [facility] Work Phone: Urea nitrogen/Creatinine [Mass ratio] 11.3 mg/mg 10-20 [facility] Work Phone: Laboratory - Hematology and Cell countson 03-06-2022 Erythrocyte distribution width (RBC) [Entitic vol] 47.6 fL 35.1-43.9 [facility] Work Phone: Erythrocyte distribution width (RBC) [Ratio] 13.5 % 11.6-14.6 [facility] Work Phone: Immature granulocytes/100 WBC (Bld) 0.600 % 0.0-0.9 [facility] Work Phone: Comment on above: IG% - Immature Granu locytes (promyelocytes, myelocytes and metamyelocytes) > 1% indicates that a LEFT SHIFT is Present. MCH (RBC) [Entitic mass] 30.7 pg 27.0-32.0 [facility] Work Phone: Nucleated RBC/100 WBC (Bld) [Ratio] 0 % 0-5 [facility] Work Phone: MCHC Auto (RBC) [Mass/Vol]on 03-06-2022 MCHC (RBC) [Mass/Vol] 32.1 g/dL 32-36 [facility] Work Phone: No Panel Informationon 03-06 Estimated GFR (MDRD) Amer 77 mL/min >60 [facility] Work Phone: Comment on above: GFR Calc Estimated GFR (MDRD) Non-Af Amer 64 mL/min >60 [facility] Work Phone: Comment on above: Non- GFR Calc Platelets bldon 03-06-2022 Platelets (Bld) [#/Vol] 239 10*3/uL 150-450 [facility] Work Phone: Serum or plasma albumin edmar urement (mass/volume)on 03-06-2022 Albumin [Mass/Vol] 3.9 g/dL 3.2-5.0 [facility] Work Phone: Serum or plasma albumin/glob ulin mass ratioon 03-06-2022 Albumin/Globulin [Mass ratio] 1.1 {ratio} 0.9-2.4 [facility] Work Phone: Serum or plasma calcium edmar urement (mass/volume)on 03-06-2022 Calcium [Mass/Vol] 8.9 mg/dL 8.5-10.1 [facility] Work Phone: Serum or plasma cholesterol in HDL measurement (mass/volume)on 03-06-2022 Cholesterol in HDL [Mass/Vol] 55 mg/dL >40 [facility] Work Phone: Comment on above: The drugs N-Acetylcy steine and Metamizole may falsely depress this assay. Reference Range HDL <40 mg/dL Low HDL Cholesterol HDL >or= 60 mg/dL High HDL Cholesterol Serum or plasma cholesterol in VLDL measurement (mass/volume)on 03-06-2022 Cholesterol in VLDL [Mass/Vol] 39 mg/dL 5-40 [facility] Work Phone: Serum or plasma creatinine m easurement (mass/volume)on 03-06-2022 Creatinine [Mass/Vol] 0.98 mg/dL 0.55-1.02 [facility] Work Phone: Comment on above: The validity of the calculated GFR & GFRAA in patients over 70 years has not been determined. Clinical correlation is essential. Serum or plasma low density lipoprotein (LDL) cholesterol measurement (mass/volume)on 03-06-2022 Cholesterol in LDL [Mass/Vol] 85 mg/dL 0-130 [facility] Work Phone: Serum or plasma urea nitroge n measurement (mass/volume)on 03-06-2022 Urea nitrogen [Mass/Vol] 11 mg/dL 7-18 [facility] Work Phone: Thin prep Papanicolaou smear with manual screeningon 03-06-2022 Thin prep Papanicolaou smear with manual screening 21 U/L 15-37 [facility] Work Phone: Thin prep Papanicolaou smear with manual screening [address] [facility] Work Phone: Whole blood hemoglobin A1c/t otal hemoglobin ratio (mass fraction)on 03-06-2022 HbA1c (Bld) [Mass fraction] 6.1 % 3.8-5.6 [facility] Work Phone: Comment on above: Normal < 5.7 % Predi abetic 5.7 - 6.4 % Diabetic >or= 6.5 % Please note range changes. CALCIFEDIOL ([id number])Ordered B y: Vending Machine Attendant on 04-22-2021 25-hydroxyvitamin D [Mass/Vol] 63.1 ng/mL Normal 30.0-100.0 [facility]; [facility] Work Phone: Comment on above: Vitamin D deficiency has been defined by the [place] [employer] and an Endocrine Society practice guideline as alevel of serum 25-OH vitamin D less than 20 ng/mL (1,2).The Endocrine Society went on to further define vitamin Dinsufficiency as a level between 21 and 29 ng/mL (2).1. IOM ([place] [employer]). 2010. Dietary reference intakes for calcium and D. [place]: The National Academies Press.2. Alexandra MF, Oumou NC, Nury SARABIA, et al. Evaluation, treatment, and prevention of vitamin D deficiency: an Endocrine Society clinical practice guideline. JCEM. 2010; 96(7):1911-30. PATIENT NOT FASTINGP ERFORMED BY: [employer] [place] [id number] CBC & PLATELETS (AUTO) ([id number] [id number])Ordered By: Vending Machine Attendant on 12-25-2020 Erythrocyte distribution width (RBC) [Ratio] 13.2 % Normal 11.7-15.4 [facility]; [facility] Work Phone: Comment on above: PATIENT WAS FASTINGP ERFORMED BY: [employer] [place] [id number] Hematocrit (Bld) [Volume fraction] 51.4 % Abnormal 34.0-46.6 [facility]; [facility] Work Phone: Comment on above: PATIENT WAS FASTINGP ERFORMED BY: CB [facility] Yqrofx79[address]Dublin [place] [id number] Hemoglobin (Bld) [Mass/Vol] 17.5 g/dL Abnormal 11.1-15.9 [facility]; [facility] Work Phone: Comment on above: PATIENT WAS FASTINGP ERFORMED BY: CB [facility] Paluem7[address]Dublin [place] [id number] MCH (RBC) [Entitic mass] 33.1 pg Abnormal 26.6-33.0 [facility]; [facility] Work Phone: Comment on above: PATIENT WAS FASTINGP ERFORMED BY: CB [facility] Qmsnox8[address]Dublin [place] [id number] MCHC (RBC) [Mass/Vol] 34.0 g/dL Normal 31.5-35.7 [facility]; [facility] Work Phone: Comment on above: PATIENT WAS FASTINGP ERFORMED BY: CB [facility] Ngphss7889 [address] RoadDublin [place] [id number] MCV (RBC) [Entitic vol] 97 fL Normal 79-97 [facility]; [facility] Work Phone: Comment on above: PATIENT WAS FASTINGP ERFORMED BY: CB [facility] Gmxcgt2849 [address] RoadDublin [place] [id number] Platelets (Bld) [#/Vol] 227 10*3/uL Normal 150-450 [facility]; [facility] Work Phone: Comment on above: PATIENT WAS FASTINGP ERFORMED BY: CB [facility] Yzeieu2252 [address]Dublin [place] [id number] RBC (Bld) [#/Vol] 5.29 10*6/uL Abnormal 3.77-5.28 [facility]; [facility] Work Phone: Comment on above: PATIENT WAS FASTINGP ERFORMED BY: CB [facility] Hteemw8778 [address]Dublin [place] [id number] WBC (Bld) [#/Vol] 8.3 10*3/uL Normal 3.4-10.8 [facility]; [facility] Work Phone: Comment on above: PATIENT WAS FASTINGP ERFORMED BY: MOI LabCohuan ParrishAfagec[address] [facility] [place] [id number] HGB A1C (19952)Ordered By: S ystem Designer Architect on 12-25-2020 HbA1c (Bld) [Mass fraction] 6.4 % Abnormal 4.8-5.6 [facility]; [facility] Work Phone: Comment on above: . Prediabetes: 5.7 - 6.4 Diabetes: >6.4 Glycemic control for adults with diabetes: <7.0 PATIENT WAS FASTINGP ERFORMED BY: MOI LabLast ParrishUjzkad6002 [facility] [id number] LIPID PANEL ([id number])Ordered B y: Vending Machine Attendant on 12-25-2020 Cholesterol [Mass/Vol] 219 mg/dL Abnormal 100-199 [facility]; [facility] Work Phone: Comment on above: PATIENT WAS FASTINGP ERFORMED BY: MOI LabLast ParrishXkolvs3855 [facility] [place] [id number] Cholesterol in HDL [Mass/Vol] 43 mg/dL Normal [facility]; [facility] Work Phone: Comment on above: PATIENT WAS FASTINGP ERFORMED BY: MOI LabCohuan Neloog2496 [facility] [place] [id number] Triglyceride [Mass/Vol] 241 mg/dL Abnormal 0-149 [facility]; [facility] Work Phone: Comment on above: PATIENT WAS FASTINGP ERFORMED BY: MOI [facility] Puuegd[address] [facility] [place] [id number] LIPID PANEL ([id number]) 43 mg/dL Abnormal 5-40 Compr ensive [facility]; [facility] Work Phone: Comment on above: PATIENT WAS FASTINGP ERFORMED BY: MOI [facility] Mtyeyq[address] [facility] [place] [id number] LIPID PANEL (11142) 133 mg/dL Abnormal 0-99 Compr ens[facility]; [facility] Work Phone: Comment on above: PATIENT WAS FASTINGP ERFORMED BY: MOI [facility] Qigojl8561 [address]Dublin [place] [id number] LIPID PANEL (27862) 3.1 {ratio} Normal 0.0-3.2 [facility]; [facility] Work Phone: Comment on above: LDL/HDL Ratio Men Wo men 1/2 Avg.Risk 1.0 1.5 Avg.Risk 3.6 3.2 2X Avg.Risk 6.2 5.0 3X Avg.Risk 8.0 6.1 PATIENT WAS FASTINGP ERFORMED BY: MOI [facility] Gyfisb2887 [address]Dublin [place] [id number] Metabolic Panel, Comprehensi ve (52990)Ordered By: Vending Machine Attendant on 12-25-2020 Albumin [Mass/Vol] 4.7 g/dL Normal 3.8-4.8 [facility]; [facility] Work Phone: Comment on above: PATIENT WAS FASTINGP ERFORMED BY: MOI [facility] Ozxkvm9870 [address]Dublin [place] [id number] Albumin/Globulin [Mass ratio] 1.8 {ratio} Normal 1.2-2.2 [facility]; [facility] Work Phone: Comment on above: PATIENT WAS FASTINGP ERFORMED BY: MOI [facility] Imikrn7021 [address]Dublin [place] [id number] ALP [Catalytic activity/Vol] 64 U/L Normal 44-121 [facility]; [facility] Work Phone: Comment on above: Please note refere nce interval change PATIENT WAS FASTINGP ERFORMED BY: MOI [facility] Mhydyy3711 [address]Dublin [place] [id number] ALT [Catalytic activity/Vol] 35 U/L Abnormal 0-32 [facility]; [facility] Work Phone: Comment on above: PATIENT WAS FASTINGP ERFORMED BY: MOI [facility] Jqvfcn5501 [address] RoadDublin [place] [id number] AST [Catalytic activity/Vol] 21 U/L Normal 0-40 [facility]; [facility] Work Phone: Comment on above: PATIENT WAS FASTINGP ERFORMED BY: MOI Teri Jnpskg8461 [address]blin [place] [id number] Bilirubin [Mass/Vol] 0.5 mg/dL Normal 0.0-1.2 [facility] rehensive Internal Medicine; [facility] Work Phone: Comment on above: PATIENT WAS FASTINGP ERFORMED BY: MOI Teri Ryehvv4971 [address] RoadBeckemeyer [place] [id number] Calcium [Mass/Vol] 9.6 mg/dL Normal 8.7-10.2 [facility]; [facility] Work Phone: Comment on above: PATIENT WAS FASTINGP ERFORMED BY: MOI [facility]andraPhelps Health Qldoyj9[address] RoadBeckemeyer [place] [id number] Chloride [Moles/Vol] 101 mmol/L Normal 96-106 [facility]; [facility] Work Phone: Comment on above: PATIENT WAS FASTINGP ERFORMED BY: MOI AlexandraPhelps Health Kinwie[address] [facility]in [place] [id number] CO2 [Moles/Vol] 24 mmol/L Normal 20-29 [facility]; [facility] Work Phone: Comment on above: PATIENT WAS FASTINGP ERFORMED BY: AlexandraPhelps Health Honguw9497 [facility] [id number] Creatinine [Mass/Vol] 0.88 mg/dL Normal 0.57-1.00 [facility]; [facility] Work Phone: Comment on above: PATIENT WAS FASTINGP ERFORMED BY: MOI AlexandraPhelps Health Ifinbc6068 [facility] [id number] GFR/1.73 sq M.predicted among blacks CKD-EPI (S/P/Bld) [Vol rate/Area] 89 mL/min/1.73 Normal [facility]; [facility] Work Phone: Comment on above: [facility] currently reports eGFR in compliance with the current recommendations of the National Kidney Foundation. [facility] will update reporting as new guidelines are published from the NKF-ASN Task force. PATIENT WAS FASTINGP ERFORMED BY: [facility] Fdudqd8215 [facility] [id number] GFR/1.73 sq M.predicted among non-blacks CKD-EPI (S/P/Bld) [Vol rate/Area] 77 mL/min/1.73 Normal [facility]; [facility] Work Phone: Comment on above: PATIENT WAS FASTINGP ERFORMED BY: [facility]6370 [facility] [id number] Globulin (S) [Mass/Vol] 2.6 g/dL Normal 1.5-4.5 [facility]; [facility] Work Phone: Comment on above: PATIENT WAS FASTINGP ERFORMED BY: [facility]6370 [facility] [id number] Glucose [Mass/Vol] 117 mg/dL Abnormal 65-99 [facility]; [facility] Work Phone: Comment on above: PATIENT WAS FASTINGP ERFORMED BY: [facility]6370 [facility] [id number] Potassium [Moles/Vol] 4.6 mmol/L Normal 3.5-5.2 [facility] prehensive Internal Medicine; [facility] Work Phone: Comment on above: PATIENT WAS FASTINGP ERFORMED BY: [facility]6370 [facility] [id number] Protein [Mass/Vol] 7.3 g/dL Normal 6.0-8.5 [facility]; [facility] Work Phone: Comment on above: PATIENT WAS FASTINGP ERFORMED BY: [facility]6370 [facility] [id number] Sodium [Moles/Vol] 141 mmol/L Normal 134-144 [facility]; [facility] Work Phone: Comment on above: PATIENT WAS FASTINGP ERFORMED BY: [facility] Fsvkar[address] [facility] [place] [id number] Urea nitrogen [Mass/Vol] 12 mg/dL Normal 6-24 [facility]; [facility] Work Phone: Comment on above: PATIENT WAS FASTINGP ERFORMED BY: [facility] Rhsadg3923 [facility] [id number] Urea nitrogen/Creatinine [Mass ratio] 14 mg/mg Normal 9-23 [facility]; [facility] Work Phone: Comment on above: PATIENT WAS FASTINGP ERFORMED BY: [facility] Hoawbs[address] [facility] [id number] TSH ([id number])Ordered By: Brightpearle m Designer Architect on 12-25-2020 TSH Qn 2.240 {uIU/mL} Normal 0.450-4.50 0 [facility]; [facility] Work Phone: Comment on above: PATIENT WAS FASTINGP ERFORMED BY: [facility] Njdmmy[address] [facility] [facility] [id number] 2019 Novel Coronavirus (COVI D-19), HOLLI ([id number])Ordered By: Vending Machine Attendant on 03-19-2020 2019 Novel Coronavirus (COVID-19), HOLLI ([id number]) Not Detected Normal [facility]; [facility] Work Phone: Comment on above: This nucleic acid am plification test was developed and its performancecharacteristics determined by [facility]. Nucleic acidamplification tests include PCR and TMA. This test has not been FDAcleared or approved. This test has been authorized by FDA under anEmergency Use Authorization (EUA). This test is only authorized forthe duration of time the declaration that circumstances existjustifying the authorization of the emergency use of in vitrodiagnostic tests for detection of SARS-CoV-2 virus and/or diagnosisof COVID-19 infection under section 564(b)(1) of the Act, 21 U.S.C.360bbb-3(b) (1), unless the authorization is terminated or revokedsooner.When diagnostic testing is negative, the possibility of a falsenegative result should be considered in the context of a patient'srecent exposures and the presence of clinical signs and symptomsconsistent with COVID-19. An individual without symptoms of COVID-19and who is not shedding SARS-CoV-2 virus would expect to have anegative (not detected) result in this assay. PATIENT NOT FASTINGP ERFORMED BY: [facility] SystemsP[facility] Tpyrel0696 [facility] [id number] 2018 Novel Coronavirus (COVID-19), HOLLI ([id number]) Not detected Normal [facility]; [facility] Work Phone: Comment on above: This nucleic acid am plification test was developed and its performancecharacteristics determined by [facility]. Nucleic acidamplification tests include PCR and TMA. This test has not been FDAcleared or approved. This test has been authorized by FDA under anEmergency Use Authorization (EUA). This test is only authorized forthe duration of time the declaration that circumstances existjustifying the authorization of the emergency use of in vitrodiagnostic tests for detection of SARS-CoV-2 virus and/or diagnosisof COVID-19 infection under section 564(b)(1) of the Act, 21 U.S.C.360bbb-3(b) (1), unless the authorization is terminated or revokedsooner.When diagnostic testing is negative, the possibility of a falsenegative result should be considered in the context of a patient'srecent exposures and the presence of clinical signs and symptomsconsistent with COVID-19. An individual without symptoms of COVID-19and who is not shedding SARS-CoV-2 virus would expect to have anegative (not detected) result in this assay. PATIENT NOT FASTINGP ERFORMED BY: [employer] [id number] [facility] [id number] CORONAVIRUS(COVID-19)SARS-Co V-2 IgGon 10-07-2019 COVID-19 SARS-COV-2 IGG Negative Normal Negative [facility] Comment on above: Result Comment: . Negative results do not rule out SARS-CoV-2 (COVID-19) infection, particularly in those who have been in contact with the virus. Follow-up testing with a molecular diagnostic test should be considered to rule out acute infection in these individuals with current or recent symptoms (<14days). Results from antibody testing should not be used as the sole basis to diagnose or exclude SARS-CoV-2 infection or to inform infection status. . This test is for in vitro diagnostic use under the FDA Emergency Use Authorization (EUA) for US laboratories certified under CLIA to perform moderate or high complexity tests. This test has not been FDA cleared or approved. This test should not be used for screening of donated blood. Performed By: #### C OVGG #### [facility] [address] [place], [place] [id number] CORONAVIRUS(COVID-19)SARS-Co V-2 IgGon 10-06-2019 Lab Specimen Source Normal [facility] Comment on above: Performed By: #### C OVGG #### [facility] [address] [place], [place] [id number] (821 05)Ordered By: Vending Machine Attendant on 08-22-2018 AFP.tumor marker mass conc 1.9 ng/mL Normal 0.0-8.3 [facility] Work Phone: Comment on above: [facility] El ectrochemiluminescence Immunoassay (ECLIA) .Values obtained with different assay methods or kits cannot beused interchangeably. Results cannot be interpreted as absoluteevidence of the presence or absence of malignant disease. .This test is not interpretable in females. PATIENT NOT FASTINGP ERFORMED BY: MOI SmartExposee70 [facility] InnovationsAt[facility] [id number] HEPATITIS PANEL ([id number])Order ed By: Vending Machine Attendant on 08-22-2018 HAV IgM IA Ql Negative Normal Comprehensi ve Internal Medicine Work Phone: Comment on above: PATIENT NOT FASTINGP ERFORMED BY: [employer]70 ReferStarFormerly [facility] [id number] HAV IgM IA Ql Negative Normal Comprehensi ve Internal Medicine; [facility] Work Phone: Comment on above: PATIENT NOT FASTINGP ERFORMED BY: CodeMonkey StudiosAtrium Health Pine[facility] [id number] HBV core IgM IA Ql Negative Normal Compre [facility] Internal [facility] Work Phone: Comment on above: PATIENT NOT FASTINGP ERFORMED BY: MOI Parrishlin6370 [facility] [id number] HBV core IgM IA Ql Negative Normal Compre hensive [facility] Medicine; [facility] Work Phone: Comment on above: PATIENT NOT FASTINGP ERFORMED BY: Alexandra[address] [id number] HBV surface Ag IA Ql Negative Normal Comp rehensive Internal Medicine Work Phone: Comment on above: PATIENT NOT FASTINGP ERFORMED BY: Alexandra[address] [id number] HBV surface Ag IA Ql Negative Normal Comp rehensive Internal Medicine; [facility] Work Phone: Comment on above: PATIENT NOT FASTINGP ERFORMED BY: [address] [id number] HCV Ab Signal/Cutoff IA [Rel units/Vol] {ratio} Normal 0.0-0.9 [facility]; [facility] Work Phone: Comment on above: Negative: < 0.8 Inde terminate: 0.8 - 0.9 Positive: > 0.9 . The CDC recommends that a positive HCV antibody result be followed up with a HCV Nucleic Acid Amplification test (295521). PATIENT NOT FASTINGP ERFORMED BY: [facility]6370 [facility] [id number] HCV Ab Signal/Cutoff IA RelACnc {ratio} Normal 0.0-0.9 [facility] Work Phone: Comment on above: Negative: < 0.8 Inde terminate: 0.8 - 0.9 Positive: > 0.9 . The CDC recommends that a positive HCV antibody result be followed up with a HCV Nucleic Acid Amplification test (183094). PATIENT NOT FASTINGP ERFORMED BY: [place] [id number] [facility] [id number] HPV, Reflex ([id number])Ordered B y: Vending Machine Attendant on 08-22-2018 Microscopic observation Other stain Nom (Unsp spec) . Normal Comprehens souleymane Internal Medicine Work Phone: Comment on above: Source.............C ervix;EndocervixNo. of containers..01 ThinPrep VialPATIENT NOT FASTINGPERFORMED BY: Dada73 Tucker StreetPrehash LtdPaoli Hospital [id number] Information: [id number] Pathology report final diagnosis Narrative SPRCS Normal [facility] Work Phone: Comment on above: NEGATIVE FOR INTRAEP ITHELIAL LESION OR MALIGNANCY.CELLULAR CHANGES ASSOCIATED WITH INFLAMMATION ARE PRESENT.THIS SPECIMEN WAS RESCREENED PART OF OUR [employer]OT[employer]ER PROGRAM.Satisfactory for evaluation. Endocervical and/or squamous metaplasticcells (endocervical component) are present.Z01.411Cyanna Parker, Supervisor Composing Room (ASCP)Gricelda Pete, Supervisory Supervisor Composing Room (ASCP) Source.............C ervix;EndocervixNo. of containers..01 ThinPrep VialPATIENT NOT FASTINGPERFORMED BY: F[employer]Authority [facility] Centeri-NalysisLakeview Hospital [id number] Information: [id number] HPV, Reflex ([id number]) PAPSMR Normal Compr [facility]hlake[facility] Internal Medicine Work Phone: Comment on above: The Pap smear is a s creening test designed to aid in the detection ofpremalignant and malignant conditions of the uterine cervix. It is not adiagnostic procedure and should not be used as the sole means of detectingcervical cancer. Both false-positive and false-negative reports do occur. .The HPV DNA reflex criteria were not met with this specimen resulttherefore, no HPV testing was performed. . Source.............C ervix;EndocervixNo. of containers..01 ThinPrep VialPATIENT NOT FASTINGPERFORMED BY: [employer] [facility] CenterPrehash LtdPaoli Hospital [id number] Information: [id number] Urinalysis, Office (92176)Or dered By: Albertina Ga on 07-04-2018 Bilirubin Ql (U) Negative Normal Comprehe nsive Internal Medicine Work Phone: Bilirubin Ql (U) Negative Normal Comprehe nsive [facility] Medicine; [facility] Work Phone: Glucose Test strip (U) [Mass/Vol] Negative Normal [facility]; [facility] Work Phone: Glucose Test strip mass conc (U) Negative Normal [facility] Work Phone: Hemoglobin Ql (U) Negative Normal Compreh ensive Internal Medicine Work Phone: Hemoglobin Ql (U) Negative Normal Compreh ensive [facility] Medicine; [facility] Work Phone: Ketones Ql (U) Negative Normal Comprehens souleymane Internal Medicine Work Phone: Ketones Ql (U) Negative Normal Comprehens souleymane [facility] Medicine; [facility] Work Phone: Leukocyte esterase Test strip Ql (U) Negative Normal [facility] Work Phone: Leukocyte esterase Test strip Ql (U) Negative Normal [facility]; [facility] Work Phone: Nitrite Ql (U) Negative Normal Comprehens souleymane Internal Medicine Work Phone: Nitrite Ql (U) Negative Normal Comprehens souleymane [facility] Medicine; [facility] Work Phone: pH (U) 6 [pH] Abnormal [facility] Work Phone: Protein Ql (U) Negative Normal Comprehens souleymane Internal Medicine Work Phone: Protein Ql (U) Negative Normal Comprehens souleymane [facility] Medicine; [facility] Work Phone: Specific gravity Relative Density (U) 1.010 1 Normal Comprehensi ve Internal Medicine Work Phone: Urobilinogen mass/time (24H U) Normal Normal [facility] Work Phone: Blood Glucose , Office (4600 2)Ordered By: Shruti Pettit on 06-23-2017 Glucose Glucometer molar conc (dC) 133 1 Normal [facility] Work Phone: Comment on above: had breakfast CBC, Platelets & Auto Diff ( 78863)on 06-23-2017 Basophils #/vol (Bld) 0.1 {x10E3/uL} Normal 0.0-0.2 [facility] Work Phone: Comment on above: PATIENT NOT FASTINGP ERFORMED BY: LabDrimkiPatricia [place] [id number] [facility] [id number] Basophils Auto #/vol (Bld) 0.1 {x10E3/uL} Normal 0.0-0.2 [facility] Work Phone: Basophils/100 WBC (Bld) 1 % Normal [facility] Work Phone: Comment on above: PATIENT NOT FASTINGP ERFORMED BY: FilesXPatricia [place] [id number] [facility] [id number] Basophils/100 WBC Auto (Bld) 1 % Normal [facility] Work Phone: Eosinophils #/vol (Bld) 0.3 {x10E3/uL} Normal 0.0-0.4 [facility] Work Phone: Comment on above: PATIENT NOT FASTINGP ERFORMED BY: [employer] Klqpfl5750 [facility] [id number] Eosinophils Auto #/vol (Bld) 0.3 {x10E3/uL} Normal 0.0-0.4 [facility] Work Phone: Eosinophils/100 WBC (Bld) 3 % Normal [facility] Work Phone: Comment on above: PATIENT NOT FASTINGP ERFORMED BY: FilesXPatricia [place] [id number] [facility] [id number] Eosinophils/100 WBC Auto (Bld) 3 % Normal [facility] Work Phone: Erythrocyte distribution width Auto Ratio (RBC) 15.7 % Abnormal 12.3-15.4 [facility] Work Phone: Erythrocyte distribution width Ratio (RBC) 15.7 % Abnormal 12.3-15.4 [facility] Work Phone: Comment on above: PATIENT NOT FASTINGP ERFORMED BY: MOI [facility] Ypuogt7001 [address] [facility] [place] [id number] Hematocrit Auto Volume Fraction (Bld) 45.3 % Normal 34.0-46.6 Comprehens souleymane Internal Medicine Work Phone: Hematocrit Volume Fraction (Bld) 45.3 % Normal 34.0-46.6 [facility] Work Phone: Comment on above: PATIENT NOT FASTINGP ERFORMED BY: MOI [facility] Jdsbpm4790 [address] RoadCone Health Annie Penn Hospitalin [place] [id number] Hemoglobin mass conc (Bld) 14.5 g/dL Normal 11.1-15.9 [facility] Work Phone: Comment on above: PATIENT NOT FASTINGP ERFORMED BY: MOI [facility] Oenetx6284 [address] [facility]in [place] [id number] Immature granulocytes #/vol (Bld) 0.0 {x10E3/uL} Normal 0.0-0.1 [facility] Work Phone: Comment on above: PATIENT NOT FASTINGP ERFORMED BY: MOI [facility] Cxpodb5957 [address] [facility]in [place] [id number] Immature granulocytes/100 WBC (Bld) 0 % Normal [facility] Work Phone: Comment on above: PATIENT NOT FASTINGP ERFORMED BY: MOI [facility] Lgfgjv5340 [address] [facility]in [place] [id number] Lymphocytes #/vol (Bld) 1.7 {x10E3/uL} Normal 0.7-3.1 [facility] Work Phone: Comment on above: PATIENT NOT FASTINGP ERFORMED BY: CB [facility] Lqxask5126 [address] [facility] [place] [id number] Lymphocytes Auto #/vol (Bld) 1.7 {x10E3/uL} Normal 0.7-3.1 [facility] Work Phone: Lymphocytes/100 WBC (Bld) 17 % Normal [facility] Work Phone: Comment on above: PATIENT NOT FASTINGP ERFORMED BY: MOI [facility] Admukv6117 [facility] [id number] Lymphocytes/100 WBC Auto (Bld) 17 % Normal [facility] Work Phone: MCH Auto Entitic mass (RBC) 26.8 pg Normal 26.6-33.0 [facility] Work Phone: MCH Entitic mass (RBC) 26.8 pg Normal 26.6-33.0 [facility] Work Phone: Comment on above: PATIENT NOT FASTINGP ERFORMED BY: MOI LabMymichigan [facility] Gladwin6370 [facility] [id number] MCHC Auto mass conc (RBC) 32.0 g/dL Normal 31.5-35.7 [facility] Work Phone: MCHC mass conc (RBC) 32.0 g/dL Normal 31.5-35.7 Comp rehensive Internal Medicine Work Phone: Comment on above: PATIENT NOT FASTINGP ERFORMED BY: MOI LabMymichigan Medical [facility] Gladwin6370 [facility] [id number] MCV Auto Entitic volume (RBC) 84 fL Normal 79-97 [facility] Work Phone: MCV Entitic volume (RBC) 84 fL Normal 79-97 [facility] Work Phone: Comment on above: PATIENT NOT FASTINGP ERFORMED BY: MOI LabCoCarrier ClinicXtwbsd5490 [facility] [id number] Monocytes #/vol (Bld) 0.6 {x10E3/uL} Normal 0.1-0.9 [facility] Work Phone: Comment on above: PATIENT NOT FASTINGP ERFORMED BY: LabCoCarrier ClinicUrzqwb5121 [facility] [id number] Monocytes Auto #/vol (Bld) 0.6 {x10E3/uL} Normal 0.1-0.9 [facility] Work Phone: Monocytes/100 WBC (Bld) 6 % Normal [facility] Work Phone: Comment on above: PATIENT NOT FASTINGP ERFORMED BY: LabPhelps Health Iqnbmq9593 [facility] [id number] Monocytes/100 WBC Auto (Bld) 6 % Normal [facility] Work Phone: Neutrophils #/vol (Bld) 7.1 {x10E3/uL} Abnormal 1.4-7.0 [facility] Work Phone: Comment on above: PATIENT NOT FASTINGP ERFORMED BY: LabKatherine Ville [id number] [facility] [id number] Neutrophils Auto #/vol (Bld) 7.1 {x10E3/uL} Abnormal 1.4-7.0 [facility] Work Phone: Neutrophils/100 WBC (Bld) 73 % Normal [facility] Work Phone: Comment on above: PATIENT NOT FASTINGP ERFORMED BY: [place] [id number] [facility] [id number] Neutrophils/100 WBC Auto (Bld) 73 % Normal [facility] Work Phone: Platelets #/vol (Bld) 267 {x10E3/uL} Normal 150-379 [facility] Work Phone: Comment on above: PATIENT NOT FASTINGP ERFORMED BY: LabMymichigan Medical Center Gladwin6370 [facility] [id number] Platelets Auto #/vol (Bld) 267 {x10E3/uL} Normal 150-379 [facility] Work Phone: RBC #/vol (Bld) 5.41 {x10E6/uL} Abnormal 3.77-5.28 Comp rehensive Internal Medicine Work Phone: Comment on above: PATIENT NOT FASTINGP ERFORMED BY: LabMymichigan Medical Center Gladwin6370 [facility] [id number] RBC Auto #/vol (Bld) 5.41 {x10E6/uL} Abnormal 3.77-5.28 [facility] Work Phone: WBC #/vol (Bld) 9.7 {x10E3/uL} Normal 3.4-10.8 [facility] Internal Medicine Work Phone: Comment on above: PATIENT NOT FASTINGP ERFORMED BY: MOI LabCohuan CaroJldvcz0378 [facility] [id number] WBC Auto #/vol (Bld) 9.7 {x10E3/uL} Normal 3.4-10.8 [facility] Internal Medicine Work Phone: CBC, Platelets & Auto Diff ( [id number])Ordered By: Vending Machine Attendant on 06-23-2017 Basophils (Bld) [#/Vol] 0.1 10*3/uL Normal 0.0-0.2 [facility] Internal [facility]; [facility] Work Phone: Comment on above: PATIENT NOT FASTINGP ERFORMED BY: MOI [facility]Co Wcxeyn8584 [facility] [id number] Eosinophils (Bld) [#/Vol] 0.3 10*3/uL Normal 0.0-0.4 [facility] Internal [facility]; [facility] Work Phone: Comment on above: PATIENT NOT FASTINGP ERFORMED BY: CB [facility] Tzvdpj6386 [facility] [id number] Immature granulocytes (Bld) [#/Vol] 0.0 10*3/uL Normal 0.0-0.1 [facility]; [facility] Work Phone: Comment on above: PATIENT NOT FASTINGP ERFORMED BY: CB [facility] Rhfalt2590 [facility] [id number] Lymphocytes (Bld) [#/Vol] 1.7 10*3/uL Normal 0.7-3.1 [facility]; [facility] Work Phone: Comment on above: PATIENT NOT FASTINGP ERFORMED BY: CB LabCo Qrxaxe9628 [facility] [id number] Monocytes (Bld) [#/Vol] 0.6 10*3/uL Normal 0.1-0.9 [facility]; [facility] Internal [facility] Work Phone: Comment on above: PATIENT NOT FASTINGP ERFORMED BY: LabPhelps Health Giewqf8139 [address] RoadDublin [place] [id number] Neutrophils (Bld) [#/Vol] 7.1 10*3/uL Abnormal 1.4-7.0 [facility]; [facility] Work Phone: Comment on above: PATIENT NOT FASTINGP ERFORMED BY: LabMymichigan Medical Center Gladwin6370 [address] RoadDublin [place] [id number] Platelets (Bld) [#/Vol] 267 10*3/uL Normal 150-379 [facility]; [facility] Work Phone: Comment on above: PATIENT NOT FASTINGP ERFORMED BY: LabMymichigan Medical Center Gladwin6[address] [facility] [place] [id number] RBC (Bld) [#/Vol] 5.41 10*6/uL Abnormal 3.77-5.28 [facility] Internal [facility]; [facility] Work Phone: Comment on above: PATIENT NOT FASTINGP ERFORMED BY: [facility]6370 [facility] [place] [id number] WBC (Bld) [#/Vol] 9.7 10*3/uL Normal 3.4-10.8 [facility] Internal Medicine; [facility] Internal Medicine Work Phone: Comment on above: PATIENT NOT FASTINGP ERFORMED BY: [facility]6370 [facility]in [place] [id number] HPV, Reflex ([id number])on 2017 Microscopic observation Other stain Nom (Unsp spec) . Normal Comprehens souleymane Internal Medicine Work Phone: Comment on above: Source.............C ervix;EndocervixNo. of containers..01 ThinPrep VialPATIENT NOT FASTINGPERFORMED BY: [address] [place] [id number] Information: [id number] Pathology report final diagnosis Narrative SPRCS Normal [facility] Work Phone: Comment on above: NEGATIVE FOR INTRAEP ITHELIAL LESION AND MALIGNANCY.THIS SPECIMEN WAS RESCREENED PART OF OUR [employer]OT[employer]ER PROGRAM.Satisfactory for evaluation. No endocervical component is identified.Z12.31Roxi Rodarte, Supervisor Composing Room (ASCP)Dona Armijo Supervisor Composing Room (ASCP) Source.............C ervix;EndocervixNo. of containers..01 ThinPrep VialPATIENT NOT FASTINGPERFORMED BY: [employer] [address] [id number] Information: [id number] HPV, Reflex ([id number]) PAPSMR Normal Compr ehensive Internal Medicine Work Phone: Comment on above: The Pap smear is a s creening test designed to aid in the detection ofpremalignant and malignant conditions of the uterine cervix. It is not adiagnostic procedure and should not be used as the sole means of detectingcervical cancer. Both false-positive and false-negative reports do occur. .The HPV DNA reflex criteria were not met with this specimen resulttherefore, no HPV testing was performed. . Source.............C ervix;EndocervixNo. of containers..01 ThinPrep VialPATIENT NOT FASTINGPERFORMED BY: [employer] [address] [id number] Information: [id number] HgA1C , Office (11853)Ordere d By: Toño Villavicencio on 06-23-2017 Hemoglobin A1c/Hemoglobin.total mass fraction (Bld) 5.8 % Normal 4.6 - 7.1 Comprehensiv e Internal Medicine Work Phone: MICROALBUMINOrdered By: Syst em Designer Architect on 06-23-2017 Albumin DL <= 20 mg/L (U) [Mass/Vol] mg/dL Normal [facility]; [facility] Work Phone: Comment on above: PATIENT NOT FASTINGP ERFORMED BY: [facility] Jbvclu4572 [facility] [id number] MICROALBUMINon 06-23-2017 Albumin DL <= 20 mg/L mass conc (U) mg/dL Normal [facility] Work Phone: Comment on above: PATIENT NOT FASTINGP ERFORMED BY: MOI [facility] Xhygdz8508 [address] Roadbl[address] [place] [id number] Albumin/Creatinine mass ratio (U) <4.8 Normal 0.0-30.0 [facility] Work Phone: Comment on above: PATIENT NOT FASTINGP ERFORMED BY: CB [facility] Totjjj3988 [address] [facility] [id number] Creatinine mass conc (U) 62.4 mg/dL Normal [facility] Work Phone: Comment on above: PATIENT NOT FASTINGP ERFORMED BY: MOI [facility] Jlqljm6822 [address] [facility] [id number] Metabolic Panel, Comprehensi ve (59602)on 06-23-2017 Albumin mass conc 4.5 g/dL Normal 3.5-5.5 Compreh [facility] Internal Medicine Work Phone: Comment on above: PATIENT NOT FASTINGP ERFORMED BY: CB [facility] Chmghf3318 [address] [facility] [place] [id number] Albumin/Globulin mass ratio 1.9 {ratio} Normal 1.2-2.2 [facility] Work Phone: Comment on above: PATIENT NOT FASTINGP ERFORMED BY: CB [facility] Lytgbe6290 [address] [facility] [place] [id number] ALP enzyme act/vol 55 [iU]/L Normal 39-117 [facility] Internal Medicine Work Phone: Comment on above: PATIENT NOT FASTINGP ERFORMED BY: CB [facility] Jtvuck6665 [address] Road[address] [place] [id number] ALT enzyme act/vol 22 [iU]/L Normal 0-32 [facility] Internal Medicine Work Phone: Comment on above: PATIENT NOT FASTINGP ERFORMED BY: CB [facility] Gmhiuo3807 [address] Roadbl[address] [place] [id number] AST enzyme act/vol 17 [iU]/L Normal 0-40 Compre hensive Internal Medicine Work Phone: Comment on above: PATIENT NOT FASTINGP ERFORMED BY: MOI MorrisCohuan CaroQommsh80[address] [facility] [place] [id number] Bilirubin mass conc mg/dL Normal 0.0-1.2 Compr ehensive Internal Medicine Work Phone: Comment on above: PATIENT NOT FASTINGP ERFORMED BY: MOI Parrishlin6370 [address] [facility] [place] [id number] Calcium mass conc 9.4 mg/dL Normal 8.7-10.2 Compreh ensive Internal Medicine Work Phone: Comment on above: PATIENT NOT FASTINGP ERFORMED BY: MOI Caro6370 [address] [facility] [id number] Chloride molar conc 105 mmol/L Normal 96-106 Compr ensive Internal Medicine Work Phone: Comment on above: PATIENT NOT FASTINGP ERFORMED BY: MOI Caro6370 [address] [facility] [id number] CO2 molar conc 20 mmol/L Normal 18-29 Comprehens souleymane Internal Medicine Work Phone: Comment on above: PATIENT NOT FASTINGP ERFORMED BY: MOI Caro6370 [facility] [id number] Creatinine mass conc 0.79 mg/dL Normal 0.57-1.00 Comp chillicothe [facility] centerensive Internal Medicine Work Phone: Comment on above: PATIENT NOT FASTINGP ERFORMED BY: MOI [facility] Yftxfz7910 [address] [facility] [id number] GFR/1.73 sq M predicted among blacks CKD-EPI vol rate/area (S/P/Bld) 103 mL/min/1.73 Normal Comprehensiv e Internal Medicine Work Phone: Comment on above: PATIENT NOT FASTINGP ERFORMED BY: MOI [facility] Ncqflb9572 [address] [facility] [place] [id number] GFR/1.73 sq M predicted among non-blacks CKD-EPI vol rate/area (S/P/Bld) 89 mL/min/1.73 Normal [facility] Work Phone: Comment on above: PATIENT NOT FASTINGP ERFORMED BY: CB [facility] Pwrhqp3056 [address]Dublin [place] [id number] Globulin Calculated mass conc (S) 2.4 g/dL Normal 1.5-4.5 [facility] Work Phone: Globulin mass conc (S) 2.4 g/dL Normal 1.5-4.5 [facility] Work Phone: Comment on above: PATIENT NOT FASTINGP ERFORMED BY: CB [facility] Wfqubg2259 [address] RoadDublin [place] [id number] Glucose mass conc 130 mg/dL Abnormal 65-99 Compreh ensive Internal Medicine Work Phone: Comment on above: PATIENT NOT FASTINGP ERFORMED BY: CB [facility] Atprli2899 [address] RoadDublin [place] [id number] Potassium molar conc 4.5 mmol/L Normal 3.5-5.2 Comp rehensive Internal Medicine Work Phone: Comment on above: PATIENT NOT FASTINGP ERFORMED BY: CB [facility] Cehdnx2233 [address] RoadDublin [place] [id number] Protein mass conc 6.9 g/dL Normal 6.0-8.5 Compreh ensive Internal Medicine Work Phone: Comment on above: PATIENT NOT FASTINGP ERFORMED BY: CB [facility] Reukur0457 [address] RoadDublin [place] [id number] Sodium molar conc 142 mmol/L Normal 134-144 Compreh ensive Internal Medicine Work Phone: Comment on above: PATIENT NOT FASTINGP ERFORMED BY: CB [facility] Mojedi4641 [address]Dublin [place] [id number] Urea nitrogen mass conc 14 mg/dL Normal 6-24 [facility] Work Phone: Comment on above: PATIENT NOT FASTINGP ERFORMED BY: CB [facility] Wvbkfl3396 [address] RoadDublin [place] [id number] Urea nitrogen/Creatinine mass ratio 18 mg/mg Normal 9-23 [facility] Work Phone: Comment on above: PATIENT NOT FASTINGP ERFORMED BY: MOI [facility] Pscjry9439 [address] RoadDublin [place] [id number] Metabolic Panel, Comprehensi ve ([id number])Ordered By: Vending Machine Attendant on 06-23-2017 ALP [Catalytic activity/Vol] 55 U/L Normal 39-117 [facility]; [facility] Work Phone: Comment on above: PATIENT NOT FASTINGP ERFORMED BY: CB [facility] Vfngaq9901 [address] RoadDublin [place] [id number] ALT [Catalytic activity/Vol] 22 U/L Normal 0-32 [facility]; [facility] Work Phone: Comment on above: PATIENT NOT FASTINGP ERFORMED BY: MOI [facility] Uxoijk3598 [address] RoadDublin [place] [id number] AST [Catalytic activity/Vol] 17 U/L Normal 0-40 [facility]; [facility] Work Phone: Comment on above: PATIENT NOT FASTINGP ERFORMED BY: MOI [facility] Xeqbbb3731 [address] RoadDublin [place] [id number] Bilirubin [Mass/Vol] mg/dL Normal 0.0-1.2 Comp rehensive Internal Medicine; [facility] Work Phone: Comment on above: PATIENT NOT FASTINGP ERFORMED BY: MOI [facility] Qrtcro6360 [address] RoadDublin [place] [id number] URINALYSIS (19288)on 018 Appearance Nom (U) Clear Normal Compre hensive Internal Medicine Work Phone: Comment on above: PATIENT NOT FASTINGP ERFORMED BY: MOI [facility] Zsqssu7907 [address] RoadDublin [place] [id number] Bilirubin Ql (U) Negative Normal Comprehe nsive Internal Medicine Work Phone: Comment on above: PATIENT NOT FASTINGP ERFORMED BY: MOI [facility] Aqulll5852 [address]Dublin [place] [id number] Color Nom (U) Yellow Normal Comprehensi ve Internal Medicine Work Phone: Comment on above: PATIENT NOT FASTINGP ERFORMED BY: MOI [facility] Plmdgf7712 [address]Dublin [place] [id number] Glucose Ql (U) Negative Normal Comprehens souleymane Internal Medicine Work Phone: Comment on above: PATIENT NOT FASTINGP ERFORMED BY: MOI [facility] Ppsjns4267 [address] [place] [id number] Hemoglobin Ql (U) Negative Normal Compreh ensive Internal Medicine Work Phone: Comment on above: PATIENT NOT FASTINGP ERFORMED BY: [facility] Wgdfyr5236 [address]Dublin [place] [id number] Hemoglobin Test strip Ql (U) Negative Normal [facility] Work Phone: Ketones Ql (U) Negative Normal Comprehens souleymane Internal Medicine Work Phone: Comment on above: PATIENT NOT FASTINGP ERFORMED BY: MOI [facility] Hdxmjn7450 [address] [place] [id number] Leukocyte esterase Test strip Ql (U) Negative Normal [facility] Work Phone: Comment on above: PATIENT NOT FASTINGP ERFORMED BY: MOI [facility] Hlhqol4610 [address]Dublin [place] [id number] Microscopic observation LM Nom (Urine sed) MICNIP Normal [facility] Work Phone: Comment on above: Microscopic not marci cated and not performed. PATIENT NOT FASTINGP ERFORMED BY: [facility] Jdwaln7635 [address]Dublin [place] [id number] Nitrite Ql (U) Negative Normal Comprehens souleymane Internal Medicine Work Phone: Comment on above: PATIENT NOT FASTINGP ERFORMED BY: [facility] Ruapsk5371 [address] RoadDublin [place] [id number] Nitrite Test strip Ql (U) Negative Normal [facility] Work Phone: pH (U) 5.5 [pH] Normal 5.0-7.5 [facility] Work Phone: Comment on above: PATIENT NOT FASTINGP ERFORMED BY: [facility] Nlicwf2658 [address]Dublin [place] [id number] pH Test strip (U) 5.5 [pH] Normal 5.0-7.5 Compreh ensive Internal Medicine Work Phone: Protein Ql (U) Negative Normal Comprehens souleymane Internal Medicine Work Phone: Comment on above: PATIENT NOT FASTINGP ERFORMED BY: MOI [facility] Wktsjb2777 [address]Dublin [place] [id number] Protein Test strip Ql (U) Negative Normal [facility] Work Phone: Specific gravity Relative Density (U) 1.020 1 Normal 1.005-1.03 0 [facility] Work Phone: Comment on above: PATIENT NOT FASTINGP ERFORMED BY: MOI [facility] Mdszpd1175 [address]Dublin [place] [id number] Urobilinogen Test strip mass conc (U) 0.2 mg/dL Normal 0.2-1.0 Comprehensiv e Internal Medicine Work Phone: Comment on above: PATIENT NOT FASTINGP ERFORMED BY: MOI [facility] Sqxjww3862 [address]Dublin [place] [id number] URINALYSIS ([id number])Ordered By : Vending Machine Attendant on 06-23-2017 Bilirubin Ql (U) Negative Normal Comprehe nsive Internal Medicine; [facility] Work Phone: Comment on above: PATIENT NOT FASTINGP ERFORMED BY: MOI [facility] Mqmeda5875 [address]Dublin [place] [id number] Glucose Ql (U) Negative Normal Comprehens souleymane Internal Medicine; [facility] Work Phone: Comment on above: PATIENT NOT FASTINGP ERFORMED BY: MOI [facility] Hzbtuj0800 [address]Dublin [place] [id number] Hemoglobin Ql (U) Negative Normal Compreh ensive Internal Medicine; [facility] Work Phone: Comment on above: PATIENT NOT FASTINGP ERFORMED BY: MOI [facility] Lrkiyq1343 [address]Dublin [place] [id number] Ketones Ql (U) Negative Normal Comprehens souleymane Internal Medicine; [facility] Work Phone: Comment on above: PATIENT NOT FASTINGP ERFORMED BY: CB [facility] Glwukx5838 [address] RoadDublin [place] [id number] Leukocyte esterase Test strip Ql (U) Negative Normal [facility]; [facility] Work Phone: Comment on above: PATIENT NOT FASTINGP ERFORMED BY: CB [facility] Gnpovl1856 [address]Dublin [place] [id number] Nitrite Ql (U) Negative Normal Comprehens souleymane Internal Medicine; [facility] Work Phone: Comment on above: PATIENT NOT FASTINGP ERFORMED BY: CB [facility] Fjkley1197 [address]Dublin [place] [id number] Protein Ql (U) Negative Normal Comprehens souleymane Internal Medicine; [facility] Work Phone: Comment on above: PATIENT NOT FASTINGP ERFORMED BY: CB [facility] Qncagk5057 [address]Dublin [place] [id number] Urobilinogen (U) [Mass/Vol] 0.2 mg/dL Normal 0.2-1.0 [facility]; [facility] Work Phone: Comment on above: PATIENT NOT FASTINGP ERFORMED BY: CB [facility] Pdwybo6564 [address]Dublin [place] [id number] UTERINE CURETTINGSon 018 UTERINE CURETTINGS See Note Normal Compre hensive Internal Medicine Work Phone: Comment on above: Patient: LEXUS SAMPSON : 1970 (46/F) Acct Num: [id number] Phys: Karen SANCHEZ,Alexus Unit Num: [id number] Loc: [facility] Specimen: [id number] Received: 05/12/171458 Spec Type: UT CUR TISSUES TISSUES: Uterine cervix, NOS GROSS DESCRIPTION Received in fixative is one container labeled with the patient's name and designated "uterine curettings." The specimen consists of multiple irregular fragments of light carpenter soft tissue that in aggregate measure 2.2 x 1.5 x 0.1 cm. The specimen is totally submitted in one cassette. / AM:opal 05/12/17 TC:5 CPT: 40114 HEADER OPERATION: Hysteroscopy, dilation and curettage, Amy PRE-OP DIAGNOSIS: Excessive bleeding in premenopausal period TISSUE SUBMITTED: Uterine curettings MICROSCOPIC DESCRIPTION Slides are reviewed. MICROSCOPIC DIAGNOSIS Uterine curettings: Proliferative endometrium with glandular and stromal breakdown. Fragments of benign ecto- and endocervical mucosa with chronic inflammation andsquamous metaplasia, blood and mucous. SJ:opal 05/13/17 Signed Hadley Mclean 05/13/17 [facility] [address] [place], [place], [phone] CBC-Complete Blood Cnt No Di ffon 05-10-2017 Erythrocyte distribution width Auto Ratio (RBC) 15.9 % Abnormal 11.6-14.6 [facility] Work Phone: Erythrocyte distribution width Ratio (RBC) 15.9 % Abnormal 11.6-14.6 [facility] Work Phone: Comment on above: [facility] [address] [place], [address] Hematocrit Auto Volume Fraction (Bld) 42.6 % Normal 37-47 [facility] Internal [facility] Work Phone: Hematocrit Volume Fraction (Bld) 42.6 % Normal 37-47 [facility] Work Phone: Comment on above: [facility] [address] [place], [place], [phone] Hemoglobin mass conc (Bld) 13.5 g/dL Normal 12.0-15.0 [facility] Work Phone: Comment on above: [facility] [address] [place], [address] MCH Auto Entitic mass (RBC) 27.6 pg Normal 27.0-32.0 [facility] Work Phone: MCH Entitic mass (RBC) 27.6 pg Normal 27.0-32.0 [facility] Work Phone: Comment on above: [facility] [address]yr[address] [place], [place], [phone] MCHC Auto mass conc (RBC) 31.7 {g/gl} Abnormal 32-36 [facility] Work Phone: MCHC mass conc (RBC) 31.7 {g/gl} Abnormal 32-36 [facility] Work Phone: Comment on above: [facility] [address] [place], [place], [id number] MCV Auto Entitic volume (RBC) 87.1 fL Normal 81-99 [facility] Work Phone: MCV Entitic volume (RBC) 87.1 fL Normal 81-99 [facility] Work Phone: Comment on above: [facility] [address] [place], [place], [phone] Platelet mean volume Auto Entitic volume (Bld) 9.9 fL Normal 6.2-12.0 [facility] Work Phone: Platelet mean volume Entitic volume (Bld) 9.9 fL Normal 6.2-12.0 Comprehensi Internal Medicine Work Phone: Comment on above: [facility] [address]ubae[address] [place], [place], [phone] Platelets #/vol (Bld) 244 10*3/uL Normal 150-450 [facility] Work Phone: Comment on above: [facility] [address]if[address] [place], [address] Platelets Auto #/vol (Bld) 244 10*3/uL Normal 150-450 [facility] Work Phone: RBC #/vol (Bld) 4.89 {M/mm3} Normal 4.2-5.4 Compreh ensive Internal Medicine Work Phone: Comment on above: [facility] [address] [place], [address] RBC Auto #/vol (Bld) 4.89 {M/mm3} Normal 4.2-5.4 [facility] Internal [facility] Work Phone: RDW SD 51.1 fL Abnormal 35.1-43.9 [facility] Work Phone: WBC #/vol (Bld) 11.7 10*3/uL Abnormal 4.4-11.0 Compreh ensive Internal Medicine Work Phone: Comment on above: [facility] [address] [place], [address] WBC Auto #/vol (Bld) 11.7 10*3/uL Abnormal 4.4-11.0 [facility] Work Phone: CBC-Complete Blood Cnt No Diff 51.1 fL Abnormal 35.1-43.9 [facility] Work Phone: Comment on above: [facility] [address] [place], [address] Thyroid Stim Hormone (TSH)on 05-10-2017 Thyrotropin Qn 1.80 {uIU/mL} Normal 0.358-3.74 Compreh ensive Internal Medicine Work Phone: Comment on above: [facility] [address] [place], [address] Blood Glucose , Office ([phone] 2)Ordered By: Shruti Pettit on 04-06-2016 Glucose Glucometer molar conc (BldC) 143 1 Normal [facility] Work Phone: GONADOTROPIN-FSH (30902)on 0 04-06-2016 Follitropin Qn 4.3 m[IU]/mL Normal Comprehe nsive Internal Medicine Work Phone: Comment on above: Adult Female: Follic ular phase 3.5 - 12.5 Ovulation phase 4.7 - 21.5 Luteal phase 1.7 - 7.7 Postmenopausal 25.8 - 134.8 PATIENT NOT FASTINGP ERFORMED BY: [facility] SystemsMym[facility] Gladwin6370 [facility] [id number] GONADOTROPIN-LH (21196)on Lutropin Qn 3.7 m[IU]/mL Normal Comprehensi Internal Medicine Work Phone: Comment on above: Adult Female: Follic ular phase 2.4 - 12.6 Ovulation phase 14.0 - 95.6 Luteal phase 1.0 - 11.4 Postmenopausal 7.7 - 58.5 PATIENT NOT FASTINGP ERFORMED BY: [facility] Gladwin6370 [facility] [id number] HPV, Reflex (45328)on 2016 Microscopic observation Other stain Nom (Unsp spec) . Normal Comprehens souleymane Internal Medicine Work Phone: Comment on above: Source.............C ervix;EndocervixNo. of containers..01 CYTYC Thin Prep VialPATIENT NOT FASTINGPERFORMED BY: Dada[address] [id number] Information: [id number] Pathology report final diagnosis Narrative SPRCS Normal [facility] Work Phone: Comment on above: NEGATIVE FOR INTRAEP ITHELIAL LESION AND MALIGNANCY.Satisfactory for evaluation. No endocervical component is identified.Z01.419Karol Gresham Supervisor Composing Room (ASCP) Source.............C ervix;EndocervixNo. of containers..01 CYTYC Thin Prep VialPATIENT NOT FASTINGPERFORMED BY: Files[employer] Gildevduyv[address] [id number] Information: [id number] HPV, Reflex (75579) PAPSMR Normal Compr [facility] Internal Medicine Work Phone: Comment on above: The Pap smear is a s creening test designed to aid in the detection ofpremalignant and malignant conditions of the uterine cervix. It is not adiagnostic procedure and should not be used as the sole means of detectingcervical cancer. Both false-positive and false-negative reports do occur. .The HPV DNA reflex criteria were not met with this specimen resulttherefore, no HPV testing was performed. . Source.............C ervix;EndocervixNo. of containers..01 CYTYC Thin Prep VialPATIENT NOT FASTINGPERFORMED BY: [address] [facility] [place] [id number] Information: [id number] HgA1C , Office (84846)Ordere d By: Shruti Pettit on 04-06-2016 Hemoglobin A1c/Hemoglobin.total mass fraction (Bld) 5.7 % Normal 4.6 - 7.1 Comprehensiv e Internal Medicine Work Phone: CBC with auto diff (43582)on 08-05-2015 Basophils #/vol (Bld) 0.0 {x10E3/uL} Normal 0.0-0.2 [facility] Work Phone: Comment on above: PATIENT NOT FASTINGP ERFORMED BY: [facility]6370 [facility] [id number] Information: [id number], 060836 Basophils Auto #/vol (Bld) 0.0 {x10E3/uL} Normal 0.0-0.2 [facility] Work Phone: Basophils/100 WBC (Bld) 1 % Normal [facility] Work Phone: Comment on above: PATIENT NOT FASTINGP ERFORMED BY: [facility]6370 [facility] [id number] Information: [id number], [id number] Basophils/100 WBC Auto (Bld) 1 % Normal [facility] Work Phone: Eosinophils #/vol (Bld) 0.4 {x10E3/uL} Normal 0.0-0.4 [facility] Work Phone: Comment on above: PATIENT NOT FASTINGP ERFORMED BY: [facility]6370 [facility] [id number] Information: [id number], 270161 Eosinophils Auto #/vol (Bld) 0.4 {x10E3/uL} Normal 0.0-0.4 [facility] Work Phone: Eosinophils/100 WBC (Bld) 5 % Normal [facility] Work Phone: Comment on above: PATIENT NOT FASTINGP ERFORMED BY: MOI [facility]6370 [facility] [id number] Information: [id number], 761597 Eosinophils/100 WBC Auto (Bld) 5 % Normal [facility] Work Phone: Erythrocyte distribution width Auto Ratio (RBC) 14.5 % Normal 12.3-15.4 [facility] Work Phone: Erythrocyte distribution width Ratio (RBC) 14.5 % Normal 12.3-15.4 [facility] Work Phone: Comment on above: PATIENT NOT FASTINGP ERFORMED BY: MIO [facility]6370 [facility] [id number] Information: [id number], 934035 Hematocrit Auto Volume Fraction (Bld) 45.1 % Normal 34.0-46.6 [facility] Internal Medicine Work Phone: Hematocrit Volume Fraction (Bld) 45.1 % Normal 34.0-46.6 [facility] Work Phone: Comment on above: PATIENT NOT FASTINGP ERFORMED BY: MOI [facility]6370 [facility] [id number] Information: [id number], [id number] Hemoglobin mass conc (Bld) 14.1 g/dL Normal 11.1-15.9 [facility] Work Phone: Comment on above: PATIENT NOT FASTINGP ERFORMED BY: MOI [facility]6370 [facility] [id number] Information: [id number], 832430 Immature granulocytes #/vol (Bld) 0.0 {x10E3/uL} Normal 0.0-0.1 [facility] Work Phone: Comment on above: PATIENT NOT FASTINGP ERFORMED BY: MOI MorrisKatherine [place] [id number] [facility] [id number] Information: N16581, 446860 Immature granulocytes/100 WBC (Bld) 0 % Normal [facility] Work Phone: Comment on above: PATIENT NOT FASTINGP ERFORMED BY: [place] [id number] [facility] [id number] Information: [id number], 210015 Lymphocytes #/vol (Bld) 1.8 {x10E3/uL} Normal 0.7-3.1 [facility] Work Phone: Comment on above: PATIENT NOT FASTINGP ERFORMED BY: MOI [facility]ps Health Tviwaa2864 [facility] [id number] Information: N54394, 906202 Lymphocytes Auto #/vol (Bld) 1.8 {x10E3/uL} Normal 0.7-3.1 [facility] Work Phone: Lymphocytes/100 WBC (Bld) 26 % Normal [facility] Work Phone: Comment on above: PATIENT NOT FASTINGP ERFORMED BY: MOI Teri Fnpgho7683 [facility] [id number] Information: [id number], 722473 Lymphocytes/100 WBC Auto (Bld) 26 % Normal [facility] Work Phone: MCH Auto Entitic mass (RBC) 28.6 pg Normal 26.6-33.0 [facility] Work Phone: MCH Entitic mass (RBC) 28.6 pg Normal 26.6-33.0 [facility] Work Phone: Comment on above: PATIENT NOT FASTINGP ERFORMED BY: MOI [address] [id number] Information: S63635, 833152 MCHC Auto mass conc (RBC) 31.3 g/dL Abnormal 31.5-35.7 [facility] Work Phone: MCHC mass conc (RBC) 31.3 g/dL Abnormal 31.5-35.7 Comp rehensive Internal Medicine Work Phone: Comment on above: PATIENT NOT FASTINGP ERFORMED BY: MOI Viktor Caro6370 [facility] [id number] Information: W19356, 189362 MCV Auto Entitic volume (RBC) 92 fL Normal 79-97 [facility] Work Phone: MCV Entitic volume (RBC) 92 fL Normal 79-97 [facility] Work Phone: Comment on above: PATIENT NOT FASTINGP ERFORMED BY: MOI [address] [id number] Information: P52684, 802006 Monocytes #/vol (Bld) 0.4 {x10E3/uL} Normal 0.1-0.9 [facility] Work Phone: Comment on above: PATIENT NOT FASTINGP ERFORMED BY: MOI [facility]6370 [facility] [id number] Information: W96186, 728044 Monocytes Auto #/vol (Bld) 0.4 {x10E3/uL} Normal 0.1-0.9 [facility] Work Phone: Monocytes/100 WBC (Bld) 6 % Normal [facility] Work Phone: Comment on above: PATIENT NOT FASTINGP ERFORMED BY: [place] [id number] [facility] [id number] Information: Z84439, 317311 Monocytes/100 WBC Auto (Bld) 6 % Normal [facility] Work Phone: Neutrophils #/vol (Bld) 4.5 {x10E3/uL} Normal 1.4-7.0 [facility] Work Phone: Comment on above: PATIENT NOT FASTINGP ERFORMED BY: [place] [id number] [facility] [id number] Information: H98106, 748596 Neutrophils Auto #/vol (Bld) 4.5 {x10E3/uL} Normal 1.4-7.0 [facility] Work Phone: Neutrophils/100 WBC (Bld) 62 % Normal [facility] Work Phone: Comment on above: PATIENT NOT FASTINGP ERFORMED BY: [place] [id number] [facility] [id number] Information: H34899, 911451 Neutrophils/100 WBC Auto (Bld) 62 % Normal [facility] Work Phone: Platelets #/vol (Bld) 234 {x10E3/uL} Normal 150-379 [facility] Work Phone: Comment on above: PATIENT NOT FASTINGP ERFORMED BY: [place] [id number] [facility] [id number] Information: [id number], 003187 Platelets Auto #/vol (Bld) 234 {x10E3/uL} Normal 150-379 [facility] Work Phone: RBC #/vol (Bld) 4.93 {x10E6/uL} Normal 3.77-5.28 [facility] Internal Medicine Work Phone: Comment on above: PATIENT NOT FASTINGP ERFORMED BY: [place] [id number] [facility] [id number] Information: F72976, 816299 RBC Auto #/vol (Bld) 4.93 {x10E6/uL} Normal 3.77-5.28 [facility] Work Phone: WBC #/vol (Bld) 7.1 {x10E3/uL} Normal 3.4-10.8 [facility] Internal Medicine Work Phone: Comment on above: PATIENT NOT FASTINGP ERFORMED BY: [facility]6370 [facility] [id number] Information: [id number], [id number] WBC Auto #/vol (Bld) 7.1 {x10E3/uL} Normal 3.4-10.8 [facility] Work Phone: CBC with auto diff (71631)Or dered By: Vending Machine Attendant on 08-05-2015 Basophils (Bld) [#/Vol] 0.0 10*3/uL Normal 0.0-0.2 [facility]; [facility] Work Phone: Comment on above: PATIENT NOT FASTINGP ERFORMED BY: LabCoCarrier ClinicDzdroc5520 [facility] [id number] Information: [id number], 698214 Eosinophils (Bld) [#/Vol] 0.4 10*3/uL Normal 0.0-0.4 [facility]; [facility] Work Phone: Comment on above: PATIENT NOT FASTINGP ERFORMED BY: LabCoCarrier ClinicVjcdae9243 [facility] [id number] Information: [id number], [id number] Immature granulocytes (Bld) [#/Vol] 0.0 10*3/uL Normal 0.0-0.1 [facility]; [facility] Work Phone: Comment on above: PATIENT NOT FASTINGP ERFORMED BY: LabCo Jcfeni1189 [facility] [id number] Information: [id number], 142689 Lymphocytes (Bld) [#/Vol] 1.8 10*3/uL Normal 0.7-3.1 [facility]; [facility] Work Phone: Comment on above: PATIENT NOT FASTINGP ERFORMED BY: LabCo Dsnzmv5366 [facility] [id number] Information: [id number], 652636 Monocytes (Bld) [#/Vol] 0.4 10*3/uL Normal 0.1-0.9 [facility]; [facility] Work Phone: Comment on above: PATIENT NOT FASTINGP ERFORMED BY: LabCo Mrsbrs1642 [facility] [id number] Information: [id number], 933250 Neutrophils (Bld) [#/Vol] 4.5 10*3/uL Normal 1.4-7.0 [facility]; [facility] Work Phone: Comment on above: PATIENT NOT FASTINGP ERFORMED BY: MOI [facility]o6370 [facility] [id number] Information: [id number], 629660 Platelets (Bld) [#/Vol] 234 10*3/uL Normal 150-379 [facility]; [facility] Work Phone: Comment on above: PATIENT NOT FASTINGP ERFORMED BY: MOI Caro6370 [facility] [id number] Information: [id number], 323487 RBC (Bld) [#/Vol] 4.93 10*6/uL Normal 3.77-5.28 Compr rust Internal Medicine; [facility] Work Phone: Comment on above: PATIENT NOT FASTINGP ERFORMED BY: MOI Caro6370 [facility] [id number] Information: [id number], 557160 WBC (Bld) [#/Vol] 7.1 10*3/uL Normal 3.4-10.8 Compre [facility] Internal Medicine; [facility] Work Phone: Comment on above: PATIENT NOT FASTINGP ERFORMED BY: MOI Caro6370 [facility] [id number] Information: [id number], 722552 Hemoglobin Glyclated (HGB A1 C) (36130)on 08-05-2015 Hemoglobin A1c/Hemoglobin.total mass fraction (Bld) 6.0 % Abnormal 4.8-5.6 Comprehensiv e Internal Medicine Work Phone: Comment on above: . Pre-diabetes: 5.7 - 6.4 Diabetes: >6.4 Glycemic control for adults with diabetes: <7.0 PATIENT NOT FASTINGP ERFORMED BY: MOI Parrishlin6370 [facility] [id number]; fu 5- LIPID PANEL (32213)on 2015 Cholesterol in HDL mass conc 49 mg/dL Normal [facility] Work Phone: Comment on above: According to ATP-III Guidelines, HDL-C >59 mg/dL is considered anegative risk factor for CHD. PATIENT NOT FASTINGP ERFORMED BY: MOI LabCohuan Mbevrk8284 [place] TelcareCone Health Annie [facility] Hospitalin [place] [id number] Cholesterol in LDL mass conc 96 mg/dL Normal 0-99 [facility] Work Phone: Comment on above: PATIENT NOT FASTINGP ERFORMED BY: MOI LabCohuan ParrishYbxfpc4897 [place] [facility] [id number] Cholesterol in LDL/Cholesterol in HDL mass ratio 2.0 {ratio_units} Normal 0.0-3.2 [facility] Work Phone: Comment on above: LDL/HDL Ratio Men Wo men 1/2 Avg.Risk 1.0 1.5 Avg.Risk 3.6 3.2 2X Avg.Risk 6.2 5.0 3X Avg.Risk 8.0 6.1 PATIENT NOT FASTINGP ERFORMED BY: MOI LabCo Gqpjwa1185 [place] [facility] [id number] Cholesterol in VLDL mass conc 19 mg/dL Normal 5-40 [facility] Work Phone: Comment on above: PATIENT NOT FASTINGP ERFORMED BY: MOI LabLast ParrishKrmwbf0801 [place] [facility] [id number] Cholesterol mass conc 164 mg/dL Normal 100-199 [facility] prehensive Internal Medicine Work Phone: Comment on above: PATIENT NOT FASTINGP ERFORMED BY: MOI [facility] Aaogxl5876 [place] [facility] [id number] Triglyceride mass conc 95 mg/dL Normal 0-149 [facility] Work Phone: Comment on above: PATIENT NOT FASTINGP ERFORMED BY: MOI [facility] Ijoixr6391 [place] [facility] [id number] METABOLIC PANEL, COMPREHENSI VE (44586)on 08-05-2015 Albumin mass conc 4.4 g/dL Normal 3.5-5.5 Compreh ensive Internal Medicine Work Phone: Comment on above: PATIENT NOT FASTINGP ERFORMED BY: MOI [facility] Lxeaeq3546 [address] RoadDublin [place] [id number] Albumin/Globulin mass ratio 1.9 {ratio} Normal 1.1-2.5 [facility] Internal Medicine Work Phone: Comment on above: PATIENT NOT FASTINGP ERFORMED BY: CB [facility] Skmgdi4787 [address] RoadDublin [place] [id number] ALP enzyme act/vol 55 [iU]/L Normal 39-117 [facility] Internal Medicine Work Phone: Comment on above: PATIENT NOT FASTINGP ERFORMED BY: MOI [facility] Mrcgui0607 [address] RoadDublin [place] [id number] ALT enzyme act/vol 15 [iU]/L Normal 0-32 [facility] Work Phone: Comment on above: PATIENT NOT FASTINGP ERFORMED BY: MOI [facility] Zsujqv9204 [place] RoadDublin [place] [id number] AST enzyme act/vol 17 [iU]/L Normal 0-40 [facility] Internal Medicine Work Phone: Comment on above: PATIENT NOT FASTINGP ERFORMED BY: MOI [facility] Apxuak0811 [address] RoadDublin [place] [id number] Bilirubin mass conc 0.2 mg/dL Normal 0.0-1.2 [facility] Internal Medicine Work Phone: Comment on above: PATIENT NOT FASTINGP ERFORMED BY: CB [facility] Eptycx3759 [address] RoadDublin [place] [id number] Calcium mass conc 9.0 mg/dL Normal 8.7-10.2 [facility] Internal Medicine Work Phone: Comment on above: PATIENT NOT FASTINGP ERFORMED BY: CB [facility] Pxjeja9435 [address] RoadDublin [place] [id number] Chloride molar conc 103 mmol/L Normal 97-108 Compr rust Internal Medicine Work Phone: Comment on above: PATIENT NOT FASTINGP ERFORMED BY: MOI [facility] Bcpjjz6479 [address] RoadDublin [place] [id number] CO2 molar conc 23 mmol/L Normal 18-29 Comprehens souleymane Internal Medicine Work Phone: Comment on above: PATIENT NOT FASTINGP ERFORMED BY: MOI [facility] Xvogln9064 [place] [facility] [id number] Creatinine mass conc 0.83 mg/dL Normal 0.57-1.00 Comp rehensive Internal Medicine Work Phone: Comment on above: PATIENT NOT FASTINGP ERFORMED BY: CB [facility] Nshcsq8465 [place] [facility] [id number] GFR/1.73 sq M predicted among blacks CKD-EPI vol rate/area (S/P/Bld) 98 mL/min/1.73 Normal Comprehensiv e Internal Medicine Work Phone: Comment on above: PATIENT NOT FASTINGP ERFORMED BY: CB [facility] Ikogjg6905 [place] [facility] [id number] GFR/1.73 sq M predicted among non-blacks CKD-EPI vol rate/area (S/P/Bld) 85 mL/min/1.73 Normal [facility] Work Phone: Comment on above: PATIENT NOT FASTINGP ERFORMED BY: MOI [facility] Tuldyt7578 [facility] [id number] Globulin Calculated mass conc (S) 2.3 g/dL Normal 1.5-4.5 [facility] Work Phone: Globulin mass conc (S) 2.3 g/dL Normal 1.5-4.5 [facility] Work Phone: Comment on above: PATIENT NOT FASTINGP ERFORMED BY: CB [facility] Fejznc6529 [place] [facility] [id number] Glucose mass conc 98 mg/dL Normal 65-99 Compreh ensive Internal Medicine Work Phone: Comment on above: PATIENT NOT FASTINGP ERFORMED BY: CB [facility] Ktbehs5505 [address] [facility] [place] [id number] Potassium molar conc 4.4 mmol/L Normal 3.5-5.2 Comp rehensive Internal Medicine Work Phone: Comment on above: PATIENT NOT FASTINGP ERFORMED BY: MOI Viktor Caro6370 [place] [facility] [place] [id number] Protein mass conc 6.7 g/dL Normal 6.0-8.5 Compreh ensive Internal Medicine Work Phone: Comment on above: PATIENT NOT FASTINGP ERFORMED BY: MOI Terihuan ParrishZzyjps9083 [place] [facility] [id number] Sodium molar conc 141 mmol/L Normal 134-144 Compreh ensive Internal Medicine Work Phone: Comment on above: PATIENT NOT FASTINGP ERFORMED BY: MOI LabLast ParrishRfouqo7561 [place] [facility] [id number] Urea nitrogen mass conc 16 mg/dL Normal 6-24 [facility] Work Phone: Comment on above: PATIENT NOT FASTINGP ERFORMED BY: MOI Parrishlin6370 [place] [facility] [id number] Urea nitrogen/Creatinine mass ratio 19 mg/mg Normal 9-23 [facility] Work Phone: Comment on above: PATIENT NOT FASTINGP ERFORMED BY: MOI Parrishlin6370 [facility] [id number] METABOLIC PANEL, COMPREHENSI VE (40711)Ordered By: Vending Machine Attendant on 08-05-2015 ALP [Catalytic activity/Vol] 55 U/L Normal 39-117 [facility]; [facility] Work Phone: Comment on above: PATIENT NOT FASTINGP ERFORMED BY: MOI Terirp Xgvtzg6364 [place] [facility] [id number] ALT [Catalytic activity/Vol] 15 U/L Normal 0-32 [facility]; [facility] Work Phone: Comment on above: PATIENT NOT FASTINGP ERFORMED BY: MOI Terihuan Sijkmd1433 [place] [facility] [id number] AST [Catalytic activity/Vol] 17 U/L Normal 0-40 [facility]; [facility] Work Phone: Comment on above: PATIENT NOT FASTINGP ERFORMED BY: MOI Rivas Mydyzs6901 [place] [facility]care[facility] [id number] Hemoglobin Glyclated (HGB A1 C) (08072)on 04-15-2015 Hemoglobin A1c/Hemoglobin.total mass fraction (Bld) 6.0 % Abnormal 4.8-5.6 Comprehensiv e Internal Medicine Work Phone: Comment on above: . Pre-diabetes: 5.7 - 6.4 Diabetes: >6.4 Glycemic control for adults with diabetes: <7.0 PATIENT WAS FASTINGP ERFORMED BY: MOI Nook Sleep SystemsLast ParrishAiwthm7676 [place] [facility] [id number] LIPID PANEL (96110)on 2015 Cholesterol in HDL mass conc 42 mg/dL Normal [facility] Work Phone: Comment on above: According to ATP-III Guidelines, HDL-C >59 mg/dL is considered anegative risk factor for CHD. PATIENT WAS FASTINGP ERFORMED BY: MOI FilesXhuan ParrishBeycmj4566 [place] [facility]odonFormerly [facility] [id number] Cholesterol in LDL mass conc 83 mg/dL Normal 0-99 [facility] Work Phone: Comment on above: PATIENT WAS FASTINGP ERFORMED BY: MOI Nook Sleep SystemsLast ParrishAgilvt9092 [place] [facility] [id number] Cholesterol in LDL/Cholesterol in HDL mass ratio 2.0 {ratio_units} Normal 0.0-3.2 [facility] Work Phone: Comment on above: LDL/HDL Ratio Men Wo men 1/2 Avg.Risk 1.0 1.5 Avg.Risk 3.6 3.2 2X Avg.Risk 6.2 5.0 3X Avg.Risk 8.0 6.1 PATIENT WAS FASTINGP ERFORMED BY: MOI FilesX Miegar3204 [place] [facility]care[facility] [id number] Cholesterol in VLDL mass conc 30 mg/dL Normal 5-40 [facility] Work Phone: Comment on above: PATIENT WAS FASTINGP ERFORMED BY: MOI FilesX Dvzvst2678 [place] [facility]care[facility] [id number] Cholesterol mass conc 155 mg/dL Normal 100-199 [facility] prehensive Internal Medicine Work Phone: Comment on above: PATIENT WAS FASTINGP ERFORMED BY: MOI Parrishlin6370 [facility] [id number] Triglyceride mass conc 150 mg/dL Abnormal 0-149 [facility] Internal Medicine Work Phone: Comment on above: PATIENT WAS FASTINGP ERFORMED BY: MOI [facility]andraPhelps Health Kueyjf9001 [facility] [id number] METABOLIC PANEL, COMPREHENSI VE (45466)on 04-15-2015 Albumin mass conc 4.3 g/dL Normal 3.5-5.5 Compreh [facility] Internal Medicine Work Phone: Comment on above: PATIENT WAS FASTINGP ERFORMED BY: MOI Teri Brwkvm8984 [facility] [id number] Information: 938573,M69682; non-emergent till apt Albumin/Globulin mass ratio 1.7 {ratio} Normal 1.1-2.5 [facility] Internal Medicine Work Phone: Comment on above: PATIENT WAS FASTINGP ERFORMED BY: MOI AlexandraKatherine V[place] [id number] [facility] [id number] Information: 241070,R80955; non-emergent till apt ALP enzyme act/vol 55 [iU]/L Normal 39-117 [facility] Internal Medicine Work Phone: Comment on above: PATIENT WAS FASTINGP ERFORMED BY: MOI [place] [id number] [facility] [id number] Information: 819976,M33085; non-emergent till apt ALT enzyme act/vol 17 [iU]/L Normal 0-32 [facility] Internal Medicine Work Phone: Comment on above: PATIENT WAS FASTINGP ERFORMED BY: MOI [facility] Gladwin6370 [facility] [id number] Information: 898073,N64889; non-emergent till apt AST enzyme act/vol 14 [iU]/L Normal 0-40 [facility] Internal Medicine Work Phone: Comment on above: PATIENT WAS FASTINGP ERFORMED BY: MOI MorrisPhelps Health Fiphvx5798 [facility] [id number] Information: 926681,I87896; non-emergent till apt Bilirubin mass conc 0.3 mg/dL Normal 0.0-1.2 Compr rust Internal Medicine Work Phone: Comment on above: PATIENT WAS FASTINGP ERFORMED BY: LabKatherine Ville 9227770 [facility] [id number] Information: 682652,K14745; non-emergent till apt Calcium mass conc 8.8 mg/dL Normal 8.7-10.2 Compreh [facility] Internal Medicine Work Phone: Comment on above: PATIENT WAS FASTINGP ERFORMED BY: MOI [facility] Mtplph4948 [facility] [id number] Information: 665810,N73249; non-emergent till apt Chloride molar conc 109 mmol/L Abnormal 97-108 Compr rust Internal Medicine Work Phone: Comment on above: PATIENT WAS FASTINGP ERFORMED BY: [facility]6370 [facility] [id number] Information: 860120,N27170; non-emergent till apt CO2 molar conc 21 mmol/L Normal 18-29 [facility] Work Phone: Comment on above: PATIENT WAS FASTINGP ERFORMED BY: LabMym[facility] Gladwin6370 [facility] [id number] Information: 208895,J93456; non-emergent till apt Creatinine mass conc 0.74 mg/dL Normal 0.57-1.00 Comp rust Internal Medicine Work Phone: Comment on above: PATIENT WAS FASTINGP ERFORMED BY: LabCoCarrier ClinicLgvcar6034 [facility] [id number] Information: 670856,D31926; non-emergent till apt GFR/1.73 sq M predicted among blacks CKD-EPI vol rate/area (S/P/Bld) 114 mL/min/1.73 Normal Comprehensiv e Internal Medicine Work Phone: Comment on above: PATIENT WAS FASTINGP ERFORMED BY: [place] [id number] [facility] [id number] Information: 419195,S17573; non-emergent till apt GFR/1.73 sq M predicted among non-blacks CKD-EPI vol rate/area (S/P/Bld) 99 mL/min/1.73 Normal [facility] Work Phone: Comment on above: PATIENT WAS FASTINGP ERFORMED BY: [place] 4339470 [facility] [id number] Information: 293142,V34250; non-emergent till apt Globulin Calculated mass conc (S) 2.5 g/dL Normal 1.5-4.5 [facility] Work Phone: Globulin mass conc (S) 2.5 g/dL Normal 1.5-4.5 [facility] Work Phone: Comment on above: PATIENT WAS FASTINGP ERFORMED BY: [place] 4339470 [facility] [id number] Information: 290614,L28375; non-emergent till apt Glucose mass conc 125 mg/dL Abnormal 65-99 Compreh ensive Internal Medicine Work Phone: Comment on above: PATIENT WAS FASTINGP ERFORMED BY: [address] [id number] Information: 570569,T36400; non-emergent till apt Potassium molar conc 4.1 mmol/L Normal 3.5-5.2 Comp rehensive Internal Medicine Work Phone: Comment on above: PATIENT WAS FASTINGP ERFORMED BY: [place] [id number] [facility] [id number] Information: 780728,L42137; non-emergent till apt Protein mass conc 6.8 g/dL Normal 6.0-8.5 Compreh ensive Internal Medicine Work Phone: Comment on above: PATIENT WAS FASTINGP ERFORMED BY: [facility]win6370 [facility] [id number] Information: 157261,V60871; non-emergent till apt Sodium molar conc 142 mmol/L Normal 134-144 Compreh ensive Internal Medicine Work Phone: Comment on above: PATIENT WAS FASTINGP ERFORMED BY: [facility] [place]win6370 [facility] [id number] Information: 522243,E39851; non-emergent till apt Urea nitrogen mass conc 13 mg/dL Normal 6-24 [facility] Work Phone: Comment on above: PATIENT WAS FASTINGP ERFORMED BY: [facility]win6370 [facility] [id number] Information: 458627,Z44184; non-emergent till apt Urea nitrogen/Creatinine mass ratio 18 mg/mg Normal 9-23 [facility] Work Phone: Comment on above: PATIENT WAS FASTINGP ERFORMED BY: [facility] [place]6370 [facility] [id number] Information: 762682,L43463; non-emergent till apt METABOLIC PANEL, COMPREHENSI VE (08378)Ordered By: Vending Machine Attendant on 04-15-2015 ALP [Catalytic activity/Vol] 55 U/L Normal 39-117 [facility]; [facility] Work Phone: Comment on above: PATIENT WAS FASTINGP ERFORMED BY: [facility] [place]win6370 [facility] [id number] Information: 306610,R80388; non-emergent till apt ALT [Catalytic activity/Vol] 17 U/L Normal 0-32 [facility]; [facility] Work Phone: Comment on above: PATIENT WAS FASTINGP ERFORMED BY: LabCo Bkmuyd0498 [facility] [id number] Information: 634639,S41529; non-emergent till apt AST [Catalytic activity/Vol] 14 U/L Normal 0-40 [facility]; [facility] Work Phone: Comment on above: PATIENT WAS FASTINGP ERFORMED BY: LabPhel[facility] Health Osjcbc7650 [facility] [id number] Information: 948023,T89917; non-emergent till apt MICROALBUMINon 04-15-2015 Albumin DL <= 20 mg/L mass conc (U) 5.5 ug/mL Normal 0.0-17.0 [facility] Work Phone: Comment on above: PATIENT WAS FASTINGP ERFORMED BY: [facility]win6370 [facility] [id number] Albumin/Creatinine mass ratio (U) 3.5 {mg/g_creat} Normal 0.0-30.0 [facility] Work Phone: Comment on above: PATIENT WAS FASTINGP ERFORMED BY: [facility] Gladwin6370 [facility] [id number] Creatinine mass conc (U) 155.8 mg/dL Normal 15.0-278.0 [facility] Work Phone: Comment on above: PATIENT WAS FASTINGP ERFORMED BY: LabPhelps Health Wgnwjc1523 [facility] [id number] Rapid Strep Test, Office (59 [phone])on 03-11-2015 S. pyogenes Ag EIA Ql (Throat) Negative Normal [facility]; [facility] Work Phone: Rapid Strep Test, Office ([phone])Ordered By: Pedro Pablo Dimas on 03-11-2015 S. pyogenes Ag IA Ql (Unsp spec) Negative Normal [facility] Work Phone: THROAT CULTURE (41491)on Bacteria identified Respiratory culture Nom (Unsp spec) RRF Normal [facility] Work Phone: Comment on above: Routine respiratory antonette PATIENT NOT FASTINGP ERFORMED BY: [facility] Gladwin6370 [facility] [id number] Information: I06111 Bacteria identified Respiratory culture Nom (Unsp spec) Final report Normal [facility] Work Phone: Comment on above: PATIENT NOT FASTINGP ERFORMED BY: LabCo Tqzals1946 [facility] [id number] Information: K11520 HPV automatic (20118)on 11-20 HPV 16+18+31+33+35+39+45+ 51+52+56+58+59+68 DNA Probe+sig amp Ql (Cvx) Negative Normal [facility] Work Phone: Comment on above: This high-risk HPV t est detects thirteen high-risk types(16/18/31/33/35/39/45/51/52/56/58/59/68) without differentiation. . Source.............C ervical;EndocervicalNo. of containers..01 CYTYC Thin Prep VialPATIENT NOT FASTINGPERFORMED BY: [employer] LabOja.la W [id number] BY: =G Labjslyhl120 [employer]rFIGMD [place] [id number] Information: R86130 [id number] Microscopic observation Other stain Nom (Unsp spec) . Normal Comprehens souleymane Internal Medicine Work Phone: Comment on above: Source.............C ervical;EndocervicalNo. of containers..01 CYTYC Thin Prep VialPATIENT NOT FASTINGPERFORMED BY: ConjunctrFIGMD [place] [id number] BY: =G [employer]rFIGMD [place] [id number] Information: [id number] Pathology report final diagnosis Narrative SPRCS Normal [facility] Work Phone: Comment on above: NEGATIVE FOR INTRAEP ITHELIAL LESION AND MALIGNANCY.Satisfactory for evaluation. Endocervical and/or squamous metaplasticcells (endocervical component) are present.V70.0 ; [facility] campusTalisha Schmitt Supervisor Composing Room (ASCP) Source.............C ervical;EndocervicalNo. of containers..01 CYTYC Thin Prep VialPATIENT NOT FASTINGPERFORMED BY: [facility] Ambsklnkum024 [place] [facility] [id number] BY: =G [facility] Ufwdsdqded720 [place] [facility] [id number] Information: [id number] HPV automatic (98834) PAPSMR Normal Com prehensive Internal Medicine Work Phone: Comment on above: The Pap smear is a s creening test designed to aid in the detection ofpremalignant and malignant conditions of the uterine cervix. It is not adiagnostic procedure and should not be used as the sole means of detectingcervical cancer. Both false-positive and false-negative reports do occur. .This liquid based ThinPrep(R) pap test was screened with theuse of an image guided system. Source.............C ervical;EndocervicalNo. of containers..01 CYTYC Thin Prep VialPATIENT NOT FASTINGPERFORMED BY: [facility] Njoamdbhux667 [place] [facility] [id number] BY: =G [facility] Ldglgmqatz191 [place] [facility] [id number] Information: [id number] HPV automatic (63132)Ordered By: Vending Machine Attendant on 12-05-2014 HPV 16+18+31+33+35+39+45+ 51+52+56+58+59+68 DNA Probe+sig amp Ql (Cvx) Negative Normal [facility]; [facility] Work Phone: Comment on above: This high-risk HPV t est detects thirteen high-risk types(16/18/31/33/35/39/45/51/52/56/58/59/68) without differentiation. . Source.............C ervical;EndocervicalNo. of containers..01 CYTYC Thin Prep VialPATIENT NOT FASTINGPERFORMED BY: WB [facility] Ajeljbvggz[address] [id number] BY: =G [facility] Rxxpqgfedx36[address] [id number] Information: [id number] CBC with auto diff (63165)on 11-28-2014 Basophils #/vol (Bld) 0.0 {x10E3/uL} Normal 0.0-0.2 [facility] Work Phone: Comment on above: PATIENT WAS FASTINGP ERFORMED BY: MOI [address] [id number] Information: [id number] Basophils Auto #/vol (Bld) 0.0 {x10E3/uL} Normal 0.0-0.2 [facility] Work Phone: Basophils/100 WBC (Bld) 1 % Normal [facility] Work Phone: Comment on above: PATIENT WAS FASTINGP ERFORMED BY: MOI [facility] Jgtypg7207 [facility] [id number] Information: [id number],[id number] Basophils/100 WBC Auto (Bld) 1 % Normal [facility] Work Phone: Eosinophils #/vol (Bld) 0.3 {x10E3/uL} Normal 0.0-0.4 [facility] Work Phone: Comment on above: PATIENT WAS FASTINGP ERFORMED BY: MOI [facility]6370 [facility] [id number] Information: [id number] Eosinophils Auto #/vol (Bld) 0.3 {x10E3/uL} Normal 0.0-0.4 [facility] Work Phone: Eosinophils/100 WBC (Bld) 4 % Normal [facility] Work Phone: Comment on above: PATIENT WAS FASTINGP ERFORMED BY: [facility]6370 [facility] [id number] Information: [id number] Eosinophils/100 WBC Auto (Bld) 4 % Normal [facility] Work Phone: Erythrocyte distribution width Auto Ratio (RBC) 15.4 % Normal 12.3-15.4 [facility] Work Phone: Erythrocyte distribution width Ratio (RBC) 15.4 % Normal 12.3-15.4 [facility] Work Phone: Comment on above: PATIENT WAS FASTINGP ERFORMED BY: [address] [id number] Information: [id number] Hematocrit Auto Volume Fraction (Bld) 42.7 % Normal 34.0-46.6 [facility] Internal Medicine Work Phone: Hematocrit Volume Fraction (Bld) 42.7 % Normal 34.0-46.6 [facility] Work Phone: Comment on above: PATIENT WAS FASTINGP ERFORMED BY: [address] [id number] Information: [id number] Hemoglobin mass conc (Bld) 13.8 g/dL Normal 11.1-15.9 [facility] Work Phone: Comment on above: PATIENT WAS FASTINGP ERFORMED BY: [place] [id number] [facility] [id number] Information: [id number] Immature granulocytes #/vol (Bld) 0.0 {x10E3/uL} Normal 0.0-0.1 [facility] Work Phone: Comment on above: PATIENT WAS FASTINGP ERFORMED BY: [place] 4339470 [facility] [id number] Information: [id number] Immature granulocytes/100 WBC (Bld) 0 % Normal [facility] Work Phone: Comment on above: PATIENT WAS FASTINGP ERFORMED BY: [place] 4339470 [facility] [id number] Information: [id number] Lymphocytes #/vol (Bld) 2.0 {x10E3/uL} Normal 0.7-3.1 [facility] Work Phone: Comment on above: PATIENT WAS FASTINGP ERFORMED BY: [place] 4339470 [facility] [id number] Information: [id number] Lymphocytes Auto #/vol (Bld) 2.0 {x10E3/uL} Normal 0.7-3.1 [facility] Work Phone: Lymphocytes/100 WBC (Bld) 27 % Normal [facility] Work Phone: Comment on above: PATIENT WAS FASTINGP ERFORMED BY: [address] [id number] Information: [id number] Lymphocytes/100 WBC Auto (Bld) 27 % Normal [facility] Work Phone: MCH Auto Entitic mass (RBC) 27.4 pg Normal 26.6-33.0 [facility] Work Phone: MCH Entitic mass (RBC) 27.4 pg Normal 26.6-33.0 [facility] Work Phone: Comment on above: PATIENT WAS FASTINGP ERFORMED BY: [address] [id number] Information: [id number] MCHC Auto mass conc (RBC) 32.3 g/dL Normal 31.5-35.7 [facility] Work Phone: MCHC mass conc (RBC) 32.3 g/dL Normal 31.5-35.7 [facility] Internal Medicine Work Phone: Comment on above: PATIENT WAS FASTINGP ERFORMED BY: [place] 4339470 [facility] [id number] Information: [id number] MCV Auto Entitic volume (RBC) 85 fL Normal 79-97 [facility] Work Phone: MCV Entitic volume (RBC) 85 fL Normal 79-97 [facility] Work Phone: Comment on above: PATIENT WAS FASTINGP ERFORMED BY: [address] [id number] Information: [id number] Monocytes #/vol (Bld) 0.6 {x10E3/uL} Normal 0.1-0.9 [facility] Work Phone: Comment on above: PATIENT WAS FASTINGP ERFORMED BY: [address] [id number] Information: [id number],[id number] Monocytes Auto #/vol (Bld) 0.6 {x10E3/uL} Normal 0.1-0.9 [facility] Work Phone: Monocytes/100 WBC (Bld) 8 % Normal [facility] Work Phone: Comment on above: PATIENT WAS FASTINGP ERFORMED BY: [address] [id number] Information: [id number] Monocytes/100 WBC Auto (Bld) 8 % Normal [facility] Work Phone: Neutrophils #/vol (Bld) 4.4 {x10E3/uL} Normal 1.4-7.0 [facility] Work Phone: Comment on above: PATIENT WAS FASTINGP ERFORMED BY: [address] [id number] Information: 636137,[id number] Neutrophils Auto #/vol (Bld) 4.4 {x10E3/uL} Normal 1.4-7.0 [facility] Work Phone: Neutrophils/100 WBC (Bld) 60 % Normal [facility] Work Phone: Comment on above: PATIENT WAS FASTINGP ERFORMED BY: [address] [id number] Information: [id number],[id number] Neutrophils/100 WBC Auto (Bld) 60 % Normal [facility] Work Phone: Platelets #/vol (Bld) 254 {x10E3/uL} Normal 150-379 [facility] Work Phone: Comment on above: PATIENT WAS FASTINGP ERFORMED BY: MOI [facility]6370 [facility] [id number] Information: [id number] Platelets Auto #/vol (Bld) 254 {x10E3/uL} Normal 150-379 [facility] Work Phone: RBC #/vol (Bld) 5.04 {x10E6/uL} Normal 3.77-5.28 [facility] Internal Medicine Work Phone: Comment on above: PATIENT WAS FASTINGP ERFORMED BY: OMI [facility]6370 [facility] [id number] Information: [id number] RBC Auto #/vol (Bld) 5.04 {x10E6/uL} Normal 3.77-5.28 [facility] Work Phone: WBC #/vol (Bld) 7.3 {x10E3/uL} Normal 3.4-10.8 [facility] Internal Medicine Work Phone: Comment on above: PATIENT WAS FASTINGP ERFORMED BY: MOI [facility]6370 [facility] [id number] Information: [id number] WBC Auto #/vol (Bld) 7.3 {x10E3/uL} Normal 3.4-10.8 [facility] Work Phone: CBC with auto diff (58949)Or dered By: Vending Machine Attendant on 11-28-2014 Basophils (Bld) [#/Vol] 0.0 10*3/uL Normal 0.0-0.2 [facility]; [facility] Work Phone: Comment on above: PATIENT WAS FASTINGP ERFORMED BY: [facility]6370 [facility] [id number] Information: [id number] Eosinophils (Bld) [#/Vol] 0.3 10*3/uL Normal 0.0-0.4 [facility]; [facility] Work Phone: Comment on above: PATIENT WAS FASTINGP ERFORMED BY: [address] [id number] Information: [id number] Immature granulocytes (Bld) [#/Vol] 0.0 10*3/uL Normal 0.0-0.1 [facility]; [facility] Work Phone: Comment on above: PATIENT WAS FASTINGP ERFORMED BY: [address] [id number] Information: [id number] Lymphocytes (Bld) [#/Vol] 2.0 10*3/uL Normal 0.7-3.1 [facility]; [facility] Work Phone: Comment on above: PATIENT WAS FASTINGP ERFORMED BY: [address] [id number] Information: [id number] Monocytes (Bld) [#/Vol] 0.6 10*3/uL Normal 0.1-0.9 [facility]; [facility] Work Phone: Comment on above: PATIENT WAS FASTINGP ERFORMED BY: [address] [id number] Information: [id number] Neutrophils (Bld) [#/Vol] 4.4 10*3/uL Normal 1.4-7.0 [facility]; [facility] Work Phone: Comment on above: PATIENT WAS FASTINGP ERFORMED BY: [address] [id number] Information: [id number] Platelets (Bld) [#/Vol] 254 10*3/uL Normal 150-379 [facility]; [facility] Work Phone: Comment on above: PATIENT WAS FASTINGP ERFORMED BY: MOI Caro6370 [facility] [id number] Information: [id number] RBC (Bld) [#/Vol] 5.04 10*6/uL Normal 3.77-5.28 Compr rust [facility]; [facility] Work Phone: Comment on above: PATIENT WAS FASTINGP ERFORMED BY: [facility]I [facility] Klnypu2681 [facility] [id number] Information: [id number] WBC (Bld) [#/Vol] 7.3 10*3/uL Normal 3.4-10.8 Compre [facility]; [facility] Work Phone: Comment on above: PATIENT WAS FASTINGP ERFORMED BY: MOI Caro6370 [facility] [id number] Information: 897536,[id number] LIPID PANEL (02592)on 2014 Cholesterol in HDL mass conc 44 mg/dL Normal [facility] Work Phone: Comment on above: According to ATP-III Guidelines, HDL-C >59 mg/dL is considered anegative risk factor for CHD. PATIENT WAS FASTINGP ERFORMED BY: MOI [facility] Wxuugw3913 [facility] [id number] Cholesterol in LDL mass conc 110 mg/dL Abnormal 0-99 [facility] Work Phone: Comment on above: PATIENT WAS FASTINGP ERFORMED BY: [facility]6370 [facility] [id number] Cholesterol in LDL/Cholesterol in HDL mass ratio 2.5 {ratio_units} Normal 0.0-3.2 [facility] Work Phone: Comment on above: LDL/HDL Ratio Men Wo men 1/2 Avg.Risk 1.0 1.5 Avg.Risk 3.6 3.2 2X Avg.Risk 6.2 5.0 3X Avg.Risk 8.0 6.1 PATIENT WAS FASTINGP ERFORMED BY: MOI Caro6370 [facility] [id number] Cholesterol in VLDL mass conc 27 mg/dL Normal 5-40 [facility] Work Phone: Comment on above: PATIENT WAS FASTINGP ERFORMED BY: MOI Caro6370 [facility] [id number] Cholesterol mass conc 181 mg/dL Normal 100-199 [facility] prehensive Internal Medicine Work Phone: Comment on above: PATIENT WAS FASTINGP ERFORMED BY: MOI Caro6370 [facility] [id number] Triglyceride mass conc 137 mg/dL Normal 0-149 [facility] Work Phone: Comment on above: PATIENT WAS FASTINGP ERFORMED BY: MOI Caro6370 [facility] [id number] METABOLIC PANEL, COMPREHENSI VE (50074)on 11-28-2014 Albumin mass conc 4.2 g/dL Normal 3.5-5.5 Compreh [facility] Internal Medicine Work Phone: Comment on above: PATIENT WAS FASTINGP ERFORMED BY: MOI Parrishlin6370 [facility] [id number] Albumin/Globulin mass ratio 1.8 {ratio} Normal 1.1-2.5 [facility] Internal Medicine Work Phone: Comment on above: PATIENT WAS FASTINGP ERFORMED BY: MOI Parrishlin6370 [facility] [id number] ALP enzyme act/vol 56 [iU]/L Normal 39-117 [facility] Internal Medicine Work Phone: Comment on above: PATIENT WAS FASTINGP ERFORMED BY: MOI Parrishlin6370 [facility] [id number] ALT enzyme act/vol 18 [iU]/L Normal 0-32 [facility] Internal Medicine Work Phone: Comment on above: PATIENT WAS FASTINGP ERFORMED BY: CB [facility] Gshhul55[address]Dublin [place] [id number] AST enzyme act/vol 18 [iU]/L Normal 0-40 Compre [facility] Internal Medicine Work Phone: Comment on above: PATIENT WAS FASTINGP ERFORMED BY: MOI [facility] Yyuyua2857 [address] RoadDublin [place] [id number] Bilirubin mass conc 0.4 mg/dL Normal 0.0-1.2 Compr ensive Internal Medicine Work Phone: Comment on above: PATIENT WAS FASTINGP ERFORMED BY: MOI [facility] Vzwjnh4816 [address] RoadDublin [place] [id number] Calcium mass conc 8.9 mg/dL Normal 8.7-10.2 Compreh [facility] Work Phone: Comment on above: PATIENT WAS FASTINGP ERFORMED BY: MOI [facility] Korriw7305 [address] RoadDublin [place] [id number] Chloride molar conc 102 mmol/L Normal 97-108 Compr rust Internal Medicine Work Phone: Comment on above: PATIENT WAS FASTINGP ERFORMED BY: MOI [facility] Opmmok5447 [address] RoadDublin [place] [id number] CO2 molar conc 22 mmol/L Normal 18-29 Comprehens souleymane Internal Medicine Work Phone: Comment on above: PATIENT WAS FASTINGP ERFORMED BY: MOI [facility] Xsacqm0879 [address] RoadDublin [place] [id number] Creatinine mass conc 1.01 mg/dL Abnormal 0.57-1.00 [facility] Internal Medicine Work Phone: Comment on above: PATIENT WAS FASTINGP ERFORMED BY: [facility] Drrqrs1886 [address] RoadDublin [place] [id number] GFR/1.73 sq M predicted among blacks CKD-EPI vol rate/area (S/P/Bld) 78 mL/min/1.73 Normal Comprehensiv e Internal Medicine Work Phone: Comment on above: PATIENT WAS FASTINGP ERFORMED BY: [facility] Akpzpk1057 [address] RoadDublin [place] [id number] GFR/1.73 sq M predicted among non-blacks CKD-EPI vol rate/area (S/P/Bld) 68 mL/min/1.73 Normal [facility] Work Phone: Comment on above: PATIENT WAS FASTINGP ERFORMED BY: MOI [facility] Fzyxaa3524 [facility] [id number] Globulin Calculated mass conc (S) 2.4 g/dL Normal 1.5-4.5 [facility] Work Phone: Globulin mass conc (S) 2.4 g/dL Normal 1.5-4.5 [facility] Work Phone: Comment on above: PATIENT WAS FASTINGP ERFORMED BY: MOI [facility]Last ParrishZxnjul1262 [facility] [id number] Glucose mass conc 109 mg/dL Abnormal 65-99 Compreh ensive Internal Medicine Work Phone: Comment on above: PATIENT WAS FASTINGP ERFORMED BY: MOI [facility] Rvuwnl0704 [facility] [id number] Potassium molar conc 4.5 mmol/L Normal 3.5-5.2 Comp rehensive Internal Medicine Work Phone: Comment on above: PATIENT WAS FASTINGP ERFORMED BY: MOI [facility]Last Hgbbcp9267 [facility] [id number] Protein mass conc 6.6 g/dL Normal 6.0-8.5 Compreh ensive Internal Medicine Work Phone: Comment on above: PATIENT WAS FASTINGP ERFORMED BY: MOI [place] [id number] [facility] [id number] Sodium molar conc 139 mmol/L Normal 134-144 Compreh ensive Internal Medicine Work Phone: Comment on above: PATIENT WAS FASTINGP ERFORMED BY: MOI [place] 2692170 [facility] [id number] Urea nitrogen mass conc 15 mg/dL Normal 6-24 [facility] Work Phone: Comment on above: PATIENT WAS FASTINGP ERFORMED BY: MOI [address] [place] [id number] Urea nitrogen/Creatinine mass ratio 15 mg/mg Normal 9-23 [facility] Work Phone: Comment on above: PATIENT WAS FASTINGP ERFORMED BY: MOI AlexandraLast Znsosx2015 [facility] [id number] METABOLIC PANEL, COMPREHENSI VE (68999)Ordered By: Vending Machine Attendant on 11-28-2014 ALP [Catalytic activity/Vol] 56 U/L Normal 39-117 [facility]; [facility] Work Phone: Comment on above: PATIENT WAS FASTINGP ERFORMED BY: MOI [facility] Auukji8455 [facility] [id number] ALT [Catalytic activity/Vol] 18 U/L Normal 0-32 [facility]; [facility] Work Phone: Comment on above: PATIENT WAS FASTINGP ERFORMED BY: MOI Parrihslin6370 [facility] [id number] AST [Catalytic activity/Vol] 18 U/L Normal 0-40 [facility]; [facility] Work Phone: Comment on above: PATIENT WAS FASTINGP ERFORMED BY: MOI Parrishlin6370 [facility] [id number] Microscopic Examinationon Bacteria LM.HPF #/area (Urine sed) Few Normal [facility] Work Phone: Comment on above: PATIENT WAS FASTINGP ERFORMED BY: MOI Williamson Ifhuax0654 [facility] [id number] Epithelial cells LM.HPF #/area (Urine sed) 0-10 Normal 0 - 10 [facility] Work Phone: Comment on above: PATIENT WAS FASTINGP ERFORMED BY: MOI AlexandraMega Qgaamc0737 [facility] [id number] Mucus LM Ql (Urine sed) Present Normal [facility] Work Phone: Mucus Ql (Urine sed) Present Normal Comp rehensive Internal Medicine Work Phone: Comment on above: PATIENT WAS FASTINGP ERFORMED BY: MOI Williamson Jiekuo0481 [address]Dublin [place] [id number] RBC LM.HPF #/area (Urine sed) 0-2 Normal 0 - 2 [facility] Work Phone: Comment on above: PATIENT WAS FASTINGP ERFORMED BY: MOI [facility] Tjvbhv4654 [address] RoadDublin [place] [id number] WBC LM.HPF #/area (Urine sed) 6-10 Abnormal 0 - 5 [facility] Work Phone: Comment on above: PATIENT WAS FASTINGP ERFORMED BY: MOI [facility] Yqdcsc[address] [facility]bl[facility] [place] [id number] TSH (94068)on 11-28-2014 Thyrotropin Qn 2.550 {uIU/mL} Normal 0.450-4.50 0 [facility] Work Phone: Comment on above: PATIENT WAS FASTINGP ERFORMED BY: OMI [facility] Ueuqqs[address] [facility]in [place] [id number] URINALYSIS, W/ MICRO (20435) on 11-28-2014 Appearance Nom (U) Clear Normal Compre hensive Internal Medicine Work Phone: Comment on above: PATIENT WAS FASTINGP ERFORMED BY: MOI [facility] ParrishBnxmxb[address] [facility] Hospitalbl[facility] [place] [id number] Bilirubin Ql (U) Negative Normal Comprehe nsive Internal Medicine Work Phone: Comment on above: PATIENT WAS FASTINGP ERFORMED BY: MOI [facility] Uyiyui1729 [address] RoadDuin [place] [id number] Color Nom (U) Yellow Normal Comprehensi ve Internal Medicine Work Phone: Comment on above: PATIENT WAS FASTINGP ERFORMED BY: MOI [facility] Gkhopr[address] [facility] [place] [id number] Glucose Ql (U) Negative Normal Comprehens souleymane Internal Medicine Work Phone: Comment on above: PATIENT WAS FASTINGP ERFORMED BY: MOI [facility] Xcsels7523 [address] RoadDublin [place] [id number] Hemoglobin Ql (U) 2+ Abnormal Compreh ensive Internal Medicine Work Phone: Comment on above: PATIENT WAS FASTINGP ERFORMED BY: MOI LabCohuan ParrishKvylma1691 [address] RoadDublin [place] [id number] Hemoglobin Test strip Ql (U) 2+ Abnormal [facility] Work Phone: Ketones Ql (U) Negative Normal Comprehens souleymane Internal Medicine Work Phone: Comment on above: PATIENT WAS FASTINGP ERFORMED BY: MOI LabLast ParrishYnaekv3932 [address] RoadDublin [place] [id number] Leukocyte esterase Test strip Ql (U) 1+ Abnormal [facility] Work Phone: Comment on above: PATIENT WAS FASTINGP ERFORMED BY: MOI Lab[facility] ParrishGrhpqj8504 [address] RoadDublin [place] [id number] Microscopic observation LM Nom (Urine sed) See below: Normal [facility] Work Phone: Comment on above: Microscopic was marci cated and was performed. PATIENT WAS FASTINGP ERFORMED BY: MOI LabLast ParrishCvtgfh0976 [address] RoadDublin [place] [id number] Nitrite Ql (U) Negative Normal Comprehens souleymane Internal Medicine Work Phone: Comment on above: PATIENT WAS FASTINGP ERFORMED BY: MOI Parrishlin6370 [address] RoadDublin [place] [id number] Nitrite Test strip Ql (U) Negative Normal [facility] Work Phone: pH (U) 5.5 [pH] Normal 5.0-7.5 [facility] Work Phone: Comment on above: PATIENT WAS FASTINGP ERFORMED BY: MOI LabCohuan ParrishEjwokt0164 [address] RoadDublin [place] [id number] pH Test strip (U) 5.5 [pH] Normal 5.0-7.5 Compreh ensive Internal Medicine Work Phone: Protein Ql (U) Negative Normal Comprehens souleymane Internal Medicine Work Phone: Comment on above: PATIENT WAS FASTINGP ERFORMED BY: MOI LabCohuan ParrishPbjtnt7842 [address] RoadDublin [place] [id number] Protein Test strip Ql (U) Negative Normal [facility] Work Phone: Specific gravity Relative Density (U) 1.016 1 Normal 1.005-1.03 0 [facility] Work Phone: Comment on above: PATIENT WAS FASTINGP ERFORMED BY: MOI LabLast ParrishMxctqc[address] [facility] [id number] Urobilinogen Test strip mass conc (U) 0.2 mg/dL Normal 0.0-1.9 Comprehensiv e Internal Medicine Work Phone: Comment on above: PATIENT WAS FASTINGP ERFORMED BY: MOI Parrishlin6370 [facility] [id number] URINALYSIS, W/ MICRO ([id number]) Ordered By: Vending Machine Attendant on 11-28-2014 Bilirubin Ql (U) Negative Normal Comprehe nsive Internal Medicine; [facility] Work Phone: Comment on above: PATIENT WAS FASTINGP ERFORMED BY: MOI Parrishlin[address] [facility] [id number] Glucose Ql (U) Negative Normal Comprehens souleymane Internal Medicine; [facility] Work Phone: Comment on above: PATIENT WAS FASTINGP ERFORMED BY: MOI Parrishlin[address] [facility]in [place] [id number] Ketones Ql (U) Negative Normal Comprehens souleymane Internal Medicine; [facility] Work Phone: Comment on above: PATIENT WAS FASTINGP ERFORMED BY: MOI Parrishlin6370 [address] RoadCone [facility] Hospitalin [place] [id number] Nitrite Ql (U) Negative Normal Comprehens souleymane Internal Medicine; [facility] Work Phone: Comment on above: PATIENT WAS FASTINGP ERFORMED BY: MOI LabLast ParrishHufvbw[address] [facility] CenterD[facility] [place] [id number] Protein Ql (U) Negative Normal Comprehens souleymane Internal Medicine; [facility] Work Phone: Comment on above: PATIENT WAS FASTINGP ERFORMED BY: CB [employer]6370 ReferStarFormerly [facility] [id number] Urobilinogen (U) [Mass/Vol] 0.2 mg/dL Normal 0.0-1.9 [facility]; [facility] Work Phone: Comment on above: PATIENT WAS FASTINGP ERFORMED BY: MOI [facility] Qlojnj6226 BolivarTrends BrandsT.J. [facility] [id number] Vital Signs Date Time Vital Sign Value Performing Clinician Facility 10-18-2024 20:16-0400 Diastolic blood pressure 70 mm[Hg] Kian Davey DO Work Phone: [facility] [facility] 10-18-2024 20:16-0400 Heart rate 97 /min Kian Charly DO Work Phone: [facility] 10-18-2024 20:16-0400 Respiratory rate 16 /min Kian Charly DO Work Phone: [facility] 10-18-2024 20:16-0400 SaO2% (BldA) [Mass fraction] 99 % Kian Davey DO Work Phone: [facility] 10-18-2024 20:16-0400 Systolic blood pressure 130 mm[Hg] Kian Davey DO Work Phone: [facility] 10-18-2024 18:47-0400 Body temperature 98.2 [degF] Kian Davey DO Work Phone: [facility] 10-18-2024 16:38-0400 Body height 160 cm Kian Davey DO Work Phone: [facility] 10-18-2024 16:38-0400 Body mass index (BMI) [Ratio] 22.14 kg/m2 Kian Charly DO Work Phone: [facility] 10-18-2024 16:38-0400 Body weight 56.7 kg Kian Davey DO Work Phone: [facility] 07-28-2024 08:48-0400 Body mass index (BMI) [Ratio] 23 kg/m2 Samantha Hirsch [employer] Work Phone: 4(695)351-182921 [place] [address] 07-28-2024 08:48-0400 Body temperature 97.4 [degF] Samantha Hirsch [employer] Work Phone: 0(261)712-331321 [place] [address] 07-28-2024 08:48-0400 Body weight 58.96 kg Samantha Hirsch [employer] Work Phone: 6(859)905-875521 [place] [address] 07-28-2024 08:48-0400 Diastolic blood pressure 79 mm[Hg] Samantha Hirsch [employer] Work Phone: 1(328)877-918821 [place] [address] 07-28-2024 08:48-0400 Heart rate 94 /min Samantha Hirsch [employer] Work Phone: 2(544)088-247021 [place] [address] 07-28-2024 08:48-0400 Respiratory rate 18 /min Samantha Hirsch [employer] Work Phone: 7(260)584-509521 [place] [address] 07-28-2024 08:48-0400 SaO2% (BldA) [Mass fraction] 97 % Samantha Hirsch [employer] Work Phone: 4(374)932-138421 [place] [address] 07-28-2024 08:48-0400 Systolic blood pressure 112 mm[Hg] Samantha Hirsch [employer] Work Phone: 1(088)082-231421 [place] [address] 06-13-2024 11:37-0400 Body height 160.02 cm Samantha Hirsch [employer] Work Phone: 4(771)220-689221 [place] [address] 06-13-2024 11:37-0400 Body weight 56.69 kg Samantha Hirsch [employer] Work Phone: 9(085)511-919921 [place] [address] 06-13-2024 11:37-0400 Heart rate 87 /min Samantha Hirsch [employer] Work Phone: 5(311)903-206521 [place] [address] 06-13-2024 11:37-0400 SaO2% (BldA) [Mass fraction] 99 % Samantha Hirsch [employer] Work Phone: 6(409)053-085421 [place] [address] 04-27-2024 08:24-0500 Body height 160.02 cm Samantha Hirsch [employer] Work Phone: 2(324)467-248321 [place] [address] 04-27-2024 08:24-0500 Body mass index (BMI) [Ratio] 22.3 kg/m2 Samantha Hirsch [employer] Work Phone: 5(120)596-551521 [place] [address] 04-27-2024 08:24-0500 Body temperature 97.5 [degF] Samantha Hirsch [employer] Work Phone: 5(962)485-317921 [place] [address] 04-27-2024 08:24-0500 Body weight 57.15 kg Samantha Hirsch [employer] Work Phone: 3(840)890-121021 [place] [address] 04-27-2024 08:24-0500 Diastolic blood pressure 89 mm[Hg] Samantha Hirsch [employer] Work Phone: 9(367)417-346621 [place] [address] 04-27-2024 08:24-0500 Heart rate 100 /min Samantha Hirsch [employer] Work Phone: 9(127)882-978921 [place] [address] 04-27-2024 08:24-0500 Respiratory rate 20 /min Samantha Hirsch [employer] Work Phone: 5(113)699-797821 [place] [address] 04-27-2024 08:24-0500 SaO2% (BldA) [Mass fraction] 99 % Samantha Hirsch [employer] Work Phone: 5(545)464-930721 [place] [address] 04-27-2024 08:24-0500 Systolic blood pressure 134 mm[Hg] Samantha Hirsch [employer] Work Phone: 9(311)898-429321 [place] [address] 04-25-2024 12:04-0500 Body mass index (BMI) [Ratio] 22.1 kg/m2 Samantha Hirsch [employer] Work Phone: 4(471)588-494621 [place] [address] 04-25-2024 12:04-0500 Body temperature 98.2 [degF] Samantha Hirsch [employer] Work Phone: 0(203)643-429021 [place] [address] 04-25-2024 12:04-0500 Body weight 56.69 kg Samantha Hirsch [employer] Work Phone: 2(073)236-147121 [place] [address] 04-25-2024 12:04-0500 Diastolic blood pressure 72 mm[Hg] Samantha Hirsch [employer] Work Phone: 0(167)656-599821 [place] [address] 04-25-2024 12:04-0500 Heart rate 84 /min Samantha Hirsch [employer] Work Phone: [facility] 04-25-2024 12:04-0500 Respiratory rate 18 /min Samantha Hirsch [employer] Work Phone: [facility] 04-25-2024 12:04-0500 SaO2% (BldA) [Mass fraction] 99 % Samantha Hirsch [employer] Work Phone: [facility] 04-25-2024 12:04-0500 Systolic blood pressure 113 mm[Hg] Samantha Hirsch [employer] Work Phone: [facility] 08-28-2022 13:57-0400 Body height 161.29 cm Shruti Slarb [employer] [facility] Work Phone: 08-28-2022 13:57-0400 Body mass index (BMI) [Ratio] 28.25 kg/m2 Shruti Slarb [employer] [facility]; [facility] Work Phone: 08-28-2022 13:57-0400 Body surface area Derived from formula 1.78 m2 Shruti Slarb [employer] [facility]; [facility] Work Phone: 08-28-2022 13:57-0400 Body temperature 97.6 [degF] Shruti Slarb [employer] [facility]; [facility] Work Phone: Comment on above: Method: Temporal 08-28-2022 13:57-0400 Body weight 73.48 kg Shruti Slarb [employer] [facility]; [facility] Work Phone: 08-28-2022 13:57-0400 Diastolic blood pressure 72 mm[Hg] Shruti Slarb [employer] [facility]; [facility] Work Phone: Comment on above: Patient Position: Sitting; Cuff Location : Left Arm; Cuff Size: Standard 08-28-2022 13:57-0400 Heart rate 88 /min Shruti Slarb [employer] [facility]; [facility] Work Phone: Comment on above: Pattern: Regular 08-28-2022 13:57-0400 Respiratory rate 17 /min Shruti Pettit LPN [facility]; [facility] Work Phone: Comment on above: Pattern: Unlabored 08-28-2022 13:57-0400 SaO2% (BldA) [Mass fraction] 98 % Shruti Pettit [employer] [facility]; [facility] Work Phone: Comment on above: Room air 08-28-2022 13:57-0400 Systolic blood pressure 118 mm[Hg] Shruti Buenorb [employer] [facility]; [facility] Work Phone: Comment on above: Patient Position: Sitting; Cuff Location : Left Arm; Cuff Size: Standard 02-23-2022 14:01-0500 Body height 161.29 cm Shruti Mylesrb [employer] [facility]; [facility] Work Phone: 02-23-2022 14:01-0500 Body mass index (BMI) [Ratio] 27.37 kg/m2 Shruti Slarb [employer] [facility]; [facility] Work Phone: 02-23-2022 14:01-0500 Body surface area Derived from formula 1.75 m2 Shruti Slarb [employer] [facility]; [facility] Work Phone: 02-23-2022 14:01-0500 Body temperature 97.8 [degF] Shruti Mylesrb [employer] [facility]; [facility] Work Phone: 02-23-2022 14:01-0500 Body weight 71.22 kg Shruti Mylesrb [employer] [facility]; [facility] Work Phone: 02-23-2022 14:01-0500 Diastolic blood pressure 80 mm[Hg] Shruti Slarb [employer] [facility]; [facility] Work Phone: Comment on above: Patient Position: Sitting; Cuff Location : Left Arm; Cuff Size: Standard 02-23-2022 14:01-0500 Heart rate 96 /min Shruti Mylesrb [employer] [facility]; [facility] Work Phone: Comment on above: Pattern: Regular 02-23-2022 14:01-0500 Respiratory rate 16 /min Shruti Pettit [employer] [facility]; [facility] Work Phone: Comment on above: Pattern: Unlabored 02-23-2022 14:01-0500 SaO2% (BldA) [Mass fraction] 97 % Shruti Pettit [employer] [facility]; [facility] Work Phone: Comment on above: Room air 02-23-2022 14:01-0500 Systolic blood pressure 124 mm[Hg] Shruti Pettit [employer] [facility]; [facility] Work Phone: Comment on above: Patient Position: Sitting; Cuff Location : Left Arm; Cuff Size: Standard 04-22-2021 13:48-0500 Body height 161.29 cm Evita Rosales HAILEY [facility] Work Phone: 04-22-2021 13:48-0500 Body mass index (BMI) [Ratio] 26.92 kg/m2 Evita Rosales HAILEY [facility] Work Phone: 04-22-2021 13:48-0500 Body surface area Derived from formula 1.74 m2 Evita Rosales HAILEY [facility]; [facility] Work Phone: 04-22-2021 13:48-0500 Body temperature 97.1 [degF] Evita Rosales HAILEY [facility]; [facility] Work Phone: Comment on above: Method: Temporal 04-22-2021 13:48-0500 Body weight 70.02 kg Evita Rosales HAILEY [facility] Work Phone: 04-22-2021 13:48-0500 Diastolic blood pressure 84 mm[Hg] Evitalex[employer] Rosales HAILEY [facility]; [facility] Work Phone: Comment on above: Patient Position: Sitting; Cuff Location : Left Arm; Cuff Size: Standard 04-22-2021 13:48-0500 Heart rate 95 /min Evitalex[employer] Edwardschayo HART [facility]; [facility] Work Phone: Comment on above: Pattern: Regular 04-22-2021 13:48-0500 Respiratory rate 16 /min Evita Rosales HAILEY [facility]; [facility] Work Phone: Comment on above: Pattern: Unlabored 04-22-2021 13:48-0500 SaO2% (BldA) [Mass fraction] 98 % Evita Rosales HAILEY [facility]; [facility] Work Phone: Comment on above: Room air 04-22-2021 13:48-0500 Systolic blood pressure 130 mm[Hg] Evita Rosales HAILEY [facility]; [facility] Work Phone: Comment on above: Patient Position: Sitting; Cuff Location : Left Arm; Cuff Size: Standard 01-14-2021 08:35-0400 Body height 161.29 cm Evita Rosales HAILEY [facility]; [facility] Work Phone: 01-14-2021 08:35-0400 Body mass index (BMI) [Ratio] 25.98 kg/m2 Evita Rosales HAILEY [facility]; [facility] Work Phone: 01-14-2021 08:35-0400 Body surface area Derived from formula 1.72 m2 Evita Rosales HAILEY [facility]; [facility] Work Phone: 01-14-2021 08:35-0400 Body temperature 97.8 [degF] Evita Rosales HAILEY [facility]; [facility] Work Phone: Comment on above: Method: Temporal 01-14-2021 08:35-0400 Body weight 67.59 kg Evita Rosales HAILEY [facility]; [facility] Work Phone: 01-14-2021 08:35-0400 Diastolic blood pressure 78 mm[Hg] Evita Rosales HAILEY [facility]; [facility] Work Phone: Comment on above: Patient Position: Sitting; Cuff Location : Left Arm; Cuff Size: Standard 01-14-2021 08:35-0400 Heart rate 83 /min [employer]ex[employer] Rosales HAILEY [facility]; [facility] Work Phone: Comment on above: Pattern: Regular 01-14-2021 08:35-0400 Respiratory rate 16 /min Evita Rosales LPN [facility]; [facility] Work Phone: Comment on above: Pattern: Unlabored 01-14-2021 08:35-0400 SaO2% (BldA) [Mass fraction] 98 % Evita Rosales LPN [facility]; [facility] Work Phone: Comment on above: Room air 01-14-2021 08:35-0400 Systolic blood pressure 102 mm[Hg] Evita Rosales LPN [facility]; [facility] Work Phone: Comment on above: Patient Position: Sitting; Cuff Location : Left Arm; Cuff Size: Standard 03-19-2020 08:01-0500 BMI (Body Mass Index) 25.28 kg/m2 Thi Kingrk ANTHONY Work Phone: [facility]; [facility] Work Phone: 03-19-2020 08:01-0500 Body Temperature 99.4 [degF] Thi Alonzo [employer] TEACHER Work Phone: [facility]; [facility] Work Phone: 03-19-2020 08:01-0500 Body weight 65.77 kg Thi Alonzo [employer]IMAL [employer]ITION TEACHER Work Phone: [facility]; [facility] Work Phone: 03-19-2020 08:01-0500 BP Diastolic 83 mm[Hg] Thi Alonzo [employer] TE[employer]ER Work Phone: [facility]; [facility] Work Phone: Comment on above: Patient Position: Supine; Cuff Location: Right Arm; Cuff Size: Standard 03-19-2020 08:01-0500 BP Systolic 117 mm[Hg] Thi Alonzo [employer] TE[employer]ER Work Phone: [facility]; [facility] Work Phone: Comment on above: Patient Position: Supine; Cuff Location: Right Arm; Cuff Size: Standard 03-19-2020 08:01-0500 BSA (Body Surface Area) 1.7 m2 Thi Alonzo CNP Work Phone: [facility]; [facility] Work Phone: 03-19-2020 08:01-0500 Height 161.29 cm Thi Alonzo CNP Work Phone: [facility]; [facility] Work Phone: 03-19-2020 08:01-0500 Pulse (Heart Rate) 90 /min Thi Alonzo [employer] TE[employer]ER Work Phone: [facility]; [facility] Work Phone: Comment on above: Pattern: Regular 03-19-2020 08:01-0500 Pulse Oximetry 98 % Thi Alonzo [facility]; [facility] Work Phone: Comment on above: Room air 03-19-2020 08:01-0500 SaO2% (BldA) [Mass fraction] 98 % Thi Alonzo [employer] TE[employer]ER Work Phone: [facility]; [facility] Work Phone: Comment on above: Room air 11-20-2019 15:48-0400 BMI (Body Mass Index) 25.28 kg/m2 Shruti Pettit LPN [facility] Work Phone: Comment on above: pt reported her own vitals. 11-20-2019 15:48-0400 Body Temperature 97.6 [degF] Shruti Pettit LPN [facility] Work Phone: Comment on above: pt reported her own vitals. 11-20-2019 15:48-0400 Body weight 65.77 kg Shruti Pettit LPN [facility] Work Phone: Comment on above: pt reported her own vitals. 11-20-2019 15:48-0400 BP Diastolic 88 mm[Hg] Shruti Pettit LPN [facility] Work Phone: Comment on above: Patient Position: Sitting; Cuff Location : Left Arm; Cuff Size: Standard pt reported her own vitals. 11-20-2019 15:48-0400 BP Systolic 127 mm[Hg] Shruti Pettit LPN [facility] Work Phone: Comment on above: Patient Position: Sitting; Cuff Location : Left Arm; Cuff Size: Standard pt reported her own vitals. 11-20-2019 15:48-0400 BSA (Body Surface Area) 1.7 m2 Shruti Pettit LPN [facility] Work Phone: Comment on above: pt reported her own vitals. 11-20-2019 15:48-0400 Height 161.29 cm Shruti Pettit LPN [facility] Work Phone: Comment on above: pt reported her own vitals. 11-20-2019 15:48-0400 Pulse (Heart Rate) 89 /min Shruti Pettit LPN [facility] Work Phone: Comment on above: Pattern: Regular pt reported her own vitals. 11-20-2019 15:48-0400 Pulse Oximetry 99 % Thi Alonzo [facility] Work Phone: Comment on above: Room air pt reported her own vitals. 11-20-2019 15:48-0400 SaO2% (BldA) [Mass fraction] 99 % Shruti Pettit LPN [facility]; [facility] Work Phone: Comment on above: Room air pt reported her own vitals. 06-16-2019 08:18-0400 Body Temperature 97 [degF] Thi Kingrk [employer] TE[employer]ER Work Phone: [facility] Work Phone: 06-16-2019 08:18-0400 Body weight 66.23 kg Thi Kinga [employer]IMAL [employer]UTRITION TEACHER Work Phone: [facility] Work Phone: 06-16-2019 08:18-0400 BP Diastolic 88 mm[Hg] Thi Kinga [employer]IMAL [employer]ITION TEACHER Work Phone: [facility] Work Phone: Comment on above: Patient Position: Supine; Cuff Location: Right Arm; Cuff Size: Standard 06-16-2019 08:18-0400 BP Systolic 136 mm[Hg] Thi Alonzo [employer]IMAL [employer]ITION TEACHER Work Phone: [facility] Work Phone: Comment on above: Patient Position: Supine; Cuff Location: Right Arm; Cuff Size: Standard 06-16-2019 08:18-0400 Pulse (Heart Rate) 90 /min Thi Alonzo [employer]IMAL [employer]ITION TEACHER Work Phone: [facility] Work Phone: Comment on above: Pattern: Regular 06-16-2019 06:41-0400 BMI (Body Mass Index) 25.46 kg/m2 Toño Lira LPN [facility] Work Phone: 06-16-2019 06:41-0400 Body weight 66.23 kg Toño Lira LPN [facility] Work Phone: 06-16-2019 06:41-0400 BSA (Body Surface Area) 1.7 m2 Toño Lira LPN [facility] Work Phone: 06-16-2019 06:41-0400 Height 161.29 cm Toño Lira LPN [facility] Work Phone: 08-22-2018 09:07-0400 BMI (Body Mass Index) 25.46 kg/m2 Toño Lira LPN [facility] Work Phone: 08-22-2018 09:07-0400 Body Temperature 98.1 [degF] Toño Lira LPN [facility] Work Phone: Comment on above: Method: Temporal 08-22-2018 09:07-0400 Body weight 66.23 kg Toño Lira LPN [facility] Work Phone: 08-22-2018 09:07-0400 BP Diastolic 82 mm[Hg] Toño Lira [employer] [facility] Work Phone: Comment on above: Patient Position: Sitting; Cuff Location : Left Arm; Cuff Size: Standard 08-22-2018 09:07-0400 BP Systolic 122 mm[Hg] Toño Lira LPN [facility] Work Phone: Comment on above: Patient Position: Sitting; Cuff Location : Left Arm; Cuff Size: Standard 08-22-2018 09:07-0400 BSA (Body Surface Area) 1.7 m2 Toño Lira LPN [facility] Work Phone: 08-22-2018 09:07-0400 Height 161.29 cm Toño Pankaj HART [facility] Work Phone: 08-22-2018 09:07-0400 Pulse (Heart Rate) 100 /min Toño Pankaj [facility] Work Phone: Comment on above: Pattern: Regular 08-22-2018 09:07-0400 Pulse Oximetry 97 % Thi aLlarosariork [facility] Work Phone: Comment on above: Room air 08-22-2018 09:07-0400 Respiratory Rate 16 /min Toño Lira LPN [facility] Work Phone: Comment on above: Pattern: Unlabored 08-22-2018 09:07-0400 SaO2% (BldA) [Mass fraction] 97 % Toño Lira LPN [facility]; [facility] Work Phone: Comment on above: Room air 08-22-2018 09:07-0400 Weight 66.23 kg Thi Alonzo [facility] Work Phone: 07-04-2018 09:34-0400 BMI (Body Mass Index) 25.46 kg/m2 Albertina Ga [facility] Work Phone: 07-04-2018 09:34-0400 Body Temperature 97.9 [degF] Albertina Ga [facility] Work Phone: Comment on above: Method: Temporal 07-04-2018 09:34-0400 Body weight 66.23 kg Albertina Ga [facility] Work Phone: 07-04-2018 09:34-0400 BP Diastolic 84 mm[Hg] Albertina Ga [facility] Work Phone: Comment on above: Patient Position: Sitting; Cuff Location : Left Arm; Cuff Size: Standard 07-04-2018 09:34-0400 BP Systolic 132 mm[Hg] Albertina Ga [facility] Work Phone: Comment on above: Patient Position: Sitting; Cuff Location : Left Arm; Cuff Size: Standard 07-04-2018 09:34-0400 BSA (Body Surface Area) 1.7 m2 Albertina Ga [facility] Work Phone: 07-04-2018 09:34-0400 Height 161.29 cm Albertina Harmeet [facility] Work Phone: 07-04-2018 09:34-0400 Pulse (Heart Rate) 81 /min Albertina Ga [facility] Work Phone: Comment on above: Pattern: Regular 07-04-2018 09:34-0400 Pulse Oximetry 98 % Thi Alonzo [facility] Work Phone: Comment on above: Room air 07-04-2018 09:34-0400 Respiratory Rate 16 /min Albertina Ga [facility] Work Phone: Comment on above: Pattern: Unlabored 07-04-2018 09:34-0400 SaO2% (BldA) [Mass fraction] 98 % Albertina Nava [facility] Work Phone: Comment on above: Room air 07-04-2018 09:34-0400 Weight 66.23 kg Thi Alonzo [facility] Work Phone: 10-25-2017 10:43-0400 BMI (Body Mass Index) 24.76 kg/m2 Bernie Dixon RN [facility] Work Phone: 10-25-2017 10:43-0400 Body Temperature 98.3 [degF] Bernie Dixon RN [facility] Work Phone: Comment on above: Method: Temporal 10-25-2017 10:43-0400 Body weight 64.41 kg Bernie Dixon RN [facility] Work Phone: 10-25-2017 10:43-0400 BP Diastolic 78 mm[Hg] Bernie Dixon RN [facility] Work Phone: Comment on above: Patient Position: Sitting; Cuff Location : Left Arm; Cuff Size: Standard 10-25-2017 10:43-0400 BP Systolic 140 mm[Hg] Bernie Dixon RN [facility] Work Phone: Comment on above: Patient Position: Sitting; Cuff Location : Left Arm; Cuff Size: Standard 10-25-2017 10:43-0400 BSA (Body Surface Area) 1.68 m2 Bernie Dixon RN [facility] Work Phone: 10-25-2017 10:43-0400 Height 161.29 cm Bernie Dixon RN [facility] Work Phone: 10-25-2017 10:43-0400 Pulse (Heart Rate) 92 /min Bernie Dixon RN [facility] Work Phone: Comment on above: Pattern: Regular 10-25-2017 10:43-0400 Pulse Oximetry 98 % Thi Lalacaren [facility] Work Phone: Comment on above: Room air 10-25-2017 10:43-0400 Respiratory Rate 18 /min Bernie Dixon RN [facility] Work Phone: Comment on above: Pattern: Unlabored 10-25-2017 10:43-0400 SaO2% (BldA) [Mass fraction] 98 % Bernie Dixon RN [facility]; [facility] Work Phone: Comment on above: Room air 10-25-2017 10:43-0400 Weight 64.41 kg Thi Alonzo [facility] Work Phone: 06-23-2017 08:46-0400 BMI (Body Mass Index) 25.11 kg/m2 Shruti Wilver HART [facility] Work Phone: 06-23-2017 08:46-0400 Body Temperature 98.2 [degF] Shruti Mylesrb HAILEY [facility] Work Phone: 06-23-2017 08:46-0400 Body weight 65.32 kg Shruti Mylesrb HAILEY [facility] Work Phone: 06-23-2017 08:46-0400 BP Diastolic 74 mm[Hg] Shruti Slarb [employer]RARY SUPERVISOR [facility] Work Phone: Comment on above: Patient Position: Sitting; Cuff Location : Left Arm; Cuff Size: Standard 06-23-2017 08:46-0400 BP Systolic 116 mm[Hg] Shruti Slarb [employer] SUPER[employer] [facility] Work Phone: Comment on above: Patient Position: Sitting; Cuff Location : Left Arm; Cuff Size: Standard 06-23-2017 08:46-0400 BSA (Body Surface Area) 1.69 m2 Shruti Pettit LPN [facility] Work Phone: 06-23-2017 08:46-0400 Height 161.29 cm Shrtui Pettit LPN [facility] Work Phone: 06-23-2017 08:46-0400 Pulse (Heart Rate) 84 /min Shruti Pettit LPN [facility] Work Phone: Comment on above: Pattern: Regular 06-23-2017 08:46-0400 Pulse Oximetry 98 % Thi Alonzo [facility] Internal Medicine Work Phone: Comment on above: Room air 06-23-2017 08:46-0400 Respiratory Rate 18 /min Shruti Pettit LIBRARY SUPERVISOR [facility] Internal Medicine Work Phone: Comment on above: Pattern: Unlabored 06-23-2017 08:46-0400 SaO2% (BldA) [Mass fraction] 98 % Shruti Pettit LIBRARY SUPERVISOR [facility]; [facility] Work Phone: Comment on above: Room air 06-23-2017 08:46-0400 Weight 65.32 kg Thi Alonzo [facility] Internal Medicine Work Phone: 04-06-2016 08:44-0500 BMI (Body Mass Index) 25.28 kg/m2 Shruti Pettit LPN [facility] Work Phone: 04-06-2016 08:44-0500 Body Temperature 98.1 [degF] Shruti Pettit LPN [facility] Work Phone: 04-06-2016 08:44-0500 Body weight 65.77 kg Shruti Pettit LPN [facility] Internal Medicine Work Phone: 04-06-2016 08:44-0500 BP Diastolic 76 mm[Hg] Shruti Pettit LIBRARY SUPERVISOR [facility] Work Phone: Comment on above: Patient Position: Sitting; Cuff Location : Left Arm; Cuff Size: Standard 04-06-2016 08:44-0500 BP Systolic 112 mm[Hg] Shruti Pettit LPN [facility] Work Phone: Comment on above: Patient Position: Sitting; Cuff Location : Left Arm; Cuff Size: Standard 04-06-2016 08:44-0500 BSA (Body Surface Area) 1.7 m2 Shruti Pettit LPN [facility] Work Phone: 04-06-2016 08:44-0500 Height 161.29 cm Shruti Pettit LPN [facility] Work Phone: 04-06-2016 08:44-0500 Pulse (Heart Rate) 99 /min Shruti Pettit LPN [facility] Work Phone: Comment on above: Pattern: Regular 04-06-2016 08:44-0500 Pulse Oximetry 98 % Thi Alonzo [facility] Internal Medicine Work Phone: Comment on above: Room air 04-06-2016 08:44-0500 Respiratory Rate 18 /min Shruti Pettit LPN [facility] Work Phone: Comment on above: Pattern: Unlabored 04-06-2016 08:44-0500 SaO2% (BldA) [Mass fraction] 98 % Shruti Buenovida HART [facility]; [facility] Work Phone: Comment on above: Room air 04-06-2016 08:44-0500 Weight 65.77 kg Thi Alonzo [facility] Internal Medicine Work Phone: 08-26-2015 13:07-0400 BMI (Body Mass Index) 23.71 kg/m2 Rosa A Fast DO Work Phone: [facility] Work Phone: 08-26-2015 13:07-0400 Body Temperature 98.2 [degF] Rosa A Fast DO Work Phone: [facility] Internal Medicine Work Phone: Comment on above: Method: Oral 08-26-2015 13:07-0400 Body weight 61.69 kg Rosa A Fast DO Work Phone: [facility] Work Phone: 08-26-2015 13:07-0400 BP Diastolic 64 mm[Hg] Rosa A Fast DO Work Phone: [facility] Work Phone: Comment on above: Patient Position: Sitting 08-26-2015 13:07-0400 BP Systolic 112 mm[Hg] Rosa A Fast DO Work Phone: [facility] Work Phone: Comment on above: Patient Position: Sitting 08-26-2015 13:07-0400 BSA (Body Surface Area) 1.65 m2 Rosa A Fast DO Work Phone: [facility] Work Phone: 08-26-2015 13:07-0400 Height 161.29 cm Rosa A Fast DO Work Phone: [facility] Work Phone: 08-26-2015 13:07-0400 Pulse (Heart Rate) 96 /min Rosa A Fast DO Work Phone: [facility] Work Phone: Comment on above: Pattern: Regular 08-26-2015 13:07-0400 Respiratory Rate 16 /min Rosa A Fast DO Work Phone: [facility] Work Phone: 08-26-2015 13:07-0400 Weight 61.69 kg Thi Alonzo [facility] Work Phone: 04-29-2015 11:23-0500 BMI (Body Mass Index) 23.9 kg/m2 Dona Adrien [facility] Internal Medicine Work Phone: 04-29-2015 11:23-0500 Body Temperature 99.2 [degF] Dona Adrien [facility] Work Phone: Comment on above: Method: Temporal 04-29-2015 11:23-0500 Body weight 61.69 kg Dona Adrien [facility] Internal Medicine Work Phone: 04-29-2015 11:23-0500 BP Diastolic 74 mm[Hg] Dona Jurado [facility] Internal Medicine Work Phone: Comment on above: Patient Position: Sitting; Cuff Location : Left Arm; Cuff Size: Standard 04-29-2015 11:23-0500 BP Systolic 112 mm[Hg] Dona Jurado [facility] Internal Medicine Work Phone: Comment on above: Patient Position: Sitting; Cuff Location : Left Arm; Cuff Size: Standard 04-29-2015 11:23-0500 BSA (Body Surface Area) 1.65 m2 Dona Jurado [facility] Internal Medicine Work Phone: 04-29-2015 11:23-0500 Height 160.66 cm Dona Jurado [facility] Internal Medicine Work Phone: 04-29-2015 11:23-0500 Pulse (Heart Rate) 104 /min Dona Adrien [facility] Work Phone: Comment on above: Pattern: Regular 04-29-2015 11:23-0500 Pulse Oximetry 98 % Thi Alonzo [facility] Internal Medicine Work Phone: Comment on above: Room air 04-29-2015 11:23-0500 Respiratory Rate 16 /min Dona Hernándezshekhar [facility] Internal Medicine Work Phone: Comment on above: Pattern: Unlabored 04-29-2015 11:23-0500 SaO2% (BldA) [Mass fraction] 98 % Dona Jurado [facility]; [facility] Work Phone: Comment on above: Room air 04-29-2015 11:23-0500 Weight 61.69 kg Thi Alonzo [facility] Internal Medicine Work Phone: 03-11-2015 11:16-0500 BMI (Body Mass Index) 26.36 kg/m2 Albertina Anderson RN [facility] Work Phone: 03-11-2015 11:16-0500 Body Temperature 99.2 [degF] Albertina Anderson RN [facility] Work Phone: Comment on above: Method: Tympanic 03-11-2015 11:16-0500 Body weight 68.04 kg Albertina Anderson RN [facility] Work Phone: 03-11-2015 11:16-0500 BP Diastolic 76 mm[Hg] Albertina Anderson RN [facility] Work Phone: Comment on above: Patient Position: Sitting; Cuff Location : Left Arm; Cuff Size: Large 03-11-2015 11:16-0500 BP Systolic 118 mm[Hg] Albertina Anderson RN [facility] Work Phone: Comment on above: Patient Position: Sitting; Cuff Location : Left Arm; Cuff Size: Large 03-11-2015 11:16-0500 BSA (Body Surface Area) 1.72 m2 Albertina Anderson RN [facility] Work Phone: 03-11-2015 11:16-0500 Height 160.66 cm Albertina Anderson RN [facility] Work Phone: 03-11-2015 11:16-0500 Pulse (Heart Rate) 95 /min Albertina Anderson RN Comprehens souleymane Internal Medicine Work Phone: Comment on above: Pattern: Regular 03-11-2015 11:16-0500 Pulse Oximetry 97 % Thi Alonzo [facility] Work Phone: Comment on above: Room air 03-11-2015 11:16-0500 Respiratory Rate 18 /min Albertina Anderson RN [facility]prehens[facility] Medicine Work Phone: 03-11-2015 11:16-0500 SaO2% (BldA) [Mass fraction] 97 % Albertina Anderson RN [facility]; [facility] Work Phone: Comment on above: Room air 03-11-2015 11:16-0500 Weight 68.04 kg Thi Alonzo [facility] Work Phone: 12-05-2014 12:08-0400 BMI (Body Mass Index) 26.36 kg/m2 Regi Mahoney [facility] Work Phone: 12-05-2014 12:08-0400 Body Temperature 98.6 [degF] Regi Mahoney [facility] Work Phone: Comment on above: Method: Tympanic 12-05-2014 12:08-0400 Body weight 68.04 kg Regi Mahoney [facility] Medicine Work Phone: 12-05-2014 12:08-0400 BP Diastolic 64 mm[Hg] Regi Mahoney [facility] Medicine Work Phone: Comment on above: Patient Position: Sitting; Cuff Location : Left Arm; Cuff Size: Standard 12-05-2014 12:08-0400 BP Systolic 122 mm[Hg] Regi Mahoney [facility] Internal Medicine Work Phone: Comment on above: Patient Position: Sitting; Cuff Location : Left Arm; Cuff Size: Standard 12-05-2014 12:08-0400 BSA (Body Surface Area) 1.72 m2 Regi Mahoney [facility] Medicine Work Phone: 12-05-2014 12:08-0400 Height 160.66 cm Regi Mahoney [facility] Work Phone: 12-05-2014 12:08-0400 Pulse (Heart Rate) 121 /min Regi Mahoney [facility] Work Phone: Comment on above: Pattern: Regular 12-05-2014 12:08-0400 Pulse Oximetry 97 % Thi Alonzo [facility] Internal Medicine Work Phone: Comment on above: Room air 12-05-2014 12:08-0400 Respiratory Rate 18 /min Regi Mahoney [facility] Work Phone: Comment on above: Pattern: Unlabored 12-05-2014 12:08-0400 SaO2% (BldA) [Mass fraction] 97 % Regi Mahoney [facility]; [facility] Work Phone: Comment on above: Room air 12-05-2014 12:08-0400 Weight 68.04 kg Thi Alonzo [facility] Internal Medicine Work Phone: 11-21-2014 09:24-0400 BMI (Body Mass Index) 26.54 kg/m2 Dona Jurado [facility] Internal Medicine Work Phone: 11-21-2014 09:24-0400 Body Temperature 98.8 [degF] Dona Jurado [facility] Internal [facility] Work Phone: Comment on above: Method: Temporal 11-21-2014 09:24-0400 Body weight 68.49 kg Dona Jurado [facility] Internal Medicine Work Phone: 11-21-2014 09:24-0400 BP Diastolic 72 mm[Hg] Dona Fuchsgeorge [facility] Internal Medicine Work Phone: Comment on above: Patient Position: Sitting; Cuff Location : Left Arm; Cuff Size: Standard 11-21-2014 09:24-0400 BP Systolic 132 mm[Hg] Dona Jurado [facility] Internal Medicine Work Phone: Comment on above: Patient Position: Sitting; Cuff Location : Left Arm; Cuff Size: Standard 11-21-2014 09:24-0400 BSA (Body Surface Area) 1.72 m2 Dona Fuchsgeorge [facility] Internal Medicine Work Phone: 11-21-2014 09:24-0400 Height 160.66 cm Dona Adrien [facility] Internal Medicine Work Phone: 11-21-2014 09:24-0400 Pulse (Heart Rate) 101 /min Dona Hern[facility]dezshekhar [facility] Internal Medicine Work Phone: Comment on above: Pattern: Regular 11-21-2014 09:24-0400 Pulse Oximetry 96 % Thi Alonzo [facility] Internal Medicine Work Phone: Comment on above: Room air 11-21-2014 09:24-0400 Respiratory Rate 16 /min Dona Adrien [facility] Internal Medicine Work Phone: Comment on above: Pattern: Unlabored 11-21-2014 09:24-0400 SaO2% (BldA) [Mass fraction] 96 % Dona Adrien [facility]; [facility] Internal Medicine Work Phone: Comment on above: Room air 11-21-2014 09:24-0400 Weight 68.49 kg Thi Alonzo [facility] Internal Medicine Work Phone: Encounters Encounter Date Encounter Type Care Provider Facility Start: 01-29-2025 ambulatory Maegan Royal NP Fac ility:[facility] Start: 11-15-2024 End: 11-15-2024 ambulatory Samantha Hirsch [employer] Work Phone: -Laboratory Start: 11-15-2024 End: 11-15-2024 Patient encounter procedure Samantha Hirsch [employer] -Laboratory Work Phone: Start: 11-15-2024 End: 11-15-2024 ambulatory Samantha Hirsch VSC Facility:[facility] Start: 10-18-2024 End: 10-18-2024 Emergency department patient visit Kian Davey DO Work Phone: [facility] Emergency Medicine Comment on above: Scalp laceration, in itial encounter (Primary Dx); Scalp abscess Start: 07-28-2024 End: 07-28-2024 Patient encounter procedure Maegan Royal [employer] -[facility] Work Phone: Start: 07-28-2024 End: 07-28-2024 ambulatory Maegan Royal [employer] Facility:[facility] Start: 07-24-2024 End: 07-24-2024 ambulatory Samantha Hirsch [employer] Work Phone: [facility] Work Phone: Start: 07-24-2024 End: 07-24-2024 Patient encounter procedure Maegan Royal NP-C -Cat Scan, [facility] Work Phone: Start: 07-24-2024 End: 07-24-2024 ambulatory Maegan Royal [employer] Facility:[facility] Start: 06-14-2024 ambulatory Abdiaziz Reyes Facility:[facility] Start: 06-14-2024 Non-patient / Non-visit Dr. Abdiaziz Reyes DO -[facility] Start: 06-13-2024 End: 06-13-2024 ambulatory Samantha Hirsch [employer] Work Phone: [facility] Work Phone: Start: 06-13-2024 End: 06-13-2024 Patient encounter procedure Maegan Royal [employer] -Pulmonary Services/Neurology Work Phone: Start: 06-13-2024 End: 06-13-2024 ambulatory Maegan Royal [employer] Facility:[facility] Start: 05-17-2024 End: 05-17-2024 ambulatory Samantha Hirsch [employer] Work Phone: [facility] Work Phone: Start: 05-17-2024 End: 05-17-2024 Patient encounter procedure Samantha Hirsch [employer] -Jamilah, Teresa Immanuel Start: 05-17-2024 End: 05-17-2024 ambulatory Samantha Hirsch [facility] Facility:[facility] Start: 05-09-2024 End: 05-09-2024 Patient encounter procedure Maegan Royal [employer] -Pulmonary Services/Neurology Work Phone: Start: 05-09-2024 End: 05-09-2024 ambulatory Maegan Royal NP Facility:[facility] Start: 04-27-2024 End: 04-27-2024 Patient encounter procedure Maegan Royal NP-C -[facility] Work Phone: Start: 04-27-2024 End: 04-27-2024 ambulatory Maegan Royal NP Facility:[facility] Start: 04-25-2024 End: 04-25-2024 Patient encounter procedure Radha Palmer NP-C -Cat Scan, [facility] Work Phone: Start: 04-25-2024 End: 04-25-2024 Patient encounter procedure Radha Palmer NP-C -[facility] [place] Work Phone: Start: 04-25-2024 End: 04-25-2024 ambulatory Radha Palmer [employer] Facility:[facility] Start: 04-25-2024 End: 04-25-2024 ambulatory Samantha Hirsch [facility] Facility:[facility] Start: 03-13-2024 End: 03-13-2024 Patient encounter procedure Samantha Hirsch [employer] -Outpatient Breast Imaging Work Phone: Start: 03-13-2024 End: 03-13-2024 ambulatory Samantha Hirsch [facility] Facility:[facility] Start: 04-21-2023 End: 04-21-[address] [facility] Work Phone: Start: 04-21-2023 End: 04-21-[address] [facility]-Laboratory Work Phone: Start: 03-10-2023 End: 03-10-[address] [facility] Work Phone: Start: 03-10-2023 End: 03-10-[address] [facility]-Outpatient Breast Imaging Work Phone: Start: 09-17-2022 End: 09-17-[address] [facility] Work Phone: Start: 09-17-2022 End: 09-17-[address] [facility]-Ultrasound, [facility] Work Phone: Start: 08-28-2022 End: 08-28-2022 Office outpatient visit 15 minutes Karol Cobb CNP Work Phone: [facility] Start: 03-06-2022 End: 03-06-[address] [facility] Work Phone: Start: 03-06-2022 End: 03-06-[address] [facility]-Outpatient Breast Imaging Start: 02-23-2022 ambulatory Karol Cobb CNP Comp [facility] Med Start: 02-23-2022 End: 03-06-2022 Office outpatient visit 15 minutes Karol Cobb CNP Work Phone: [facility] Start: 02-23-2022 Review Thi Alonzo Work Phone: [facility] Start: 04-23-2021 End: 04-23-2021 Annotation/Addendum Thi Alonzo Work Phone: [facility] Start: 04-22-2021 End: 04-22-2021 Office outpatient visit 15 minutes Thi Alonzo Work Phone: [facility] Start: 01-14-2021 End: 01-14-2021 Office outpatient visit 25 minutes Thi Alonzo CNP Work Phone: [facility] Start: 12-24-2020 End: 12-24-2020 Annotation/Addendum Thi Ciesa ANIMAL NUTRITION TEACHER Work Phone: [facility] Start: 03-19-2020 End: 03-19-2020 Office outpatient visit 15 minutes Thi Kingrk [facility] Start: 11-20-2019 End: 11-20-2019 Office outpatient visit 25 minutes Thi Alonzo [facility] Start: 11-12-2019 End: 11-12-2019 Patient encounter procedure Thi Kingrk [facility] Start: 11-08-2019 End: 11-08-2019 Lab Order Thi Alonzo [facility] Start: 10-06-2019 End: 10-06-2019 Annotation/Addendum Thi Alonzo [facility] Start: 06-16-2019 End: 06-16-2019 Office outpatient visit 25 minutes Thi Kingrk [facility] Start: 05-01-2019 End: 05-01-2019 Phone Encounter Thi Alonzo [facility] Start: 08-22-2018 End: 08-22-2018 Patient encounter status Thi Alonzo Work Phone: [facility] Start: 08-22-2018 End: 08-22-2018 Periodic preventive med est patient 40-64yrs Thi Alonzo [facility] Start: 08-22-2018 Review Thi Alonzo [facility] Start: 07-04-2018 End: 07-04-2018 Office outpatient visit 15 minutes Thi Kingrk [facility] Start: 07-01-2018 End: 07-01-2018 Annotation/Addendum Thi Alonzo [facility] Start: 06-27-2018 End: 06-27-2018 Phone Encounter Thi Kingrk [facility] Start: 04-29-2018 End: 04-29-2018 Phone Encounter Thi Alonzo [facility] Start: 10-25-2017 End: 10-25-2017 Office outpatient visit 15 minutes Thi Kingrk [facility] Start: 06-23-2017 End: 06-23-2017 Medical examinations/reports status Thi Alonzo Work Phone: [facility] Start: 06-23-2017 End: 06-23-2017 Periodic preventive med est patient 40-64yrs Thi Lalacaren [facility] Start: 06-08-2017 End: 06-09-2017 Annotation/Addendum Thi Fernandork [facility] Start: 04-06-2016 End: 04-06-2016 Medical examinations/reports status Thi Alonzo Work Phone: [facility] Start: 04-06-2016 End: 04-06-2016 Periodic preventive med est patient 40-64yrs Thi Alonzo [facility] Start: 03-18-2016 End: 03-18-2016 Annotation/Addendum Thi Alonzo [facility] Start: 08-26-2015 End: 08-26-2015 Office outpatient visit 25 minutes Thi Alonzo [facility] Start: 04-29-2015 End: 04-29-2015 Office outpatient visit 25 minutes Thi Dairosariork [facility] Start: 03-11-2015 End: 03-11-2015 Office outpatient visit 15 minutes Thi Dairosariork [facility] Start: 12-05-2014 End: 12-09-2014 Medical examinations/reports status Thi Alonzo Work Phone: [facility] Start: 12-05-2014 End: 12-09-2014 Office outpatient visit 25 minutes Thi Alonzo [facility] Start: 11-21-2014 End: 11-26-2014 Office outpatient visit 25 minutes Thi Alonzo [facility] Medical examinations/reports status Evita Bobby HART [facility]; [facility] Work Phone: Medical examinations/reports status Evitalexus Edwardschayo HART [facility]; [facility] Work Phone: Medical examinations/reports status Shruti Pettit LPN [facility]; [facility] Work Phone: Medical examinations/reports status Shruti Pettit LPN [facility]; [facility] Work Phone: Patient encounter status Evtialexus Rosales HAILEY [facility]; [facility] Work Phone: Patient encounter status Evita Bobby HART [facility]; [facility] Work Phone: Patient encounter status Shrutirk Pettit LPN [facility]; [facility] Work Phone: Patient encounter status Shruti Pettit LPN [facility]; [facility] Work Phone: Procedures Date Procedure Procedure Detail Performing Clinician Start: 11-15-2024 Thyroglobulin antibody measurement Samantha Hirsch [employer] Work Phone: Comment on above: Thyroglobulin Antibody measured by Rajani HoldenMethodologyIt should be noted that the presence of thyroglobulinantibodies may not be pathogenic nor diagnostic, especiallyat very low levels. The assay biological sciences instructor has found thatfour percent of individuals without evidence of thyroiddisease or autoimmunity will have positive TgAb levels upto 4 IU/mL.Performed at: [place] [id number] Director: Bryan Serrato PhD, Phone: [phone] Start: 11-15-2024 Vitamin D, 25-hydroxy measurement Samantha Hirsch [employer] Work Phone: Comment on above: Vitamin D StatusDeficiency: <20 ng/mL (5 0nmol/L)Insufficiency: 20-30 ng/mL (50-75 nmol/L)Sufficiency: 30-100 ng/mL (75-250 nmol/L)Toxicity: >100 ng/mL (>250 nmol/L) Start: 10-18-2024 Ct head/brain w/o & w/contrast material Kian Jody Charly DO Work Phone: Start: 10-18-2024 Comprehensive metabolic panel Kian Darbyepifanio DO Work Phone: Start: 07-24-2024 CT of chest without contrast Samantha Hirsch [employer] Work Phone: Start: 05-17-2024 Vitamin D, 25-hydroxy measurement Samantha Hirsch [employer] Work Phone: Comment on above: Vitamin D StatusDeficiency: <20 ng/mL (5 0nmol/L)Insufficiency: 20-30 ng/mL (50-75 nmol/L)Sufficiency: 30-100 ng/mL (75-250 nmol/L)Toxicity: >100 ng/mL (>250 nmol/L) Start: 04-25-2024 CT of chest Samantha Hirsch [employer] Work Phone: Start: 03-13-2024 Screening mammography Samantha Hirsch [employer] Work Phone: Start: 12-20-2023 Screening mammography Start: 09-17-2022 End: 09-18-2022 Thyroid Procedure Note: See Note; NOTES: [facility] Imaging Services [address] [place] [address] Thyroid MR#: [id number] Acct: [id number] Name: STEPHANIE SAMPSON Rep #: [id number] : 1970 F 52 From: Wyatt zavala MD PCP: ZEESHAN Guillen Status: REG CLI Study: Thyroid Date of Exam: 09/17/22 Exam# [id number] Ordering Dr: Karol Cobb STUDY: THYROID ULTRASOUND REASON FOR EXAM: Female, 52 years old. Thyroid nodule TECHNIQUE: Ultrasound evaluation of the thyroid was performed with real-time and static galeano-scale imaging. COMPARISON: 10/28/2015. FINDINGS: RIGHT LOBE: The [...] at 20:40 EDT , CC: Karol Cobb [employer]; JONELHugh Cobb Wet Process Technician: Signed Karol Cobb CNP Work Phone: Start: 09-17-2022 US scan of thyroid Start: 03-06-2022 Screening mammography Start: 03-06-2022 End: 03-06-2022 SCRN MAMM (CAD)W/DAVID BILAT Procedure Note: See Note; NOTES: [facility] Imaging Services [address] [place] [address] SCRN MAMM (CAD)W/DAVID BILAT MR#: [id number] Acct: [id number] Name: STEPHANIE SAMPSON Rep #: [id number] : 1970 F 51 From: Virgilio proctor MD PCP: ZEESHAN Guillen Status: [facility] Study: SCRN MAMM (CAD)W/DAVID BILAT Date of Exam: 02/19 09/10 Exam# [id number] Ordering Dr: Karol Cobb MAMMOGRAPHY - BILATERAL [...] delay biopsy of a clinically suspicious abnormality. [id number] Electronically Signed: Virgilio Hill MD at 14:25 EST , CC: [employer] Karol Cobb Wet Process Technician: Signed Karol Cobb [facility] Work Phone: Start: 01-01-2021 End: 01-01-2021 SCRN MAMM (CAD)W/DAVID BILAT Comments: See Note; NOTES: [facility] Imaging Services [address] [place] [id number] SCRN MAMM (CAD)W/DAVID BILAT MR#: [id number] Acct: [id number] Name: STEPHANIE SAMPSON Rep #: [id number] : 1970 F 50 From: Virgilio proctor MD PCP: ZEESHAN Noel Status: [facility] Study: SCRN MAMM (CAD)W/DAVID BILAT Date of Exam: 12/20 06/09 Exam# [id number] Ordering Dr: Thi Alonzo NP [employer] MAMMOGRAPHY - BILATERAL SCREENING REASON FOR EXAM: [...] delay biopsy of a clinically suspicious abnormality. [id number] Electronically Signed: Virgilio Hill MD at 8:47 EDT , Service support , CC: ZEESHAN Alonzo Wet Process Technician: Signed Thi Alonzo ANIMAL NUTRITION TEACHER Work Phone: Start: 11-10-2019 End: 11-10-2019 SCREEN MAMM (CAD) W/DAVID BILAT Comments: See Note; NOTES: [facility] Imaging Services [address] [place] [address]329 SCREEN MAMM (CAD) W/DAVID BILAT MR#: [id number] Acct: [id number] Name: STEPHANIE SAMPSON Rep #: [id number] : 1970 F 49 From: Berny Pleitez MD PCP: ZEESHAN Noel Status: [facility] Study: SCREEN MAMM (CAD) W/DAVID BILAT Date of Exam: 0 11/10/19 Exam# [id number] Ordering Dr: Thi Alonzo MAMMOGRAPHY - BILATERAL [...] , Service support , CC: ZEESHAN Alonzo Wet Process Technician: Signed Thi Alonzo Work Phone: Start: 09-28-2018 End: 09-28-2018 Operative Report Comments: See Note; NOTES: [facility] Medical Records Department [address] [place] [address] 19513 Operative Report 09/28/183 MR#: [id number] Acct: [id number] Name: STEPHANIE SAMPSON Rep #: [id number] : 1970 48 From: Alexus Jones MD PCP: Thi Alonzo NP Status: REG SDC Y Location: [place] [id number] Report of Operation Date of Procedure: 09/28/18 Pre-Operative Diagnosis: Chronic pelvic pain. Hematometra, hydrosalpinges/hematosalp inges. Post ablative syndrome Post-Operative Diagnosis: Same Surgery/Procedure [...] liver edge, omentum are within normal limits financial sales manager: Yaima Kate financial sales manager: Paul Silver Type of Anesthesia:: General Anesthesiologist: Duc Finn CRNA Specimen's removed: Morecellated uterus with cervix, bilateral [...] turned to the anterior abdominal wall. the recovery operator helper's gloved were changed and skin incisions were created at the infraumbilical and suprapubic skin and at a point approximately longterm between the suprapubic and infraumbilical skin incisions. [...] all pedicles and at the vaginal cuff. Darcie was sprayed along the cuff and pedicles [...] included: Cefotetan 2 gm IV was given television schedule coordinator to the operating room , 10 cc [...] SCD's VTE Pharm Prophylaxis ordered?: Yes 09/28/18 0778 <Electronically signed by Alexus Jones MD> Date Alexus Jones MD CC: [employer] Thi Alonzo; Alexus Jones MD Signed Thi Alonzo Start: 09-28-2018 End: 09-28-2018 Discharge Instruction Comments: See Note; NOTES: [facility] Medical Records Department [address] [place] [address] Instructions for Home/Discharge Instructions 09/28/18 1317 MR#: [id number] Acct: [id number] Name: STEPHANIE SAMPSON Rep #: [id number] : 1970 48 From: Alexus Jones MD PCP: Thi Alonzo NP Status: REG [facility] Discharge Diet: No Restrictions Discharge Activity: May not drive while taking narcotic pain medications., May Shower, May Take a Tub Bath Return to work on:: 11/14/18 May resume sexual activity in: 4-6 weeks Additional Activity Instructions:: No lifting more than 20 # for 4-6 wk to allow healing. Nothing in vagina for 4-6 wk to allow healing. May resume walking, stairs and other thermal engineer activity as comfortable starting on the day [...] BID #30 cap Transmission Status: Pending to [facility] Polyethylene Glycol 3350 [Miralax] 17 gm PO DAILY PRN #14 packet PRN Reason: Constipation Transmission Status: Pending to [facility] Naproxen [Naprosyn] 250 - 500 mg PO TID PRN PRN #30 tab PRN Reason: Mild-Mod Pain (1-07/29) Transmission Status: Pending to [facility] Oxycodone [Oxyir] 5 mg PO Q6H PRN PRN 4 Days #15 tablet PRN Reason: Mod-Severe Pain (-12/29) Transmission Status: Sent to [facility] Primary Care Physician: Thi Alonzo NP-C [Primary Care Provider] - Test Results: Test results from this visit will be discussed in further detail at your follow-up appointment, if applicable. Please Follow Up With: Alexus Jones MD - [phone] When: for postoperative check up as scheduled. Proposed Discharge Date: 09/29/18 09/28/18 1322 <Electronically signed by Alexus Jones MD> Date Alexus Jones MD CC: [employer] Thi Alonzo Signed Thi Alonzo Start: 09-28-2018 End: 09-28-2018 History and Physical Exam Comments: See Note; NOTES: [facility] Medical Records Department [address] [place] [address] 29175 History and Physical 09/24/18 0024 MR#: [id number] Acct: [id number] Name: STEPHANIE SAMPSON Rep #: [id number] : 1970 48 From: Alexus Jones MD PCP: Thi Alonzo NP Status: REG SDC Y Location: [place] [address] ADDENDUM by Alexus Jones MD on 09/28/18 at 1223 Code Visit Patient seen and re-examined. No changes to H and P as entered in chart prior. Concepcion Jones MD 09/28/18 12:25 pm 09/28/18 1223 <Electronically signed by Alexus Jones MD> Date Alexus Jones MD cc: LISY Alonzo; Alexus Jones MD * Signed History and Physical Date of Admission: 09/28/18 PREOPERATIVE HISTORY AND PHYSICAL HISTORY OF PRESENT ILLNESS: Stephanie Sampson, a 48 year old female 3 0 0 0 3, presented for: -- Pre-Op Stephanie is being seen for pre op visit. 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 Children Name(s) - Noé, Alea, Herminia Control - tubal PHYSICAL EXAMINATION BP- 130/90 [...] MD Cosigner Signature: Date (if applicable) CC: [employer] Thi Alonzo; Alexus Jones MD Signed Thi Alonzo Start: 09-24-2018 End: 09-24-2018 History and Physical Exam Comments: See Note; NOTES: [facility] Medical Records Department [address] [place] [address] 42361 History and Physical 09/24/18 0024 MR#: [id number] Acct: [id number] Name: STEPHANIE SAMPSON Rep #: [id number] : 1970 48 From: Alexus Jones MD PCP: Thi Alonzo NP Status: PRE [facility] Y Location: [facility] History and Physical Date of Admission: 09/28/18 PREOPERATIVE HISTORY AND PHYSICAL HISTORY OF PRESENT ILLNESS: Stephanie Sampson, a 48 year old female 3 0 0 0 3, presented for: -- Pre-Op Stephanie is being seen for pre op visit. 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 Children Name(s) - Alea Umanzor Gabby Control [...] MD Cosigner Signature: Date (if applicable) CC: LISY Alonzo; Alexus Jones MD Signed Thi Alonzo Start: 09-05-2018 End: 09-06-2018 SCREEN MAMM (CAD) W/DAVID BILAT Comments: See Note; NOTES: [facility] Imaging Services [address] [place] [address] 15036 SCREEN MAMM (CAD) W/DAVID BILAT MR#: [id number] Acct: [id number] Name: STEPHANIE SAMPSON Rep #: [id number] : 1970 F 48 From: Virgilio Hill MD PCP: Thi Alonzo NP Status: REG CLI Study: SCREEN MAMM (CAD) W/DAVID BILAT Date of Exam: 09/05/18 Exam# [id number] Ordering Dr: Thi Alonzo [employer]-C MAMMOGRAPHY - BILATERAL SCREENING REASON FOR EXAM: [...] delay biopsy of a clinically suspicious abnormality. [id number] Electronically Signed: Virgilio Hill, at 8:28 EDT , Service support , CC: LISY Alonzo Wet Process Technician: Signed Thi Alonzo Work Phone: Start: 07-04-2018 End: 07-04-2018 Abdomen/Pelvis WITH Contrast Comments: See Note; NOTES: [facility] Imaging Services [address] [place] [address] Abdomen/Pelvis WITH Contrast MR#: [id number] Acct: [id number] Name: STEPHANIE SAMPSON Rep #: [id number] : 1970 F 48 From: Virgilio Hill MD PCP: Thi Alonzo NP Status: REG CLI Study: Abdomen/Pelvis WITH Contrast Date of Exam: 07/04/18 Exam# [id number] Ordering Dr: Albertina Ga [employer]-C STUDY: CT ABDOMEN AND PELVIS WITH CONTRAST [...] Service support , CC: LISY Alonzo; ZEESHAN Ga Wet Process Technician: Signed Albertina Ga Start: 07-02-2017 End: 07-02-2017 SCREENING MAMM (CAD), BILAT Comments: See Note; NOTES: [facility] Imaging Services [address] [place] [address] 21569 SCREENING MAMM (CAD), BILAT MR#: [id number] Acct: [id number] Name: STEPHANIE SAMPSON Rep #: [id number] : 1970 F 47 From: Virgilio Hill MD PCP: Thi Alonzo NP Status: REG CLI Study: SCREENING MAMM (CAD), BILAT Date of Exam: 07/02/17 Exam# [id number] Ordering Dr: Thi Alonzo MAMMOGRAPHY - BILATERAL [...] delay biopsy of a clinically suspicious abnormality. [id number] Electronically Signed: Virgilio Hill MD at 15:03 EDT Tel [phone], Service support , CC: Thi Alonzo NP Wet Process Technician: Signed Thi Alonzo Work Phone: Start: 05-13-2017 End: 05-13-2017 Operative Report Comments: See Note; NOTES: [facility] Medical Records Department [address] [place] [address] 19755 Operative Report 05/12/172031 MR#: [id number] Acct: [id number] Name: STEPHANIE SAMPSON Rep #: [id number] : 1970 46 From: Alexus Jones MD PCP: Thi Alonzo NP Status: DEP [facility] Y Location: [facility] Problem List (1) Excessive bleeding in premenopausal [...] Date Alexus Jones MD CC: Thi Alonzo NP; Alexus Jones MD Signed Thi Alonzo Start: 05-12-2017 End: 05-12-2017 Discharge Instruction Comments: See Note; NOTES: [facility] Medical Records Department [address] [place] [address] 82031 Instructions for Home/Discharge Instructions 05/12/17 1232 MR#: [id number] Acct: [id number] Name: STEPHANIE SAMPSON Rep #: [id number] : 1970 46 From: Alexus Jones MD PCP: Thi Alonzo NP Status: REG SDC Discharge Diet: No Restrictions Discharge Activity: May [...] Follow Up With: Alexus Jones MD - [phone] When: in 2 wks for postop check as scheduled 05/12/17 1237 <Electronically signed by Alexus Jones MD> Date Alexus Jones MD CC: Thi Alonzo [employer] Thi Alonzo Start: 03-25-2016 End: 03-25-2016 SCREENING MAMM (CAD), BILAT Comments: See Note; NOTES: [facility] Imaging Services [address] [place] [address] Verdana 4d SCREENING MAMM (CAD), BILAT MR#: [id number] Acct: [id number] Name: STEPHANIE SAMPSON Rep #: [id number] : 1970 F 45 From: Tavon Abraham DO PCP: Thi Alonzo Status: REG CLI Study: SCREENING MAMM (CAD), BILAT Date of Exam: 03/25/16 Exam# [id number] Ordering Dr: hTi Alonzo MAMMOGRAPHY - BILATERAL SCREENING REASON FOR [...] delay biopsy of a clinically suspicious abnormality. [id number] Electronically Signed: Tavon Abraham DO at 15:46 EST Tel [phone], Service support [phone], CC: Thi Alonzo Wet Process Technician: Signed Thi Alonzo Work Phone: Start: 10-28-2015 End: 10-29-2015 Thyroid Comments: See Note; NOTES: [facility] Imaging Services [address] [place] [address]80 Verdana 4d Thyroid MR#: [id number] Acct: [id number] Name: STEPHANIE SAMPSON Rep #: [id number] : 1970 F 45 From: Rico Smart MD PCP: Rosa Thurston DO Status: REG CLI Study: Thyroid Date of Exam: 10/28/15 Exam# [id number] Ordering Dr: Rosa Thurston DO STUDY: THYROID ULTRASOUND REASON FOR EXAM: Female, 45 years old. Thyroid nodules TECHNIQUE: Ultrasound evaluation of the thyroid was performed with real-time and static galeano-scale imaging. COMPARISON: US - Thyroid - 13:08 [...] at 10:52 EDT Tel , Service support [phone], CC: Rosa Thurston DO Wet Process Technician: Signed Rosa Thurston Work Phone: Start: 11-28-2014 End: 11-30-2014 Bilebony [employer] AND CAD Comments: See Note; NOTES: [facility] Imaging Services [address] [place] [address] 27044 Breast Imaging Report MR#: [id number] Acct: [id number] Name: STEPHANIE SAMPSON Rep #: [id number] : 1970 F 44 From: Rico Smart MD PCP: Rosa Thurston DO Status: REG CLI Study: Bilat Scrn Digital AND CAD Date of Exam: 11/28/14 Exam# [id number] Ordering Dr: Rosa Thurston DO MAMMOGRAPHY - BILATERAL SCREENING REASON FOR EXAM: Female, 44 years old. Routine annual screening examination. PERTINENT HISTORY: NO FM HX , RT NEEDLE BX 2007 TECHNIQUE: Digital examination. Mediolateral oblique (MLO) and [...] at 16:17 EDT Tel , Service support [phone], CC: Rosa Thurston DO Wet Process Technician: Signed Rosa Thurston Work Phone: Start: 11-28-2014 End: 11-29-2014 Thyroid Comments: See Note; NOTES: [facility] Imaging Services [address] [place] [address] 59543 Ultrasound Report MR#: [id number] Acct: [id number] Name: STEPHANIE SAMPSON Rep #: [id number] : 1970 F 44 From: Rico Smart MD PCP: Rosa Thurston DO Status: REG CLI Study: Thyroid Date of Exam: 11/28/14 Exam# [id number] Ordering Dr: Rosa Thurston DO STUDY: THYROID ULTRASOUND REASON FOR EXAM: Female, 44 years old. Thyroid enlargement TECHNIQUE: Ultrasound evaluation of the thyroid was performed with real-time and static galeano-scale imaging. COMPARISON: None. 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: Signed Rosa Beckman [employer] Phone: Start: 11-21-2014 End: 11-21-2014 Ecg routine ecg w/least 12 lds w/i&r [MEASUREMENTS ANALYSIS] Date of Test: 11/21/2014 10:12:39; Heart Rate: 85; MD Interval: 126; QRS: 86; QT Interval: 358; Corrected QT Interval (QTc): 401; P Wave Mead: 48; QRS Wave Mead: 39; T Wave Mead: 37; Blood Pressure: 132/72 [ECG DIAGNOSTIC STATEMENTS] Date of Test: 11/21/2014 10:12:39; Summary: Sinus Rhythm WITHIN NORMAL LIMITS Rosa Beckman [employer] Phone: Comment on above: ekg showed normal sinus rhythym, normal axis, no acute st/t wave changes Ablasion Bernie Dixon Comment on above: Dr Jones 04/2017 Lj Villavicencio Comment on above: Dr Jones 04/2017 Lj Villavicencio Comment on above: Dr Jones 04/2017 Lj Pettit Comment on above: Dr Jones 04/2017 Lj Lira Comment on above: Dr Jones 04/2017 Lj Rosales LPN Comment on above: Dr Jones 04/2017 Ablasion Evita Bobby LIBRARY SUPERVISOR Comment on above: Dr Jones 04/2017 Ablasion Shruti Slarb LP N Comment on above: Dr Jones 04/2017 Ablasion Shruti Slarb LP N Comment on above: Dr Jones 04/2017 Augmentation mammoplasty Ang rashawn Slarb LIBRARY SUPERVISOR Comment on above: September [address] Pascual Olivo Augmentation mammoplasty Ang rashawn Slarb LIBRARY SUPERVISOR Comment on above: September [address] Pascual Olivo Colonoscopy [facility] Comment on above: 06/13/18 due in 5-7 yrs Colonoscopy Toño Villavicencio Comment on above: 06/13/18 due in 5-7 yrs Colonoscopy Toño Villavicencio Comment on above: 06/13/18 due in 5-7 yrs Colonoscopy Shruti Slarb Comment on above: 06/13/18 due in 5-7 yrs Colonoscopy Toño Lira Comment on above: 06/13/18 due in 5-7 yrs Colonoscopy Evita Bobby LIBRARY SUPERVISOR Comment on above: 06/13/18 due in 5-7 yrs Colonoscopy Evita Bobby LIBRARY SUPERVISOR Comment on above: 06/13/18 due in 5-7 yrs Colonoscopy Shruti Slarb LP N Comment on above: 06/13/18 due in 5-7 yrs Colonoscopy Shruti Slarb LP N Comment on above: 06/13/18 due in 5-7 yrs Ligation of fallopian tube M chloé L Long Ligation of fallopian tube M organ Villavicencio Ligation of fallopian tube M organ Villavicencio Ligation of fallopian tube A ngela Slarb Ligation of fallopian tube M organ Pankaj Ligation of fallopian tube T racy Bobby LIBRARY SUPERVISOR Ligation of fallopian tube T racy Bobby LIBRARY SUPERVISOR Ligation of fallopian tube A ngela Slarb LIBRARY SUPERVISOR Ligation of fallopian tube A ngela Slarb LIBRARY SUPERVISOR Lumpectomy of breast Bernie L Zack Comment on above: Left. Lumpectomy of breast Toño Villavicencio Comment on above: Left. Lumpectomy of breast Toño Villavicencio Comment on above: Left. Lumpectomy of breast Shruti Slarb Comment on above: Left. Lumpectomy of breast Toño Lira Comment on above: Left. Lumpectomy of breast Evita C offman LIBRARY SUPERVISOR Comment on above: Left. Lumpectomy of breast Evita C offman LIBRARY SUPERVISOR Comment on above: Left. Lumpectomy of breast Shruti Slarb LIBRARY SUPERVISOR Comment on above: Left. Lumpectomy of breast Shruti Slarb LIBRARY SUPERVISOR Comment on above: Left. Partial hysterectomy Shruti Slarb LIBRARY SUPERVISOR Comment on above: Dr. Jones Partial hysterectomy Shruti Slarb LIBRARY SUPERVISOR Comment on above: Dr. Jones Plan of Treatment Date Care Activity Detail Author Start: 03-11-2031 DTaP/Tdap/Td Vaccine s (3 - Td or Tdap) DTaP/Tdap/Td Vaccines (3 - Td or Tdap) [facility] Start: 11-20-2024 Influenza vaccination Influenza Vacc ine (#1) [facility] Start: 06-13-[address] [facility] Start: 08-28-2022 Procedure Education Eprescribe d prescriptions (G8553) [facility]; [facility] Work Phone: Start: 08-28-2022 Provider Instruction s for Treatment Follow up in 6 months [facility]; [facility] Work Phone: Start: 02-23-2022 Blood count complete auto&auto difrntl wbc CBC with auto diff (90935) [facility]; [facility] Work Phone: Start: 02-23-2022 Comprehensive metabo lic panel METABOLIC PANEL, COMPREHENSIVE (87394) [facility]; [facility] Work Phone: Start: 02-23-2022 Hemoglobin glycosyla robert a1c HGB A1C (02670) [facility]; [facility] Work Phone: Start: 02-23-2022 Lipid panel LIPID PANEL (08250) [facility]; [facility] Work Phone: Start: 02-23-2022 Procedure Education Eprescribe d prescriptions (G8553) [facility]; [facility] Work Phone: Start: 02-23-2022 Provider Instruction s for Treatment Follow up in 6 months [facility]; [facility] Work Phone: Start: 04-23-2021 Blood count complete auto&auto difrntl wbc CBC, PLATELETS & AUT DIFF (46227) [facility]; [facility] Work Phone: Start: 04-22-2021 Procedure Education Eprescribe d prescriptions (G8553) [facility]; [facility] Work Phone: Start: 04-22-2021 Provider Instruction s for Treatment Follow up in 6 months [facility]; [facility] Work Phone: Start: 01-14-2021 Procedure Education Eprescribe d prescriptions (G8553) [facility]; [facility] Work Phone: Start: 01-14-2021 Provider Instruction s for Treatment [facility]; [facility] Work Phone: Start: 01-14-2021 Blood count complete auto&auto difrntl wbc CBC, PLATELETS & AUT DIFF (58326) [facility]; [facility] Work Phone: Comment on above: 2021 Start: 01-14-2021 Lipid panel LIPID PANEL (97844) [facility]; [facility] Work Phone: Comment on above: apr 01 2020 Start: 01-14-2021 Hemoglobin glycosyla robert a1c HGB A1C (21973) [facility]; [facility] Work Phone: Comment on above: To be done Apr 01 Start: 2020 Pneumococcal vaccination Pneum ococcal Vaccine (1 of 1 - PCV) [facility] Start: 03-19-2020 Procedure Education Eprescribe d prescriptions (G8553) [facility]; [facility] Work Phone: Start: 03-19-2020 Iaadiadoo influenza 2019 Novel Coronavirus (COVID-19), HOLLI (44340) [facility]; [facility] Work Phone: Start: 11-20-2019 Procedure Education Eprescribe d prescriptions (G8553) [facility] Work Phone: Start: 11-20-2019 Provider Instruction s for Treatment [facility] Work Phone: Start: 11-08-2019 Comprehensive metabo lic panel METABOLIC PANEL, COMPREHENSIVE (27514) [facility] Work Phone: Start: 11-08-2019 Blood count complete automated CBC & PLATELETS (AUTO) (30008) [facility] Work Phone: Start: 11-08-2019 HbA1c (Bld) [Mass fraction] HGB A1C (57135) [facility] Work Phone: Start: 11-08-2019 Hemoglobin glycosyla robert a1c HGB A1C (37692) [facility]; [facility] Work Phone: Start: 09-19-2019 Blood count complete automated CBC & PLATELETS (AUTO) (70428) [facility] Work Phone: Start: 09-19-2019 HbA1c (Bld) [Mass fraction] HGB A1C (77489) [facility] Work Phone: Start: 09-19-2019 Comprehensive metabo lic panel Metabolic Panel, Comprehensive (87246) [facility] Work Phone: Start: 06-16-2019 Patient Education Smoking Coun seling Education [facility] Work Phone: Start: 06-16-2019 Procedure Education Eprescribe d prescriptions (G8553) [facility] Work Phone: Start: 06-16-2019 Provider Instruction s for Treatment [facility] Work Phone: Start: 05-01-2019 Cobalamin (Vitamin B 12) [Mass/Vol] VITAMIN B-12 (CYANOCOBALAMIN) (66352) [facility] Work Phone: Start: 05-01-2019 Cyanocobalamin vitam in b-12 VITAMIN B-12 (CYANOCOBALAMIN) (15061) [facility]; [facility] Work Phone: Start: 05-01-2019 Blood count manual c ell count each CBC WITH MANUAL DIFF (66768) [facility] Work Phone: Start: 05-01-2019 Assay of thyroid stimulating hormone tsh TSH (47431) [facility]; [facility] Work Phone: Start: 05-01-2019 TSH Qn TSH (25219) [facility] Work Phone: Start: 05-01-2019 Comprehensive metabo lic panel Metabolic Panel, Comprehensive (47429) [facility] Work Phone: Start: 05-01-2019 Lipid panel Lipid Panel (90312) [facility] Work Phone: Start: 05-01-2019 HbA1c (Bld) [Mass fraction] HGB A1C (95931) [facility] Work Phone: Start: 05-01-2019 Hemoglobin glycosyla robert a1c HGB A1C (99563) [facility]; [facility] Work Phone: Start: 08-22-2018 Procedure Education Eprescribe d prescriptions (G8553) [facility] Work Phone: Start: 08-22-2018 Provider Instruction s for Treatment [facility] Work Phone: Start: 08-22-2018 Alpha-fetoprotein serum ALPHA- FETOPROTEIN-SERU M (19844) [facility] Work Phone: Start: 08-22-2018 Acute hepatitis panel HEPATITI S PANEL (72719) [facility] Work Phone: Start: 08-22-2018 Hpv, dna, amp probe HPV, Reflex (806 21) [facility] Work Phone: Start: 08-22-2018 Cytp cerv/vag auto t hin layer prep mnl screen Thin prep Pap (69849) (no STD testing) [facility] Work Phone: Start: 07-04-2018 Procedure Education Eprescribe d prescriptions (G8553) [facility] Work Phone: Start: 07-04-2018 Provider Instruction s for Treatment [facility] Work Phone: Start: 07-04-2018 Comprehensive metabo lic panel METABOLIC PANEL, COMPREHENSIVE (46074) [facility] Work Phone: Comment on above: STAT Start: 07-04-2018 Blood count complete automated CBC & PLATELETS (AUTO) (29763) [facility] Work Phone: Start: 10-25-2017 Procedure Education Eprescribe d prescriptions (G8553) [facility] Work Phone: Start: 10-25-2017 Provider Instruction s for Treatment Follow up if no improvement or if symptoms worsen [facility] Work Phone: Start: 06-23-2017 Procedure Education Eprescribe d prescriptions (G8553) [facility] Work Phone: Start: 06-23-2017 Provider Instruction s for Treatment Follow up in 6 months [facility] Work Phone: Start: 06-23-2017 Cytp cerv/vag auto t hin layer prep mnl screen Thin prep Pap (24858) (no STD testing) [facility] Work Phone: Start: 04-06-2016 Procedure Education Eprescribe d prescriptions (G8553) [facility] Work Phone: Start: 04-06-2016 Provider Instruction s for Treatment [facility] Work Phone: Start: 04-06-2016 Cytp cerv/vag auto t hin layer prep mnl screen Thin prep Pap (08502) (no STD testing) [facility] Work Phone: Start: 08-26-2015 Procedure Education Eprescribe d prescriptions (G8553) [facility] Work Phone: Start: 04-29-2015 Procedure Education Eprescribe d prescriptions (G8553) [facility] Work Phone: Start: 04-29-2015 Provider Instruction s for Treatment Diet, Exercise, and Wt loss [facility] Work Phone: Start: 03-11-2015 Patient Education Sore Throat *: acute pharyngitis [facility] Work Phone: Start: 03-11-2015 Procedure Education Eprescribe d prescriptions (G8553) [facility] Work Phone: Start: 03-11-2015 Provider Instruction s for Treatment *Antibiotic Usage Education - Female [facility] Work Phone: Start: 12-09-2014 Provider Instruction s for Treatment *Diabetes Education [facility] Work Phone: Start: 12-05-2014 Procedure Education Eprescribe d prescriptions (G8553) [facility] Work Phone: Start: 12-05-2014 Hemoglobin A1c/Hemoglobin.total mass fraction (Bld) HgA1C , Office ([id number]) [facility] Work Phone: Start: 12-05-2014 Hemoglobin glycosyla robert a1c HgA1C , Office (80005) [facility]; [facility] Work Phone: Start: 11-21-2014 Procedure Education Eprescribe d prescriptions (G8553) [facility] Work Phone: Start: 11-21-2014 End: 11-21-2014 Ecg routine ecg w/least 12 lds w/i&r EKG (88761) [facility]; [facility] Work Phone: Comment on above: ekg showed normal si nus rhythym, normal axis, no acute st/t wave changes Start: 2010 Screening for malign ant neoplasm of breast Mammogram [facility] Start: 05-30-1991 Screening for malign ant neoplasm of cervix [facility] Start: 1988 Hepatitis C screening Hepatitis C [facility] Start: 1970 HIV screening HIV Screening [facility] Start: 1970 Lipid panel Lipid Panel [facility] Start: 1970 Screening for malign ant neoplasm of colon [facility] Start: 1970 Yearly Adult Physical Yearly Adult P hysical [facility] End: 10-18-2024 Bacteria identified in Blood by Culture [facility] Work Phone: Comment on above: STAT (Lab) for 1 Occ urrences starting 10/18/2024 until 10/18/2024 CT Chest WO contrast [facility] CT Chest WO contrast [facility] End: 10-18-2024 Extra Urine Galeano Tube Extra Urine Galeano Tube Lab Timed Once for 1 Occurrences starting 10/18/2024 until 10/18/2024 [facility] Work Phone: Comment on above: Once for 1 Occurrenc es starting 10/18/2024 until 10/18/2024 End: 10-18-2024 Pulse oximetry, continuous Pulse oximetry, continuous Respiratory Care STAT Continuous until discontinued starting 10/18/2024 [facility] Service [facility] Work Phone: Comment on above: Continuous until dis continued starting 10/18/2024 End: 10-18-2024 Urinalysis complete W Reflex Culture panel - Urine [facility] Work Phone: Comment on above: Once (Lab) for 1 Occ urrences starting 10/18/2024 until 10/18/2024 Once for 1 Occurrenc es starting 10/18/2024 until 10/18/2024 [facility] Work Phone: [facility] Work Phone: [facility] Work Phone: [facility] Work Phone: [facility] Work Phone: [facility] Work Phone: [facility] Work Phone: Sore throat : So re Throat *: acute pharyngitis [facility] Work Phone: [facility] Work Phone: [facility] Work Phone: [facility] Work Phone: [facility] Work Phone: [facility] Work Phone: [facility] Work Phone: [facility] Work Phone: Immunizations Immunization Date Immunization Notes Care Provider Fa [facility] 02-08-2024 influenza virus vaccine, unspecified formulation Kian Davey DO Work Phone: [facility] Work Phone: 02-03-2022 COVID-Moderna (Bivalent 25 MCG/0.25 ML IM BST) Karol Cobb ANIMAL NUTRITION TEACHER Work Phone: [facility]; [facility] Work Phone: 02-03-2022 influenza, seasonal, injectable Karol Cobb ANIMAL NUTRITION TEACHER Work Phone: [facility]; [facility] Work Phone: 11-28-2021 COVID-Pfizer (Bivalent 10 MCG/0.2 ML IM BST) Karol Cobb ANIMAL NUTRITION TEACHER Work Phone: [facility]; [facility] Work Phone: 03-22-2021 tetanus toxoid, reduced diphtheria toxoid, and acellular pertussis vaccine, adsorbed Thi Ciesa Work Phone: [facility]; [facility] Work Phone: 04-24-2020 COVID-Moderna (50 MCG/0.5 ML) Karol Cobb ANIMAL NUTRITION TEACHER Work Phone: [facility]; [facility] Work Phone: Payers Date Payer Category Payer Unknown [id number] 2024 Self-pay [id number] 2021 Unknown [id number] 2013 Managed Care (Private) [facility] [employer] [id number] 2013 Unknown [id number] 1970 Unknown [id number] 1970 Unknown [id number] .[id number] Unknown UMR Unknown [id number] .462 Unknown [id number] [id number] .462 Unknown [id number] [id number] .462 Unknown [id number] [id number] .462 Unknown [id number] [id number] .462 Unknown [id number] [id number] .462 Unknown [id number] [id number] .462 Unknown [id number] [id number] .462 Unknown [id number] [id number] .462 Unknown [id number] [id number] .462 Unknown [id number] [id number] .462 Unknown [id number] [id number] .462 Unknown [id number] .462 Social History Date Type Detail Facility Alcohol Use: Current every da y smoker [facility] Work Phone: Caffeine Use [facility] Work Phone: 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 Smokes 1 pack of cigarettes per day. [facility] Work Phone: Comment on above: x 20 years Alcohol Use: Alcohol Use: [facility]; [facility] Work Phone: Tobacco use: Tobacco use: [facility]; [facility] Work Phone: Comment on above: x 20 years Start: 09-29-2018 End: 09-29-2018 Tobacco smoking status COIS Unknown if ever smoked [facility] Start: 1970 Sex Assigned At Female [facility] Start: 04-26-2024 Tobacco smoking stat us COIS Ex-smoker (finding) [facility] Start: 05-30-2024 End: 06-17-2024 Sex Female (finding) [facility] Start: 1970 Sex assigned at Not on file [facility] Work Phone: Start: 02-14-2022 Sex Female [facility] Gender identity Not on file [facility] Work Phone: Medical Equipment Procedure Code Equipment Code Equipment Origin al Text Equipment Identifier Dates Laparoscopy with vaginal hysterectomy DARCIE 3GRM HEMOSTAT ABS FDA Start: 09-28-2018 Laparoscopy with vaginal hysterectomy DARCIE 3GRM HEMOSTAT ABS FDA Start: 09-28-2018 Laparoscopy with vaginal hysterectomy DARCIE 3GRM HEMOSTAT ABS FDA Start: 09-28-2018 Laparoscopy with vaginal hysterectomy DARCIE 3GRM HEMOSTAT ABS FDA Start: 09-28-2018 Laparoscopy with vaginal hysterectomy DARCIE 3GRM HEMOSTAT ABS FDA Start: 09-28-2018 Laparoscopy with vaginal hysterectomy DARCIE 3GRM HEMOSTAT ABS FDA Start: 09-28-2018 Laparoscopy with vaginal hysterectomy DARCIE 3GRM HEMOSTAT ABS FDA Start: 09-28-2018 Laparoscopy with vaginal hysterectomy DARCIE 3GRM HEMOSTAT ABS FDA Start: 09-28-2018 Functional Status Date Assessment Result Facility 10-18-2024 [facility] everity rating scale screener - recent [C-SSRS] [facility] Work Phone: Clinical Notes 04-25-2024 to 10-18-2024 Kian Jody Davey, DO - 10/18/2024 4:42 PM EDTCcynkeysha Davey, DO - 10/18/2024 4:42 PM EDT Note Date & Type Note Facility 10-18-2024 Physician Emergency department Note HPI Chief Complaint Patient presents with Laceration Pt received laceration on top of head at hairline 5 days ago, from grandchild's tooth. Pt concerned for swelling in forehead and eyes. Using antibiotic ointment on wound Limitations to History: None HPI: 54-year-old female presents concern for injury to the front of her scalp. States that 5 days ago she was in the pool with her granddaughter who jumped when she was not expecting and her teeth struck her scalp. States she sustained a laceration. Has become more painful and is now draining. States that she was having chills and shivering. States that the swelling has increased into her upper face. Denies any upper respiratory congestion, nausea, vomiting, eye pain, neck pain, chest pain, shortness of breath, urinary symptoms. Does admit to some lymphadenopathy in her neck. Additional History Obtained from: [Family, Parent, EMS, Significant other, Caregiver, Friend, PD, etc.] Physical Exam: VS: As documented in the triage note and EMR flowsheet from this visit were reviewed. Appearance: Alert. cooperative, in no acute distress. Skin: Laceration measuring approximately 2 cm to the front of her scalp. Purulent drainage. Surrounding erythema. Eyes: PERRLA, EOMs intact, Conjunctiva pink with no redness or exudates. HENT: Normocephalic, atraumatic. Nares patent. No intraoral lesions. Neck: Supple, without meningismus. Trachea at midline. Bilateral cervical lymphadenopathy. Pulmonary: Clear bilaterally with good chest wall excursion. No rales, rhonchi or wheezing. No accessory muscle use or stridor. Cardiac: Tachycardic and regular rhythm, no rubs, murmurs, or gallops. Abdomen: Abdomen is soft, nontender, and nondistended. No palpable organomegaly. No rebound or guarding. No CVA tenderness. Nonsurgical abdomen. Genitourinary: Exam deferred. Musculoskeletal: Full range of motion. Pulses full and equal. No cyanosis, clubbing, or edema. Neurological: Cranial nerves are grossly intact, grossly normal sensation, no weakness, no focal findings identified. Psychiatric: Appropriate mood and affect. Patient History Medical History[1] Surgical History[2] Family History[3] Social History[4] Physical Exam ED Triage Vitals [10/18/24 1638] Temperature Heart Rate Respirations BP (!) 38.7 C (101.7 F) (!) 125 18 146/80 Pulse Ox Temp Source Heart Rate Source Patient Position 99 % Temporal -- -- BP Location FiO2 (%) -- -- Physical Exam ED Course & MDM Diagnoses as of 10/18/241901 Scalp laceration, initial encounter Scalp abscess No data recorded Medical Decision Making Labs Reviewed COMPREHENSIVE METABOLIC PANEL - Normal Glucose 82 Sodium 139 Potassium 3.6 Chloride 105 Bicarbonate 25 Anion Gap 13 Urea Nitrogen 16 Creatinine 0.81 eGFR 86 Calcium 9.3 Albumin 4.7 Alkaline Phosphatase 74 Total Protein 7.6 AST 19 Bilirubin, Total 0.5 ALT 28 LACTATE - Normal Lactate 0.6 Narrative: Venipuncture immediately after or during the administration of Metamizole may lead to falsely low results. Testing should be performed immediately prior to Metamizole dosing. BLOOD CULTURE BLOOD CULTURE CBC WITH AUTO DIFFERENTIAL WBC 10.5 nRBC 0.0 RBC 4.48 Hemoglobin 13.7 Hematocrit 41.5 MCV 93 MCH 30.6 MCHC 33.0 RDW 14.0 Platelets 174 Neutrophils % 71.5 Immature Granulocytes %, Automated 0.4 Lymphocytes % 18.4 Monocytes % 6.3 Eosinophils % 2.8 Basophils % 0.6 Neutrophils Absolute 7.49 Immature Granulocytes Absolute, Au* 0.04 Lymphocytes Absolute 1.93 Monocytes Absolute 0.66 Eosinophils Absolute 0.29 Basophils Absolute 0.06 URINALYSIS WITH REFLEX CULTURE AND MICROSCOPIC Narrative: The following orders were created for panel order Urinalysis with Reflex Culture and Microscopic. Procedure Abnormality Status --------- ------ Urinalysis with Reflex C...[[id number]] Extra Urine Galeano Tube[[id number]] Please view results for these tests on the individual orders. URINALYSIS WITH REFLEX CULTURE AND MICROSCOPIC EXTRA URINE GALEANO TUBE CT head w and wo IV contrast Final Result Frontal hematoma with subcutaneous emphysema and small laceration. No radiopaque foreign body. No displaced calvarial fracture. No abnormal intracranial hemorrhage or enhancement identified. MACRO: None. Signed by: Heather Lechuga 10/18/2024 6:53 PM Dictation workstation: [id number] CT facial bones w IV contrast Final Result There is no acute facial bone fracture. No facial soft tissue swelling is noted on the obtained dedicated CT images of the facial bones. No discrete rim enhancing fluid collection to suggest focal soft tissue abscesses noted within the visualized facial soft tissues. There is minimal mucosal thickening noted within the maxillary sinuses, inferior frontal sinuses, and scattered ethmoid air cells. There is leftward nasal septal deviation. The patient is missing a few upper and lower teeth. There is a mildly enlarged 16 mm left level 2 suprahyoid internal jugular chain lymph node which while nonspecific may be reactive/inflammatory in origin. There is elongation of the styloid processes bilaterally which is a nonspecific finding and can be seen incidentally in asymptomatic patients as well as in patients with underlying [place] syndrome. Please see the dedicated report of the CT of the head with and without contrast dated 10/18/2024 for details of findings within the head and scalp. MACRO: None Signed by: Hung Rg 10/18/2024 6:17 PM Dictation workstation: [id number] Medical Decision Making: Patient appears well nontoxic. Patient tachycardic and febrile upon arrival. Treated with broad-spectrum antibiotics and oral Tylenol. Lab work unremarkable. CT of the head as well as maxillofacial bones with IV contrast shows likely abscess to the frontal scalp without evidence of penetration within the intracranial space. Patient is up-to-date on tetanus. Laceration will not be repaired at this time given delayed presentation. Patient will be placed on Keflex and clindamycin. Advised on follow-up with primary care and asked to return for new or worsening symptoms. Stable at time of discharge. Differential Diagnoses Considered: Abscess, intracranial infection, sepsis Independent Interpretation of Studies: I independently interpreted: CT brain shows no intracranial process. CT maxillofacial bones without abscess formation. Escalation of Care: Appropriate for discharge and follow-up with primary care. Prescription Drug Consideration: Oral Keflex and clindamycin. Procedure Procedures [1] No past medical history on file. [2] No past surgical history on file. [3] No family history on file. [4] Social History Tobacco Use Smoking status: Not on file Smokeless tobacco: Not on file Substance Use Topics Alcohol use: Not on file Drug use: Not on file Kian Davey DO 10/18/241902 T [facility] Work Phone: 10-18-2024 Emergency department Note HPI Chief Complaint Patient presents with Laceration Pt received laceration on top of head at hairline 5 days ago, from grandchild's tooth. Pt concerned for swelling in forehead and eyes. Using antibiotic ointment on wound Limitations to History: None HPI: 54-year-old female presents concern for injury to the front of her scalp. States that 5 days ago she was in the pool with her granddaughter who jumped when she was not expecting and her teeth struck her scalp. States she sustained a laceration. Has become more painful and is now draining. States that she was having chills and shivering. States that the swelling has increased into her upper face. Denies any upper respiratory congestion, nausea, vomiting, eye pain, neck pain, chest pain, shortness of breath, urinary symptoms. Does admit to some lymphadenopathy in her neck. Additional History Obtained from: [Family, Parent, EMS, Significant other, Caregiver, Friend, PD, etc.] Physical Exam: VS: As documented in the triage note and EMR flowsheet from this visit were reviewed. Appearance: Alert. cooperative, in no acute distress. Skin: Laceration measuring approximately 2 cm to the front of her scalp. Purulent drainage. Surrounding erythema. Eyes: PERRLA, EOMs intact, Conjunctiva pink with no redness or exudates. HENT: Normocephalic, atraumatic. Nares patent. No intraoral lesions. Neck: Supple, without meningismus. Trachea at midline. Bilateral cervical lymphadenopathy. Pulmonary: Clear bilaterally with good chest wall excursion. No rales, rhonchi or wheezing. No accessory muscle use or stridor. Cardiac: Tachycardic and regular rhythm, no rubs, murmurs, or gallops. Abdomen: Abdomen is soft, nontender, and nondistended. No palpable organomegaly. No rebound or guarding. No CVA tenderness. Nonsurgical abdomen. Genitourinary: Exam deferred. Musculoskeletal: Full range of motion. Pulses full and equal. No cyanosis, clubbing, or edema. Neurological: Cranial nerves are grossly intact, grossly normal sensation, no weakness, no focal findings identified. Psychiatric: Appropriate mood and affect. Patient History Medical History[1] Surgical History[2] Family History[3] Social History[4] Physical Exam ED Triage Vitals [10/18/24 1638] Temperature Heart Rate Respirations BP (!) 38.7 C (101.7 F) (!) 125 18 146/80 Pulse Ox Temp Source Heart Rate Source Patient Position 99 % Temporal -- -- BP Location FiO2 (%) -- -- Physical Exam ED Course & MDM Diagnoses as of 10/18/24 1902 Scalp laceration, initial encounter Scalp abscess No data recorded Medical Decision Making Labs Reviewed COMPREHENSIVE METABOLIC PANEL - Normal Glucose 82 Sodium 139 Potassium 3.6 Chloride 105 Bicarbonate 25 Anion Gap 13 Urea Nitrogen 16 Creatinine 0.81 eGFR 86 Calcium 9.3 Albumin 4.7 Alkaline Phosphatase 74 Total Protein 7.6 AST 19 Bilirubin, Total 0.5 ALT 28 LACTATE - Normal Lactate 0.6 Narrative: Venipuncture immediately after or during the administration of Metamizole may lead to falsely low results. Testing should be performed immediately prior to Metamizole dosing. BLOOD CULTURE BLOOD CULTURE CBC WITH AUTO DIFFERENTIAL WBC 10.5 nRBC 0.0 RBC 4.48 Hemoglobin 13.7 Hematocrit 41.5 MCV 93 MCH 30.6 MCHC 33.0 RDW 14.0 Platelets 174 Neutrophils % 71.5 Immature Granulocytes %, Automated 0.4 Lymphocytes % 18.4 Monocytes % 6.3 Eosinophils % 2.8 Basophils % 0.6 Neutrophils Absolute 7.49 Immature Granulocytes Absolute, Au* 0.04 Lymphocytes Absolute 1.93 Monocytes Absolute 0.66 Eosinophils Absolute 0.29 Basophils Absolute 0.06 URINALYSIS WITH REFLEX CULTURE AND MICROSCOPIC Narrative: The following orders were created for panel order Urinalysis with Reflex Culture and Microscopic. Procedure Abnormality Status --------- ------ Urinalysis with Reflex C...[[id number]] Extra Urine Galeano Tube[[id number]] Please view results for these tests on the individual orders. URINALYSIS WITH REFLEX CULTURE AND MICROSCOPIC EXTRA URINE GALEANO TUBE CT head w and wo IV contrast Final Result Frontal hematoma with subcutaneous emphysema and small laceration. No radiopaque foreign body. No displaced calvarial fracture. No abnormal intracranial hemorrhage or enhancement identified. MACRO: None. Signed by: Heather Lechuga 10/18/2024 6:53 PM Dictation workstation: [id number] CT facial bones w IV contrast Final Result There is no acute facial bone fracture. No facial soft tissue swelling is noted on the obtained dedicated CT images of the facial bones. No discrete rim enhancing fluid collection to suggest focal soft tissue abscesses noted within the visualized facial soft tissues. There is minimal mucosal thickening noted within the maxillary sinuses, inferior frontal sinuses, and scattered ethmoid air cells. There is leftward nasal septal deviation. The patient is missing a few upper and lower teeth. There is a mildly enlarged 16 mm left level 2 suprahyoid internal jugular chain lymph node which while nonspecific may be reactive/inflammatory in origin. There is elongation of the styloid processes bilaterally which is a nonspecific finding and can be seen incidentally in asymptomatic patients as well as in patients with underlying [place] syndrome. Please see the dedicated report of the CT of the head with and without contrast dated 10/18/2024 for details of findings within the head and scalp. MACRO: None Signed by: Hung Rg 10/18/2024 6:17 PM Dictation workstation: [id number] Medical Decision Making: Patient appears well nontoxic. Patient tachycardic and febrile upon arrival. Treated with broad-spectrum antibiotics and oral Tylenol. Lab work unremarkable. CT of the head as well as maxillofacial bones with IV contrast shows likely abscess to the frontal scalp without evidence of penetration within the intracranial space. Patient is up-to-date on tetanus. Laceration will not be repaired at this time given delayed presentation. Patient will be placed on Keflex and clindamycin. Advised on follow-up with primary care and asked to return for new or worsening symptoms. Stable at time of discharge. Differential Diagnoses Considered: Abscess, intracranial infection, sepsis Independent Interpretation of Studies: I independently interpreted: CT brain shows no intracranial process. CT maxillofacial bones without abscess formation. Escalation of Care: Appropriate for discharge and follow-up with primary care. Prescription Drug Consideration: Oral Keflex and clindamycin. Procedure Procedures [1] No past medical history on file. [2] No past surgical history on file. [3] No family history on file. [4] Social History Tobacco Use Smoking status: Not on file Smokeless tobacco: Not on file Substance Use Topics Alcohol use: Not on file Drug use: Not on file Kian Davey DO 10/18/24 190 documented in this encounter [facility] Work Phone: 07-28-2024 Evaluation note Diagnosis Onset Date Resolution History of tobacco use chronic Ma y 2024 2:08pm Lung nodules chronic July 28 2:08pm [facility] Work Phone: 1(615) 482-894105-05-2025 Radiology Diagnostic study note [facility] Imaging Services [address] [place] [address] Chest without Contrast MR#: [id number] Acct: [id number] Name: STEPHANIE SAMPSON Rep #: [id number] : 1970 F 54 From: Vanessa Morrell MD PCP: ZEESHAN Rosa Status: REG CLI Study:Chest without Contrast Date of Exam: 07/24/24 Exam# [id number] Ordering Dr: Hugh Royal NP [employer] PROCEDURE: CHEST WITHOUT CONTRAST 07/24/2024 REASON FOR EXAM: NEW LUNG NODULES IN SMOKER TECHNIQUE: CT chest was performed without contrast. Coronal and Sagittal reconstruction series were provided. One or more dose reduction techniques were used (e.g., Automated exposure control, adjustment of the mA and/or kV according to patient size, use of iterative reconstruction technique RADIATION DOSE SUMMARY: CTDlvol: 6.60 mGy DLP: 231.05 mGycm COMPARISON: 04/25/2024 FINDINGS: Note that evaluation of the vasculature, janna, and soft tissues is limited in the absence of IV contrast. Heart/pericardium: Unremarkable. Aorta: Unremarkable. Pulmonary arteries: Normal in caliber. Lymph nodes: Unremarkable. Lungs/pleura: Similar ill-defined ground-glass LEFT upper lobe nodule, 10 x 10 mm (series 4, image 29). Similar 4 mm subpleural nodule in the RIGHT lung base, posterior costophrenic sulcus (image 91). Numerous additional similar and smaller nodules are grossly unchanged, some of which are ill-defined/ground-glass, annotated on series 4. Airways: Unremarkable. Chest wall: Bilateral breast implants are partially imaged.. Upper abdomen: Grossly unremarkable. Musculoskeletal: Trace thoracic dextroscoliosis may be positional.. CT/Chest without Contrast IMPRESSION: 1. No new or enlarging pulmonary nodule identified. Similar dominant 10 x 10 mmLEFT upper lobe ground-glass nodule. Findings now best considered Lung-RADS 3. Recommend CT chest in 6 months. 2. Additional description as above. Reading Location: [facility] CC: ZEESHAN Royal; ZEESHAN Hirsch ~ Wet Process Technician: Signed [facility]03-26-2025 Procedure [facility] Pulmonary Services/Neurology [address] [place] [address] MR#: [id number] Acct: [id number] Name: STEPHANIE SAMPSON Rep #:[id number] 04 : 1970 54 From: Abdiaziz Reyes DO Referring Dr: Maegan Royal [employer] Status: REG CLI Location: PSN Date: Sex: F C PSN 6 Minute Walk Test 6 Minute Walk Test 6 Minute Walk Test: 6 Minute Walk Test PSN:6-Minute Walk Test Start: 06/13/24 11:36 Freq: Status: Active Protocol: [id number] Document 06/13/24 11:37 EW (Rec: 06/13/24 11:40 EW [email or web address]) 6 Minute Walk Test Date Performed 06/13/24 Time Performed 11:15 Height 5 ft 3 in Weight: 125 lb Weight in Pounds 125.0 lbs Assistive device None used: Pre-test Oxygen Delivery Room Air Method Pulse Ox (%) 99 Pulse Rate (60-100 87 beats/min) Dyspnea Huey Scale ( 0 0-10) Exertion Huey Scale 6 (6-20) 1st minute Oxygen Delivery Room Air Method Pulse Ox (%) 98 Pulse Rate (60-100 92 beats/min) 2nd minute Oxygen Delivery Room Air Method Pulse Ox (%) 98 Pulse Rate (60-100 96 beats/min) 3rd minute Oxygen Delivery Room Air Method Pulse Ox (%) 98 Pulse Rate (60-100 96 beats/min) 4th minute Oxygen Delivery Room Air Method Pulse Ox (%) 97 Pulse Rate (60-100 99 beats/min) 5th minute Oxygen Delivery Room Air Method Pulse Ox (%) 98 Pulse Rate (60-100 99 beats/min) 6th minute Oxygen Delivery Room Air Method Pulse Ox (%) 99 Pulse Rate (60-100 101 H beats/min) Post-test Oxygen Delivery Room Air Method Pulse Ox (%) 99 Pulse Rate (60-100 90 beats/min) Dyspnea Huey Scale ( 0 0-10) Exertion Huey Scale 6 (6-20) Full Laps Walked 24 Partial Lap, Number 25 of Tiles Walked Total Distance 1441 Walked (ft) Interpretation Interpretation: The patient ambulated 1441 feet over the course of 6 minutes beginning on room air without assistive devices. Pretesting oxygen saturation was noted to be 99%on room air. With ambulation, the jamie oxygen saturation was 97%. There was no significant exertional oxygen desaturation. Recommendations Recommendations: There is no indication for the use of supplemental oxygen at this time. 06/14/24 1106 O> Date _ Abdiaziz Reyes DO CC: ~ Date Dictated: 06/14/24 1106 Date Transcribed: 06/14/241105 Wet Process Technician: Dr. Abdiaziz Reyes, DO Signed [facility]02-04-2025 Evaluation note* Diagnosis Onset Date Resolution Status Admit Date Encounter for screening for malignant neoplasm of lung acute Febru ac 2024 11:51am History of tobacco use acute Fe bruary 2024 11:51am Lung nodules acute April 11:51am History of tobacco use acute Fe bruary 2024 3:04pm Lung nodules acute April 3:04pm [facility] Work Phone: Evaluation noteNo assessment information available [facility] Work Phone: Evaluation note* Diagnosis Scalp laceration, initial encounter- Primary Scalp abscess documented in this encounter [facility] Work Phone: Hospital Discharge instructions* Attachments The following attachments cannot be sent through Care Everywhere. * Skin Abscess (Faro[place]) [facility]: Instructions* Name Dates Details Patient Instructions Indication:BMI 25.0-25.9,adult Start:14-Jan-2021 Instruction Type:Provider Instructions for Treatment How to Access Health Informa tion Online using Patient Portal and [employer]rd [employer] Apps Indication:BMI 25.0-25.9,adult Start:14-Jan-2021 Instruction Type:Patient Education Patient Instructions Indication:Smoker Start:19-Mar-2020 Instruction Type:Provider Instructions for Treatment How to Access Health Informa tion Online using Patient Portal and [employer]rd [employer] Apps Indication:Smoker Start:19-Mar-2020 Instruction Type:Patient Education How [...] immunization against influenza) Start:21-Nov-2014 Instruction Type:Patient Education Patient Instructions Indication:Need for prophylactic vaccination and inoculation against influenza (Renamed from Need for immunization against influenza) Start:21-Nov-2014 Instruction Type:Provider Instructions for Treatment [facility] Work Phone: Instructions* Name Dates Details Patient Instructions Indication:BMI 25.0-25.9,adult Start:14-Jan-2021 Instruction Type:Provider Instructions for Treatment How to Access Health Informa tion Online using Patient Portal and [employer]rd [employer] Apps Indication:BMI 25.0-25.9,adult Start:14-Jan-2021 Instruction Type:Patient Education Patient Instructions Indication:Smoker Start:19-Mar-2020 Instruction Type:Provider Instructions for Treatment How to Access Health Informa tion Online using Patient Portal and [employer]rd [employer] Apps Indication:Smoker Start:19-Mar-2020 Instruction Type:Patient Education How [...] immunization against influenza) Start:21-Nov-2014 Instruction Type:Patient Education Patient Instructions Indication:Need for prophylactic vaccination and inoculation against influenza (Renamed from Need for immunization against influenza) Start:21-Nov-2014 Instruction Type:Provider Instructions for Treatment [facility] Work Phone: Instructions* Name Dates Details Patient Instructions Indication:Vitamin D deficiency Start:22-Apr-2021 Instruction Type:Provider Instructions for Treatment How to Access Health Informa tion Online using Patient Portal and [employer]rd [employer] Apps Indication:Vitamin D deficiency Start:22-Apr-2021 Instruction Type:Patient Education Patient Instructions Indication:BMI 25.0-25.9,adult Start:14-Jan-2021 Instruction Type:Provider Instructions for Treatment How to Access Health Informa tion Online using Patient Portal and [employer] Apps Indication:BMI 25.0-25.9,adult Start:14-Jan-2021 Instruction Type:Patient Education Patient Instructions Indication:Smoker Start:19-Mar-2020 Instruction Type:Provider Instructions for Treatment How to Access Health Informa tion Online using Patient Portal and [employer] Apps Indication:Smoker Start:19-Mar-2020 Instruction Type:Patient Education How [...] immunization against influenza) Start:21-Nov-2014 Instruction Type:Patient Education Patient Instructions Indication:Need for prophylactic vaccination and inoculation against influenza (Renamed from Need for immunization against influenza) Start:21-Nov-2014 Instruction Type:Provider Instructions for Treatment [facility] Work Phone: Instructions* Name Dates Details Patient Instructions Indication:Vitamin D deficiency Start:22-Apr-2021 Instruction Type:Provider Instructions for Treatment How to Access Health Informa tion Online using Patient Portal and [employer] Apps Indication:Vitamin D deficiency Start:22-Apr-2021 Instruction Type:Patient Education Patient Instructions Indication:BMI 25.0-25.9,adult Start:14-Jan-2021 Instruction Type:Provider Instructions for Treatment How to Access Health Informa tion Online using Patient Portal and [employer] Apps Indication:BMI 25.0-25.9,adult Start:14-Jan-2021 Instruction Type:Patient Education Patient Instructions Indication:Smoker Start:19-Mar-2020 Instruction Type:Provider Instructions for Treatment How to Access Health Informa tion Online using Patient Portal and [employer]rd [employer] Apps Indication:Smoker Start:19-Mar-2020 Instruction Type:Patient Education How [...] immunization against influenza) Start:21-Nov-2014 Instruction Type:Patient Education Patient Instructions Indication:Need for prophylactic vaccination and inoculation against influenza (Renamed from Need for immunization against influenza) Start:21-Nov-2014 Instruction Type:Provider Instructions for Treatment [facility] Work Phone: Instructions* Name Dates Details Patient Instructions Indication:Vitamin D deficiency Start:22-Apr-2021 Instruction Type:Provider Instructions for Treatment How to Access Health Informa tion Online using Patient Portal and [employer]rd [employer] Apps Indication:Vitamin D deficiency Start:22-Apr-2021 Instruction Type:Patient Education Patient Instructions Indication:BMI 25.0-25.9,adult Start:14-Jan-2021 Instruction Type:Provider Instructions for Treatment How to Access Health Informa tion Online using Patient Portal and [employer]rd [employer] Apps Indication:BMI 25.0-25.9,adult Start:14-Jan-2021 Instruction Type:Patient Education Patient Instructions Indication:Smoker Start:19-Mar-2020 Instruction Type:Provider Instructions for Treatment How to Access Health Informa tion Online using Patient Portal and [employer]rd [employer] Apps Indication:Smoker Start:19-Mar-2020 Instruction Type:Patient Education How [...] immunization against influenza) Start:21-Nov-2014 Instruction Type:Patient Education Patient Instructions Indication:Need for prophylactic vaccination and inoculation against influenza (Renamed from Need for immunization against influenza) Start:21-Nov-2014 Instruction Type:Provider Instructions for Treatment [facility] Work Phone: Instructions* Name Dates Details Patient Instructions Indication:Impaired Fasting Glucose (Renamed from Elevated fasting blood sugar) Start:23-Feb-2022 Instruction Type:Provider Instructions for Treatment How to Access Health Informa tion Online using Patient Portal and [employer]rd [employer] Apps Indication:Impaired Fasting Glucose (Renamed from Elevated fasting blood sugar) Start:23-Feb-2022 Instruction Type:Patient Education Patient Instructions Indication:Vitamin D deficiency Start:22-Apr-2021 Instruction Type:Provider Instructions for Treatment How to Access Health Informa tion Online using Patient Portal and [employer] Apps Indication:Vitamin D deficiency Start:22-Apr-2021 Instruction Type:Patient Education Patient Instructions Indication:BMI 25.0-25.9,adult Start:14-Jan-2021 Instruction Type:Provider Instructions for Treatment How to Access Health Informa tion Online using Patient Portal and [employer]rd [employer] Apps Indication:BMI 25.0-25.9,adult Start:14-Jan-2021 Instruction Type:Patient Education Patient Instructions Indication:Smoker Start:19-Mar-2020 Instruction Type:Provider Instructions for Treatment How to Access Health Informa tion Online using Patient Portal and [employer]rd [employer] Apps Indication:Smoker Start:19-Mar-2020 Instruction Type:Patient Education How [...] immunization against influenza) Start:21-Nov-2014 Instruction Type:Patient Education Patient Instructions Indication:Need for prophylactic vaccination and inoculation against influenza (Renamed from Need for immunization against influenza) Start:21-Nov-2014 Instruction Type:Provider Instructions for Treatment [facility] Work Phone: Instructions* Name Dates Details Patient Instructions Indication:Impaired Fasting Glucose (Renamed from Elevated fasting blood sugar) Start:23-Feb-2022 Instruction Type:Provider Instructions for Treatment How to Access Health Informa tion Online using Patient Portal and [employer]rd [employer] Apps Indication:Impaired Fasting Glucose (Renamed from Elevated fasting blood sugar) Start:23-Feb-2022 Instruction Type:Patient Education Patient Instructions Indication:Vitamin D deficiency Start:22-Apr-2021 Instruction Type:Provider Instructions for Treatment How to Access Health Informa tion Online using Patient Portal and [employer] Apps Indication:Vitamin D deficiency Start:22-Apr-2021 Instruction Type:Patient Education Patient Instructions Indication:BMI 25.0-25.9,adult Start:14-Jan-2021 Instruction Type:Provider Instructions for Treatment How to Access Health Informa tion Online using Patient Portal and [employer] Apps Indication:BMI 25.0-25.9,adult Start:14-Jan-2021 Instruction Type:Patient Education Patient Instructions Indication:Smoker Start:19-Mar-2020 Instruction Type:Provider Instructions for Treatment How to Access Health Informa tion Online using Patient Portal and [employer] Apps Indication:Smoker Start:19-Mar-2020 Instruction Type:Patient Education How [...] immunization against influenza) Start:21-Nov-2014 Instruction Type:Patient Education Patient Instructions Indication:Need for prophylactic vaccination and inoculation against influenza (Renamed from Need for immunization against influenza) Start:21-Nov-2014 Instruction Type:Provider Instructions for Treatment [facility] Work Phone: Instructions* Name Dates Details Patient Instructions Indication:Impaired Fasting Glucose (Renamed from Elevated fasting blood sugar) Start:23-Feb-2022 Instruction Type:Provider Instructions for Treatment How to Access Health Informa tion Online using Patient Portal and [employer] Indication:Impaired Fasting Glucose (Renamed from Elevated fasting blood sugar) Start:23-Feb-2022 Instruction Type:Patient Education Patient Instructions Indication:Vitamin D deficiency Start:22-Apr-2021 Instruction Type:Provider Instructions for Treatment How to Access Health Informa tion Online using Patient Portal and [employer] Apps Indication:Vitamin D deficiency Start:22-Apr-2021 Instruction Type:Patient Education Patient Instructions Indication:BMI 25.0-25.9,adult Start:14-Jan-2021 Instruction Type:Provider Instructions for Treatment How to Access Health Informa tion Online using Patient Portal and [employer] Apps Indication:BMI 25.0-25.9,adult Start:14-Jan-2021 Instruction Type:Patient Education Patient Instructions Indication:Smoker Start:19-Mar-2020 Instruction Type:Provider Instructions for Treatment How to Access Health Informa tion Online using Patient Portal and [employer] Apps Indication:Smoker Start:19-Mar-2020 Instruction Type:Patient Education How [...] immunization against influenza) Start:21-Nov-2014 Instruction Type:Patient Education Patient Instructions Indication:Need for prophylactic vaccination and inoculation against influenza (Renamed from Need for immunization against influenza) Start:21-Nov-2014 Instruction Type:Provider Instructions for Treatment [facility] Work Phone: Instructions* Name Dates Details Patient Instructions Indication:Impaired Fasting Glucose (Renamed from Elevated fasting blood sugar) Start:23-Feb-2022 Instruction Type:Provider Instructions for Treatment How to Access Health Informa tion Online using Patient Portal and [employer]rd [employer] Apps Indication:Impaired Fasting Glucose (Renamed from Elevated fasting blood sugar) Start:23-Feb-2022 Instruction Type:Patient Education Patient Instructions Indication:Vitamin D deficiency Start:22-Apr-2021 Instruction Type:Provider Instructions for Treatment How to Access Health Informa tion Online using Patient Portal and [employer]rd [employer] Apps Indication:Vitamin D deficiency Start:22-Apr-2021 Instruction Type:Patient Education Patient Instructions Indication:BMI 25.0-25.9,adult Start:14-Jan-2021 Instruction Type:Provider Instructions for Treatment How to Access Health Informa tion Online using Patient Portal and [employer]rd [employer] Apps Indication:BMI 25.0-25.9,adult Start:14-Jan-2021 Instruction Type:Patient Education Patient Instructions Indication:Smoker Start:19-Mar-2020 Instruction Type:Provider Instructions for Treatment How to Access Health Informa tion Online using Patient Portal and [employer]rd [employer] Apps Indication:Smoker Start:19-Mar-2020 Instruction Type:Patient Education How [...] immunization against influenza) Start:21-Nov-2014 Instruction Type:Patient Education Patient Instructions Indication:Need for prophylactic vaccination and inoculation against influenza (Renamed from Need for immunization against influenza) Start:21-Nov-2014 Instruction Type:Provider Instructions for Treatment [facility] Work Phone: Instructions* Name Dates Details Patient Instructions Indication:Prediabetes Start:28-Aug-2022 Instruction Type:Provider Instructions for Treatment How to Access Health Informa tion Online using Patient Portal and [employer] Apps Indication:Prediabetes Start:28-Aug-2022 Instruction Type:Patient Education Patient Instructions Indication:Impaired Fasting Glucose (Renamed from Elevated fasting blood sugar) Start:23-Feb-2022 Instruction Type:Provider Instructions for Treatment How to Access Health Informa tion Online using Patient Portal and [employer] Apps Indication:Impaired Fasting Glucose (Renamed from Elevated fasting blood sugar) Start:23-Feb-2022 Instruction Type:Patient Education Patient Instructions Indication:Vitamin D deficiency Start:22-Apr-2021 Instruction Type:Provider Instructions for Treatment How to Access Health Informa tion Online using Patient Portal and [employer] Apps Indication:Vitamin D deficiency Start:22-Apr-2021 Instruction Type:Patient Education Patient Instructions Indication:BMI 25.0-25.9,adult Start:14-Jan-2021 Instruction Type:Provider Instructions for Treatment How to Access Health Informa tion Online using Patient Portal and [employer]rd [employer] Apps Indication:BMI 25.0-25.9,adult Start:14-Jan-2021 Instruction Type:Patient Education Patient Instructions Indication:Smoker Start:19-Mar-2020 Instruction Type:Provider Instructions for Treatment How to Access Health Informa tion Online using Patient Portal and [employer]rd [employer] Apps Indication:Smoker Start:19-Mar-2020 Instruction Type:Patient Education How [...] immunization against influenza) Start:21-Nov-2014 Instruction Type:Patient Education Patient Instructions Indication:Need for prophylactic vaccination and inoculation against influenza (Renamed from Need for immunization against influenza) Start:21-Nov-2014 Instruction Type:Provider Instructions for Treatment [facility] Work Phone: reason for referral (narrative)No reason for referral information availableWGrand Lake [facility] Work Phone: Family History No Family History Records FoundUnknown Family Member Name Dates Details Family Members [...] cancer Status:Active Mother Comments:living and htn Status:Active Relationship Condition Age at Onset Recorded Date/T areli father Malignant neoplasm Unknown Diabetes mellitus Unknown Instructions Name Dates Details BMI 24.0-24.9, adult [...] influenza) Name Dates Details How to access [employer] informa tion online Indication:Smoker Start:04-Jul-2018 Instruction Type:Patient [...] Informa tion Online using Patient Portal and [employer]rd [employer] Apps Indication:Smoker Start:19-Mar-2020 Instruction Type:Patient Education How [...] Informa tion Online using Patient Portal and [employer]rd [employer] Apps Indication:Smoker Start:19-Mar-2020 Instruction Type:Patient Education How [...] Purpose Advance Directives No Advanced Directives Records Found Advance Directive Response Recorded Date/ Time Living Will No September 28, 2018 3:10pm Power of Hospice Rn No September 28 3:10pm Advance Directive Response Recorded Date/ Time Living Will No September 28, 2018 4:10pm Power of Hospice Rn No September 28 4:10pm Chief Complaint and Reason for Visit Chief Complaint SCREENING Chief Complaint THYROID NODULE Chief Complaint Encounter for genera l adult medical examination wi Chief Complaint Admit Date SCREENING March 13, 2024 1:35pm Lung Cancer Screening April 25, 2024 11:51am SCREENING April 25, 2024 1 :02pm LDCT Clinic request April 27, 2024 3 :04pm Z87.891 - Personal history of nicotine d ependence May 09, 2024 6:40am Reason for Visit Admit Date Encounter for screening for malignant ne oplasm of lung April 25, 2024 11:51am History of tobacco use April 25 11:51am Lung nodules April 25, 2024 1 1:51am History of tobacco use April 27 3:04pm Lung nodules April 27, 2024 3 :04pm Chief Complaint Admit Date SCREENING March 13, 2024 1:35pm Lung Cancer Screening April 25, 2024 11:51am SCREENING April 25, 2024 1 :02pm LDCT Clinic request April 27, 2024 3 :04pm Z87.891 - Personal history of nicotine d ependence May 09, 2024 6:40am Z87.891 - Personal history of nicotine d ependence June 13, 2024 11:05am Z87.891 - Personal history of nicotine d ependence June 14, 2024 11:06am Chief Complaint Admit Date Lung Cancer Screening April 25, 2024 11:51am SCREENING April 25, 2024 1 :02pm LDCT Clinic request April 27, 2024 3 :04pm Z87.891 - Personal history of nicotine d ependence May 09, 2024 6:40am Z87.891 - Personal history of nicotine d ependence June 13, 2024 11:05am Z87.891 - Personal history of nicotine d ependence June 14, 2024 11:06am NEW NODULES IN LUNG FOR SMOKING July 24, 2024 6:48am Chief Complaint Admit Date 3 M FU July 28, 2024 2:08pm Reason for Visit Admit Date History of tobacco use July 28, 2024 2:0 8pm Lung nodules July 28, 2024 2:08pm Additional Source Comments INFORMATION SOURCE (unrecogn ized section and content) DATE CREATED AUTHOR 10/14/2019 [facility] DATE CREATED AUTHOR AUTHOR'S ORGANIZ ATION 02/23/2022 [facility] DATE CREATED AUTHOR AUTHOR'S ORGANIZ ATION 10/23/[address] [facility] DATE CREATED AUTHOR AUTHOR'S ORGANIZ ATION 01/25/2025 [facility] Goals (unrecognized section and content) Goals may be documented in a n alternate sectionGoals may be documented in an alternate sectionGoals may be documented in an alternate sectionGoals may be documented in an alternate sectionGoals may be documented in an alternate sectionGoals may be documented in an alternate sectionGoals may be documented in an alternate sectionGoals may be documented in an alternate section Care Teams (unrecognized sec tion and content) Team Status: Active Member Role Status Dates Thi Alonzo NP, [employer] Family Provider Active Karol Cobb [employer] Primary Care Provider Active Team Status: Inactive Member Role Status Dates Karol Cobb [employer] Primary Care Provi jen, Attending Provider, Referring Provider Active Team Status: Active Member Role Status Dates Thi Alonzo [employer], [employer] Family Provider Active Samantha REYES, [employer] Primary Care Provider Active Team Status: Inactive Member Role Status Dates Samantha REYES, [employer] Primary Care Provid er, Attending Provider, Referring Provider Active Team Status: Active Member Role Status Dates Samantha REYES, [employer] Primary Care Provider Active Team Status: Inactive Member Role Status Dates Samantha REYES, [employer] Primary Care Provider Active Start: March 13, 2024 End: March 13, 2024 Samantha REYES, [employer] Attending Provider Active S tart: March 13, 2024 End: March 13, 2024 Samantha REYES, [employer] Referring Provider Active S tart: March 13, 2024 End: March 13, 2024 Team Status: Inactive Member Role Status Dates Samantha REYES, [employer] Primary Care Provider Active Start: April 25, 2024 End: April 25, 2024 Radha Palmer [employer], [employer] Attending Provider Active Start: April 25, 2024 End: April 25, 2024 Radha Palmer NP, [employer] Referring Provider Active Start: April 25, 2024 End: April 25, 2024 Team Status: Inactive Member Role Status Dates Samantha REYES, [employer] Primary Care Provider Active Start: April 27, 2024 End: April 27, 2024 Samantha BENZC, [employer] Referring Provider Active S tart: April 27, 2024 End: April 27, 2024 Maegan Royal [employer], [employer] Attending Provider Active Start: April 27, 2024 End: April 27, 2024 Team Status: Inactive Member Role Status Dates Samantha Scott BENZC, [employer] Primary Care Provider Active Start: May 09, 2024 End: May 09, 2024 Maegan Royal [employer], [employer] Attending Provider Active Start: May 09, 2024 End: May 09, 2024 Maegan Royal [employer], [employer] Referring Provider Active Start: May 09, 2024 End: May 09, 2024 Team Status: Inactive Member Role Status Dates Samantha Scott VSC, [employer] Primary Care Provider Active Start: May 17, 2024 End: May 17, 2024 Samantha BENZC, [employer] Attending Provider Active S tart: May 17, 2024 End: May 17, 2024 Team Status: Inactive Member Role Status Dates Samantha Scott BENZC, [employer] Primary Care Provider Active Start: June 13, 2024 End: June 13, 2024 Maegan Royal [employer], [employer] Attending Provider Active Start: June 13, 2024 End: June 13, 2024 Maegan Royal [employer], [employer] Referring Provider Active Start: June 13, 2024 End: June 13, 2024 Team Status: Active Member Role Status Dates Samantha BENZC, [employer] Primary Care Provider Active Start: June 14, 2024 Maegan Royal [employer], [employer] Referring Provider Active Start: June 14, 2024 Maegan Royal [employer], [employer] Other Provider Active Start: June 14, 2024 Dr. Abdiaziz Reyes , DO Attending Provider Active S tart: June 14, 2024 Team Status: Inactive Member Role Status Dates Samantha Hirsch VSC, [employer] Primary Care Provider Active Start: July 24, 2024 End: July 24, 2024 Maegan Royal [employer], [employer] Attending Provider Active Start: July 24, 2024 End: July 24, 2024 Maegan Royal [employer], [employer] Referring Provider Active Start: July 24, 2024 End: July 24, 2024 [employer] Relationship Specialty Start Date End Date Samantha Hirsch, DIRECTOR [employer] [address] [place] [address] PCP - General Family Medicine 10/18/24 Team Status: Active Member Role/Relationship Status Dates Samantha REYES, [employer] Primary Care Provider Active Team Status: Inactive Member Role/Relationship Status Dates Samantha REYES, [employer] Primary Care Provider Active Start: July 28, 2024 End: July 28, 2024 Samantha REYES, [employer] Referring Provider Active S tart: July 28, 2024 End: July 28, 2024 Maegan Royal [employer], [employer] Attending Provider Active Start: July 28, 2024 End: July 28, 2024 Team Status: Inactive Member Role/Relationship Status Dates Samantha REYES, [employer] Primary Care Provider Active Start: November 15, 2024 End: November 15, 2024 Samantha REYES, [employer] Attending Provider Active S tart: November 15, 2024 End: November 15, 2024 Samantha REYES, [employer] Referring Provider Active S tart: November 15, 2024 End: November 15, 2024 Reason for Visit (unrecogniz ed section and content) Reason Comments Laceration Pt received lacerati on on top of head at hairline 5 days ago, from grandchild's tooth. Pt concerned for swelling in forehead and eyes. Using antibiotic ointment on wound Scheduled Active and Recently Administ ered Medications (unrecognized section and content) Medication Order 10/16/2024 10/17/2024 10/18/2024 acetaminophen (Tylenol) tablet 975 mg (COMPLETED) 975 mg, oral, Once, On Wed10/18/24 at 1645, For 1 dose, If ordered PRN for pain, nurse is permitted to administer this medication for higher pain scores based on patient preference? Yes 1705 (Given - Provid er: Kendall Brownlee RN) cefepime (Maxipime) 2 g in dextrose 5% IV 50 mL (COMPLETED) 2 g, intravenous, Administer over 0.5 Hours, Once, On Wed10/18/24 at 1645, For 1 dose, Dosing of this medication varies based on severity of illness. Does this patient have sepsis or concern for sepsis (probable or documented infection plus systemic manifestations of infection)? Yes, Suspected Indication (Select all that apply): Cellulitis, Skin and Soft Tissue, Type of Therapy: Empiric, Indications: Cellulitis, Skin and Soft Tissue 1707 (New Bag - Prov ider: Kendall Brownlee, TANA)1800 (Stopped - Provider: Kendall Brownlee RN) iohexol (OMNIPaque) 350 mg iodine/mL solution 68 mL (COMPLETED) 68 mL, intravenous, Once in imaging, Starting on Wed10/18/24 at 1752, For 1 dose 1753 (Given - Provid er: Suzette Marino) metroNIDAZOLE (Flagyl) 500 mg in sodium chloride (iso) IV 100 mL (COMPLETED) 500 mg, intravenous, Administer over 60 Minutes, Once, On Wed10/18/24 at 1645, For 1 dose, Do NOT give with alcohol or drug products with significant alcohol content., Suspected Indication (Select all that apply): Cellulitis, Skin and Soft Tissue, Dosing of this medication varies based on severity of illness. Does this patient have sepsis or concern for sepsis (probable or documented infection plus systemic manifestations of infection)? Yes, Indications: Cellulitis, Skin and Soft Tissue 171 (New Bag - Prov ider: Kendall Brownlee, TANA)1900 (Stopped - Provider: Kendall Brownlee RN) vancomycin (Vancocin) 1 g in sodium chloride 0.9% IV 200 mL (COMPLETED) 1 g, intravenous, at 200 mL/hr, Administer over 60 Minutes, Once, On Wed10/18/24 at 1640, For 1 dose, premix bag, Dosing of this medication varies based on severity of illness. Does this patient have sepsis or concern for sepsis (probable or documented infection plus systemic manifestations of infection)? Yes, Suspected Indication (Select all that apply): Cellulitis, Skin and Soft Tissue, Type of Therapy: Empiric, Indications: Cellulitis, Skin and Soft Tissue 1906 (New Bag - Prov ider: Roxy Mendez RN)2012 (Stopped - Provider: Enrike Barrios RN) FOR RECORDS PERTAINING TO PATIENTS WHO ARE [...] BE BASED ON THE PRIMARY CLINICAL RECORDS. [employer] [facility]. provides no warranty or guarantee of the accuracy or completeness of information in this document.
--- NOTE | 2025-01-29 06:53 | CT_ITS ---
EXAM: CT Chest Without Intravenous Contrast CLINICAL INDICATION: MULTIPLE LUNG NODULES TECHNIQUE: Axial computed tomography images of the chest without intravenous contrast. This CT exam was performed using one or more of the following dose reduction techniques: automated exposure control, adjustment of the mA and/or kV according to patient size, and/or use of iterative reconstruction technique. COMPARISON: CT Chest dated 07/24/2024 FINDINGS: LUNGS AND PLEURAL SPACES: Stable 10 mm ill-defined ground-glass nodule of the left upper lobe. Stable 4 mm subpleural nodule of the right lung base. Additional smaller pulmonary nodules are unchanged. No consolidation. No significant effusion. No pneumothorax. No new suspicious pulmonary nodules. HEART: Unremarkable. No cardiomegaly. No significant pericardial effusion. No significant coronary artery calcifications. BONES/JOINTS: Unremarkable. No acute fracture. SOFT TISSUES: Unremarkable. VASCULATURE: Unremarkable. No thoracic aortic aneurysm. LYMPH NODES: Unremarkable. No enlarged lymph nodes. CT/Chest without Contrast IMPRESSION: 1. No new suspicious pulmonary nodules. 2. Continue low-dose CT scan of the chest in 12 months is recommended. Reading Location: [id number]
== END | disposition home or self-care (01) ==
PROVIDERS: PCP Nurse Practitioner Family; Referring Provider Nurse Practitioner Acute Care; Visit Provider Nurse Practitioner Acute Care
DX: R91.8 Other nonspecific abnormal finding of lung field (principal)
CPT/HCPCS: 71250